=== PATIENT | female | born 1955 ===

== ENCOUNTER 2018-02-28 13:30 | Inpatient (IN) | payer OTHER ==
[2018-02-28 13:32] VITALS: BMI 17.4
[2018-02-28] MEDS ORDERED: Sodium Chloride 0.9% 1,000 ML IV STA ×2 (13:37→14:27)
[2018-02-28] MEDS ORDERED: Naloxone 0.4 mg/ml Inj (Adult) IVP STA (13:39)
--- NOTE | 2018-02-28 13:46 | ED PDOC ---
HPI: SOB/CHF/COPD Time Seen by Provider: 02/28/18 13:37 Chief Complaint (Nursing): Respiratory Distress Chief Complaint (Provider): Respiratory Distress History/Exam Limitations: physical impairment (unresponsive) Onset/Duration Of Symptoms: Hrs (prior to arrival) Additional Complaint(s): Yojana Peterson is a 62 y/o female with past medical history of cystic fibrosis who was brought to the ED by paramedics and was intubated in the field due to family finding her unresponsive. Patient was last seen normal last night. She has no history of trauma or ingestion; patient was in her normal state of health until last night. Past Medical History Reviewed: Historical Data, Nursing Documentation, Vital Signs Vital Signs: Last Vital Signs Temp Pulse 129 H 02/28/18 13:41 Resp 15 02/28/18 13:41 BP 124/87 02/28/18 13:41 Pulse Ox 100 02/28/18 14:31 - Medical History Other PMH: Cystic Fibrosis - Family History Family History: States: Unknown Family Hx - Allergies Allergies/Adverse Reactions: Allergies Allergy/AdvReac Type Severity Reaction Status Date / Time No Known Allergies Allergy Verified 02/28/18 13:36 Review of Systems Review Of Systems: ROS cannot be obtained secondary to pt's inabilty to answer questions. Physical Exam - Reviewed Nursing Documentation Reviewed: Yes Vital Signs Reviewed: Yes - Physical Exam Eye Exam: Positive for: PERRL (pupils 2mm equal bilaterally, slowly responsive) Cardiovascular/Chest: Positive for: Regular Rate, Rhythm. Negative for: Murmur Respiratory: Positive for: Rhonchi (bilaterally), Other (equal breath while intubated). Negative for: Wheezing Gastrointestinal/Abdominal: Positive for: Normal Exam, Soft. Negative for: Tenderness Back: Positive for: Normal Inspection. Negative for: L CVA Tenderness, R CVA Tenderness, Other (deformity) Extremity: Positive for: Other (no spontaneous movement of upper or lower extremities). Negative for: Tenderness, Pedal Edema, Deformity Neurologic/Psych: Negative for: Alert (unresponsive to painful or verbal stimuli ) - Laboratory Results Result Diagrams: 02/28/18 14:00 02/28/18 14:00 - ECG O2 Sat by Pulse Oximetry: 100 (RA) Pulse Ox Interpretation: Normal - Radiology X-Ray Interpretation: Infiltrates (Vanco Zosyn started) - Progress Re-evaluation Time: 14:28 Condition: Unchanged (Vent settings changed to reduce FiO2) - Critical Care Total Time (In Min): 30 Medical Decision Making Medical Decision Making: Time: 13:37 Initial Plan: --ABG --CT head without contrast --Alcohol serum --CMP --Drug screen --Troponin I --CBC with differential --Chest x-ray --Sodium Chloride 0.9% 1000 ml IV 1000 mls/hr --Narcan 0.4 mg IVP --Blood culture --Urine culture --Urinary catheter --Ventilator settings Scribe Attestation: Documented by Brett Black, acting as a scribe for Frederick Posey MD. Provider Scribe Attestation: All medical record entries made by the Scribe were at my direction and personally dictated by me. I have reviewed the chart and agree that the record accurately reflects my personal performance of the history, physical exam, medical decision making, and the department course for this patient. I have also personally directed, reviewed, and agree with the discharge instructions and disposition. Disposition - Clinical Impression Clinical Impression: Pneumonia, Hypoglycemia, Seizure disorder, Sepsis - Patient ED Disposition Is Patient to be Admitted: Yes Counseled Patient/Family Regarding: Studies Performed, Diagnosis - Disposition Disposition Time: 14:30 Condition: GUARDED Forms: GOOM ([place]) - Pt Status Changed To: Hospital Disposition Of: Inpatient - Admit Certification Admit to Inpatient:: After my assessment, the patient will require hospitalization for at least two midnights. This is because of the severity of symptoms shown, intensity of services needed, and/or the medical risk in this patient being treated as an outpatient. - POA Present On Arrival: None
[2018-02-28 14:02] LABS: ABG ALLEN TEST YES; ARTERIAL BLOOD GAS HCO3 35.1 mmol/L (21-28); ARTERIAL BLOOD GAS O2 SAT 100.4 % (95-98); ARTERIAL BLOOD GAS PCO2 58 mm/Hg (35-45); ARTERIAL BLOOD GAS PH 7.44 (7.35-7.45); ARTERIAL BLOOD GAS PO2 425 mm/Hg (80-100); ARTERIAL BLOOD GAS TCO2 41.2 mmol/L (22-28)
[2018-02-28 14:08] LABS: BASO % 0.1 % (0.0-2.0); EOS # 0.2 K/uL (0.0-0.7); EOS % 0.9 % (0.0-4.0); HEMOGLOBIN 11.9 g/dL (12.0-16.0); LYMPH # 2.4 K/uL (1.0-4.3); LYMPH % 10.1 % (20.0-40.0); MEAN CELL VOLUME 69.4 fl (81.0-99.0); MEAN CORPUSCULAR HEMOGLOBIN 21.4 pg (27.0-31.0); MEAN CORPUSCULAR HGB CONC 30.8 g/dL (33.0-37.0); MEAN PLATELET VOLUME 7.7 fl (7.2-11.7); MONO # 1.4 K/uL (0.0-0.8); MONO % 5.9 % (0.0-10.0); NEUT # 19.8 K/uL (1.8-7.0); RBC 5.55 Mil/uL (3.80-5.20); RED CELL DISTRIBUTION WIDTH 20.6 % (11.5-14.5); WHITE BLOOD COUNT 23.8 K/uL (4.8-10.8)
[2018-02-28 14:21] LABS: ALBUMIN 3.6 g/dL (3.5-5.0); ALT/SGPT 18 U/L (9-52); AST/SGOT 33 U/L (14-36); BLOOD UREA NITROGEN 17 mg/dl (7-17); CALCIUM 8.5 mg/dL (8.4-10.2); GFR AFRICAN-AMERICAN > 60; GFR NON-AFRICAN AMERICAN > 60
[2018-02-28] MEDS ORDERED: Piperacillin/Tazobact 3.375 GM in Sodium Chloride 0.9% 100 ML IVPB STA (14:24)
[2018-02-28] MEDS ORDERED: Naloxone 0.4 mg/ml Inj (Adult) ONE (14:26)
[2018-02-28] MEDS ORDERED: Piperacillin/Tazobact 3.375 gm Inj IVPB ONE (14:39)
--- NOTE | 2018-02-28 14:45 | RAD ---
Date of service: 02/28/2018 HISTORY: cough COMPARISON: 12/09/2011 FINDINGS: LUNGS: Diffuse bilateral alveolar opacity with liliya consolidation in the mid and lower right lung. Suspicious for bilateral pneumonia. PLEURA: There is slight blunting of both costophrenic angles which may reflect pleural effusion or chronic pleural thickening. CARDIOVASCULAR: Normal heart size. Endotracheal tube positioned with its tip approximately 4 cm above the tracheal mary. OSSEOUS STRUCTURES: No significant abnormalities. VISUALIZED UPPER ABDOMEN: Normal. OTHER FINDINGS: None. IMPRESSION: Bilateral infiltrates with liliya consolidation in the mid and lower right lung. Endotracheal tube appropriately positioned.
[2018-02-28] MEDS ORDERED: Albuterol-Ipratrop 3 mg / 0.5 (3 ml) UD ONE (14:48)
[2018-02-28] MEDS ORDERED: Propofol 10 mg/ml Inj (20 ML) IV ONE (14:55)
[2018-02-28] MEDS ORDERED: Propofol 10 mg/ml 1,000 MG/100 ML VIAL ONE (14:55)
[2018-02-28] MEDS ORDERED: Albuterol-Ipratrop 3 mg / 0.5 (3 ml) UD IH STA (14:56)
[2018-02-28 15:00] LABS: BARBITURATES, UR NEGATIVE (NEGATIVE); BENZODIAZEPINES, UR POSITIVE (NEGATIVE); OPIATES, UR NEGATIVE (NEGATIVE); PHENCYCLIDINE, UR NEGATIVE (NEGATIVE)
[2018-02-28] MEDS ORDERED: Propofol 10 mg/ml 1,000 MG/100 ML VIAL IV SCH (15:00)
--- NOTE | 2018-02-28 15:09 | CT ---
Date of service: 02/28/2018 PROCEDURE: CT HEAD WITHOUT CONTRAST. HISTORY: r/o bleed COMPARISON: None available. TECHNIQUE: Axial computed tomography images were obtained through the head/brain without intravenous contrast. Radiation dose: Total exam DLP = 1836.50 mGy-cm. This CT exam was performed using one or more of the following dose reduction techniques: Automated exposure control, adjustment of the mA and/or kV according to patient size, and/or use of iterative reconstruction technique. Please note that the examination is somewhat limited due to the use of helical technique, because of patient motion. FINDINGS: HEMORRHAGE: No intracranial hemorrhage. BRAIN: No mass effect or edema. No atrophy or chronic microvascular ischemic changes. VENTRICLES: Unremarkable. No hydrocephalus. CALVARIUM: Unremarkable. PARANASAL SINUSES: Minimal chronic left maxillary sinusitis. MASTOID AIR CELLS: Unremarkable as visualized. No inflammatory changes. OTHER FINDINGS: Gabriele tracheal tube noted IMPRESSION: No intracranial hemorrhage. Chronic left maxillary sinusitis. Gabriele tracheal tube noted. Limited examination as above.
--- NOTE | 2018-02-28 15:11 | CP.PCM.HP ---
History of Present Illness - History of Present Illness History of Present Illness: 62 year old female PMH cystic fibrosis?, idiopathic pulmonary fibrosis, HTN, IDDM, severe CHF/likely PAH?, chronic lower ext edema was found unresponsive at home by daughter who lives with her. Patient was last seen normal around 11 pm last night. Pt is currently intubated and sedated on propofol, history obtained by eldest and youngest daughters. Patient reportedly took her insulin and pills prior to bed, was found unresponsive, with secretions and foam around her mouth , and had urinated in the bed, EMS called. Patient BG 29, given 2 amps d50, now glucose 95. Normal renal function. Pt continued to be unresponsive, was intubated at the home and brought to ED. BP 124/87 HR 120-[address] head, no hemorrhage. WBC 23K, no bands reported yet, delayed normal renal fx CXR +consolidations/infiltrates RML/RLL, likely aspiration Pt to be admitted to ICU for Sepsis 2/2 likely aspiration pneumonia, hx cystic fibrosis. Vitals stable, judicious hydration. Will double cover for pseudomonas given sepsis and high risk of resistance given recurrent pulmonary infections for chronic IPF/CF. ROS: unable to be obtained at this time intubated sedated PMSH: cystic fibrosis?, idiopathic pulmonary fibrosis, HTN, IDDM, severe CHF/ likely PAH, lung bx FH: cancer SH: no ETOH, TOBACCO, IVDU NKDA Present on Admission - Present on Admission Any Indicators Present on Admission: No Past Patient History - Infectious Disease Hx of Infectious Diseases: None Meds Allergies/Adverse Reactions: Allergies Allergy/AdvReac Type Severity Reaction Status Date / Time No Known Allergies Allergy Verified 02/28/18 13:36 Physical Exam - Constitutional Additional comments: sedated. intubated. - Head Exam Head Exam: ATRAUMATIC, NORMOCEPHALIC - Eye Exam Eye Exam: EOMI, PERRL - ENT Exam ENT Exam: Mucous Membranes Moist Additional comments: intubated - Respiratory Exam Respiratory Exam: Decreased Breath Sounds, NORMAL BREATHING PATTERN. absent: Respiratory Distress - Cardiovascular Exam Cardiovascular Exam: RRR, +S1, +S2 - GI/Abdominal Exam GI & Abdominal Exam: Normal Bowel Sounds, Soft. absent: Organomegaly, Tenderness - Extremities Exam Extremities exam: Positive for: normal capillary refill, pedal pulses present - Back Exam Back exam: NORMAL INSPECTION. absent: rash noted - Neurological Exam Additional comments: sedated - Psychiatric Exam Additional comments: unable to assess at ths time - Skin Skin Exam: Dry, Warm Results - Vital Signs Recent Vital Signs: Last Vital Signs Temp Pulse 129 H 02/28/18 13:41 Resp 15 02/28/18 13:41 BP 124/87 02/28/18 13:41 Pulse Ox 100 02/28/18 14:42 - Labs Result Diagrams: 02/28/18 14:00 02/28/18 14:00 Labs: Laboratory Results - last 24 hr 02/28/18 02/28/18 02/28/18 13:38 14:00 14:00 WBC 23.8 H RBC 5.55 H Hgb 11.9 L Hct 38.5 MCV 69.4 L MCH 21.4 L MCHC 30.8 L RDW 20.6 H Plt Count 407 H MPV 7.7 Neut % (Auto) 83.0 H Lymph % (Auto) 10.1 L [place] % (Auto) 5.9 Eos % (Auto) 0.9 Baso % (Auto) 0.1 Neut # (Auto) 19.8 H Lymph # (Auto) 2.4 [place] # (Auto) 1.4 H Eos # (Auto) 0.2 Baso # (Auto) 0.0 pCO2 58 H pO2 425 H HCO3 35.1 H ABG pH 7.44 ABG Total CO2 41.2 H ABG O2 Saturation 100.4 H ABG Base Excess 13.0 H Jorge Test Yes ABG Potassium 4.1 A-a O2 Difference 216.0 Sodium 137.0 141 Chloride 103.0 97 L Glucose 103 Lactate 1.2 Vent Mode Prvc/ac Mechanical Rate 12 FiO2 100.0 Tidal Volume 400 Potassium 3.9 Carbon Dioxide 34 H Anion Gap 14 BUN 17 Creatinine 0.4 L Est GFR ( Amer) > 60 Est GFR (Non-Af Amer) > 60 Random Glucose 96 Calcium 8.5 Total Bilirubin 0.5 AST 33 ALT 18 Alkaline Phosphatase 77 Troponin I 0.0360 Total Protein 7.2 Albumin 3.6 Globulin 3.6 Albumin/Globulin Ratio 1.0 Arterial Blood Potassium 4.1 Urine Opiates Screen Urine Methadone Screen Ur Barbiturates Screen Ur Phencyclidine Scrn Ur Amphetamines Screen U Benzodiazepines Scrn U Oth Cocaine Metabols U Cannabinoids Screen Alcohol, Quantitative < 10 07/22/18 14:20 WBC RBC Hgb Hct MCV MCH MCHC RDW Plt Count MPV Neut % (Auto) Lymph % (Auto) [place] % (Auto) Eos % (Auto) Baso % (Auto) Neut # (Auto) Lymph # (Auto) [place] # (Auto) Eos # (Auto) Baso # (Auto) pCO2 pO2 HCO3 ABG pH ABG Total CO2 ABG O2 Saturation ABG Base Excess Jorge Test ABG Potassium A-a O2 Difference Sodium Chloride Glucose Lactate Vent Mode Mechanical Rate FiO2 Tidal Volume Potassium Carbon Dioxide Anion Gap BUN Creatinine Est GFR ( Amer) Est GFR (Non-Af Amer) Random Glucose Calcium Total Bilirubin AST ALT Alkaline Phosphatase Troponin I Total Protein Albumin Globulin Albumin/Globulin Ratio Arterial Blood Potassium Urine Opiates Screen Negative Urine Methadone Screen Negative Ur Barbiturates Screen Negative Ur Phencyclidine Scrn Negative Ur Amphetamines Screen Negative U Benzodiazepines Scrn Positive U Oth Cocaine Metabols Negative U Cannabinoids Screen Negative Alcohol, Quantitative Assessment & Plan - Assessment and Plan (Free Text) Plan: 62 year old female PMH cystic fibrosis?, idiopathic pulmonary fibrosis, HTN, IDDM, severe CHF/likely PAH?, chronic lower ext edema was found unresponsive at home by daughter who lives with her. Patient was last seen normal around 11 pm last night. Pt is currently intubated and sedated on propofol, history obtained by eldest and youngest daughters. Patient reportedly took her insulin and pills prior to bed, was found unresponsive, with secretions and foam around her mouth , and had urinated in the bed, EMS called. Patient BG 29, given 2 amps d50, now glucose 95. Normal renal function. Pt continued to be unresponsive, was intubated at the home and brought to ED. BP 124/87 HR 120-[address] head, no hemorrhage. WBC 23K, no bands reported yet, delayed normal renal fx CXR +consolidations/infiltrates RML/RLL, likely aspiration Pt to be admitted to ICU for Sepsis 2/2 likely aspiration pneumonia, hx cystic fibrosis. Vitals stable, judicious hydration. Will double cover for pseudomonas given sepsis and high risk of resistance given recurrent pulmonary infections for chronic IPF/CF. Acute Hypoxic Respiratory Failure with Hypoxic Metabolic Encephalopathy Suspected Aspiration Pneumonia Sepsis Seizure Hypoglycemia Hx CHF, likely PAH IDDM HTN Acute Hypoxic Respiratory Failure with Hypoxic Metabolic Encephalopathy Suspected Aspiration Pneumonia Idiopathic Pulmonary Fibrosis, Cystic Fibrosis? Sepsis Intubated 14/400/5/60% adjusted for repeat ABG in ED, ABG/CXR qAM Propofol for sedation Sedation holiday daily per ICU, protonix Given hx CF/IPF double cover pseudomonas for high risk resistance/recurrent pna Zosyn, Gent 5 mg/kg/day, Vancomycin 15 mg/kg EKG with QTc prolongation, avoid Fluoroquinolones Bronchodilators PRN Cont Nintendanib for IPF ECHO pending pt on chronic low dose steroids for IPF NPO, maintenance fluids D5 1/2NS + 20 KCl, gentle +angela, OGT Urine and Blood Cx pending Seizure Hypoglycemia Seizures likely secondary to hypoglycemia with possible hypoxic metabolic encephalopathy? consider status epilepticus, pt on Propofol (began to fight vent) as well as CVA. on Propofol discussed with Dr. Montgomery, wait to initiate antiepileptics, EEG and MRI brain ordered. Glucose controlled, pt on D5 1/2 NS + 20KCl for maintenance fluids, ACHS checks Hx CHF, likely PAH 2/2 IPF/CF? HTN, HLD Hx AFIB? Continue Sildenafil, Digoxin (low), Cardizem, on ASA 81 mg daily, Atorvastatin Careful hydration, note pt has chronic LE edema EKG: sinus tach rate 153, QTc 155 ECHO pending CTA neg for PE IDDM secondary to steroid use? Patient was found hypoglycemic. ACHS checks, will add sliding scale coverage only at this time hold long acting and oral agents at this time. normal renal function. DVT ppx Lovenox Home Meds Held: Nesina (DM), Pletal, Remeron, Lasix, Gabapentin, Metformin, Lantus
--- NOTE | 2018-02-28 15:19 | CP.PCM.CON ---
History of Present Illness - History of Present Illness History of Present Illness: 62 YOF found to be unresponsive by her daughter at home. Daughter was in the same house, pt also had urinary incontinence which she never had before. EMT were called and they intubated her and BS was in 20s, pt was given, D50, twice and in ER BS was in 90s. Pts ;and showed leukocytosis and CXR showed bilateral infiltrates . She has h/o pulm fibrosis and has been on steroids for 7 years and since then she has bee diabetic. No head trauma, CT head was also negative . Review of Systems - Review of Systems Systems not reviewed;Unavailable: Intubated - Constitutional Constitutional: Fatigue - EENT Eyes: Decreased Night Vision - Cardiovascular Cardiovascular: As Per HPI - Respiratory Respiratory: Dyspnea - Gastrointestinal Gastrointestinal: As Per HPI Past Patient History - Infectious Disease Hx of Infectious Diseases: None - Past Medical History & Family History Past Medical History?: Yes - Past Social History Smoking Status: Never Smoked Chewing Tobacco Use: No Alcohol: Social Home Situation {Lives}: With Family - CARDIAC Hx Cardiac Disorders: Yes Hx Hypertension: Yes Meds Allergies/Adverse Reactions: Allergies Allergy/AdvReac Type Severity Reaction Status Date / Time No Known Allergies Allergy Verified 02/28/18 13:36 - Medications Medications: Current Medications Sodium Chloride (Sodium Chloride 0.9%) 1,000 mls @ 100 mls/hr IV .Q10H STA Stop: 02/28/18 23:36 Vancomycin HCl 1 gm/ Sodium (Chloride) 250 mls @ 166.667 mls/hr IVPB STAT STA PRN Reason: Protocol Stop: 02/28/18 15:52 Piperacillin Sod/Tazobactam (Sod 3.375 gm/ Sodium Chloride) 100 mls @ 100 mls/ hr IVPB STAT STA PRN Reason: Protocol Stop: 02/28/18 15:23 Sodium Chloride (Sodium Chloride 0.9%) 1,000 mls @ 250 mls/hr IV .Q4H STA Stop: 02/28/18 18:26 Last Admin: 02/28/18 15:01 Dose: 250 mls/hr Propofol (Diprivan) 1,000 mg in 100 mls @ 1.17 mls/hr IV .Q24H JANIE; 5 MCG/KG/ MIN PRN Reason: Protocol Stop: 03/01/18 14:56 Physical Exam - Head Exam Head Exam: ATRAUMATIC - Eye Exam Eye Exam: Normal appearance - Neck Exam Neck exam: Positive for: Full Rom - Respiratory Exam Respiratory Exam: Wheezes - Cardiovascular Exam Cardiovascular Exam: Tachycardia - GI/Abdominal Exam GI & Abdominal Exam: Soft Results - Vital Signs Recent Vital Signs: Last Vital Signs Temp Pulse 129 H 02/28/18 13:41 Resp 15 02/28/18 13:41 BP 124/87 02/28/18 13:41 Pulse Ox 100 02/28/18 14:42 - Labs Result Diagrams: 02/28/18 14:00 02/28/18 14:00 Labs: Laboratory Results - last 24 hr 02/28/18 02/28/18 02/28/18 13:38 14:00 14:00 WBC 23.8 H RBC 5.55 H Hgb 11.9 L Hct 38.5 MCV 69.4 L MCH 21.4 L MCHC 30.8 L RDW 20.6 H Plt Count 407 H MPV 7.7 Neut % (Auto) 83.0 H Lymph % (Auto) 10.1 L [place] % (Auto) 5.9 Eos % (Auto) 0.9 Baso % (Auto) 0.1 Neut # (Auto) 19.8 H Lymph # (Auto) 2.4 [place] # (Auto) 1.4 H Eos # (Auto) 0.2 Baso # (Auto) 0.0 pCO2 58 H pO2 425 H HCO3 35.1 H ABG pH 7.44 ABG Total CO2 41.2 H ABG O2 Saturation 100.4 H ABG Base Excess 13.0 H Jorge Test Yes ABG Potassium 4.1 A-a O2 Difference 216.0 Sodium 137.0 141 Chloride 103.0 97 L Glucose 103 Lactate 1.2 Vent Mode Prvc/ac Mechanical Rate 12 FiO2 100.0 Tidal Volume 400 Potassium 3.9 Carbon Dioxide 34 H Anion Gap 14 BUN 17 Creatinine 0.4 L Est GFR ( Amer) > 60 Est GFR (Non-Af Amer) > 60 Random Glucose 96 Calcium 8.5 Total Bilirubin 0.5 AST 33 ALT 18 Alkaline Phosphatase 77 Troponin I 0.0360 Total Protein 7.2 Albumin 3.6 Globulin 3.6 Albumin/Globulin Ratio 1.0 Arterial Blood Potassium 4.1 Urine Opiates Screen Urine Methadone Screen Ur Barbiturates Screen Ur Phencyclidine Scrn Ur Amphetamines Screen U Benzodiazepines Scrn U Oth Cocaine Metabols U Cannabinoids Screen Alcohol, Quantitative < 10 02/28/18 14:20 WBC RBC Hgb Hct MCV MCH MCHC RDW Plt Count MPV Neut % (Auto) Lymph % (Auto) [place] % (Auto) Eos % (Auto) Baso % (Auto) Neut # (Auto) Lymph # (Auto) [place] # (Auto) Eos # (Auto) Baso # (Auto) pCO2 pO2 HCO3 ABG pH ABG Total CO2 ABG O2 Saturation ABG Base Excess Jorge Test ABG Potassium A-a O2 Difference Sodium Chloride Glucose Lactate Vent Mode Mechanical Rate FiO2 Tidal Volume Potassium Carbon Dioxide Anion Gap BUN Creatinine Est GFR ( Amer) Est GFR (Non-Af Amer) Random Glucose Calcium Total Bilirubin AST ALT Alkaline Phosphatase Troponin I Total Protein Albumin Globulin Albumin/Globulin Ratio Arterial Blood Potassium Urine Opiates Screen Negative Urine Methadone Screen Negative Ur Barbiturates Screen Negative Ur Phencyclidine Scrn Negative Ur Amphetamines Screen Negative U Benzodiazepines Scrn Positive U Oth Cocaine Metabols Negative U Cannabinoids Screen Negative Alcohol, Quantitative Assessment & Plan - Assessment and Plan (Free Text) Assessment: Respiratory failure: Aspiration PNA PNA On Vanco and zosyn Hyoglycemia h/o DM PNA Pulmonary fibrosis DM Plan: Intubated Will check ABG and will adjust the vent setting On Vancomycin and Zosyn IVf: RL at 75 cc/h DVT prophylaxis : lovenox Blood culture and urine culture Admit to ICU, pt was seen in ER.
[2018-02-28] MEDS ORDERED: Vancomycin 1 g Inj ONE (16:18)
[2018-02-28] MEDS ORDERED: Albuterol-Ipratrop 3 mg / 0.5 (3 ml) UD INH PRN (16:19)
[2018-02-28] MEDS ORDERED: Potassium Ch 20mEq in D5-1/2NS 1,000 ML IV SCH (16:30)
[2018-02-28] MEDS ORDERED: Iodixanol 320 MG/ML 100 ML BOTTLE IV ONE (16:33)
[2018-02-28] MEDS ORDERED: Sodium Chloride 0.9% 50 ML IV ONE (16:33)
[2018-02-28] MEDS ORDERED: Digoxin 250 mcg (0.25 mg) Tab PO SCH ×2 (16:45→21:10)
[2018-02-28] MEDS ORDERED: Dextrose 50% SYRINGE Inj (50 ml) ONE ×2 (17:10→21:45)
--- NOTE | 2018-02-28 17:33 | CT ---
Date of service: 02/28/2018 PROCEDURE: CT Chest with contrast (Pulmonary Angiogram) HISTORY: tachycardia hypoxia COMPARISON: 12/15/2011 TECHNIQUE: Axial computed tomography images were obtained of the chest in the pulmonary arterial phase of enhancement. Coronal and sagittal reformatted images were created and reviewed. Intravenous contrast dose: 90 mL Visipaque 320 Radiation dose: Total exam DLP = 242.75 mGy-cm. This CT exam was performed using one or more of the following dose reduction techniques: Automated exposure control, adjustment of the mA and/or kV according to patient size, and/or use of iterative reconstruction technique. FINDINGS: PULMONARY ARTERIES: Unremarkable. No pulmonary embolism. AORTA: No acute findings. No thoracic aortic aneurysm. LUNGS: Coarse chronic interstitial change with associated alveolar opacity is noted at both lung bases with associated varicoid bronchiectasis involving the lower lobes, lingula and right middle lobe. This has progressed substantially when compared to the prior examination. This is nonspecific. This may reflect chronic interstitial disease. Cannot rule out superimposed acute pneumonitis. There is interlobular septal thickening noted in both lung apices. There is a 1.5 cm partially solid ground-glass opacity in the right apex. There is 2nd 1.8 cm opacity with central cavitation also in the right apex. Follow-up is advised to exclude neoplasm. No other lung masses are identified. PLEURAL SPACES: Very small right pleural effusion. HEART: Normal heart size. Endotracheal tube terminates approximately 2.8 cm above the tracheal mary. There is no evidence of ascending thoracic aortic aneurysm. There is dilatation of the main pulmonary artery to a diameter of 3.4 cm. This may correlate with pulmonary arterial hypertension. LYMPH NODES: No lymphadenopathy. BONES, CHEST WALL: Mild anterior wedge compression deformity of the T11 vertebra of indeterminate chronicity, though this is new since prior examination of 29/07. No other fracture identified. OTHER FINDINGS: Unremarkable. IMPRESSION: No evidence of pulmonary embolism. Extensive coarse chronic interstitial infiltrate with associated varicoid bronchiectasis in both lower lobes. Possible superimposed alveolar process. Consider acute pneumonia. Partially solid ground-glass opacity in right lung apex and 2nd cavitating opacity in the right lung apex. Nonspecific. No other cavitating lesions are appreciated elsewhere. Endotracheal tube noted.
[2018-02-28] MEDS ORDERED: Propofol 10 mg/ml 0 MG/0 ML VIAL ONE (18:36)
[2018-02-28] MEDS ORDERED: Chlorhexidine Gluconate 1 APPL/PKT TP ONE (18:41)
[2018-02-28 20:00] LABS: VENOUS BLOOD GAS BASE EXCESS 11.2 mmol/L (0.0-2.0); VENOUS BLOOD GAS PCO2 49 mmHg (40-60); VENOUS BLOOD GAS PO2 103 mm/Hg (30-55); VENOUS BLOOD PH 7.48 (7.32-7.43)
[2018-02-28] MEDS ORDERED: Dextrose 50% SYRINGE Inj (50 ml) IVP ONE (21:50)
[2018-02-28] MEDS ORDERED: Magnesium Sulfate 1 GM in Dextrose 5% In Water 100 ML IVPB ONE (22:03)
[2018-02-28] MEDS ORDERED: Potassium Chloride 20 mEq 100 ML IVPB ONE (22:04)
[2018-02-28] MEDS ORDERED: Lactated Ringer's 500 ML IV SCH (22:15)
[2018-02-28] MEDS: Insulin Lispro (humaLOG) 100 Units/ml Inj SC SCH (22:41)
[2018-02-28] MEDS: Potassium Ch 20mEq in D5-1/2NS 1,000 ML IV SCH (22:58)
[2018-02-28] MEDS: Digoxin 250 mcg (0.25 mg) Tab PO SCH (23:11)
[2018-02-28] MEDS: Sildenafil 20 MG TAB PO SCH (23:25)
[2018-02-28] MEDS ORDERED: DOPamine 400mg/250ml D5W 400 MG/250 ML BAG IV ONE (23:50)
[2018-03-01] MEDS ORDERED: Dextrose 50% SYRINGE Inj (50 ml) IVP ONE ×5 (00:06→18:22)
[2018-03-01] MEDS: Potassium Ch 20mEq in D5-1/2NS 1,000 ML IV SCH ×3 (00:18→12:27)
[2018-03-01 05:01] LABS: ABG ALLEN TEST YES; ARTERIAL BLOOD GAS HCO3 33.3 mmol/L (21-28); ARTERIAL BLOOD GAS HEMOGLOBIN 10.4 g/dL (11.7-17.4); ARTERIAL BLOOD GAS O2 CAPACITY 14.2 mL/dL (16-24); ARTERIAL BLOOD GAS O2 CONTENT 14.2 ML/dL (15-23); ARTERIAL BLOOD GAS O2 SAT 99.7 % (95-98); ARTERIAL BLOOD GAS PCO2 57 mm/Hg (35-45); ARTERIAL BLOOD GAS PH 7.42 (7.35-7.45); ARTERIAL BLOOD GAS PO2 117 mm/Hg (80-100); ARTERIAL BLOOD GAS TCO2 38.7 mmol/L (22-28)
[2018-03-01 05:41] LABS: BASO # 0.1 K/uL (0.0-0.2); BASO % 0.3 % (0.0-2.0); EOS # 0.2 K/uL (0.0-0.7); EOS % 0.9 % (0.0-4.0); HEMOGLOBIN 10.5 g/dL (12.0-16.0); LYMPH % 18.7 % (20.0-40.0); MEAN CELL VOLUME 69.6 fl (81.0-99.0); MEAN CORPUSCULAR HEMOGLOBIN 21.6 pg (27.0-31.0); MEAN PLATELET VOLUME 7.9 fl (7.2-11.7); MONO # 1.4 K/uL (0.0-0.8); MONO % 6.6 % (0.0-10.0); NEUT # 15.6 K/uL (1.8-7.0); NEUT % 73.5 % (50.0-75.0); NRBC % 0.1 % (0.0-0.0); RBC 4.87 Mil/uL (3.80-5.20); RED CELL DISTRIBUTION WIDTH 20.5 % (11.5-14.5); WHITE BLOOD COUNT 21.2 K/uL (4.8-10.8)
[2018-03-01 06:09] LABS: ALBUMIN 3.1 g/dL (3.5-5.0); ALT/SGPT 18 U/L (9-52); AST/SGOT 40 U/L (14-36); BLOOD UREA NITROGEN 11 mg/dl (7-17); CALCIUM 7.9 mg/dL (8.4-10.2); GFR AFRICAN-AMERICAN > 60; GFR NON-AFRICAN AMERICAN > 60
[2018-03-01] MEDS ORDERED: Dextrose 50% SYRINGE Inj (50 ml) ONE ×2 (06:20→12:03)
[2018-03-01] MEDS: Insulin Lispro (humaLOG) 100 Units/ml Inj SC SCH ×3 (06:53→22:00)
--- NOTE | 2018-03-01 07:49 | RAD ---
Date of service: 03/01/2018 HISTORY: intubated COMPARISON: Portable chest 02/28/2018. FINDINGS: LUNGS: Endotracheal tube is unchanged in position, terminating approximately 4 cm above the mary. Heterogeneous infiltrates are unchanged bilaterally persisting at the mid to inferior right lung zones and predominately the left inferior lung zone. PLEURA: Liver right pleural effusions not excluded. None is clearly evident at the left. CARDIOVASCULAR: Stable cardiac silhouette. No definite pulmonary vascular congestion. OSSEOUS STRUCTURES: No significant abnormalities. VISUALIZED UPPER ABDOMEN: Nasogastric tube terminates in the left upper quadrant abdomen in the interval. OTHER FINDINGS: None. IMPRESSION: Stable heterogeneous infiltrates remain prominent at the right and [id number] the left. Trace right pleural effusion in question. Interval NG tube placement in advanced to left upper quadrant abdomen.
[2018-03-01] MEDS: Sildenafil 20 MG TAB PO SCH ×3 (08:40→23:50)
[2018-03-01] MEDS: Digoxin 250 mcg (0.25 mg) Tab PO SCH (08:40)
[2018-03-01] MEDS: Enoxaparin 40 mg Syringe SC SCH (08:43)
[2018-03-01] MEDS ORDERED: Pneumococcal 23-Valent Vaccine IM ONE (09:00)
[2018-03-01] MEDS ORDERED: methylPREDNISolone 60 MG in Sodium Chloride 0.9% 50 ML IVPB SCH (10:00)
--- NOTE | 2018-03-01 14:18 | CP.PCM.PN ---
Subjective - Date & Time of Evaluation Date of Evaluation: 03/01/18 Time of Evaluation: 12:00 - Subjective Subjective: Pt is intubated on Vent afebrile still with hypoglycemic episodes unresponsive even to pain accdg to daughter at bedside , -noticed occ extremitiy movement Pt is Full Code , surrogate decision maker - daughter Gaston Objective - Vital Signs/Intake and Output Vital Signs (last 24 hours): Temp Pulse Resp BP Pulse Ox 98.4 F 118 H 18 84/59 L 100 03/01/18 12:00 03/01/18 12:25 03/01/18 12:00 03/01/18 12:25 03/01/18 12:00 Intake and Output: 03/01/18 03/01/18 06:59 18:59 Intake Total 50 Balance 50 - Medications Medications: Current Medications Acetaminophen (Tylenol 325mg Tab) 650 mg PO Q6H PRN PRN Reason: Fever >100.4 F Albuterol/Ipratropium (Duoneb 3 Mg/0.5 Mg (3 Ml) Ud) 3 ml INH RQ4 PRN PRN Reason: Shortness of Breath Last Admin: 03/01/18 04:53 Dose: 3 ml Aspirin (Aspirin Chewable) 81 mg PO DAILY [facility] Last Admin: 03/01/18 08:41 Dose: 81 mg Atorvastatin Calcium (Lipitor) 10 mg PO DAILY [facility] Last Admin: 03/01/18 08:41 Dose: 10 mg Digoxin (Lanoxin) 0.25 mg PO DAILY [facility] Last Admin: 03/01/18 08:40 Dose: 0.25 mg Diltiazem HCl (Cardizem) 60 mg PO Q6 JANIE Last Admin: 03/01/18 12:25 Dose: Not Given Enoxaparin Sodium (Lovenox) 40 mg SC DAILY [facility] PRN Reason: Protocol Last Admin: 03/01/18 08:43 Dose: 40 mg Ferrous Sulfate (Feosol) 325 mg PO DAILY [facility] Last Admin: 03/01/18 08:40 Dose: 325 mg Home Med (Nintedanib Esylate [Ofev]) 150 mg PO DAILY [facility] Propofol (Diprivan) 1,000 mg in 100 mls @ 1.17 mls/hr IV .Q24H JANIE; 5 MCG/KG/ MIN PRN Reason: Protocol Stop: 03/01/18 14:56 Last Admin: 02/28/18 15:00 Dose: 1.17 mls/hr Gentamicin Sulfate 200 mg/ (Sodium Chloride) 105 mls @ 100.106 mls/hr IVPB DAILY JANIE PRN Reason: Protocol Last Admin: 02/28/18 22:58 Dose: 100.106 mls/hr Potassium Chloride/Dextrose/Sod Cl (Potassium Chl 20 Meq In D5-1/2ns) 1,000 mls @ 75 mls/hr IV .[id number] [facility] Stop: 03/01/18 16:20 Last Admin: 03/01/18 09:27 Dose: 75 mls/hr Lactated Ringer's (Lactated Ringer's 500ml) 500 mls @ 500 mls/hr IV .Q1H [facility] Last Admin: 03/01/18 06:30 Dose: 500 mls/hr Potassium Chloride/Dextrose/Sod Cl (Potassium Chl 20 Meq In D5-1/2ns) 1,000 mls @ 125 mls/hr IV .Q8H [facility] Stop: 03/02/18 00:07 Last Admin: 03/01/18 12:27 Dose: Not Given Vancomycin HCl 500 mg/ Sodium (Chloride) 100 mls @ 100 mls/hr IVPB Q12 JANIE PRN Reason: Protocol Last Admin: 03/01/18 13:07 Dose: 100 mls/hr Clindamycin Phosphate (Cleocin) 600 mg in 50 mls @ 50 mls/hr IVPB Q8 JANIE PRN Reason: Protocol Insulin Human Lispro (Humalog) 0 units SC ACHS JANIE PRN Reason: Protocol Last Admin: 03/01/18 12:26 Dose: Not Given Methylprednisolone (Solu-Medrol) 60 mg IV Q6 [facility] Last Admin: 03/01/18 09:28 Dose: 60 mg Pantoprazole Sodium (Protonix Inj) 40 mg IVP DAILY [facility] Last Admin: 03/01/18 08:38 Dose: 40 mg Sildenafil Citrate (Revatio) 20 mg PO TID [facility] Last Admin: 03/01/18 13:09 Dose: 20 mg - Labs Labs: 03/01/18 05:26 03/01/18 05:26 - Constitutional Appears: No Acute Distress, Chronically Ill, Other (Intubated on Vent, unresponsive) - Head Exam Head Exam: NORMAL INSPECTION, NORMOCEPHALIC - Eye Exam Eye Exam: Normal appearance, PERRL - ENT Exam ENT Exam: Mucous Membranes Dry, Normal External Ear Exam - Respiratory Exam Respiratory Exam: Rales, Rhonchi, NORMAL BREATHING PATTERN Additional comments: Intubated on Mech Vent - Cardiovascular Exam Cardiovascular Exam: REGULAR RHYTHM, +S1, +S2 - GI/Abdominal Exam GI & Abdominal Exam: Soft, Normal Bowel Sounds - Psychiatric Exam Additional comments: unresponsive to pain - Skin Skin Exam: Dry, Normal Color Assessment and Plan - Assessment and Plan (Free Text) Assessment: 62 year old female PMH cystic fibrosis?, idiopathic pulmonary fibrosis, HTN, IDDM, severe CHF/likely PAH?, chronic lower ext edema was found unresponsive at home by daughter who lives with her. Patient was last seen normal around 11 pm the night before admission. Pt is currently intubated - history obtained from eldest and youngest daughters. Patient reportedly took her insulin and pills prior to bed, was found unresponsive, with secretions and foam around her mouth, and had urinated in the bed, EMS called. Patient BG 29, given 2 amps d50. Normal renal function. Pt continued to be unresponsive, was intubated at the home and brought to ED. CT head: no hemorrhage. WBC 23K normal renal fx CXR +consolidations/infiltrates RML/RLL, likely aspiration 1. Acute Hypoxic Respiratory Failure , Intubated on Vent - Pt remains intubated , [facility] -does not respond to pain however pupils reactive to light - Pulmonary consult - Dr Ledesma 2. Metabolic Encephalopathy due to prolonged Hypoglycemia monitor glucose closely D50 prn IVF start Tube feeding 3. Sepsis ( POA) Suspected Aspiration Pneumonia - cont IV Zosyn, genta, Vanco -Pulm consult 4. Idiopathic Pulmonary Fibrosis, Cystic Fibrosis Cont Nintendanib for IPF ECHO pending pt on chronic low dose steroids for IPF Continue Sildenafil, Digoxin (low), Cardizem, on ASA 81 mg daily, Atorvastatin Careful hydration, note pt has chronic LE edema EKG: sinus tach rate 153, QTc 155 CTA neg for PE 5. Seizure likely sec to Hypoglycemia Neurology consult: Dr. Montgmoery, wait to initiate antiepileptics, EEG and MRI brain ordered. 6. DM type II - hold all DM meds DVT ppx Lovenox
[2018-03-01] MEDS: Clindamycin 600mg/50ml D5W 600 MG/50 ML VIAL IVPB SCH ×2 (14:57→18:26)
--- NOTE | 2018-03-01 15:52 | CP.PCM.CON ---
History of Present Illness - History of Present Illness History of Present Illness: Pulmonary consult in ICU unit for a 62 y/o F, Hx of Pulmonary Fibrosis on Steroids for 7 yrs, Cystic Fibrosis, CHF, DMII, Seizure, [facility] for evaluation of respiratory distress while at home hrs [employer], found by daughter, associated to unresponsivenesses, with urinary incontinence and no improvement. Worsening symptoms: Also found by Paramedics with BS in the 20's, Pt was given D50 2 amps, Ketamine 75 mg, EET was placed prior to arrival to hospital, as per EMS, Pt was unresponsive with agonal breathing. No aggravated factor. As per daughter; Last time in her normal base line was night [employer], Pt had No Fever, chills, n/v/d, abdominal pain, CP, but with new onset of urinary incontinence on DOA, no sick contact, no recent travel out of [facility]. CT Chest: Extensive chronic interstitial infiltrate with varicoid bronchiectasis b/l lower lobes, consider acute PNA. Partially solid ground glass opacity R lung apex and 2nd cavitating opacity R upper lung apex. Review of Systems - Review of Systems Systems not reviewed;Unavailable: Acuity of Condition, Intubated Past Patient History - Infectious Disease Hx of Infectious Diseases: None - Past Medical History & Family History Past Medical History?: Yes Pertinent Family History: Unknown - Past Social History Smoking Status: Never Smoked Alcohol: None Drugs: Denies Home Situation {Lives}: With Family - CARDIAC Hx Cardiac Disorders: Yes (CAD) Hx Hypercholesterolemia: Yes Hx Hypertension: Yes - PULMONARY Hx Respiratory Disorders: Yes Hx Pneumonia: Yes Other/Comment: Pulmonary fibrosis - NEUROLOGICAL Hx Neurological Disorder: Yes Hx Seizures: Yes (per patients daughter, pt says "she's been having seizures") - HEENT Hx HEENT Problems: No - RENAL Hx Chronic Kidney Disease: No - ENDOCRINE/METABOLIC Hx Endocrine Disorders: Yes Hx Diabetes Mellitus Type 2: Yes - HEMATOLOGICAL/ONCOLOGICAL Hx Blood Disorders: Yes Hx Anemia: Yes - INTEGUMENTARY Hx Dermatological Problems: No - MUSCULOSKELETAL/RHEUMATOLOGICAL Hx Musculoskeletal Disorders: Yes Hx Falls: Yes - GASTROINTESTINAL Hx Gastrointestinal Disorders: Yes Hx Gastroesophageal Reflux: Yes - GENITOURINARY/GYNECOLOGICAL Hx Genitourinary Disorders: No - PSYCHIATRIC Hx Psychophysiologic Disorder: Yes Hx Anxiety: Yes Hx Depression: Yes Hx Substance Use: No - SURGICAL HISTORY Hx Surgeries: Yes Hx Section: Yes (x3) Hx Tonsillectomy: Yes - ANESTHESIA Hx Anesthesia: Yes Hx Anesthesia Reactions: No Hx Malignant Hyperthermia: No Meds Allergies/Adverse Reactions: Allergies Allergy/AdvReac Type Severity Reaction Status Date / Time No Known Allergies Allergy Verified 02/28/18 13:36 - Medications Medications: Current Medications Acetaminophen (Tylenol 325mg Tab) 650 mg PO Q6H PRN PRN Reason: Fever >100.4 F Albuterol/Ipratropium (Duoneb 3 Mg/0.5 Mg (3 Ml) Ud) 3 ml INH RQ4 PRN PRN Reason: Shortness of Breath Last Admin: 03/01/18 04:53 Dose: 3 ml Aspirin (Aspirin Chewable) 81 mg PO DAILY [facility] Last Admin: 03/01/18 08:41 Dose: 81 mg Atorvastatin Calcium (Lipitor) 10 mg PO DAILY [facility] Last Admin: 03/01/18 08:41 Dose: 10 mg Digoxin (Lanoxin) 0.25 mg PO DAILY [facility] Last Admin: 03/01/18 08:40 Dose: 0.25 mg Diltiazem HCl (Cardizem) 60 mg PO Q6 [facility] Last Admin: 03/01/18 12:25 Dose: Not Given Enoxaparin Sodium (Lovenox) 40 mg SC DAILY [facility] PRN Reason: Protocol Last Admin: 03/01/18 08:43 Dose: 40 mg Ferrous Sulfate (Feosol) 325 mg PO DAILY [facility] Last Admin: 03/01/18 08:40 Dose: 325 mg Home Med (Nintedanib Esylate [Ofev]) 150 mg PO DAILY [facility] Gentamicin Sulfate 200 mg/ (Sodium Chloride) 105 mls @ 100.106 mls/hr IVPB DAILY [facility] PRN Reason: Protocol Last Admin: 03/01/18 14:54 Dose: 100.106 mls/hr Potassium Chloride/Dextrose/Sod Cl (Potassium Chl 20 Meq In D5-1/2ns) 1,000 mls @ 75 mls/hr IV .[id number] [facility] Stop: 03/01/18 16:20 Last Admin: 03/01/18 09:27 Dose: 75 mls/hr Lactated Ringer's (Lactated Ringer's 500ml) 500 mls @ 500 mls/hr IV .Q1H [facility] Last Admin: 03/01/18 06:30 Dose: 500 mls/hr Potassium Chloride/Dextrose/Sod Cl (Potassium Chl 20 Meq In D5-1/2ns) 1,000 mls @ 125 mls/hr IV .Q8H [facility] Stop: 03/02/18 00:07 Last Admin: 03/01/18 12:27 Dose: Not Given Vancomycin HCl 500 mg/ Sodium (Chloride) 100 mls @ 100 mls/hr IVPB Q12 [facility]ANIE PRN Reason: Protocol Last Admin: 03/01/18 13:07 Dose: 100 mls/hr Clindamycin Phosphate (Cleocin) 600 mg in 50 mls @ 50 mls/hr IVPB Q8 JANIE PRN Reason: Protocol Last Admin: 03/01/18 14:57 Dose: 50 mls/hr Insulin Human Lispro (Humalog) 0 units SC ACHS JANIE PRN Reason: Protocol Last Admin: 03/01/18 12:26 Dose: Not Given Methylprednisolone (Solu-Medrol) 60 mg IV Q6 [facility] Last Admin: 03/01/18 09:28 Dose: 60 mg Pantoprazole Sodium (Protonix Inj) 40 mg IVP DAILY [facility] Last Admin: 03/01/18 08:38 Dose: 40 mg Sildenafil Citrate (Revatio) 20 mg PO TID [facility] Last Admin: 03/01/18 13:09 Dose: 20 mg Physical Exam - Constitutional Appears: Chronically Ill - Head Exam Head Exam: NORMAL INSPECTION - Eye Exam Additional comments: Pupils sluggish to light, - ENT Exam Additional comments: Intubated - Neck Exam Neck exam: Positive for: Normal Inspection - Respiratory Exam Respiratory Exam: Decreased Breath Sounds (at bases b/l), Rales, Rhonchi - Cardiovascular Exam Cardiovascular Exam: REGULAR RHYTHM - GI/Abdominal Exam GI & Abdominal Exam: Normal Bowel Sounds, Soft - Extremities Exam Additional comments: Edema all extremities. - Neurological Exam Additional comments: Intubated, unresponsive, extremities with no movements, arousable to deep pain. - Skin Skin Exam: Warm Results - Vital Signs Recent Vital Signs: Last Vital Signs Temp 98.4 F 03/01/18 12:00 Pulse 114 H 03/01/18 14:00 Resp 19 03/01/18 14:00 BP 113/72 03/01/18 14:00 Pulse Ox 100 03/01/18 14:00 reviewed J.P. - Labs Result Diagrams: 03/03/18 04:29 03/03/18 04:29 Labs: Laboratory Results - last 24 hr 02/28/18 02/28/18 02/28/18 13:41 17:35 18:38 WBC RBC Hgb Hct MCV MCH MCHC RDW Plt Count MPV Neut % (Auto) Lymph % (Auto) Alcorn % (Auto) Eos % (Auto) Baso % (Auto) Neut # (Auto) Lymph # (Auto) Alcorn # (Auto) Eos # (Auto) Baso # (Auto) pCO2 pO2 HCO3 ABG pH ABG Total CO2 ABG O2 Saturation ABG O2 Content ABG Base Excess ABG Hemoglobin ABG Carboxyhemoglobin POC ABG HHb (Measured) ABG Methemoglobin ABG O2 Capacity Jorge Test VBG pH VBG pCO2 VBG HCO3 VBG Total CO2 VBG O2 Sat (Calc) VBG Base Excess VBG Potassium A-a O2 Difference Hgb O2 Saturation Sodium Chloride Glucose Lactate Vent Mode Mechanical Rate FiO2 Tidal Volume PEEP Potassium Carbon Dioxide Anion Gap BUN Creatinine Est GFR ( Amer) Est GFR (Non-Af Amer) POC Glucose (mg/dL) 77 145 H Random Glucose Calcium Phosphorus 3.7 Magnesium 2.0 Total Bilirubin AST ALT Alkaline Phosphatase Total Protein Albumin Globulin Albumin/Globulin Ratio Venous Blood Potassium 02/28/18 02/28/18 02/28/18 18:50 19:52 21:42 WBC RBC Hgb Hct MCV MCH MCHC RDW Plt Count MPV Neut % (Auto) Lymph % (Auto) Alcorn % (Auto) Eos % (Auto) Baso % (Auto) Neut # (Auto) Lymph # (Auto) Alcorn # (Auto) Eos # (Auto) Baso # (Auto) pCO2 pO2 103 H HCO3 ABG pH ABG Total CO2 ABG O2 Saturation ABG O2 Content ABG Base Excess ABG Hemoglobin ABG Carboxyhemoglobin POC ABG HHb (Measured) ABG Methemoglobin ABG O2 Capacity Jorge Test VBG pH 7.48 H VBG pCO2 49 VBG HCO3 33.7 VBG Total CO2 38.0 H VBG O2 Sat (Calc) 99.6 H VBG Base Excess 11.2 H VBG Potassium 3.4 L A-a O2 Difference Hgb O2 Saturation Sodium 137.0 Chloride 104.0 Glucose 65 Lactate 0.7 Vent Mode Mechanical Rate FiO2 60.0 Tidal Volume PEEP 5 Potassium Carbon Dioxide Anion Gap BUN Creatinine Est GFR ( Amer) Est GFR (Non-Af Amer) POC Glucose (mg/dL) 92 < 20 L* Random Glucose Calcium Phosphorus Magnesium Total Bilirubin AST ALT Alkaline Phosphatase Total Protein Albumin Globulin Albumin/Globulin Ratio Venous Blood Potassium 3.4 L 02/28/18 03/01/18 03/01/18 22:21 00:04 01:43 WBC RBC Hgb Hct MCV MCH MCHC RDW Plt Count MPV Neut % (Auto) Lymph % (Auto) Alcorn % (Auto) Eos % (Auto) Baso % (Auto) Neut # (Auto) Lymph # (Auto) Alcorn # (Auto) Eos # (Auto) Baso # (Auto) pCO2 pO2 HCO3 ABG pH ABG Total CO2 ABG O2 Saturation ABG O2 Content ABG Base Excess ABG Hemoglobin ABG Carboxyhemoglobin POC ABG HHb (Measured) ABG Methemoglobin ABG O2 Capacity Jorge Test VBG pH VBG pCO2 VBG HCO3 VBG Total CO2 VBG O2 Sat (Calc) VBG Base Excess VBG Potassium A-a O2 Difference Hgb O2 Saturation Sodium Chloride Glucose Lactate Vent Mode Mechanical Rate FiO2 Tidal Volume PEEP Potassium Carbon Dioxide Anion Gap BUN Creatinine Est GFR ( Amer) Est GFR (Non-Af Amer) POC Glucose (mg/dL) 129 H 35 L* 72 Random Glucose Calcium Phosphorus Magnesium Total Bilirubin AST ALT Alkaline Phosphatase Total Protein Albumin Globulin Albumin/Globulin Ratio Venous Blood Potassium 03/01/18 03/01/18 03/01/18 03:01 04:42 04:58 WBC RBC Hgb Hct MCV MCH MCHC RDW Plt Count MPV Neut % (Auto) Lymph % (Auto) Alcorn % (Auto) Eos % (Auto) Baso % (Auto) Neut # (Auto) Lymph # (Auto) Alcorn # (Auto) Eos # (Auto) Baso # (Auto) pCO2 57 H pO2 117 H HCO3 33.3 H ABG pH 7.42 ABG Total CO2 38.7 H ABG O2 Saturation 99.7 H ABG O2 Content 14.2 L ABG Base Excess 10.8 H ABG Hemoglobin 10.4 L ABG Carboxyhemoglobin 2.0 H POC ABG HHb (Measured) 0.3 ABG Methemoglobin 1.8 ABG O2 Capacity 14.2 L Jorge Test Yes VBG pH VBG pCO2 VBG HCO3 VBG Total CO2 VBG O2 Sat (Calc) VBG Base Excess VBG Potassium A-a O2 Difference 97.0 Hgb O2 Saturation 95.9 Sodium Chloride Glucose Lactate Vent Mode A/c Mechanical Rate 14 FiO2 40.0 Tidal Volume 400 PEEP 5 Potassium Carbon Dioxide Anion Gap BUN Creatinine Est GFR ( Amer) Est GFR (Non-Af Amer) POC Glucose (mg/dL) 46 L 79 Random Glucose Calcium Phosphorus Magnesium Total Bilirubin AST ALT Alkaline Phosphatase Total Protein Albumin Globulin Albumin/Globulin Ratio Venous Blood Potassium 03/01/18 03/01/18 03/01/18 05:26 05:26 06:12 WBC 21.2 H RBC 4.87 Hgb 10.5 L Hct 33.9 L MCV 69.6 L MCH 21.6 L MCHC 31.0 L RDW 20.5 H Plt Count 398 MPV 7.9 Neut % (Auto) 73.5 Lymph % (Auto) 18.7 L Alcorn % (Auto) 6.6 Eos % (Auto) 0.9 Baso % (Auto) 0.3 Neut # (Auto) 15.6 H Lymph # (Auto) 4.0 Alcorn # (Auto) 1.4 H Eos # (Auto) 0.2 Baso # (Auto) 0.1 pCO2 pO2 HCO3 ABG pH ABG Total CO2 ABG O2 Saturation ABG O2 Content ABG Base Excess ABG Hemoglobin ABG Carboxyhemoglobin POC ABG HHb (Measured) ABG Methemoglobin ABG O2 Capacity Jorge Test VBG pH VBG pCO2 VBG HCO3 VBG Total CO2 VBG O2 Sat (Calc) VBG Base Excess VBG Potassium A-a O2 Difference Hgb O2 Saturation Sodium 138 Chloride 99 Glucose Lactate Vent Mode Mechanical Rate FiO2 Tidal Volume PEEP Potassium 4.3 Carbon Dioxide 31 H Anion Gap 12 BUN 11 Creatinine 0.3 L Est GFR ( Amer) > 60 Est GFR (Non-Af Amer) > 60 POC Glucose (mg/dL) 25 L* Random Glucose 56 L Calcium 7.9 L Phosphorus 2.5 Magnesium 2.1 Total Bilirubin 0.6 AST 40 H D ALT 18 Alkaline Phosphatase 77 Total Protein 6.4 Albumin 3.1 L Globulin 3.2 Albumin/Globulin Ratio 1.0 Venous Blood Potassium 03/01/18 03/01/18 03/01/18 07:29 09:33 12:00 WBC RBC Hgb Hct MCV MCH MCHC RDW Plt Count MPV Neut % (Auto) Lymph % (Auto) Alcorn % (Auto) Eos % (Auto) Baso % (Auto) Neut # (Auto) Lymph # (Auto) Alcorn # (Auto) Eos # (Auto) Baso # (Auto) pCO2 pO2 HCO3 ABG pH ABG Total CO2 ABG O2 Saturation ABG O2 Content ABG Base Excess ABG Hemoglobin ABG Carboxyhemoglobin POC ABG HHb (Measured) ABG Methemoglobin ABG O2 Capacity Jorge Test VBG pH VBG pCO2 VBG HCO3 VBG Total CO2 VBG O2 Sat (Calc) VBG Base Excess VBG Potassium A-a O2 Difference Hgb O2 Saturation Sodium Chloride Glucose Lactate Vent Mode Mechanical Rate FiO2 Tidal Volume PEEP Potassium Carbon Dioxide Anion Gap BUN Creatinine Est GFR ( Amer) Est GFR (Non-Af Amer) POC Glucose (mg/dL) 49 L 88 34 L* Random Glucose Calcium Phosphorus Magnesium Total Bilirubin AST ALT Alkaline Phosphatase Total Protein Albumin Globulin Albumin/Globulin Ratio Venous Blood Potassium reviewed J.P. - EKG Data EKG comments: reviewed J.P. - Imaging and Cardiology CT scan - chest Status: Report reviewed by me (Joe) Chest x-ray Status: Report reviewed by me (Joe) CT scan - head Status: Report reviewed by me (Joe) Assessment & Plan (1) Acute respiratory failure Status: Acute Priority: High (2) Pneumonia Status: Acute Priority: Medium (3) Sepsis Status: Acute (4) Pulmonary fibrosis Status: Chronic Priority: High (5) Pulmonary hypertension Status: Chronic Priority: High - Assessment and Plan (Free Text) Plan: Agree with Your management, Ventilatory support, DuoNeb, SoluMedrol, Zosyn , Vanco , Clinda, Digoxin , Revatio and rest of Tx, attempt to review previous CT Chest and medical records - Date & Time Date: 03/01/18 Time: 09:10
[2018-03-01] MEDS ORDERED: Piperacillin/Tazobact 3.375 GM in Sodium Chloride 0.9% 100 ML IVPB SCH (16:00)
[2018-03-01 16:31] LABS: SQUAMOUS EPITHIAL < 1 /hpf (0-5); URINE BACTERIA RARE (<OCC); URINE BILIRUBIN NEGATIVE (NEGATIVE); URINE BLOOD SMALL (NEGATIVE); URINE CLARITY CLOUDY (Clear); URINE COLOR YELLOW (YELLOW); URINE GLUCOSE (UA) 150 mg/dL (Normal); URINE LEUKOCYTE ESTERASE NEG Leu/uL (Negative); URINE PROTEIN 30 mg/dL (NEGATIVE); URINE UROBILINOGEN 0.2-1.0 mg/dL (0.2-1.0)
--- NOTE | 2018-03-01 17:47 | MRI ---
Date of service: 03/01/2018 PROCEDURE: MRI BRAIN WITHOUT CONTRAST HISTORY: unresponsive COMPARISON: Noncontrast head CT 02/28/2018. TECHNIQUE: Multiplanar, multisequence MR images of the brain were obtained without intravenous contrast enhancement. FINDINGS: HEMORRHAGE: None DWI: No evidence of an acute or early subacute infarction. BRAIN PARENCHYMA: Good corticomedullary differentiation is seen. White matter signal changes are identified in the subcortical and periventricular white matter distribution compatible chronic microangiopathy. No suspicious extra-axial fluid collection is identified and the midline brain anatomy appears grossly nonfocal as imaged. There is no mass effect throughout. VENTRICLES: Unremarkable. No hydrocephalus. CRANIUM: Unremarkable. ORBITS: Grossly unremarkable. PARANASAL SINUSES/MASTOIDS: Fluid fills the nasopharynx with bilateral ethmoid and left maxillary sinus disease with both features likely a function of endotracheal intubation VASCULAR SYSTEM: . Skull base flow voids intact. OTHER FINDINGS: None. IMPRESSION: No definite acute intracranial findings. Age related neuro degenerative changes are rather mild in this patient, appropriate for the patient's age.
[2018-03-01] MEDS ORDERED: levETIRAcetam 1,000 MG in Sodium Chloride 0.9% 100 ML IVPB ONE (23:02)
[2018-03-01] MEDS: Piperacillin/Tazobact 3.375 GM in Sodium Chloride 0.9% 100 ML IVPB SCH (23:47)
[2018-03-02] MEDS: Potassium Ch 20mEq in D5-1/2NS 1,000 ML IV SCH (00:27)
[2018-03-02] MEDS: Clindamycin 600mg/50ml D5W 600 MG/50 ML VIAL IVPB SCH ×3 (01:30→16:47)
--- NOTE | 2018-03-02 04:15 | PN ---
DATE: 03/01/2018 CRITICAL CARE PROGRESS NOTE LOCATION: The patient is in ICU, bed 434. TIME SPENT: 45 minutes. The patient is seen and evaluated at the bedside. Case was discussed in multidisciplinary ICU rounds in the morning. Past medical, surgical, and social history reviewed as entered in history and physical. SUBJECTIVE: A 62-year-old female, nonsmoker with history significant for pulmonary fibrosis, question idiopathic with extensive honeycombing and bronchiectatic changes, involving lateral and basal for both lungs; hypertension; diabetes mellitus type 2; pulmonary hypertension with multiple admissions in [facility] for hypoxic respiratory failure, admitted through emergency room after she was found hypoglycemic with a change in the mental status, intubated in the field, and admitted to ICU. Initial CT showed no acute [employer] event. Lab data showed leukocytosis with no bacteremia. Chest x-ray and a CAT scan with extensive findings as noted. Overnight intubated, on mechanical ventilation, on AC/PRVC, rate of 40, tidal volume of 400, PEEP of 5, FiO2 40%, saturating 100%. Peak airway pressure 26, mean airway pressure 11, tidal CO2 16, rate 18, exhaled tidal volume 410, minute ventilation 7.1 liters. Sedated on Diprivan drip. PHYSICAL EXAMINATION: VITAL SIGNS: Temperature 98.4, heart rate 114 to 115, blood pressure 121/77, mean arterial pressure 91. Intake 1200 mL, output 1220. Weight 98 pounds. HEAD, EYES, EARS, NOSE, AND THROAT: Pupils 2-3 mm, reactive, midline. Corneal reflex present. Conjunctival reflex present. Endotracheal tube in place. No secretion noted. CHEST: Bilateral breath sounds present. Velcro crackles in both lungs. ABDOMEN: Bowel sounds present. Soft. Liver and spleen not palpable. Bladder not distended. EXTREMITIES: . CURRENT MEDICATIONS: Include Tylenol 650 every 6 hours p.r.n., albuterol/Atrovent inhalation every 4 hours, aspirin 81 mg daily, Lipitor 10 mg daily, clindamycin 600 mg IV every 8, digoxin 0.25 mg daily, Cardizem 60 mg every 6 hours, Lovenox 40 subcu daily, ferrous sulfate 325 mg p.o. daily, gentamicin 200 mg IV daily, Ofev 150 mg daily, D5 half normal with potassium at 125 mL per hour, Protonix 40 IV daily, Solu-Medrol 60 mg IV every 6, Revatio 20 mg p.o. three times daily, and vancomycin 500 mg every 12 hours. LABORATORY DATA: Urine drug screen negative. Digoxin 0.6. WBC 21.2, hemoglobin 10.5, hematocrit 33.9, platelet count of 398, neutrophils 73.5, lymphocytes 18.7. SMA-7; sodium 138, potassium 4.3, chloride 99, CO2 31. Blood urine nitrogen 11, creatinine 0.3, random glucose 56, calcium is 7.9, phosphorus 2.5, magnesium 2.1, total bilirubin 0.6. AST 14, ALT 18, alkaline phosphatase 77, total protein 6.4, albumin 3.1. WBC 21.2, hemoglobin 10.5, hematocrit 33.9, platelet count of 392. ABG; pH 7.42, pCO2 57, pO2 117, oxygen saturation 99.7 on AC 14, 400, 40%, PEEP of 5. Microbiology: Urine culture, no growth. Blood culture, no growth reported. IMPRESSION: 1. Neurologic: Hypoxic hypercapnic respiratory failure, sedated on Diprivan drip. 2. Pulmonary: Hypoxic respiratory failure. History of idiopathic pulmonary fibrosis. Continue bronchodilator, steroids, gastrointestinal prophylaxis. 3. Cardiac: History of pulmonary hypertension, possible right ventricular failure, pedal edema. Continue sildenafil and digoxin. 4. Gastrointestinal: No acute issues noted. On gastrointestinal prophylaxis. 5. Hematology: Leukocytosis secondary to steroid and superimposed pneumonia. Follow up procalcitonin level. Currently covered with vancomycin, gentamicin, and clindamycin. We will obtain infectious disease evaluation. 6. Endocrinology: History of diabetes mellitus type 2, on alogliptin, metformin, and insulin on hold secondary to hypoglycemia. History of hyperlipidemia, on atorvastatin. We will closely monitor for septic toxic encephalopathy. Need more input from Pulmonary for further management. We will discuss with . Tyson Perea MD
[2018-03-02] MEDS: Piperacillin/Tazobact 3.375 GM in Sodium Chloride 0.9% 100 ML IVPB SCH ×4 (05:00→21:32)
[2018-03-02 05:08] LABS: BASO % 0.1 % (0.0-2.0); HEMOGLOBIN 10.3 g/dL (12.0-16.0); LYMPH # 1.1 K/uL (1.0-4.3); LYMPH % 6.1 % (20.0-40.0); MEAN CELL VOLUME 68.5 fl (81.0-99.0); MEAN CORPUSCULAR HEMOGLOBIN 20.9 pg (27.0-31.0); MEAN CORPUSCULAR HGB CONC 30.5 g/dL (33.0-37.0); MEAN PLATELET VOLUME 8.5 fl (7.2-11.7); MONO # 0.2 K/uL (0.0-0.8); MONO % 1.1 % (0.0-10.0); NEUT # 16.4 K/uL (1.8-7.0); NEUT % 92.7 % (50.0-75.0); PLATELET COUNT 400 K/uL (130-400); RBC 4.93 Mil/uL (3.80-5.20); WHITE BLOOD COUNT 17.7 K/uL (4.8-10.8)
[2018-03-02 05:24] LABS: ALB/GLOB RATIO 0.9 (1.0-2.1); ALBUMIN 2.9 g/dL (3.5-5.0); ALT/SGPT 23 U/L (9-52); AST/SGOT 35 U/L (14-36); BLOOD UREA NITROGEN 12 mg/dl (7-17); CALCIUM 8.3 mg/dL (8.4-10.2); GFR AFRICAN-AMERICAN > 60; GFR NON-AFRICAN AMERICAN > 60; VANCOMYCIN TROUGH 8.1 ug/mL (5.0-10.0)
[2018-03-02 05:49] LABS: ABG ALLEN TEST YES; ARTERIAL BLOOD GAS HCO3 30.9 mmol/L (21-28); ARTERIAL BLOOD GAS HEMOGLOBIN 10.3 g/dL (11.7-17.4); ARTERIAL BLOOD GAS O2 CAPACITY 14.2 mL/dL (16-24); ARTERIAL BLOOD GAS O2 CONTENT 14.2 ML/dL (15-23); ARTERIAL BLOOD GAS O2 SAT 99.9 % (95-98); ARTERIAL BLOOD GAS PCO2 47 mm/Hg (35-45); ARTERIAL BLOOD GAS PH 7.45 (7.35-7.45); ARTERIAL BLOOD GAS PO2 144 mm/Hg (80-100); ARTERIAL BLOOD GAS TCO2 34.1 mmol/L (22-28)
--- NOTE | 2018-03-02 09:39 | CARD ---
APPROVED REPORT Date of service: 03/01/2018 EXAM: Two-dimensional and M-mode echocardiogram with Doppler and color Doppler. Other Information Quality : GoodRhythm : Tachycardia INDICATION LV Function:SystolicDiastolic HYPOXIA 2D DIMENSIONS IVSd1.23 (0.7-1.1cm)LVDd3.57 (3.9-5.9cm) LVOT Diameter2.02 (1.8-2.4cm)PWd1.37 (0.7-1.1cm) IVSs1.39 (0.8-1.2cm)LVDs2.25 (2.5-4.0cm) FS (%) 37.0 %PWs1.31 (0.8-1.2cm) M-Mode DIMENSIONS Left Atrium (MM)3.28 (2.5-4.0cm)IVSd1.13 (0.7-1.1cm) Aortic Root3.17 (2.2-3.7cm)LVDd4.77 (4.0-5.6cm) Aortic Cusp Exc.2.01 (1.5-2.0cm)PWd1.13 (0.7-1.1cm) IVSs1.60 cmFS (%) 38 % LVDs2.98 (2.0-3.8cm)PWs1.71 cm Aortic Valve AoV Peak Toeiwwrs545.0cm/sAoV VTI13.0cmAO Peak GR.4mmHg LVOT Peak Itejjpet75.1cm/sLVOT VTI9.37cmAO Mean GR.2mmHg SORIN (VMAX)1.72wf5EDI (VTI)1.79cm2 Mitral Valve MV E Siblmlbd58.6cm/sMV DECEL [id number] A Ivsgqykv96.7cm/s MV WKK07uvS/A ratio0.6MVA (PHT)4.36cm2 TDI Lateral E' Peak V6.36cm/sMedial E' Peak V3.59cm/sE/Lateral E'6.4 E/Medial E'11.3 Pulmonary Valve PV Peak Sutfhcbx26.7cm/s Tricuspid Valve TR Peak Rekwwrkb103zx/sRAP MMHLOJWN47puFuSX Peak Gr.34mmHg [id number] LEFT VENTRICLE The left ventricle is normal size. There is mild to moderate concentric left ventricular hypertrophy. Left ventricle systolic function is low normal. The Ejection Fraction is 50-55%. There is normal LV segmental wall motion. Transmitral Doppler flow pattern is Grade I-abnormal relaxation pattern. RIGHT VENTRICLE The right ventricle is moderately to severely dilated. The right ventricle is moderately hypertrophied. Systolic function is moderately to severely reduced. ATRIA The left atrium is mildly dilated. The right atrium is moderately dilated. AORTIC VALVE The aortic valve is mildly sclerotic. No aortic regurgitation is present. There is no aortic valvular stenosis. MITRAL VALVE The mitral valve is thickened but opens well. There is no mitral valve stenosis. Mitral regurgitation is mild. TRICUSPID VALVE The tricuspid valve leaflets are thickened , but open well. There is mild to moderate tricuspid regurgitation. Right ventricular systolic pressure is estimated at 40-50 mmHg. There is mild pulmonary hypertension. PULMONIC VALVE The pulmonary valve is normal in structure. There is mild pulmonic valvular regurgitation. GREAT VESSELS The aortic root is normal in size. Dilated IVC with poor inspiration collapse is consistent with elevated right atrial pressure. PERICARDIAL EFFUSION There is a small circumferential pericardial effusion. <Conclusion> Left ventricle systolic function is low normal. The Ejection Fraction is 50-55%. Transmitral Doppler flow pattern is Grade I-abnormal relaxation pattern. The right ventricle is moderately to severely dilated. Systolic function is moderately to severely reduced. The right ventricle is moderately hypertrophied. The right atrium is moderately dilated. Mitral regurgitation is mild. There is mild to moderate tricuspid regurgitation. Right ventricular systolic pressure is estimated at 40-50 mmHg. There is mild pulmonary hypertension. Dilated IVC with poor inspiration collapse is consistent with elevated right atrial pressure. There is a small circumferential pericardial effusion.
[2018-03-02] MEDS: Insulin Lispro (humaLOG) 100 Units/ml Inj SC SCH ×5 (09:41→21:19)
[2018-03-02] MEDS: Digoxin 250 mcg (0.25 mg) Tab PO SCH (09:42)
[2018-03-02] MEDS: Enoxaparin 40 mg Syringe SC SCH (09:43)
[2018-03-02] MEDS: Sildenafil 20 MG TAB PO SCH ×3 (09:44→16:48)
[2018-03-02 10:16] LABS: BANDS 1 % (0-2); LYMPHOCYTE 5 % (20-50); MONOCYTE 1 % (0-10); NEUTROPHIL 93 % (42-75); TOTAL CELLS COUNTED 100
[2018-03-02 10:17] LABS: ANISOCYTOSIS MODERATE; MICROCYTOSIS MODERATE; PLATELET ESTIMATE NORMAL (NORMAL)
--- NOTE | 2018-03-02 10:18 | RAD ---
Date of service: 03/02/2018 HISTORY: intubated COMPARISON: Portable chest 03/01/2018 4:24 a.m.. FINDINGS: LUNGS: Endotracheal tube is unchanged in position. Heterogeneous infiltrates likely mixed alveolar and interstitial remaining greater the right than left chest with diminishing alveolitis at the mid and inferior right lung zones. PLEURA: Mild right pleural effusion in question once again. Borderline left pleural effusion. No pneumothorax bilaterally. CARDIOVASCULAR: Stable cardiomediastinal silhouette. No definitive pulmonary vascular congestion though vascular markings are obscured by infiltrates somewhat once again. OSSEOUS STRUCTURES: No significant abnormalities. VISUALIZED UPPER ABDOMEN: Nasogastric tube is again seen, with termination not captured epigastric abdomen region. OTHER FINDINGS: None. IMPRESSION: Improving infiltrate at the mid to inferior right lung zone without significant interval change in the left sign however. Mild right pleural effusion persists.
[2018-03-02 10:20] LABS: HYPOCHROMIC SLIGHT; LARGE PLATELETS PRESENT
--- NOTE | 2018-03-02 12:21 | CP.PCM.PN ---
Subjective - Date & Time of Evaluation Date of Evaluation: 03/02/18 Time of Evaluation: 09:30 - Subjective Subjective: Pt is afebrile remains intubated on Vent On Airborne isolation to r/o PTB due to cavitary lung lesion no longer hypoglycemic Tube feeding started yesterday slight grimace to painful stimuli Objective - Vital Signs/Intake and Output Vital Signs (last 24 hours): Temp Pulse Resp BP Pulse Ox 98.8 F 109 H 20 121/79 100 03/02/18 08:00 03/02/18 09:37 03/02/18 08:00 03/02/18 09:37 03/02/18 08:00 Intake and Output: 03/02/18 03/02/18 06:59 18:59 Intake Total 1760 Output Total 500 Balance 1260 - Medications Medications: Current Medications Acetaminophen (Tylenol 325mg Tab) 650 mg PO Q6H PRN PRN Reason: Fever >100.4 F Albuterol/Ipratropium (Duoneb 3 Mg/0.5 Mg (3 Ml) Ud) 3 ml INH RQ4 PRN PRN Reason: Shortness of Breath Last Admin: 03/01/18 04:53 Dose: 3 ml Aspirin (Aspirin Chewable) 81 mg PO DAILY [facility] Last Admin: 03/02/18 09:37 Dose: 81 mg Atorvastatin Calcium (Lipitor) 10 mg PO DAILY [facility] Last Admin: 03/02/18 09:43 Dose: 10 mg Digoxin (Lanoxin) 0.25 mg PO DAILY [facility] Last Admin: 03/02/18 09:42 Dose: 0.25 mg Diltiazem HCl (Cardizem) 60 mg PO Q6 [facility] Last Admin: 03/02/18 09:37 Dose: 60 mg Enoxaparin Sodium (Lovenox) 40 mg SC DAILY [facility] PRN Reason: Protocol Last Admin: 03/02/18 09:43 Dose: 40 mg Ferrous Sulfate (Feosol) 325 mg PO DAILY [facility] Last Admin: 03/02/18 09:39 Dose: 325 mg Home Med (Nintedanib Esylate [Ofev]) 150 mg PO DAILY [facility] Lactated Ringer's (Lactated Ringer's 500ml) 500 mls @ 500 mls/hr IV .Q1H [facility] Last Admin: 03/01/18 06:30 Dose: 500 mls/hr Vancomycin HCl 500 mg/ Sodium (Chloride) 100 mls @ 100 mls/hr IVPB Q12 JANIE PRN Reason: Protocol Last Admin: 03/02/18 09:45 Dose: 100 mls/hr Clindamycin Phosphate (Cleocin) 600 mg in 50 mls @ 50 mls/hr IVPB Q8 JANIE PRN Reason: Protocol Last Admin: 03/02/18 09:38 Dose: 50 mls/hr Piperacillin Sod/Tazobactam (Sod 3.375 gm/ Sodium Chloride) 100 mls @ 100 mls/ hr IVPB Q6 JANIE PRN Reason: Protocol Last Admin: 03/02/18 09:46 Dose: 100 mls/hr Levetiracetam 750 mg/ Sodium (Chloride) 107.5 mls @ 215 mls/hr IVPB Q12 [facility] Last Admin: 03/02/18 09:42 Dose: 215 mls/hr Insulin Human Lispro (Humalog) 0 units SC ACHS JANIE PRN Reason: Protocol Last Admin: 03/02/18 11:52 Dose: 4 units Methylprednisolone (Solu-Medrol) 60 mg IV Q6 [facility] Last Admin: 03/02/18 09:44 Dose: 60 mg Pantoprazole Sodium (Protonix Inj) 40 mg IVP DAILY [facility] Last Admin: 03/02/18 09:43 Dose: 40 mg Sildenafil Citrate (Revatio) 20 mg PO TID [facility] Last Admin: 03/02/18 09:44 Dose: 20 mg - Labs Labs: 03/02/18 04:30 03/02/18 04:30 - Constitutional Appears: No Acute Distress, Chronically Ill, Other (Intubated on Vent, unresponsive) - Head Exam Head Exam: NORMAL INSPECTION, NORMOCEPHALIC - Eye Exam Eye Exam: Normal appearance, PERRL , sluggish - ENT Exam ENT Exam: Mucous Membranes Dry, Normal External Ear Exam - Respiratory Exam Respiratory Exam: Rales, Rhonchi, NORMAL BREATHING PATTERN Additional comments: Intubated on Mech Vent - Cardiovascular Exam Cardiovascular Exam: REGULAR RHYTHM, +S1, +S2 - GI/Abdominal Exam GI & Abdominal Exam: Soft, Normal Bowel Sounds - Psychiatric Exam Additional comments: grimaces with painful stimuli - Skin Skin Exam: Dry, Normal Color Assessment and Plan - Assessment and Plan (Free Text) Assessment: 62 year old female PMH cystic fibrosis?, idiopathic pulmonary fibrosis, HTN, IDDM, severe CHF/likely PAH?, chronic lower ext edema was found unresponsive at home by daughter who lives with her. Patient was last seen normal around 11 pm the night before admission. Pt is currently intubated - history obtained from eldest and youngest daughters. Patient reportedly took her insulin and pills prior to bed, was found unresponsive, with secretions and foam around her mouth, and had urinated in the bed, EMS called. Patient BG 29, given 2 amps d50. Normal renal function. Pt continued to be unresponsive, was intubated at the home and brought to ED. CT head: no hemorrhage. WBC 23K normal renal fx CXR +consolidations/infiltrates RML/RLL CT of the Chest : No evidence of pulmonary embolism. Extensive coarse chronic interstitial infiltrate with associated varicoid bronchiectasis in both lower lobes. Possible superimposed alveolar process. Consider acute pneumonia. Partially solid ground-glass opacity in right lung apex and 2nd cavitating opacity in the right lung apex. Nonspecific. No other cavitating lesions are appreciated elsewhere. Endotracheal tube noted. 1. Acute Hypoxic Respiratory Failure , Intubated on Vent - Pt remains intubated , on [facility] Vent - sl grimace today with pain, pupils reactive to light - Pulmonary consult - Dr Ledesma 2. Metabolic Encephalopathy due to prolonged Hypoglycemia monitor glucose closely D50 prn IVF cont Tube feeding 3. Sepsis ( POA) Suspected Aspiration Pneumonia - cont IV Zosyn, Clinda, Vanco -Pulm consult - ID consulted 4. Idiopathic Pulmonary Fibrosis, Cystic Fibrosis Pt on Nintendanib for IPF at home ECHO : systolic dysfunction, mild Pulm HTN, EF 50% pt on chronic low dose steroids for IPF Continue Sildenafil, Digoxin (low), Cardizem, on ASA 81 mg daily, Atorvastatin Careful hydration, note pt has chronic LE edema EKG: sinus tach rate 153, QTc 155 CTA neg for PE 5. Cavitating Lesion right Lung ? sec to Cystic Fibrosis /Bronchiectasis however need to r/o PTB AFB x 3 sputum - PULM consulted -Airborne isolation 6. . Seizure likely sec to Hypoglycemia Neurology consult: Dr. Valentina Herr EEG , MRI brain : neg 7. DM type II - hold all DM meds due to hypoglycemia - accucheck with low coverage DVT ppx Lovenox
--- NOTE | 2018-03-02 12:43 | CARD ---
APPROVED REPORT Date of service: 02/28/2018 EKG Measurement Heart [id number] TN [id number] <Conclusion> Sinus tachycardia Nonspecific ST abnormality Baseline artefact Abnormal ECG
[2018-03-02] MEDS ORDERED: Sodium Chloride 3% for Inhalation 4 ML VIAL.NEB IH PRN (12:57)
--- NOTE | 2018-03-02 13:39 | CP.PCM.CON ---
History of Present Illness - History of Present Illness History of Present Illness: Miss Peterson is a 62 yr old woman with pmh of HTN, IDDM, CHF, with idipathic pulmonary fibrosis who was found at home unresponsive for unknown period of time , by her daugher, last seen well at about 11 pm the night before. Her BS was foudn to be very low, at about 29, and she had foam in her mouth. There is no history of epilepsy,nor of stroke. EMS called. Patient BG 29, given 2 amps d50 , now glucose 95. Normal renal function. Pt continued to be unresponsive, was intubated at the home and brought to ED. CT head, no hemorrhage. WBC 23K, no bands reported yet, delayed normal renal fx CXR +consolidations/infiltrates RML/RLL, likely aspiration PMSH: cystic fibrosis?, idiopathic pulmonary fibrosis, HTN, IDDM, severe CHF/ likely PAH, lung bx FH: cancer SH: no ETOH, TOBACCO, IVDU NKDA On exam: intubated and not sedated. Patient does not respond to verbal stimuli, but she minimally opens eyes to painful stimuli. Pupils 3mm-2mm with light. no gag, no corneals. Roving eye movements. no verbal output noted, or spontaneous motor movement. +2 dtr ull and ll bl. Toes downfoing. No clonus. Past Patient History - Infectious Disease Hx of Infectious Diseases: None - Past Medical History & Family History Past Medical History?: Yes - Past Social History Smoking Status: Never Smoked Alcohol: None Drugs: Denies Home Situation {Lives}: With Family - CARDIAC Hx Cardiac Disorders: Yes (CAD) Hx Hypercholesterolemia: Yes Hx Hypertension: Yes - PULMONARY Hx Respiratory Disorders: Yes Hx Pneumonia: Yes Other/Comment: Pulmonary fibrosis - NEUROLOGICAL Hx Neurological Disorder: Yes Hx Seizures: Yes (per patients daughter, pt says "she's been having seizures") - HEENT Hx HEENT Problems: No - RENAL Hx Chronic Kidney Disease: No - ENDOCRINE/METABOLIC Hx Endocrine Disorders: Yes Hx Diabetes Mellitus Type 2: Yes - HEMATOLOGICAL/ONCOLOGICAL Hx Blood Disorders: Yes Hx Anemia: Yes - INTEGUMENTARY Hx Dermatological Problems: No - MUSCULOSKELETAL/RHEUMATOLOGICAL Hx Musculoskeletal Disorders: Yes Hx Falls: Yes - GASTROINTESTINAL Hx Gastrointestinal Disorders: Yes Hx Gastroesophageal Reflux: Yes - GENITOURINARY/GYNECOLOGICAL Hx Genitourinary Disorders: No - PSYCHIATRIC Hx Psychophysiologic Disorder: Yes Hx Anxiety: Yes Hx Depression: Yes Hx Substance Use: No - SURGICAL HISTORY Hx Surgeries: Yes Hx Section: Yes (x3) Hx Tonsillectomy: Yes - ANESTHESIA Hx Anesthesia: Yes Hx Anesthesia Reactions: No Hx Malignant Hyperthermia: No Meds Allergies/Adverse Reactions: Allergies Allergy/AdvReac Type Severity Reaction Status Date / Time No Known Allergies Allergy Verified 02/28/18 13:36 - Medications Medications: Current Medications Acetaminophen (Tylenol 325mg Tab) 650 mg PO Q6H PRN PRN Reason: Fever >100.4 F Albuterol/Ipratropium (Duoneb 3 Mg/0.5 Mg (3 Ml) Ud) 3 ml INH RQ4 PRN PRN Reason: Shortness of Breath Last Admin: 03/01/18 04:53 Dose: 3 ml Aspirin (Aspirin Chewable) 81 mg PO DAILY [facility] Last Admin: 03/02/18 09:37 Dose: 81 mg Atorvastatin Calcium (Lipitor) 10 mg PO DAILY [facility] Last Admin: 03/02/18 09:43 Dose: 10 mg Digoxin (Lanoxin) 0.25 mg PO DAILY [facility] Last Admin: 03/02/18 09:42 Dose: 0.25 mg Diltiazem HCl (Cardizem) 60 mg PO Q6 [facility] Last Admin: 03/02/18 09:37 Dose: 60 mg Enoxaparin Sodium (Lovenox) 40 mg SC DAILY [facility] PRN Reason: Protocol Last Admin: 03/02/18 09:43 Dose: 40 mg Ferrous Sulfate (Feosol) 325 mg PO DAILY [facility] Last Admin: 03/02/18 09:39 Dose: 325 mg Home Med (Nintedanib Esylate [Ofev]) 150 mg PO DAILY [facility] Lactated Ringer's (Lactated Ringer's 500ml) 500 mls @ 500 mls/hr IV .Q1H [facility] Last Admin: 03/01/18 06:30 Dose: 500 mls/hr Vancomycin HCl 500 mg/ Sodium (Chloride) 100 mls @ 100 mls/hr IVPB Q12 [facility] PRN Reason: Protocol Last Admin: 03/02/18 09:45 Dose: 100 mls/hr Clindamycin Phosphate (Cleocin) 600 mg in 50 mls @ 50 mls/hr IVPB Q8 [facility] PRN Reason: Protocol Last Admin: 03/02/18 09:38 Dose: 50 mls/hr Piperacillin Sod/Tazobactam (Sod 3.375 gm/ Sodium Chloride) 100 mls @ 100 mls/ hr IVPB Q6 [facility] PRN Reason: Protocol Last Admin: 03/02/18 09:46 Dose: 100 mls/hr Levetiracetam 750 mg/ Sodium (Chloride) 107.5 mls @ 215 mls/hr IVPB Q12 [facility] Last Admin: 03/02/18 09:42 Dose: 215 mls/hr Insulin Detemir (Levemir) 20 units SC Q12H [facility] Insulin Human Lispro (Humalog) 0 units SC Q4H [facility] PRN Reason: Protocol Methylprednisolone (Solu-Medrol) 60 mg IV Q6 [facility] Last Admin: 03/02/18 09:44 Dose: 60 mg Pantoprazole Sodium (Protonix Inj) 40 mg IVP DAILY [facility] Last Admin: 03/02/18 09:43 Dose: 40 mg Sildenafil Citrate (Revatio) 20 mg PO TID [facility] Last Admin: 03/02/18 09:44 Dose: 20 mg Results - Vital Signs Recent Vital Signs: Last Vital Signs Temp 98.8 F 03/02/18 08:00 Pulse 109 H 03/02/18 09:37 Resp 20 03/02/18 08:00 BP 121/79 03/02/18 09:37 Pulse Ox 100 03/02/18 08:00 - Labs Result Diagrams: 03/02/18 04:30 03/02/18 04:30 Labs: Laboratory Results - last 24 hr 03/01/18 03/01/18 03/01/18 08:03 08:03 15:02 WBC RBC Hgb Hct MCV MCH MCHC RDW Plt Count MPV Neut % (Auto) Lymph % (Auto) [place] % (Auto) Eos % (Auto) Baso % (Auto) Neut # (Auto) Lymph # (Auto) [place] # (Auto) Eos # (Auto) Baso # (Auto) Neutrophils % (Manual) Band Neutrophils % Lymphocytes % (Manual) Monocytes % (Manual) Platelet Estimate Large Platelets Hypochromasia (manual) Anisocytosis (manual) Microcytosis (manual) pCO2 pO2 HCO3 ABG pH ABG Total CO2 ABG O2 Saturation ABG O2 Content ABG Base Excess ABG Hemoglobin ABG Carboxyhemoglobin POC ABG HHb (Measured) ABG Methemoglobin ABG O2 Capacity Jorge Test A-a O2 Difference Hgb O2 Saturation Vent Mode Mechanical Rate FiO2 Tidal Volume PEEP Sodium Potassium Chloride Carbon Dioxide Anion Gap BUN Creatinine Est GFR ( Amer) Est GFR (Non-Af Amer) POC Glucose (mg/dL) 71 Random Glucose Calcium Total Bilirubin AST ALT Alkaline Phosphatase Total Protein Albumin Globulin Albumin/Globulin Ratio Procalcitonin 0.27 Cortisol AM Sample 16.9 Urine Color Urine Clarity Urine pH Ur Specific [place] Urine Protein Urine Glucose (UA) Urine Ketones Urine Blood Urine Nitrate Urine Bilirubin Urine Urobilinogen Ur Leukocyte Esterase Urine RBC (Auto) Urine Microscopic WBC Ur Squamous Epith Cells Urine Bacteria Vancomycin Trough 03/01/18 03/01/18 03/01/18 16:21 17:37 18:59 WBC RBC Hgb Hct MCV MCH MCHC RDW Plt Count MPV Neut % (Auto) Lymph % (Auto) [place] % (Auto) Eos % (Auto) Baso % (Auto) Neut # (Auto) Lymph # (Auto) [place] # (Auto) Eos # (Auto) Baso # (Auto) Neutrophils % (Manual) Band Neutrophils % Lymphocytes % (Manual) Monocytes % (Manual) Platelet Estimate Large Platelets Hypochromasia (manual) Anisocytosis (manual) Microcytosis (manual) pCO2 pO2 HCO3 ABG pH ABG Total CO2 ABG O2 Saturation ABG O2 Content ABG Base Excess ABG Hemoglobin ABG Carboxyhemoglobin POC ABG HHb (Measured) ABG Methemoglobin ABG O2 Capacity Jorge Test A-a O2 Difference Hgb O2 Saturation Vent Mode Mechanical Rate FiO2 Tidal Volume PEEP Sodium Potassium Chloride Carbon Dioxide Anion Gap BUN Creatinine Est GFR ( Amer) Est GFR (Non-Af Amer) POC Glucose (mg/dL) 42 L 108 Random Glucose Calcium Total Bilirubin AST ALT Alkaline Phosphatase Total Protein Albumin Globulin Albumin/Globulin Ratio Procalcitonin Cortisol AM Sample Urine Color Yellow Urine Clarity Cloudy Urine pH 6.0 Ur Specific [place] 1.015 Urine Protein 30 Urine Glucose (UA) 150 Urine Ketones Negative Urine Blood Small Urine Nitrate Negative Urine Bilirubin Negative Urine Urobilinogen 0.2-1.0 Ur Leukocyte Esterase Neg Urine RBC (Auto) 21 H Urine Microscopic WBC 5 Ur Squamous Epith Cells < 1 Urine Bacteria Rare Vancomycin Trough 03/01/18 03/01/18 03/02/18 21:15 23:08 01:47 WBC RBC Hgb Hct MCV MCH MCHC RDW Plt Count MPV Neut % (Auto) Lymph % (Auto) [place] % (Auto) Eos % (Auto) Baso % (Auto) Neut # (Auto) Lymph # (Auto) [place] # (Auto) Eos # (Auto) Baso # (Auto) Neutrophils % (Manual) Band Neutrophils % Lymphocytes % (Manual) Monocytes % (Manual) Platelet Estimate Large Platelets Hypochromasia (manual) Anisocytosis (manual) Microcytosis (manual) pCO2 pO2 HCO3 ABG pH ABG Total CO2 ABG O2 Saturation ABG O2 Content ABG Base Excess ABG Hemoglobin ABG Carboxyhemoglobin POC ABG HHb (Measured) ABG Methemoglobin ABG O2 Capacity Jorge Test A-a O2 Difference Hgb O2 Saturation Vent Mode Mechanical Rate FiO2 Tidal Volume PEEP Sodium Potassium Chloride Carbon Dioxide Anion Gap BUN Creatinine Est GFR ( Amer) Est GFR (Non-Af Amer) POC Glucose (mg/dL) 156 H 133 H 118 H Random Glucose Calcium Total Bilirubin AST ALT Alkaline Phosphatase Total Protein Albumin Globulin Albumin/Globulin Ratio Procalcitonin Cortisol AM Sample Urine Color Urine Clarity Urine pH Ur Specific [place] Urine Protein Urine Glucose (UA) Urine Ketones Urine Blood Urine Nitrate Urine Bilirubin Urine Urobilinogen Ur Leukocyte Esterase Urine RBC (Auto) Urine Microscopic WBC Ur Squamous Epith Cells Urine Bacteria Vancomycin Trough 03/02/18 03/02/18 03/02/18 03:05 04:30 04:30 WBC 17.7 H RBC 4.93 Hgb 10.3 L Hct 33.8 L MCV 68.5 L MCH 20.9 L MCHC 30.5 L RDW 20.0 H Plt Count 400 MPV 8.5 Neut % (Auto) 92.7 H Lymph % (Auto) 6.1 L [place] % (Auto) 1.1 Eos % (Auto) 0.0 Baso % (Auto) 0.1 Neut # (Auto) 16.4 H Lymph # (Auto) 1.1 [place] # (Auto) 0.2 Eos # (Auto) 0.0 Baso # (Auto) 0.0 Neutrophils % (Manual) 93 H Band Neutrophils % 1 Lymphocytes % (Manual) 5 L Monocytes % (Manual) 1 Platelet Estimate Normal Large Platelets Present Hypochromasia (manual) Slight Anisocytosis (manual) Moderate Microcytosis (manual) Moderate pCO2 pO2 HCO3 ABG pH ABG Total CO2 ABG O2 Saturation ABG O2 Content ABG Base Excess ABG Hemoglobin ABG Carboxyhemoglobin POC ABG HHb (Measured) ABG Methemoglobin ABG O2 Capacity Jorge Test A-a O2 Difference Hgb O2 Saturation Vent Mode Mechanical Rate FiO2 Tidal Volume PEEP Sodium 137 Potassium 4.8 Chloride 100 Carbon Dioxide 31 H Anion Gap 11 BUN 12 Creatinine 0.4 L Est GFR ( Amer) > 60 Est GFR (Non-Af Amer) > 60 POC Glucose (mg/dL) 133 H Random Glucose 203 H Calcium 8.3 L Total Bilirubin 0.3 AST 35 ALT 23 Alkaline Phosphatase 90 Total Protein 6.2 L Albumin 2.9 L Globulin 3.3 Albumin/Globulin Ratio 0.9 L Procalcitonin Cortisol AM Sample Urine Color Urine Clarity Urine pH Ur Specific [place] Urine Protein Urine Glucose (UA) Urine Ketones Urine Blood Urine Nitrate Urine Bilirubin Urine Urobilinogen Ur Leukocyte Esterase Urine RBC (Auto) Urine Microscopic WBC Ur Squamous Epith Cells Urine Bacteria Vancomycin Trough 03/02/18 03/02/18 03/02/18 04:30 05:11 05:30 WBC RBC Hgb Hct MCV MCH MCHC RDW Plt Count MPV Neut % (Auto) Lymph % (Auto) [place] % (Auto) Eos % (Auto) Baso % (Auto) Neut # (Auto) Lymph # (Auto) [place] # (Auto) Eos # (Auto) Baso # (Auto) Neutrophils % (Manual) Band Neutrophils % Lymphocytes % (Manual) Monocytes % (Manual) Platelet Estimate Large Platelets Hypochromasia (manual) Anisocytosis (manual) Microcytosis (manual) pCO2 47 H pO2 144 H HCO3 30.9 H ABG pH 7.45 ABG Total CO2 34.1 H ABG O2 Saturation 99.9 H ABG O2 Content 14.2 L ABG Base Excess 7.7 H ABG Hemoglobin 10.3 L ABG Carboxyhemoglobin 1.7 H POC ABG HHb (Measured) 0.1 ABG Methemoglobin 2.1 ABG O2 Capacity 14.2 L Jorge Test Yes A-a O2 Difference 82.0 Hgb O2 Saturation 96.2 Vent Mode A/c Mechanical Rate 14 FiO2 40.0 Tidal Volume 400 PEEP 5 Sodium Potassium Chloride Carbon Dioxide Anion Gap BUN Creatinine Est GFR ( Amer) Est GFR (Non-Af Amer) POC Glucose (mg/dL) 160 H Random Glucose Calcium Total Bilirubin AST ALT Alkaline Phosphatase Total Protein Albumin Globulin Albumin/Globulin Ratio Procalcitonin Cortisol AM Sample Urine Color Urine Clarity Urine pH Ur Specific [place] Urine Protein Urine Glucose (UA) Urine Ketones Urine Blood Urine Nitrate Urine Bilirubin Urine Urobilinogen Ur Leukocyte Esterase Urine RBC (Auto) Urine Microscopic WBC Ur Squamous Epith Cells Urine Bacteria Vancomycin Trough 8.1 03/02/18 03/02/18 03/02/18 06:52 09:02 11:21 WBC RBC Hgb Hct MCV MCH MCHC RDW Plt Count MPV Neut % (Auto) Lymph % (Auto) [place] % (Auto) Eos % (Auto) Baso % (Auto) Neut # (Auto) Lymph # (Auto) [place] # (Auto) Eos # (Auto) Baso # (Auto) Neutrophils % (Manual) Band Neutrophils % Lymphocytes % (Manual) Monocytes % (Manual) Platelet Estimate Large Platelets Hypochromasia (manual) Anisocytosis (manual) Microcytosis (manual) pCO2 pO2 HCO3 ABG pH ABG Total CO2 ABG O2 Saturation ABG O2 Content ABG Base Excess ABG Hemoglobin ABG Carboxyhemoglobin POC ABG HHb (Measured) ABG Methemoglobin ABG O2 Capacity Jorge Test A-a O2 Difference Hgb O2 Saturation Vent Mode Mechanical Rate FiO2 Tidal Volume PEEP Sodium Potassium Chloride Carbon Dioxide Anion Gap BUN Creatinine Est GFR ( Amer) Est GFR (Non-Af Amer) POC Glucose (mg/dL) 203 H 285 H 328 H Random Glucose Calcium Total Bilirubin AST ALT Alkaline Phosphatase Total Protein Albumin Globulin Albumin/Globulin Ratio Procalcitonin Cortisol AM Sample Urine Color Urine Clarity Urine pH Ur Specific [place] Urine Protein Urine Glucose (UA) Urine Ketones Urine Blood Urine Nitrate Urine Bilirubin Urine Urobilinogen Ur Leukocyte Esterase Urine RBC (Auto) Urine Microscopic WBC Ur Squamous Epith Cells Urine Bacteria Vancomycin Trough - Imaging and Cardiology CT scan - head Status: Image reviewed by me, Report reviewed by me (Ct head: normal. no hemorrhage, no old strokes. ) Additional comment: MRI Brain : normal, no stroke, no intracranial lesion identified. Assessment & Plan - Assessment and Plan (Free Text) Assessment: 62 yr old woman who most likely has profound cerebral anoxic encephalopathy from prolonged hypoglycemia, and most likely seizures resulting from hypoglycemia. Plan: 1. Add depakote 1000 mg IV now and 500 mg IV bid 2. COntinue keppra at 750 mg IV bid 3. EEG now Thank you Dr. mayo
--- NOTE | 2018-03-02 14:34 | CP.PCM.PN ---
Subjective - Date & Time of Evaluation Date of Evaluation: 03/02/18 Time of Evaluation: 10:10 - Subjective Subjective: F/U Acute respiratory failure intubated ,minimal response to noxious stimuli Objective - Vital Signs/Intake and Output Vital Signs (last 24 hours): Temp Pulse Resp BP Pulse Ox 98.8 F 109 H 20 121/79 100 03/02/18 08:00 03/02/18 09:37 03/02/18 08:00 03/02/18 09:37 03/02/18 08:00 Intake and Output: 03/02/18 03/02/18 06:59 18:59 Intake Total 1760 Output Total 500 Balance 1260 - Medications Medications: Current Medications Acetaminophen (Tylenol 325mg Tab) 650 mg PO Q6H PRN PRN Reason: Fever >100.4 F Albuterol/Ipratropium (Duoneb 3 Mg/0.5 Mg (3 Ml) Ud) 3 ml INH RQ4 PRN PRN Reason: Shortness of Breath Last Admin: 03/01/18 04:53 Dose: 3 ml Aspirin (Aspirin Chewable) 81 mg PO DAILY [facility] Last Admin: 03/02/18 09:37 Dose: 81 mg Atorvastatin Calcium (Lipitor) 10 mg PO DAILY [facility] Last Admin: 03/02/18 09:43 Dose: 10 mg Digoxin (Lanoxin) 0.25 mg PO DAILY [facility] Last Admin: 03/02/18 09:42 Dose: 0.25 mg Diltiazem HCl (Cardizem) 60 mg PO Q6 [facility] Last Admin: 03/02/18 09:37 Dose: 60 mg Enoxaparin Sodium (Lovenox) 40 mg SC DAILY [facility] PRN Reason: Protocol Last Admin: 03/02/18 09:43 Dose: 40 mg Ferrous Sulfate (Feosol) 325 mg PO DAILY [facility] Last Admin: 03/02/18 09:39 Dose: 325 mg Home Med (Nintedanib Esylate [Ofev]) 150 mg PO DAILY [facility] Lactated Ringer's (Lactated Ringer's 500ml) 500 mls @ 500 mls/hr IV .Q1H [facility] Last Admin: 03/01/18 06:30 Dose: 500 mls/hr Vancomycin HCl 500 mg/ Sodium (Chloride) 100 mls @ 100 mls/hr IVPB Q12 [facility] PRN Reason: Protocol Last Admin: 03/02/18 09:45 Dose: 100 mls/hr Clindamycin Phosphate (Cleocin) 600 mg in 50 mls @ 50 mls/hr IVPB Q8 [facility] PRN Reason: Protocol Last Admin: 03/02/18 09:38 Dose: 50 mls/hr Piperacillin Sod/Tazobactam (Sod 3.375 gm/ Sodium Chloride) 100 mls @ 100 mls/ hr IVPB Q6 [facility] PRN Reason: Protocol Last Admin: 03/02/18 09:46 Dose: 100 mls/hr Levetiracetam 750 mg/ Sodium (Chloride) 107.5 mls @ 215 mls/hr IVPB Q12 [facility] Last Admin: 03/02/18 09:42 Dose: 215 mls/hr Insulin Detemir (Levemir) 20 units SC Q12H [facility] Insulin Human Lispro (Humalog) 0 units SC Q4H [facility] PRN Reason: Protocol Last Admin: 03/02/18 13:59 Dose: 3 units Methylprednisolone (Solu-Medrol) 60 mg IV Q6 [facility] Last Admin: 03/02/18 09:44 Dose: 60 mg Pantoprazole Sodium (Protonix Inj) 40 mg IVP DAILY [facility] Last Admin: 03/02/18 09:43 Dose: 40 mg Sildenafil Citrate (Revatio) 20 mg PO TID [facility] Last Admin: 03/02/18 14:03 Dose: 20 mg - Labs Labs: 03/02/18 04:30 03/02/18 04:30 - Constitutional Appears: Chronically Ill - Head Exam Head Exam: NORMAL INSPECTION - Eye Exam Additional comments: Pupils sluggish response to light - ENT Exam Additional comments: Intubated - Neck Exam Neck Exam: Normal Inspection - Respiratory Exam Respiratory Exam: Decreased Breath Sounds (at bases b/l), Rales, Rhonchi - Cardiovascular Exam Cardiovascular Exam: REGULAR RHYTHM - GI/Abdominal Exam GI & Abdominal Exam: Soft, Normal Bowel Sounds - Extremities Exam Additional comments: Edema all extremities - Neurological Exam Additional comments: Intubated, unresponsive, no movements, arousable with minimal response to deep pain. - Skin Skin Exam: Warm Assessment and Plan (1) Acute respiratory failure Status: Acute (2) Pneumonia Status: Acute (3) Sepsis Status: Acute (4) Pulmonary fibrosis Status: Chronic (5) Pulmonary hypertension Status: Chronic - Assessment and Plan (Free Text) Plan: Patient's at bedside, He states Patient had CT Chest aprox. Aug and December this year 2017, She was recently was discharged from [facility] aprox. 3 weeks ago. Patient's had a CD of records of [facility] and referal by [employer] Teacher to a [facility] for further management of Pulmonary Fibrosis, Lung Transplant ??. Continue Ventilatory support, Zosyn, Clinda, Solu Medrol, Revatio and rest of treatment
[2018-03-02] MEDS ORDERED: Tuberculin 5 Units/0.1 ml Inj ID ONE (14:50)
--- NOTE | 2018-03-02 16:28 | CP.PCM.PN ---
Subjective - Date & Time of Evaluation Date of Evaluation: 03/02/18 Time of Evaluation: 16:15 - Subjective Subjective: I D NOTE PATIENT EXAMINED ,CHART REVIEWED REVIEWED PREVIOUS RECORDS INCLUDING CXR AND IS ALSO EVALUATING FOR TB.HAVE DISCONTINUED VANCOMYCIN AND STARTED [employer] FOR INCREASED COVERAGE INCLUDING GRAM NEGATIVE AWAIT ACID FAST EVALUATION NO HELPFUL RECENT CULTURES Objective - Vital Signs/Intake and Output Vital Signs (last 24 hours): Temp Pulse Resp BP Pulse Ox 98.8 F 106 H 21 115/71 100 03/02/18 08:00 03/02/18 14:00 03/02/18 14:00 03/02/18 14:00 03/02/18 14:00 Intake and Output: 03/02/18 03/02/18 06:59 18:59 Intake Total 1760 1174 Output Total 500 Balance 1260 1174 - Medications Medications: Current Medications Acetaminophen (Tylenol 325mg Tab) 650 mg PO Q6H PRN PRN Reason: Fever >100.4 F Albuterol/Ipratropium (Duoneb 3 Mg/0.5 Mg (3 Ml) Ud) 3 ml INH RQ4 PRN PRN Reason: Shortness of Breath Last Admin: 03/01/18 04:53 Dose: 3 ml Aspirin (Aspirin Chewable) 81 mg PO DAILY [facility] Last Admin: 03/02/18 09:37 Dose: 81 mg Atorvastatin Calcium (Lipitor) 10 mg PO DAILY [facility] Last Admin: 03/02/18 09:43 Dose: 10 mg Digoxin (Lanoxin) 0.25 mg PO DAILY [facility] Last Admin: 03/02/18 09:42 Dose: 0.25 mg Diltiazem HCl (Cardizem) 60 mg PO Q6 [facility] Last Admin: 03/02/18 09:37 Dose: 60 mg Enoxaparin Sodium (Lovenox) 40 mg SC DAILY [facility] PRN Reason: Protocol Last Admin: 03/02/18 09:43 Dose: 40 mg Ferrous Sulfate (Feosol) 325 mg PO DAILY [facility] Last Admin: 03/02/18 09:39 Dose: 325 mg Home Med (Nintedanib Esylate [Ofev]) 150 mg PO DAILY [facility] Lactated Ringer's (Lactated Ringer's 500ml) 500 mls @ 500 mls/hr IV .Q1H [facility] Last Admin: 03/01/18 06:30 Dose: 500 mls/hr Clindamycin Phosphate (Cleocin) 600 mg in 50 mls @ 50 mls/hr IVPB Q8 [facility] PRN Reason: Protocol Last Admin: 03/02/18 09:38 Dose: 50 mls/hr Piperacillin Sod/Tazobactam (Sod 3.375 gm/ Sodium Chloride) 100 mls @ 100 mls/ hr IVPB Q6 [facility] PRN Reason: Protocol Last Admin: 03/02/18 09:46 Dose: 100 mls/hr Levetiracetam 750 mg/ Sodium (Chloride) 107.5 mls @ 215 mls/hr IVPB Q12 [facility] Last Admin: 03/02/18 09:42 Dose: 215 mls/hr Ceftaroline Fosamil 600 mg/ (Sodium Chloride) 250 mls @ 125 mls/hr IVPB Q12 [facility] PRN Reason: Protocol Insulin Detemir (Levemir) 20 units SC Q12H [facility] Insulin Human Lispro (Humalog) 0 units SC Q4H [facility] PRN Reason: Protocol Last Admin: 03/02/18 13:59 Dose: 3 units Methylprednisolone (Solu-Medrol) 60 mg IV Q6 [facility] Last Admin: 03/02/18 09:44 Dose: 60 mg Pantoprazole Sodium (Protonix Inj) 40 mg IVP DAILY [facility] Last Admin: 03/02/18 09:43 Dose: 40 mg Sildenafil Citrate (Revatio) 20 mg PO TID [facility] Last Admin: 03/02/18 14:03 Dose: 20 mg - Labs Labs: 03/02/18 04:30 03/02/18 04:30
[2018-03-02] MEDS: Insulin Detemir 100 Units/ml Inj SC SCH (21:11)
--- NOTE | 2018-03-02 22:51 | PN ---
DATE: 03/02/2018 CRITICAL CARE PROGRESS NOTE. LOCATION: The patient in ICU, bed 434. TIME SPENT: 45 minutes. SUBJECTIVE: The patient is seen and evaluated at the bedside. Case was discussed in Multidisciplinary ICU rounds in the morning. Past medical, surgical, and social history reviewed as noted in history and physical. SUBJECTIVE: A 62-year-old female, nonsmoker with a history significant for pulmonary fibrosis, question idiopathic with extensive honeycombing and bronchiectatic changes involving lateral and basilar areas of both lungs, hypertension, diabetes mellitus type 2, pulmonary hypertension with multiple admissions in [facility] for hypoxic respiratory failure, admitted with change in the mental status, possible prolonged hypoglycemia, seizure, and postictal state versus anoxic cerebral encephalopathy, remains intubated on mechanical ventilation on AC/PRBC, rate 14, tidal volume 400, FiO2 of 40%, observed rate 23, observed tidal volume 410, peak airway pressure 24, end-tidal CO2 of 12. No sedation. PHYSICAL EXAMINATION: VITAL SIGNS: Temperature 98, heart rate 106 to 113, blood pressure 106/64 to 108/64, mean arterial pressure 78, saturations 100%. Intake 3370, output 1400, positive balance 1970 mL. Weight 98 pounds. HEAD, EYES, EARS, NOSE, AND THROAT: Pupils 2 to 3 mm, mildly reactive, midline. Corneal reflex present. Conjunctival reflex present. Minimal response to suctioning endotracheal tube. CHEST: Bilateral breath sounds, Velcro crackles, both lungs. ABDOMEN: Bowel sounds are present, soft. Liver and spleen not palpable. Bladder not distended. EXTREMITIES: With trace edema. CURRENT MEDICATIONS: Tylenol 650 every 6 hours p.r.n., DuoNeb 3 mL every 4 hours p.r.n., aspirin 81 mg daily, Lipitor 10 mg daily, ceftaroline 600 mg every 12 hours, clindamycin 600 mg every 8 hours, Lanoxin 0.25 mg p.o. daily, Cardizem 60 mg p.o. every 6 hours, Lovenox 40 subcutaneous daily, ferrous sulfate 325 mg p.o. daily, Ofev 150 mg p.o. daily, Levemir 20 units subcutaneous every 12 hours, Ringer's lactate, Keppra 750 mg every 12 hours, Solu-Medrol 60 IV every 6 hours, Protonix 40 IV daily, Zosyn 3.375 gm every 6 hours, Revatio 20 mg p.o. 3 times daily. IMPRESSION AND PLAN: 1. Neurology: Altered mental status, remains with no significant improvement. Suspect postictal state versus cerebral hypoxic injury from prolonged hypoglycemia. Continue to monitor. No sedation. 2. Pulmonary: Hypoxic respiratory failure, history of idiopathic pulmonary fibrosis with significant bronchiectasis and honeycombing. Continue bronchodilator, steroids. GI prophylaxis. Appreciate pulmonary input and workup to rule out tuberculosis. We will send ETA lavage for gram stain culture, fungus, AFB cytology. 3. Infectious Disease: Superimposed pneumonia. Appreciate ID input and antibiotic including ceftaroline, Zosyn, vancomycin. 4. Cardiac: History of pulmonary hypertension, right ventricular failure, pedal edema, on sildenafil and digoxin. 5. Gastroenterology: No acute issues, on GI prophylaxis. 6. Hematology: Leukocytosis secondary to steroid and/or superimposed pneumonia. Procalcitonin 0.27. 7. Endocrine: History of diabetes. Maintain blood sugar below 180. 8. Renal: BUN and creatinine normal. No electrolyte imbalance. Mild hypoalbuminemia. Keep head of bed 30 degree up. Martinez catheter for adequate intake and output. Tyson Perea MD
--- NOTE | 2018-03-02 23:25 | CON ---
DATE: 03/02/2018 ENDOCRINOLOGY CONSULTATION LOCATION: ICU room 434. HISTORY OF PRESENT ILLNESS: This is a 62-year-old female with known history of type 2 insulin-requiring diabetes with underlying cystic fibrosis and is currently steroid dependent and is now being referred for diabetic evaluation because of recent symptomatic hypoglycemia occurring at home. The patient is currently intubated and sedated at this time. PAST MEDICAL HISTORY: As mentioned above. History of secondary diabetes, currently insulin requiring for the last six years or so following the initiation of oral steroids for management of her underlying cystic fibrosis as noted thereof. History of hypertension, dyslipidemia, history of idiopathic pulmonary fibrosis with underlying cystic fibrosis and has been steroid dependent for the last seven years or so as noted. History of congestive heart failure and previous admissions for the same. There is also possibility of marked pulmonary hypertension as noted accordingly. Recent history of generalized seizure most likely metabolic from the underlying bout of symptomatic hypoglycemia. FAMILY HISTORY: Positive for diabetes and hypertension. SOCIAL HISTORY: The patient has a very supportive family. No known substance use. REVIEW OF SYSTEMS: Not possible at this time as the patient is intubated and sedated, but the chart note management and lab tests had been reviewed in detail at this time. She is apparently doing well with continued intake and usage of insulin regimen and oral hypoglycemic therapy when she was found unresponsive by her daughter at home and was called . The paramedics found the glucose of 29 mg/dL. No recent chest pains, palpitations, or PNDs. No any alterations of urinary patterns. Oral intake, however, has been variable and suboptimal, as per family members discontinued usage of her insulin therapy, and no recent home glucose monitoring level is available at this time. PHYSICAL EXAMINATION: GENERAL: This is an average-built female, in no apparent distress and currently sedated and intubated. VITAL SIGNS: With a blood pressure of 140/80, pulse is 70 beats per minute and regular, temperature 98, respirations 20. Height is 4 feet 11 inches. Weight is 98 pounds. HEENT: Head is normocephalic. Eyes are anicteric with pink conjunctivae. Funduscopy is not possible at this time. Ears, nose, and throat otherwise normal. NECK: Supple. Thyroid gland is normal in size. No carotid bruits or cervical adenopathy. CARDIOPULMONARY: Some adynamic precordium. S1, S2 are rapid and regular. LUNGS: Show scattered rhonchi. ABDOMEN: Flat, soft with positive bowel sounds. EXTREMITIES: No peripheral edema. Pulses are +2 bilaterally. LABORATORY DATA: Her initial glucose at home was 29, and the subsequent level was 19 mg/dL. Her chemistries today showed a BUN of 12, sodium 137, potassium 4.8, chloride 100, CO2 of 31, glucose 203, and creatinine 0.4. Her glucose levels are elevated now ranging from 203 to 285 and 328 mg/dL. 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 She also has significant idiopathic pulmonary fibrosis with underlying cystic fibrosis and multiple admissions for management of the same and the very high possibility of underlying pulmonary hypertension. She has previous admissions also for congestive heart failure with underlying coronary artery disease. PLAN OF MANAGEMENT: As discussed with the staff as the patient is currently intubated and sedated, we will start her on low-dose basal insulin with hyperglycemic acceleration as noted thereof from the IV steroids as given at this time. We will obtain serial chemistries and supplements accordingly as needed. We will also obtain serial thyroid studies and titrate her dose regimen accordingly. Baseline levels also obtained at this time. Obtain serial chemistries and supplement accordingly as ordered. Hemoglobin A1c will be done to confirm her prior glycemic control, and baseline thyroid function studies will be ordered. We will follow. Radha Joe MD
[2018-03-03] MEDS: Clindamycin 600mg/50ml D5W 600 MG/50 ML VIAL IVPB SCH ×3 (00:25→17:10)
[2018-03-03] MEDS: Insulin Lispro (humaLOG) 100 Units/ml Inj SC SCH ×6 (00:26→20:02)
[2018-03-03] MEDS: NINTEDANIB ESYLATE 150 MG PO SCH ×3 (02:15→23:38)
[2018-03-03] MEDS: Piperacillin/Tazobact 3.375 GM in Sodium Chloride 0.9% 100 ML IVPB SCH ×4 (03:16→21:26)
--- NOTE | 2018-03-03 04:25 | CON ---
DATE: 03/02/2018 INFECTIOUS DISEASE CONSULT HISTORY OF PRESENT ILLNESS: The patient is a 62-year-old female with extensive past medical history including possibly cystic fibrosis, idiopathic pulmonary fibrosis, hypertension, diabetes, CHF, and who had chronic lower extremity edema, who was found unresponsive at home by daughter who lives with her. Apparently, she was seen on the night before admission in her normal state. The patient is presently intubated and sedated. History taken from family and essentially from the chart. At present time, CT of head showed no hemorrhage. Today, which is 03/02/2018, labs show a BUN of 12, creatinine 0.4, GFR greater than 60. All blood sugars were elevated, some as high as 328. Calcium 8.3. Liver function tests within normal limits. Total protein 6.2. WBC, the last 3 days show WBC of 23.8, 21.2, and today is being 17.7; hemoglobin 11.9, 10.5, and 10.3; platelet count 407, 398, and 400; polys have gone up to 92 from 83, eosinophils are within normal limits; lymphs are low today especially with being 6.1, there is 1 band neutrophil. Urine shows rbc's of 23, bacteria is rare; toxicology is within normal limits. Chest x-ray: Improving infiltrate at the mid to inferior right lung zone without significant interval change in the left side; however, the right pleural effusion persists. Brain MRI; no definite acute intracranial findings, age-related neuro degenerative changes are rather mild, appropriate for the patient's age. As noted on my progress note, Dr. Ledesma has reviewed previous chest x-ray and CT scans and evaluating her for TB and has set up respiratory isolation. PHYSICAL EXAMINATION: GENERAL: The patient is intubated and not responding to verbal stimuli, does open her eyes minimally to painful stimuli. HEENT: The patient is intubated. NECK: Supple. LUNGS: Decreased breath sounds on the respirator. There are rales in both lungs. ABDOMEN: Bowel sounds present. Soft. Positive bowel sounds. No organomegaly. EXTREMITIES: Peripheral edema. IMPRESSION: Pneumonia in a patient essentially with respiratory failure, and the patient with pulmonary fibrosis. The patient essentially is immunologically impaired. As we await for the pulmonary acid fast smears, at present we will be treating her with continued Zosyn and clindamycin and I have discontinued vancomycin and added Teflaro 600 mg intravenous piggyback every 12 hours. Jose Russ MD DIANNE
[2018-03-03 05:28] LABS: BASO % 0.2 % (0.0-2.0); LYMPH % 8.6 % (20.0-40.0); MEAN CELL VOLUME 69.8 fl (81.0-99.0); MEAN CORPUSCULAR HEMOGLOBIN 21.6 pg (27.0-31.0); MEAN CORPUSCULAR HGB CONC 30.9 g/dL (33.0-37.0); MEAN PLATELET VOLUME 7.9 fl (7.2-11.7); MONO # 0.3 K/uL (0.0-0.8); MONO % 2.3 % (0.0-10.0); NEUT % 88.9 % (50.0-75.0); RBC 4.63 Mil/uL (3.80-5.20); WHITE BLOOD COUNT 11.3 K/uL (4.8-10.8)
[2018-03-03 05:48] LABS: LDL CHOLESTEROL 94 mg/dL (0-129)
[2018-03-03 05:55] LABS: ABG ALLEN TEST YES; ARTERIAL BLOOD GAS HEMOGLOBIN 10.5 g/dL (11.7-17.4); ARTERIAL BLOOD GAS O2 CAPACITY 14.7 mL/dL (16-24); ARTERIAL BLOOD GAS O2 CONTENT 14.7 ML/dL (15-23); ARTERIAL BLOOD GAS O2 SAT 99.9 % (95-98); ARTERIAL BLOOD GAS PCO2 47 mm/Hg (35-45); ARTERIAL BLOOD GAS PH 7.48 (7.35-7.45); ARTERIAL BLOOD GAS PO2 172 mm/Hg (80-100); ARTERIAL BLOOD GAS TCO2 36.4 mmol/L (22-28)
[2018-03-03 06:48] LABS: ALB/GLOB RATIO 0.9 (1.0-2.1); ALBUMIN 2.8 g/dL (3.5-5.0); ALT/SGPT 31 U/L (9-52); AST/SGOT 37 U/L (14-36); BLOOD UREA NITROGEN 22 mg/dl (7-17); CALCIUM 8.5 mg/dL (8.4-10.2); GFR AFRICAN-AMERICAN > 60; GFR NON-AFRICAN AMERICAN > 60; HDL CHOLESTEROL 43 MG/DL (30-70)
[2018-03-03] MEDS: Sildenafil 20 MG TAB PO SCH ×3 (08:16→17:12)
[2018-03-03] MEDS: Digoxin 250 mcg (0.25 mg) Tab PO SCH (08:17)
[2018-03-03] MEDS: Insulin Detemir 100 Units/ml Inj SC SCH ×2 (08:20→20:02)
[2018-03-03] MEDS: Enoxaparin 40 mg Syringe SC SCH (08:21)
[2018-03-03 08:31] LABS: T4 4.61 ug/dl (5.5-11.0)
[2018-03-03 08:44] LABS: T3 0.445 nmol/L (1.49-2.60)
--- NOTE | 2018-03-03 11:30 | RAD ---
Date of service: 03/03/2018 HISTORY: intubated COMPARISON: 03/02/2018. FINDINGS: The endotracheal tube terminates 5.0 cm proximal to the mary. The nasogastric tube terminates in the stomach. LUNGS: Again seen is diffuse interstitial thickening. There is focal haziness in the right mid lung. PLEURA: Small pleural effusions, no pneumothorax apparent. CARDIOVASCULAR: Normal. OSSEOUS STRUCTURES: No significant abnormalities. VISUALIZED UPPER ABDOMEN: Normal. OTHER FINDINGS: None. IMPRESSION: Haziness in the right mid lung mid may represent developing pneumonia other background of chronic interstitial fibrosis. Small pleural effusions. Stable position of endotracheal tube.
--- NOTE | 2018-03-03 12:39 | CP.CCUPN ---
<Toño Rodriguez - Last Filed: 03/03/18 18:45> CCU Subjective - Physician Review Subjective (Free Text): 03/03/18 10:03 ICU Progress Note: 62 y/o F evaluated and examined by bedside. Pt is unresponsive, on mechanical ventilator. Pt afebrile with NO acute events overnight. CCU Objective - Vital Signs / Intake & Output Vital Signs (Last 4 hours): Vital Signs Temp Pulse Resp BP Pulse Ox 03/03/18 12:00 98.8 F 85 19 104/58 L 98 03/03/18 10:38 104 H 110/60 03/03/18 10:00 103 H 20 114/64 99 Intake and Output (Last 8hrs): Intake & Output 03/02/18 03/03/18 03/03/18 22:59 06:59 14:59 Intake Total 1073 805 794 Output Total 700 500 220 Balance 373 305 574 Intake: IV 8 504 Intake, Piggyback 650 300 20 Oral 180 Tube Feeding 315 405 90 Free Water Flush 100 100 Output: Urine 700 500 220 Urethral (Martinez) 700 500 220 Other: # Bowel Movements 0 - Physical Exam Physical Exam Limitations: Positive for: Altered Mental Status Head: Positive for: Atraumatic, Normocephalic Pupils: Positive for: PERRL Conjunctiva: Positive for: Normal Ears: Positive for: Normal Mouth: Positive for: Moist Mucous Membranes Respiratory/Chest: Negative for: Wheezes, Rales Cardiovascular: Positive for: Regular Rate and Rhythm, Normal S1, S2 Abdomen: Positive for: Normal Bowel Sounds. Negative for: Distention Upper Extremity: Positive for: Normal Inspection Lower Extremity: Positive for: Normal Inspection Psychiatric: Negative for: Alert - Medications Active Medications: Active Medications Generic Name Dose Route Start Last Admin Trade Name Freq PRN Reason Stop Dose Admin Acetaminophen 650 mg 02/28/18 16:05 Tylenol 325mg Tab PO Q6H PRN Fever >100.4 F Albuterol/Ipratropium 3 ml 02/28/18 16:19 03/01/18 04:53 Duoneb 3 Mg/0.5 Mg (3 Ml) Ud INH 3 ml RQ4 PRN Administration Shortness of Breath Aspirin 81 mg 03/01/18 09:00 03/03/18 08:14 Aspirin Chewable PO 81 mg DAILY JANIE Administration Atorvastatin Calcium 10 mg 03/01/18 09:00 03/03/18 08:21 Lipitor PO 10 mg DAILY JANIE Administration Digoxin 0.25 mg 02/28/18 21:35 03/03/18 08:17 Lanoxin PO 0.25 mg DAILY JANIE Administration Diltiazem HCl 60 mg 02/28/18 22:00 03/03/18 10:38 Cardizem PO 60 mg Q6 JANIE Administration Enoxaparin Sodium 40 mg 03/01/18 09:00 03/03/18 08:21 Lovenox SC 40 mg DAILY JANIE Administration Protocol Ferrous Sulfate 325 mg 03/01/18 09:00 03/03/18 08:16 Feosol PO 325 mg DAILY JANIE Administration Home Med 150 mg 03/02/18 22:00 03/03/18 08:17 Nintedanib Esylate [Ofev] PO 150 mg Q12 JANIE Administration Lactated Ringer's 500 mls @ 500 mls/hr 02/28/18 22:15 03/01/18 06:30 Lactated Ringer's 500ml IV 500 mls/hr .Q1H JANIE Administration Clindamycin Phosphate 600 mg in 50 mls @ 50 mls/hr 03/01/18 12:45 03/03/18 08 :15 Cleocin IVPB 50 mls/hr Q8 JANIE Administration Protocol Piperacillin Sod/Tazobactam 100 mls @ 100 mls/hr 03/01/18 22:00 03/03/18 10: 40 Sod 3.375 gm/ Sodium Chloride IVPB 100 mls/hr Q6 JANIE Administration Protocol Levetiracetam 750 mg/ Sodium 107.5 mls @ 215 mls/hr 03/02/18 09:00 03/03/18 10:38 Chloride IVPB 215 mls/hr Q12 JANIE Administration Ceftaroline Fosamil 600 mg/ 250 mls @ 125 mls/hr 03/02/18 21:00 03/03/18 08: 22 Sodium Chloride IVPB 125 mls/hr Q12 JANIE Administration Protocol Insulin Detemir 20 units 03/02/18 20:00 03/03/18 08:20 Levemir SC 20 units Q12H JANIE Administration Insulin Human Lispro 0 units 03/02/18 16:00 03/03/18 08:14 Humalog SC 2 units Q4H JANIE Administration Protocol Methylprednisolone 60 mg 03/01/18 10:00 03/03/18 10:40 Solu-Medrol IV 60 mg Q6 JANIE Administration Mupirocin 1 applic 03/03/18 09:00 03/03/18 08:15 Bactroban Ointment TOP 1 appl TID JANIE Administration Pantoprazole Sodium 40 mg 02/28/18 17:00 03/03/18 08:17 Protonix Inj IVP 40 mg DAILY JANIE Administration Sildenafil Citrate 20 mg 02/28/18 17:00 03/03/18 08:16 Revatio PO 20 mg TID JANIE Administration - Patient Studies Lab Studies: Microbiology Studies 02/28/18 17:16 MRSA Culture (Admit) - Final Nose MRSA DETECTED 02/28/18 14:00 Blood Culture - Preliminary Blood-Venous NO GROWTH AFTER 48 HOURS 03/01/18 16:21 Urine Culture - Final Urine,Catheterized No Growth (<1,000 CFU/ML) Lab Studies 03/03/18 03/03/18 03/03/18 Range/Units 11:59 08:00 07:40 WBC (4.8-10.8) K/uL RBC (3.80-5.20) Mil/uL Hgb (12.0-16.0) g/dL Hct (34.0-47.0) % MCV (81.0-99.0) fl MCH (27.0-31.0) pg MCHC (33.0-37.0) g/dL RDW (11.5-14.5) % Plt Count (130-400) K/uL MPV (7.2-11.7) fl Neut % (Auto) (50.0-75.0) % Lymph % (Auto) (20.0-40.0) % [place] % (Auto) (0.0-10.0) % Eos % (Auto) (0.0-4.0) % Baso % (Auto) (0.0-2.0) % Neut # (Auto) (1.8-7.0) K/uL Lymph # (Auto) (1.0-4.3) K/uL [place] # (Auto) (0.0-0.8) K/uL Eos # (Auto) (0.0-0.7) K/uL Baso # (Auto) (0.0-0.2) K/uL pCO2 (35-45) mm/Hg pO2 (80-100) mm/Hg HCO3 (21-28) mmol/L ABG pH (7.35-7.45) ABG Total CO2 (22-28) mmol/L ABG O2 Saturation (95-98) % ABG O2 Content (15-23) ML/dL ABG Base Excess (-2.0-3.0) mmol/L ABG Hemoglobin (11.7-17.4) g/dL ABG Carboxyhemoglobin (0.5-1.5) % POC ABG HHb (Measured) (0.0-5.0) % ABG Methemoglobin (0.0-3.0) % ABG O2 Capacity (16-24) mL/dL Jorge Test A-a O2 Difference mm/Hg Hgb O2 Saturation (95.0-98.0) % Mechanical Rate FiO2 % Tidal Volume PEEP Sodium (132-148) mmol/l Potassium (3.6-5.0) MMOL/L Chloride (98-107) mmol/L Carbon Dioxide (22-30) mmol/L Anion Gap (10-20) BUN (7-17) mg/dl Creatinine (0.7-1.2) mg/dl Est GFR ( Amer) Est GFR (Non-Af Amer) POC Glucose (mg/dL) 188 H 200 H (65-110) mg/dL Random Glucose (65-105) mg/dL Hemoglobin A1c (4.2-6.5) % Calcium (8.4-10.2) mg/dL Total Bilirubin (0.2-1.3) mg/dl AST (14-36) U/L ALT (9-52) U/L Alkaline Phosphatase (38-126) U/L Total Protein (6.3-8.2) G/DL Albumin (3.5-5.0) g/dL Globulin (2.2-3.9) gm/dL Albumin/Globulin Ratio (1.0-2.1) Triglycerides (0-149) mg/DL Cholesterol (0-199) mg/dL LDL Cholesterol Direct (0-129) mg/dL HDL Cholesterol (30-70) MG/DL Thyroxine (T4) 4.61 L (5.5-11.0) ug/dl Total T3 0.445 L (1.49-2.60) nmol/L TSH 3rd Generation (0.46-4.68) mIU/ML Gentamicin Trough (0.0-0.9) ug/mL 03/03/18 03/03/18 03/03/18 Range/Units 05:25 04:29 04:29 WBC 11.3 H (4.8-10.8) K/uL RBC 4.63 (3.80-5.20) Mil/uL Hgb 10.0 L (12.0-16.0) g/dL Hct 32.3 L (34.0-47.0) % MCV 69.8 L (81.0-99.0) fl MCH 21.6 L (27.0-31.0) pg MCHC 30.9 L (33.0-37.0) g/dL RDW 20.0 H (11.5-14.5) % Plt Count 424 H (130-400) K/uL MPV 7.9 (7.2-11.7) fl Neut % (Auto) 88.9 H (50.0-75.0) % Lymph % (Auto) 8.6 L (20.0-40.0) % [place] % (Auto) 2.3 (0.0-10.0) % Eos % (Auto) 0.0 (0.0-4.0) % Baso % (Auto) 0.2 (0.0-2.0) % Neut # (Auto) 10.0 H (1.8-7.0) K/uL Lymph # (Auto) 1.0 (1.0-4.3) K/uL [place] # (Auto) 0.3 (0.0-0.8) K/uL Eos # (Auto) 0.0 (0.0-0.7) K/uL Baso # (Auto) 0.0 (0.0-0.2) K/uL pCO2 47 H (35-45) mm/Hg pO2 172 H (80-100) mm/Hg HCO3 33.0 H (21-28) mmol/L ABG pH 7.48 H (7.35-7.45) ABG Total CO2 36.4 H (22-28) mmol/L ABG O2 Saturation 99.9 H (95-98) % ABG O2 Content 14.7 L (15-23) ML/dL ABG Base Excess 10.3 H (-2.0-3.0) mmol/L ABG Hemoglobin 10.5 L (11.7-17.4) g/dL ABG Carboxyhemoglobin 1.3 (0.5-1.5) % POC ABG HHb (Measured) 0.1 (0.0-5.0) % ABG Methemoglobin 1.4 (0.0-3.0) % ABG O2 Capacity 14.7 L (16-24) mL/dL Jorge Test Yes A-a O2 Difference 54.0 mm/Hg Hgb O2 Saturation 97.1 (95.0-98.0) % Mechanical Rate 14 FiO2 40.0 % Tidal Volume 400 PEEP 5 Sodium (132-148) mmol/l Potassium (3.6-5.0) MMOL/L Chloride (98-107) mmol/L Carbon Dioxide (22-30) mmol/L Anion Gap (10-20) BUN (7-17) mg/dl Creatinine (0.7-1.2) mg/dl Est GFR ( Amer) Est GFR (Non-Af Amer) POC Glucose (mg/dL) (65-110) mg/dL Random Glucose (65-105) mg/dL Hemoglobin A1c 7.4 H (4.2-6.5) % Calcium (8.4-10.2) mg/dL Total Bilirubin (0.2-1.3) mg/dl AST (14-36) U/L ALT (9-52) U/L Alkaline Phosphatase (38-126) U/L Total Protein (6.3-8.2) G/DL Albumin (3.5-5.0) g/dL Globulin (2.2-3.9) gm/dL Albumin/Globulin Ratio (1.0-2.1) Triglycerides (0-149) mg/DL Cholesterol (0-199) mg/dL LDL Cholesterol Direct (0-129) mg/dL HDL Cholesterol (30-70) MG/DL Thyroxine (T4) (5.5-11.0) ug/dl Total T3 (1.49-2.60) nmol/L TSH 3rd Generation (0.46-4.68) mIU/ML Gentamicin Trough (0.0-0.9) ug/mL 03/03/18 03/03/18 03/02/18 Range/Units 04:29 03:49 23:56 WBC (4.8-10.8) K/uL RBC (3.80-5.20) Mil/uL Hgb (12.0-16.0) g/dL Hct (34.0-47.0) % MCV (81.0-99.0) fl MCH (27.0-31.0) pg MCHC (33.0-37.0) g/dL RDW (11.5-14.5) % Plt Count (130-400) K/uL MPV (7.2-11.7) fl Neut % (Auto) (50.0-75.0) % Lymph % (Auto) (20.0-40.0) % [place] % (Auto) (0.0-10.0) % Eos % (Auto) (0.0-4.0) % Baso % (Auto) (0.0-2.0) % Neut # (Auto) (1.8-7.0) K/uL Lymph # (Auto) (1.0-4.3) K/uL [place] # (Auto) (0.0-0.8) K/uL Eos # (Auto) (0.0-0.7) K/uL Baso # (Auto) (0.0-0.2) K/uL pCO2 (35-45) mm/Hg pO2 (80-100) mm/Hg HCO3 (21-28) mmol/L ABG pH (7.35-7.45) ABG Total CO2 (22-28) mmol/L ABG O2 Saturation (95-98) % ABG O2 Content (15-23) ML/dL ABG Base Excess (-2.0-3.0) mmol/L ABG Hemoglobin (11.7-17.4) g/dL ABG Carboxyhemoglobin (0.5-1.5) % POC ABG HHb (Measured) (0.0-5.0) % ABG Methemoglobin (0.0-3.0) % ABG O2 Capacity (16-24) mL/dL Jorge Test A-a O2 Difference mm/Hg Hgb O2 Saturation (95.0-98.0) % Mechanical Rate FiO2 % Tidal Volume PEEP Sodium 142 (132-148) mmol/l Potassium 4.5 (3.6-5.0) MMOL/L Chloride 102 (98-107) mmol/L Carbon Dioxide 32 H (22-30) mmol/L Anion Gap 13 (10-20) BUN 22 H (7-17) mg/dl Creatinine 0.5 L (0.7-1.2) mg/dl Est GFR ( Amer) > 60 Est GFR (Non-Af Amer) > 60 POC Glucose (mg/dL) 230 H 215 H (65-110) mg/dL Random Glucose 241 H (65-105) mg/dL Hemoglobin A1c (4.2-6.5) % Calcium 8.5 (8.4-10.2) mg/dL Total Bilirubin 0.3 (0.2-1.3) mg/dl AST 37 H (14-36) U/L ALT 31 (9-52) U/L Alkaline Phosphatase 88 (38-126) U/L Total Protein 6.1 L (6.3-8.2) G/DL Albumin 2.8 L (3.5-5.0) g/dL Globulin 3.3 (2.2-3.9) gm/dL Albumin/Globulin Ratio 0.9 L (1.0-2.1) Triglycerides 120 (0-149) mg/DL Cholesterol 167 (0-199) mg/dL LDL Cholesterol Direct 94 (0-129) mg/dL HDL Cholesterol 43 (30-70) MG/DL Thyroxine (T4) (5.5-11.0) ug/dl Total T3 (1.49-2.60) nmol/L TSH 3rd Generation 0.30 L (0.46-4.68) mIU/ML Gentamicin Trough (0.0-0.9) ug/mL 03/02/18 03/02/18 03/02/18 Range/Units 20:09 16:55 13:14 WBC (4.8-10.8) K/uL RBC (3.80-5.20) Mil/uL Hgb (12.0-16.0) g/dL Hct (34.0-47.0) % MCV (81.0-99.0) fl MCH (27.0-31.0) pg MCHC (33.0-37.0) g/dL RDW (11.5-14.5) % Plt Count (130-400) K/uL MPV (7.2-11.7) fl Neut % (Auto) (50.0-75.0) % Lymph % (Auto) (20.0-40.0) % [place] % (Auto) (0.0-10.0) % Eos % (Auto) (0.0-4.0) % Baso % (Auto) (0.0-2.0) % Neut # (Auto) (1.8-7.0) K/uL Lymph # (Auto) (1.0-4.3) K/uL [place] # (Auto) (0.0-0.8) K/uL Eos # (Auto) (0.0-0.7) K/uL Baso # (Auto) (0.0-0.2) K/uL pCO2 (35-45) mm/Hg pO2 (80-100) mm/Hg HCO3 (21-28) mmol/L ABG pH (7.35-7.45) ABG Total CO2 (22-28) mmol/L ABG O2 Saturation (95-98) % ABG O2 Content (15-23) ML/dL ABG Base Excess (-2.0-3.0) mmol/L ABG Hemoglobin (11.7-17.4) g/dL ABG Carboxyhemoglobin (0.5-1.5) % POC ABG HHb (Measured) (0.0-5.0) % ABG Methemoglobin (0.0-3.0) % ABG O2 Capacity (16-24) mL/dL Jorge Test A-a O2 Difference mm/Hg Hgb O2 Saturation (95.0-98.0) % Mechanical Rate FiO2 % Tidal Volume PEEP Sodium (132-148) mmol/l Potassium (3.6-5.0) MMOL/L Chloride (98-107) mmol/L Carbon Dioxide (22-30) mmol/L Anion Gap (10-20) BUN (7-17) mg/dl Creatinine (0.7-1.2) mg/dl Est GFR ( Amer) Est GFR (Non-Af Amer) POC Glucose (mg/dL) 264 H 238 H 291 H (65-110) mg/dL Random Glucose (65-105) mg/dL Hemoglobin A1c (4.2-6.5) % Calcium (8.4-10.2) mg/dL Total Bilirubin (0.2-1.3) mg/dl AST (14-36) U/L ALT (9-52) U/L Alkaline Phosphatase (38-126) U/L Total Protein (6.3-8.2) G/DL Albumin (3.5-5.0) g/dL Globulin (2.2-3.9) gm/dL Albumin/Globulin Ratio (1.0-2.1) Triglycerides (0-149) mg/DL Cholesterol (0-199) mg/dL LDL Cholesterol Direct (0-129) mg/dL HDL Cholesterol (30-70) MG/DL Thyroxine (T4) (5.5-11.0) ug/dl Total T3 (1.49-2.60) nmol/L TSH 3rd Generation (0.46-4.68) mIU/ML Gentamicin Trough (0.0-0.9) ug/mL 03/02/18 Range/Units 04:30 WBC (4.8-10.8) K/uL RBC (3.80-5.20) Mil/uL Hgb (12.0-16.0) g/dL Hct (34.0-47.0) % MCV (81.0-99.0) fl MCH (27.0-31.0) pg MCHC (33.0-37.0) g/dL RDW (11.5-14.5) % Plt Count (130-400) K/uL MPV (7.2-11.7) fl Neut % (Auto) (50.0-75.0) % Lymph % (Auto) (20.0-40.0) % [place] % (Auto) (0.0-10.0) % Eos % (Auto) (0.0-4.0) % Baso % (Auto) (0.0-2.0) % Neut # (Auto) (1.8-7.0) K/uL Lymph # (Auto) (1.0-4.3) K/uL [place] # (Auto) (0.0-0.8) K/uL Eos # (Auto) (0.0-0.7) K/uL Baso # (Auto) (0.0-0.2) K/uL pCO2 (35-45) mm/Hg pO2 (80-100) mm/Hg HCO3 (21-28) mmol/L ABG pH (7.35-7.45) ABG Total CO2 (22-28) mmol/L ABG O2 Saturation (95-98) % ABG O2 Content (15-23) ML/dL ABG Base Excess (-2.0-3.0) mmol/L ABG Hemoglobin (11.7-17.4) g/dL ABG Carboxyhemoglobin (0.5-1.5) % POC ABG HHb (Measured) (0.0-5.0) % ABG Methemoglobin (0.0-3.0) % ABG O2 Capacity (16-24) mL/dL Jorge Test A-a O2 Difference mm/Hg Hgb O2 Saturation (95.0-98.0) % Mechanical Rate FiO2 % Tidal Volume PEEP Sodium (132-148) mmol/l Potassium (3.6-5.0) MMOL/L Chloride (98-107) mmol/L Carbon Dioxide (22-30) mmol/L Anion Gap (10-20) BUN (7-17) mg/dl Creatinine (0.7-1.2) mg/dl Est GFR ( Amer) Est GFR (Non-Af Amer) POC Glucose (mg/dL) (65-110) mg/dL Random Glucose (65-105) mg/dL Hemoglobin A1c (4.2-6.5) % Calcium (8.4-10.2) mg/dL Total Bilirubin (0.2-1.3) mg/dl AST (14-36) U/L ALT (9-52) U/L Alkaline Phosphatase (38-126) U/L Total Protein (6.3-8.2) G/DL Albumin (3.5-5.0) g/dL Globulin (2.2-3.9) gm/dL Albumin/Globulin Ratio (1.0-2.1) Triglycerides (0-149) mg/DL Cholesterol (0-199) mg/dL LDL Cholesterol Direct (0-129) mg/dL HDL Cholesterol (30-70) MG/DL Thyroxine (T4) (5.5-11.0) ug/dl Total T3 (1.49-2.60) nmol/L TSH 3rd Generation (0.46-4.68) mIU/ML Gentamicin Trough 0.9 (0.0-0.9) ug/mL Laboratory Results - last 24 hr 03/02/18 03/02/18 03/02/18 04:30 13:14 16:55 WBC RBC Hgb Hct MCV MCH MCHC RDW Plt Count MPV Neut % (Auto) Lymph % (Auto) [place] % (Auto) Eos % (Auto) Baso % (Auto) Neut # (Auto) Lymph # (Auto) [place] # (Auto) Eos # (Auto) Baso # (Auto) pCO2 pO2 HCO3 ABG pH ABG Total CO2 ABG O2 Saturation ABG O2 Content ABG Base Excess ABG Hemoglobin ABG Carboxyhemoglobin POC ABG HHb (Measured) ABG Methemoglobin ABG O2 Capacity Jorge Test A-a O2 Difference Hgb O2 Saturation Mechanical Rate FiO2 Tidal Volume PEEP Sodium Potassium Chloride Carbon Dioxide Anion Gap BUN Creatinine Est GFR ( Amer) Est GFR (Non-Af Amer) POC Glucose (mg/dL) 291 H 238 H Random Glucose Hemoglobin A1c Calcium Total Bilirubin AST ALT Alkaline Phosphatase Total Protein Albumin Globulin Albumin/Globulin Ratio Triglycerides Cholesterol LDL Cholesterol Direct HDL Cholesterol Thyroxine (T4) Total T3 TSH 3rd Generation Gentamicin Trough 0.9 03/02/18 03/02/18 03/03/18 20:09 23:56 03:49 WBC RBC Hgb Hct MCV MCH MCHC RDW Plt Count MPV Neut % (Auto) Lymph % (Auto) [place] % (Auto) Eos % (Auto) Baso % (Auto) Neut # (Auto) Lymph # (Auto) [place] # (Auto) Eos # (Auto) Baso # (Auto) pCO2 pO2 HCO3 ABG pH ABG Total CO2 ABG O2 Saturation ABG O2 Content ABG Base Excess ABG Hemoglobin ABG Carboxyhemoglobin POC ABG HHb (Measured) ABG Methemoglobin ABG O2 Capacity Jorge Test A-a O2 Difference Hgb O2 Saturation Mechanical Rate FiO2 Tidal Volume PEEP Sodium Potassium Chloride Carbon Dioxide Anion Gap BUN Creatinine Est GFR ( Amer) Est GFR (Non-Af Amer) POC Glucose (mg/dL) 264 H 215 H 230 H Random Glucose Hemoglobin A1c Calcium Total Bilirubin AST ALT Alkaline Phosphatase Total Protein Albumin Globulin Albumin/Globulin Ratio Triglycerides Cholesterol LDL Cholesterol Direct HDL Cholesterol Thyroxine (T4) Total T3 TSH 3rd Generation Gentamicin Trough 03/03/18 03/03/18 03/03/18 04:29 04:29 04:29 WBC 11.3 H RBC 4.63 Hgb 10.0 L Hct 32.3 L MCV 69.8 L MCH 21.6 L MCHC 30.9 L RDW 20.0 H Plt Count 424 H MPV 7.9 Neut % (Auto) 88.9 H Lymph % (Auto) 8.6 L [place] % (Auto) 2.3 Eos % (Auto) 0.0 Baso % (Auto) 0.2 Neut # (Auto) 10.0 H Lymph # (Auto) 1.0 [place] # (Auto) 0.3 Eos # (Auto) 0.0 Baso # (Auto) 0.0 pCO2 pO2 HCO3 ABG pH ABG Total CO2 ABG O2 Saturation ABG O2 Content ABG Base Excess ABG Hemoglobin ABG Carboxyhemoglobin POC ABG HHb (Measured) ABG Methemoglobin ABG O2 Capacity Jorge Test A-a O2 Difference Hgb O2 Saturation Mechanical Rate FiO2 Tidal Volume PEEP Sodium 142 Potassium 4.5 Chloride 102 Carbon Dioxide 32 H Anion Gap 13 BUN 22 H Creatinine 0.5 L Est GFR ( Amer) > 60 Est GFR (Non-Af Amer) > 60 POC Glucose (mg/dL) Random Glucose 241 H Hemoglobin A1c 7.4 H Calcium 8.5 Total Bilirubin 0.3 AST 37 H ALT 31 Alkaline Phosphatase 88 Total Protein 6.1 L Albumin 2.8 L Globulin 3.3 Albumin/Globulin Ratio 0.9 L Triglycerides 120 Cholesterol 167 LDL Cholesterol Direct 94 HDL Cholesterol 43 Thyroxine (T4) Total T3 TSH 3rd Generation 0.30 L Gentamicin Trough 03/03/18 03/03/18 03/03/18 05:25 07:40 08:00 WBC RBC Hgb Hct MCV MCH MCHC RDW Plt Count MPV Neut % (Auto) Lymph % (Auto) [place] % (Auto) Eos % (Auto) Baso % (Auto) Neut # (Auto) Lymph # (Auto) [place] # (Auto) Eos # (Auto) Baso # (Auto) pCO2 47 H pO2 172 H HCO3 33.0 H ABG pH 7.48 H ABG Total CO2 36.4 H ABG O2 Saturation 99.9 H ABG O2 Content 14.7 L ABG Base Excess 10.3 H ABG Hemoglobin 10.5 L ABG Carboxyhemoglobin 1.3 POC ABG HHb (Measured) 0.1 ABG Methemoglobin 1.4 ABG O2 Capacity 14.7 L Jorge Test Yes A-a O2 Difference 54.0 Hgb O2 Saturation 97.1 Mechanical Rate 14 FiO2 40.0 Tidal Volume 400 PEEP 5 Sodium Potassium Chloride Carbon Dioxide Anion Gap BUN Creatinine Est GFR ( Amer) Est GFR (Non-Af Amer) POC Glucose (mg/dL) 200 H Random Glucose Hemoglobin A1c Calcium Total Bilirubin AST ALT Alkaline Phosphatase Total Protein Albumin Globulin Albumin/Globulin Ratio Triglycerides Cholesterol LDL Cholesterol Direct HDL Cholesterol Thyroxine (T4) 4.61 L Total T3 0.445 L TSH 3rd Generation Gentamicin Trough 03/03/18 11:59 WBC RBC Hgb Hct MCV MCH MCHC RDW Plt Count MPV Neut % (Auto) Lymph % (Auto) [place] % (Auto) Eos % (Auto) Baso % (Auto) Neut # (Auto) Lymph # (Auto) [place] # (Auto) Eos # (Auto) Baso # (Auto) pCO2 pO2 HCO3 ABG pH ABG Total CO2 ABG O2 Saturation ABG O2 Content ABG Base Excess ABG Hemoglobin ABG Carboxyhemoglobin POC ABG HHb (Measured) ABG Methemoglobin ABG O2 Capacity Jorge Test A-a O2 Difference Hgb O2 Saturation Mechanical Rate FiO2 Tidal Volume PEEP Sodium Potassium Chloride Carbon Dioxide Anion Gap BUN Creatinine Est GFR ( Amer) Est GFR (Non-Af Amer) POC Glucose (mg/dL) 188 H Random Glucose Hemoglobin A1c Calcium Total Bilirubin AST ALT Alkaline Phosphatase Total Protein Albumin Globulin Albumin/Globulin Ratio Triglycerides Cholesterol LDL Cholesterol Direct HDL Cholesterol Thyroxine (T4) Total T3 TSH 3rd Generation Gentamicin Trough Fingerstick Blood Sugar Results: 200 Review of Systems - Review of Systems Systems not reviewed;Unavailable: Altered Mental Status Critical Care Progress Note - Nutrition Nutrition: Nutrition Category Date Time Status NPO Diet [DIET] Diets 02/28/18 Dinner Active Assessment/Plan - Assessment and Plan (Free Text) Assessment: 62 y/o F with a PMHx of idiopathic pulmonary fibrosis, ?Cystic Fibrosis, HTN, IDDM, severe CHF, PAH?, chronic LE edema was admitted due altered mental status after being found unconscious, urinated on herself, by daughter at home. Pt currently intubated, being evaluated for acute respiratory failure and aspiration pneumonia. --Head CT unremarkable, Brain MRI unremarkable --CTA Chest negative for PE, extensive coarse chronic interstitial infiltrate with associated varicoid bronchiectasis in both lower lobes. Consider acute pneumonia. Partially solid ground-glass opacity in right lung apex and 2nd cavitating opacity in the right lung apex. >Acute Hypoxic Respiratory Failure -On mechanical ventilator -Will modify ventilator setting in preparation for possible extubation if pt becomes responsive. -Pantoprazole 40 mg as stress gastric ulcer prophylaxis >Altered mental status -Due to metabolic encephalopathy as per prolonged hypoglycemia -On mechanical ventilator >Sepsis due to Aspiration Pneumonia -On IV Zosyn, Clindamycin and Ceftaroline -WBC trending down. >Idiopathic Pulmonary Fibrosis -Nintendanib, on chronic steroid use -C/w Sildenafil, Digoxin, Cardizem, ASA -Pulmonology, Dr Ledesma on consult. -Duoneb RQ4 PRN -On methyprednisolone >Seizure -most likely secondary to hypoglycemia -C/w Keppra 750 -Neurology, Dr Reddy on consult. >Cavitary Lesion on Chest CT -Pending Quantiferon TB, Sputum Culture, sputum cytology and AFB sputum. >DM 2 -Endocrinology, Dr Joe consulted. -Detemir 24 units Q12H -Insulin sliding scale >CHF, HTN, HLD -C/w management as primary team. >DVT Prophylaxis -Lovenox SC - Date & Time Date: 03/03/18 Time: 11:00 <Chau Stark - Last Filed: 03/03/18 23:47> CCU Subjective - Physician Review Subjective (Free Text): Attestation: Patient seen and examined at the bedside with Resident Dr. Bayron Rodriguez; and I agree with his outline of plans and management documented below as discussed on AM rounds reflecting my review of all applicable clinical data, and participation in the care of the patient throughout the day in ICU; today, March 03, 2018. Patient tolerated over an hour on SBT with low level CPAP PS; but not extubated due to persistent lethargy and no sustained wakeful state.
--- NOTE | 2018-03-03 16:00 | CP.PCM.PN ---
Subjective - Date & Time of Evaluation Date of Evaluation: 03/03/18 Time of Evaluation: 14:00 - Subjective Subjective: Pt is afebrile remains intubated on Vent Pupils sluggishly reactive to light Slight Grimace on painful stimuli noted edematous extremities tolerating Tube feeding no further hypoglycemic episode the past 24 hrs Objective - Vital Signs/Intake and Output Vital Signs (last 24 hours): Temp Pulse Resp BP Pulse Ox 98.8 F 85 19 104/58 L 98 03/03/18 12:00 03/03/18 12:00 03/03/18 12:00 03/03/18 12:00 03/03/18 12:00 Intake and Output: 03/03/18 03/03/18 06:59 18:59 Intake Total 1490 794 Output Total 500 220 Balance 990 574 - Medications Medications: Current Medications Acetaminophen (Tylenol 325mg Tab) 650 mg PO Q6H PRN PRN Reason: Fever >100.4 F Albuterol/Ipratropium (Duoneb 3 Mg/0.5 Mg (3 Ml) Ud) 3 ml INH RQ4 PRN PRN Reason: Shortness of Breath Last Admin: 03/01/18 04:53 Dose: 3 ml Aspirin (Aspirin Chewable) 81 mg PO DAILY [facility] Last Admin: 03/03/18 08:14 Dose: 81 mg Atorvastatin Calcium (Lipitor) 10 mg PO DAILY [facility] Last Admin: 03/03/18 08:21 Dose: 10 mg Digoxin (Lanoxin) 0.25 mg PO DAILY [facility] Last Admin: 03/03/18 08:17 Dose: 0.25 mg Diltiazem HCl (Cardizem) 60 mg PO Q6 [facility] Last Admin: 03/03/18 10:38 Dose: 60 mg Enoxaparin Sodium (Lovenox) 40 mg SC DAILY [facility] PRN Reason: Protocol Last Admin: 03/03/18 08:21 Dose: 40 mg Ferrous Sulfate (Feosol) 325 mg PO DAILY [facility] Last Admin: 03/03/18 08:16 Dose: 325 mg Home Med (Nintedanib Esylate [Ofev]) 150 mg PO Q12 [facility] Last Admin: 03/03/18 08:17 Dose: 150 mg Lactated Ringer's (Lactated Ringer's 500ml) 500 mls @ 500 mls/hr IV .Q1H [facility] Last Admin: 03/01/18 06:30 Dose: 500 mls/hr Clindamycin Phosphate (Cleocin) 600 mg in 50 mls @ 50 mls/hr IVPB Q8 [facility] PRN Reason: Protocol Last Admin: 03/03/18 08:15 Dose: 50 mls/hr Piperacillin Sod/Tazobactam (Sod 3.375 gm/ Sodium Chloride) 100 mls @ 100 mls/ hr IVPB Q6 [facility] PRN Reason: Protocol Last Admin: 03/03/18 10:40 Dose: 100 mls/hr Levetiracetam 750 mg/ Sodium (Chloride) 107.5 mls @ 215 mls/hr IVPB Q12 [facility] Last Admin: 03/03/18 10:38 Dose: 215 mls/hr Ceftaroline Fosamil 600 mg/ (Sodium Chloride) 250 mls @ 125 mls/hr IVPB Q12 [facility] PRN Reason: Protocol Last Admin: 03/03/18 08:22 Dose: 125 mls/hr Insulin Detemir (Levemir) 24 units SC Q12H [facility] Insulin Human Lispro (Humalog) 0 units SC Q4H [facility] PRN Reason: Protocol Last Admin: 03/03/18 12:43 Dose: Not Given Methylprednisolone (Solu-Medrol) 60 mg IV Q6 [facility] Last Admin: 03/03/18 10:40 Dose: 60 mg Mupirocin (Bactroban Ointment) 1 applic TOP TID [facility] Last Admin: 03/03/18 12:43 Dose: 1 appl Pantoprazole Sodium (Protonix Inj) 40 mg IVP DAILY [facility] Last Admin: 03/03/18 08:17 Dose: 40 mg Sildenafil Citrate (Revatio) 20 mg PO TID [facility] Last Admin: 03/03/18 12:44 Dose: 20 mg - Labs Labs: 03/03/18 04:29 03/03/18 04:29 - Constitutional Appears: No Acute Distress, Chronically Ill, Other (Intubated on Vent, unresponsive) - Head Exam Head Exam: NORMAL INSPECTION, NORMOCEPHALIC - Eye Exam Eye Exam: Normal appearance, PERRL , sluggish - ENT Exam ENT Exam: Mucous Membranes Dry, Normal External Ear Exam - Respiratory Exam Respiratory Exam: Rales, Rhonchi, NORMAL BREATHING PATTERN Additional comments: Intubated on Mech Vent - Cardiovascular Exam Cardiovascular Exam: REGULAR RHYTHM, +S1, +S2 - GI/Abdominal Exam GI & Abdominal Exam: Soft, Normal Bowel Sounds - Psychiatric Exam Additional comments: slight grimace with painful stimuli - Skin Skin Exam: Dry, Normal Color Assessment and Plan - Assessment and Plan (Free Text) Assessment: 62 year old female PMH cystic fibrosis?, idiopathic pulmonary fibrosis, HTN, IDDM, severe CHF/likely PAH?, chronic lower ext edema was found unresponsive at home by daughter who lives with her. Patient was last seen normal around 11 pm the night before admission. Pt is currently intubated - history obtained from eldest and youngest daughters. Patient reportedly took her insulin and pills prior to bed, was found unresponsive, with secretions and foam around her mouth, and had urinated in the bed, EMS called. Patient BG 29, given 2 amps d50. Normal renal function. Pt continued to be unresponsive, was intubated at the home and brought to ED. CT head: no hemorrhage. WBC 23K normal renal fx CXR +consolidations/infiltrates RML/RLL CT of the Chest : No evidence of pulmonary embolism. Extensive coarse chronic interstitial infiltrate with associated varicoid bronchiectasis in both lower lobes. Possible superimposed alveolar process. Consider acute pneumonia. Partially solid ground-glass opacity in right lung apex and 2nd cavitating opacity in the right lung apex. Nonspecific. No other cavitating lesions are appreciated elsewhere. Endotracheal tube noted. 1. Acute Hypoxic Respiratory Failure , Intubated on Vent - Pt remains intubated , on [facility] Vent - sl grimace today with pain, pupils reactive to light - Pulmonary consult - Dr Ledesma 2. Metabolic Encephalopathy due to prolonged Hypoglycemia monitor glucose closely D50 prn IVF cont Tube feeding 3. Sepsis ( POA) Suspected Aspiration Pneumonia - cont IV Zosyn, Clinda, Vanco -Pulm consult - ID consulted 4. Idiopathic Pulmonary Fibrosis, Cystic Fibrosis Pt on Nintendanib for IPF at home ECHO : systolic dysfunction, mild Pulm HTN, EF 50% pt on chronic low dose steroids for IPF Continue Steroid Careful hydration, note pt has chronic LE edema EKG: sinus tach rate 153, QTc 155 CTA neg for PE Stress dose Steroids - pt on chronic prednisone for IPF 5. Cavitating Lesion right Lung ? sec to Cystic Fibrosis /Bronchiectasis however need to r/o PTB AFB x 3 sputum - PULM consulted -Airborne isolation 6. . Seizure likely sec to Hypoglycemia Neurology consult: Dr. Valentina Herr EEG , MRI brain : neg 7. DM type II - hold all DM meds due to hypoglycemia - accucheck with coverage 8. Chronic CHF systolic and Diastolic dysfunction, Pulm HTN - cont Digoxin - cont Sildenafil, cardizem - diuretics prn DVT ppx Lovenox
--- NOTE | 2018-03-03 17:05 | CP.PCM.PN ---
Subjective - Date & Time of Evaluation Date of Evaluation: 03/03/18 Time of Evaluation: 11:20 - Subjective Subjective: F/U Acute respiratory failure. intubated, minimal response to noxious stimuli, non sedated, on CPAP-PS Objective - Vital Signs/Intake and Output Vital Signs (last 24 hours): Temp Pulse Resp BP Pulse Ox 98.8 F 85 19 104/58 L 98 03/03/18 12:00 03/03/18 12:00 03/03/18 12:00 03/03/18 12:00 03/03/18 12:00 Intake and Output: 03/03/18 03/03/18 06:59 18:59 Intake Total 1490 794 Output Total 500 220 Balance 990 574 - Medications Medications: Current Medications Acetaminophen (Tylenol 325mg Tab) 650 mg PO Q6H PRN PRN Reason: Fever >100.4 F Albuterol/Ipratropium (Duoneb 3 Mg/0.5 Mg (3 Ml) Ud) 3 ml INH RQ4 PRN PRN Reason: Shortness of Breath Last Admin: 03/01/18 04:53 Dose: 3 ml Aspirin (Aspirin Chewable) 81 mg PO DAILY [facility] Last Admin: 03/03/18 08:14 Dose: 81 mg Atorvastatin Calcium (Lipitor) 10 mg PO DAILY [facility] Last Admin: 03/03/18 08:21 Dose: 10 mg Digoxin (Lanoxin) 0.25 mg PO DAILY [facility] Last Admin: 03/03/18 08:17 Dose: 0.25 mg Diltiazem HCl (Cardizem) 60 mg PO Q6 [facility] Last Admin: 03/03/18 10:38 Dose: 60 mg Enoxaparin Sodium (Lovenox) 40 mg SC DAILY [facility] PRN Reason: Protocol Last Admin: 03/03/18 08:21 Dose: 40 mg Ferrous Sulfate (Feosol) 325 mg PO DAILY [facility] Last Admin: 03/03/18 08:16 Dose: 325 mg Home Med (Nintedanib Esylate [Ofev]) 150 mg PO Q12 [facility] Last Admin: 03/03/18 08:17 Dose: 150 mg Lactated Ringer's (Lactated Ringer's 500ml) 500 mls @ 500 mls/hr IV .Q1H [facility] Last Admin: 03/01/18 06:30 Dose: 500 mls/hr Clindamycin Phosphate (Cleocin) 600 mg in 50 mls @ 50 mls/hr IVPB Q8 [facility] PRN Reason: Protocol Last Admin: 03/03/18 08:15 Dose: 50 mls/hr Piperacillin Sod/Tazobactam (Sod 3.375 gm/ Sodium Chloride) 100 mls @ 100 mls/ hr IVPB Q6 [facility] PRN Reason: Protocol Last Admin: 03/03/18 10:40 Dose: 100 mls/hr Levetiracetam 750 mg/ Sodium (Chloride) 107.5 mls @ 215 mls/hr IVPB Q12 [facility] Last Admin: 03/03/18 10:38 Dose: 215 mls/hr Ceftaroline Fosamil 600 mg/ (Sodium Chloride) 250 mls @ 125 mls/hr IVPB Q12 [facility] PRN Reason: Protocol Last Admin: 03/03/18 08:22 Dose: 125 mls/hr Insulin Detemir (Levemir) 24 units SC Q12H [facility] Insulin Human Lispro (Humalog) 0 units SC Q4H [facility] PRN Reason: Protocol Last Admin: 03/03/18 12:43 Dose: Not Given Methylprednisolone (Solu-Medrol) 60 mg IV Q6 [facility] Last Admin: 03/03/18 10:40 Dose: 60 mg Mupirocin (Bactroban Ointment) 1 applic TOP TID [facility] Last Admin: 03/03/18 12:43 Dose: 1 appl Pantoprazole Sodium (Protonix Inj) 40 mg IVP DAILY [facility] Last Admin: 03/03/18 08:17 Dose: 40 mg Sildenafil Citrate (Revatio) 20 mg PO TID [facility] Last Admin: 03/03/18 12:44 Dose: 20 mg - Labs Labs: 03/03/18 04:29 03/03/18 04:29 - Constitutional Appears: Chronically Ill - Head Exam Head Exam: NORMAL INSPECTION - Eye Exam Additional comments: Pupils sluggish reaction to light - ENT Exam Additional comments: Intubated - Neck Exam Neck Exam: Normal Inspection - Respiratory Exam Respiratory Exam: Decreased Breath Sounds (at bases), Rales, Rhonchi - Cardiovascular Exam Cardiovascular Exam: REGULAR RHYTHM - GI/Abdominal Exam GI & Abdominal Exam: Soft, Normal Bowel Sounds - Exam Additional comments: Martinez Cath - Extremities Exam Additional comments: Edema all extremities - Neurological Exam Additional comments: Intubated, minimal response to noxious stimuli, non sedated. - Skin Skin Exam: Warm Assessment and Plan (1) Anoxic brain damage Status: Acute (2) Acute respiratory failure Status: Acute (3) Pneumonia Assessment & Plan: Cavity RUL Status: Acute (4) Sepsis Status: Acute (5) Pulmonary fibrosis Status: Chronic (6) Pulmonary hypertension Status: Chronic (7) Pneumonia with cavity of lung Status: Acute (8) Seizure Status: Acute - Assessment and Plan (Free Text) Plan: Cavity RUL not present in Previous CT Chest done in [facility] aprox Aug and December of this year , Patient on Respiratory isolation, f/u Sput[employer], currently on Clinda , Teflaro , continue Duo Neb, Solu Medrol, Sidenafil. Patient on CPAP-PS unable to extubate, Patient is unresponsive
--- NOTE | 2018-03-03 19:50 | PN ---
DATE: 03/03/2018 ENDO FOLLOWUP NOTE LOCATION: In ICU, room 433. SUBJECTIVE: This is a 62-year-old female with recent uncontrolled type 2 insulin-requiring diabetes, presenting here with acute respiratory failure and preceded by a symptomatic bout of significant hypoglycemia with associated metabolic related seizures and has since then remained endotracheally intubated at this time with possible anoxic encephalopathy. Her glycemic levels are fluctuating, but much improved at this time and the glucose levels overnight have ranged from 188 to 200 and 230 mg/dL. LABORATORY DATA: Her latest chemistries showed a BUN of 22, sodium 142, potassium 4.5, chloride 102, CO2 of 32, glucose 241, and creatinine 0.5. Her hemoglobin A1c is 7.4%. Her thyroid levels showed a T4 of 4.61 with a TSH of 0.30 and a total T3 of 0.445. ASSESSMENT: This is a 62-year-old female with uncontrolled type 2 insulin-requiring diabetes, presenting initially with symptomatic hypoglycemia and associated neuroglycopenic and hyperadrenergic manifestations with associated loss of consciousness and possible seizure event, who is currently endotracheally intubated, also with underlying exacerbation of chronic obstructive pulmonary disease and known history of idiopathic pulmonary fibrosis with moderate pulmonary hypertension. She is currently on intravenous steroid therapy given as Solu-Medrol at 60 mg intravenously every 6 hours as ordered with expected increased insulin resistance and further impaired glucose tolerance. PLAN OF MANAGEMENT: We will continue the low-dose correction scale using Humalog insulin given every 4 hours as ordered. We will modify the basal insulin and increase the Levemir to 24 units subcu every 12 hours to be given at 08:00 a.m. and 08:00 p.m. daily as ordered and to start today. We will obtain serial chemistries and supplement accordingly as needed. We will also recommend enteral tube feedings to optimize her caloric and protein requirements, being that she is also hypercatabolic at this time. We will obtain serial chemistries and supplement accordingly as needed. We will follow. Radha Joe MD
[2018-03-03] MEDS: MethylPREDNISolone 40 mg Vial IV SCH (21:27)
--- NOTE | 2018-03-03 22:54 | CP.PCM.PN ---
Subjective - Date & Time of Evaluation Date of Evaluation: 03/03/18 Time of Evaluation: 11:30 - Subjective Subjective: Patient is intubated and sedated, with gag, roving eye movements, and no purposeful motor movement noted. There are no clinical seizures, no other spasms. on exam: Pupils 4-3 mm with light. no corneals, +gag, winces to sternal rub +2 dtr ul and ll bl. No jerks noted. Objective - Vital Signs/Intake and Output Vital Signs (last 24 hours): Temp Pulse Resp BP Pulse Ox 98.6 F 95 H 17 113/63 97 03/03/18 20:00 03/03/18 21:24 03/03/18 21:00 03/03/18 21:24 03/03/18 21:00 Intake and Output: 03/03/18 03/04/18 18:59 06:59 Intake Total 1338 545 Output Total 550 Balance 788 545 - Medications Medications: Current Medications Acetaminophen (Tylenol 325mg Tab) 650 mg PO Q6H PRN PRN Reason: Fever >100.4 F Albuterol/Ipratropium (Duoneb 3 Mg/0.5 Mg (3 Ml) Ud) 3 ml INH RQ4 PRN PRN Reason: Shortness of Breath Last Admin: 03/01/18 04:53 Dose: 3 ml Aspirin (Aspirin Chewable) 81 mg PO DAILY [facility] Last Admin: 03/03/18 08:14 Dose: 81 mg Atorvastatin Calcium (Lipitor) 10 mg PO DAILY [facility] Last Admin: 03/03/18 08:21 Dose: 10 mg Digoxin (Lanoxin) 0.25 mg PO DAILY [facility] Last Admin: 03/03/18 08:17 Dose: 0.25 mg Diltiazem HCl (Cardizem) 60 mg PO Q6 [facility] Last Admin: 03/03/18 21:24 Dose: 60 mg Enoxaparin Sodium (Lovenox) 40 mg SC DAILY [facility] PRN Reason: Protocol Last Admin: 03/03/18 08:21 Dose: 40 mg Ferrous Sulfate (Feosol) 325 mg PO DAILY [facility] Last Admin: 03/03/18 08:16 Dose: 325 mg Home Med (Nintedanib Esylate [Ofev]) 150 mg PO Q12 [facility] Last Admin: 03/03/18 08:17 Dose: 150 mg Lactated Ringer's (Lactated Ringer's 500ml) 500 mls @ 500 mls/hr IV .Q1H [facility] Last Admin: 03/01/18 06:30 Dose: 500 mls/hr Clindamycin Phosphate (Cleocin) 600 mg in 50 mls @ 50 mls/hr IVPB Q8 [facility] PRN Reason: Protocol Last Admin: 03/03/18 17:10 Dose: 50 mls/hr Piperacillin Sod/Tazobactam (Sod 3.375 gm/ Sodium Chloride) 100 mls @ 100 mls/ hr IVPB Q6 [facility] PRN Reason: Protocol Last Admin: 03/03/18 21:26 Dose: 100 mls/hr Levetiracetam 750 mg/ Sodium (Chloride) 107.5 mls @ 215 mls/hr IVPB Q12 [facility] Last Admin: 03/03/18 20:00 Dose: 215 mls/hr Ceftaroline Fosamil 600 mg/ (Sodium Chloride) 250 mls @ 125 mls/hr IVPB Q12 [facility] PRN Reason: Protocol Last Admin: 03/03/18 20:04 Dose: 125 mls/hr Insulin Detemir (Levemir) 24 units SC Q12H [facility] Last Admin: 03/03/18 20:02 Dose: 24 units Insulin Human Lispro (Humalog) 0 units SC Q4H [facility] PRN Reason: Protocol Last Admin: 03/03/18 20:02 Dose: Not Given Methylprednisolone (Solu-Medrol) 40 mg IV Q6 [facility] Last Admin: 03/03/18 21:27 Dose: 40 mg Mupirocin (Bactroban Ointment) 1 applic TOP TID [facility] Last Admin: 03/03/18 17:09 Dose: 1 appl Pantoprazole Sodium (Protonix Inj) 40 mg IVP DAILY [facility] Last Admin: 03/03/18 08:17 Dose: 40 mg Sildenafil Citrate (Revatio) 20 mg PO TID [facility] Last Admin: 03/03/18 17:12 Dose: 20 mg - Labs Labs: 03/03/18 04:29 03/03/18 04:29 Assessment and Plan - Assessment and Plan (Free Text) Assessment: 62 yr old woman with anoxic brain injury and initially seizures. She is now on keppra and repeat EEG does not show any seizures. Plan: 1. Repeat CT head 2. MEdical management as per ICU team. Thank you Dr. mayo
[2018-03-04] MEDS: Insulin Lispro (humaLOG) 100 Units/ml Inj SC SCH ×6 (00:05→20:48)
[2018-03-04] MEDS: Clindamycin 600mg/50ml D5W 600 MG/50 ML VIAL IVPB SCH ×3 (00:31→17:13)
[2018-03-04] MEDS: MethylPREDNISolone 40 mg Vial IV SCH ×2 (03:57→10:11)
[2018-03-04] MEDS: Piperacillin/Tazobact 3.375 GM in Sodium Chloride 0.9% 100 ML IVPB SCH ×4 (03:58→22:55)
[2018-03-04 05:33] LABS: ABG ALLEN TEST YES; ARTERIAL BLOOD GAS HCO3 40.2 mmol/L (21-28); ARTERIAL BLOOD GAS HEMOGLOBIN 10.1 g/dL (11.7-17.4); ARTERIAL BLOOD GAS O2 CAPACITY 14.1 mL/dL (16-24); ARTERIAL BLOOD GAS O2 CONTENT 14.1 ML/dL (15-23); ARTERIAL BLOOD GAS O2 SAT 99.9 % (95-98); ARTERIAL BLOOD GAS PCO2 52 mm/Hg (35-45); ARTERIAL BLOOD GAS PH 7.54 (7.35-7.45); ARTERIAL BLOOD GAS PO2 144 mm/Hg (80-100); ARTERIAL BLOOD GAS TCO2 46.1 mmol/L (22-28)
[2018-03-04 05:33] LABS: HEMOGLOBIN 10.3 g/dL (12.0-16.0); MEAN CELL VOLUME 69.6 fl (81.0-99.0); MEAN CORPUSCULAR HGB CONC 31.6 g/dL (33.0-37.0); RBC 4.71 Mil/uL (3.80-5.20); RED CELL DISTRIBUTION WIDTH 19.8 % (11.5-14.5); WHITE BLOOD COUNT 7.5 K/uL (4.8-10.8)
[2018-03-04 05:57] LABS: BLOOD UREA NITROGEN 28 mg/dl (7-17); GFR AFRICAN-AMERICAN > 60; GFR NON-AFRICAN AMERICAN > 60
--- NOTE | 2018-03-04 08:05 | RAD ---
Date of service: 03/04/2018 HISTORY: intubated COMPARISON: Portable chest 03/03/2018. FINDINGS: Endotracheal and nasogastric tubes are not significantly changed in position. LUNGS: Diminishing bilateral alveolar infiltrates are appreciated with underlying interstitial changes not significantly changed. PLEURA: No significant pleural effusion identified, no pneumothorax apparent. CARDIOVASCULAR: Normal. OSSEOUS STRUCTURES: No significant abnormalities. VISUALIZED UPPER ABDOMEN: Normal. OTHER FINDINGS: None. IMPRESSION: Diminished bilateral alveolitis with underlying chronic interstitial pulmonary changes reiterated.
[2018-03-04] MEDS: Enoxaparin 40 mg Syringe SC SCH (08:34)
[2018-03-04] MEDS: Insulin Detemir 100 Units/ml Inj SC SCH ×2 (08:35→20:51)
[2018-03-04] MEDS: NINTEDANIB ESYLATE 150 MG PO SCH ×2 (08:36→22:54)
[2018-03-04] MEDS: Digoxin 250 mcg (0.25 mg) Tab PO SCH (08:38)
[2018-03-04] MEDS: Sildenafil 20 MG TAB PO SCH ×3 (08:38→17:10)
[2018-03-04] MEDS ORDERED: Potassium Chloride 20 mEq 100 ML IVPB ONE (11:42)
--- NOTE | 2018-03-04 11:50 | CP.CCUPN ---
<Toño Rodriguez - Last Filed: 03/04/18 17:42> CCU Subjective - Physician Review Subjective (Free Text): 03/04/18 10:37 ICU Progress Note: 62 y/o F evaluated and examined by bedside. Pt does NOT respond to verbal or tactile stimulation, still on mechanical ventilator. Pt is tachycardia and hypotensive. Pt afebrile, no acute events reported overnight. Pt passed spontaneous breathing trial yesterday; however, pt was not extubated due to lethargy. CCU Objective - Vital Signs / Intake & Output Vital Signs (Last 4 hours): Vital Signs Temp Pulse Resp BP Pulse Ox 03/04/18 10:11 97 H 117/60 03/04/18 08:00 99.1 F 100 H 18 140/81 97 Intake and Output (Last 8hrs): Intake & Output 03/03/18 03/04/18 03/04/18 22:59 06:59 14:59 Intake Total 1085 710 814 Output Total 230 2700 160 Balance 855 -1989 654 Intake: IV 160 504 Intake, Piggyback 450 200 40 Oral 225 180 180 Tube Feeding 140 180 90 Free Water Flush 150 Other 110 Output: Urine 230 2700 160 Urethral (Martinez) 230 2700 160 Other: # Bowel Movements 1 - Physical Exam Physical Exam Limitations: Positive for: Altered Mental Status Head: Positive for: Atraumatic, Normocephalic Pupils: Positive for: PERRL Conjunctiva: Positive for: Normal Ears: Positive for: Normal Mouth: Positive for: Dry Respiratory/Chest: Negative for: Wheezes, Rales Cardiovascular: Positive for: Regular Rate and Rhythm, Normal S1, S2 Abdomen: Positive for: Normal Bowel Sounds. Negative for: Distention Upper Extremity: Positive for: Normal Inspection Lower Extremity: Positive for: Normal Inspection Psychiatric: Negative for: Alert - Medications Active Medications: Active Medications Generic Name Dose Route Start Last Admin Trade Name Freq PRN Reason Stop Dose Admin Acetaminophen 650 mg 02/28/18 16:05 Tylenol 325mg Tab PO Q6H PRN Fever >100.4 F Albuterol/Ipratropium 3 ml 02/28/18 16:19 03/01/18 04:53 Duoneb 3 Mg/0.5 Mg (3 Ml) Ud INH 3 ml RQ4 PRN Administration Shortness of Breath Aspirin 81 mg 03/01/18 09:00 03/04/18 08:34 Aspirin Chewable PO 81 mg DAILY JANIE Administration Atorvastatin Calcium 10 mg 03/01/18 09:00 03/04/18 08:34 Lipitor PO 10 mg DAILY JANIE Administration Digoxin 0.25 mg 02/28/18 21:35 03/04/18 08:38 Lanoxin PO 0.25 mg DAILY JANIE Administration Diltiazem HCl 60 mg 02/28/18 22:00 03/04/18 10:11 Cardizem PO 60 mg Q6 JANIE Administration Ferrous Sulfate 325 mg 03/01/18 09:00 03/04/18 08:38 Feosol PO 325 mg DAILY JANIE Administration Furosemide 40 mg 03/04/18 11:42 Lasix IVP 03/04/18 11:43 ONCE ONE Home Med 150 mg 03/02/18 22:00 03/04/18 08:36 Nintedanib Esylate [Ofev] PO 150 mg Q12 JANIE Administration Lactated Ringer's 500 mls @ 500 mls/hr 02/28/18 22:15 03/01/18 06:30 Lactated Ringer's 500ml IV 500 mls/hr .Q1H JANIE Administration Clindamycin Phosphate 600 mg in 50 mls @ 50 mls/hr 03/01/18 12:45 03/04/18 08 :37 Cleocin IVPB 50 mls/hr Q8 JANIE Administration Protocol Piperacillin Sod/Tazobactam 100 mls @ 100 mls/hr 03/01/18 22:00 03/04/18 10: 12 Sod 3.375 gm/ Sodium Chloride IVPB 100 mls/hr Q6 JANIE Administration Protocol Levetiracetam 750 mg/ Sodium 107.5 mls @ 215 mls/hr 03/02/18 09:00 03/04/18 08:36 Chloride IVPB 215 mls/hr Q12 JANIE Administration Ceftaroline Fosamil 600 mg/ 250 mls @ 125 mls/hr 03/02/18 21:00 03/04/18 08: 40 Sodium Chloride IVPB 125 mls/hr Q12 JANIE Administration Protocol Potassium Chloride 100 mls @ 50 mls/hr 03/04/18 11:42 Potassium Chloride 20 Meq/100 Ml IVPB 03/04/18 13:41 ONCE ONE Insulin Detemir 24 units 03/03/18 20:00 03/04/18 08:35 Levemir SC 24 units Q12H JANIE Administration Insulin Human Lispro 0 units 03/02/18 16:00 03/04/18 08:38 Humalog SC Not Given Q4H [facility] Protocol Methylprednisolone 40 mg 03/03/18 18:15 03/04/18 10:11 Solu-Medrol IV 40 mg Q6 JANIE Administration Mupirocin 1 applic 03/03/18 09:00 03/04/18 08:35 Bactroban Ointment TOP 1 appl TID JANIE Administration Pantoprazole Sodium 40 mg 02/28/18 17:00 03/04/18 08:36 Protonix Inj IVP 40 mg DAILY JANIE Administration Sildenafil Citrate 20 mg 02/28/18 17:00 03/04/18 08:38 Revatio PO 20 mg TID JANIE Administration - Patient Studies Lab Studies: Microbiology Studies 03/03/18 04:21 Gram Stain - Final Trachasp 02/28/18 14:00 Blood Culture - Preliminary Blood-Venous NO GROWTH AFTER 3 DAYS Lab Studies 03/04/18 03/04/18 03/04/18 Range/Units 07:50 05:13 04:55 WBC (4.8-10.8) K/uL RBC (3.80-5.20) Mil/uL Hgb (12.0-16.0) g/dL Hct (34.0-47.0) % MCV (81.0-99.0) fl MCH (27.0-31.0) pg MCHC (33.0-37.0) g/dL RDW (11.5-14.5) % Plt Count (130-400) K/uL pCO2 52 H (35-45) mm/Hg pO2 144 H (80-100) mm/Hg HCO3 40.2 H* (21-28) mmol/L ABG pH 7.54 H (7.35-7.45) ABG Total CO2 46.1 H (22-28) mmol/L ABG O2 Saturation 99.9 H (95-98) % ABG O2 Content 14.1 L (15-23) ML/dL ABG Base Excess 19.6 H (-2.0-3.0) mmol/L ABG Hemoglobin 10.1 L (11.7-17.4) g/dL ABG Carboxyhemoglobin 1.3 (0.5-1.5) % POC ABG HHb (Measured) 0.1 (0.0-5.0) % ABG Methemoglobin 1.6 (0.0-3.0) % ABG O2 Capacity 14.1 L (16-24) mL/dL Jorge Test Yes A-a O2 Difference 5.0 mm/Hg Hgb O2 Saturation 97.0 (95.0-98.0) % Mechanical Rate 14 FiO2 30.0 % Tidal Volume 400 PEEP 5 Crit Value Called To Raimundo irvin rn Crit Value Called By 333 Crit Value Read Back Y Blood Gas Notified Time 532 Sodium 147 (132-148) mmol/l Potassium 3.1 L (3.6-5.0) MMOL/L Chloride 99 (98-107) mmol/L Carbon Dioxide 40 H* D (22-30) mmol/L Anion Gap 11 (10-20) BUN 28 H (7-17) mg/dl Creatinine 0.5 L (0.7-1.2) mg/dl Est GFR ( Amer) > 60 Est GFR (Non-Af Amer) > 60 POC Glucose (mg/dL) 148 H (65-110) mg/dL Random Glucose 161 H (65-105) mg/dL Calcium 8.0 L (8.4-10.2) mg/dL 03/04/18 03/04/18 03/03/18 Range/Units 04:55 04:32 23:47 WBC 7.5 (4.8-10.8) K/uL RBC 4.71 (3.80-5.20) Mil/uL Hgb 10.3 L (12.0-16.0) g/dL Hct 32.8 L (34.0-47.0) % MCV 69.6 L (81.0-99.0) fl MCH 22.0 L (27.0-31.0) pg MCHC 31.6 L (33.0-37.0) g/dL RDW 19.8 H (11.5-14.5) % Plt Count 413 H (130-400) K/uL pCO2 (35-45) mm/Hg pO2 (80-100) mm/Hg HCO3 (21-28) mmol/L ABG pH (7.35-7.45) ABG Total CO2 (22-28) mmol/L ABG O2 Saturation (95-98) % ABG O2 Content (15-23) ML/dL ABG Base Excess (-2.0-3.0) mmol/L ABG Hemoglobin (11.7-17.4) g/dL ABG Carboxyhemoglobin (0.5-1.5) % POC ABG HHb (Measured) (0.0-5.0) % ABG Methemoglobin (0.0-3.0) % ABG O2 Capacity (16-24) mL/dL Jorge Test A-a O2 Difference mm/Hg Hgb O2 Saturation (95.0-98.0) % Mechanical Rate FiO2 % Tidal Volume PEEP Crit Value Called To Crit Value Called By Crit Value Read Back Blood Gas Notified Time Sodium (132-148) mmol/l Potassium (3.6-5.0) MMOL/L Chloride (98-107) mmol/L Carbon Dioxide (22-30) mmol/L Anion Gap (10-20) BUN (7-17) mg/dl Creatinine (0.7-1.2) mg/dl Est GFR ( Amer) Est GFR (Non-Af Amer) POC Glucose (mg/dL) 161 H 183 H (65-110) mg/dL Random Glucose (65-105) mg/dL Calcium (8.4-10.2) mg/dL 03/03/18 03/03/18 03/03/18 Range/Units 19:47 16:21 11:59 WBC (4.8-10.8) K/uL RBC (3.80-5.20) Mil/uL Hgb (12.0-16.0) g/dL Hct (34.0-47.0) % MCV (81.0-99.0) fl MCH (27.0-31.0) pg MCHC (33.0-37.0) g/dL RDW (11.5-14.5) % Plt Count (130-400) K/uL pCO2 (35-45) mm/Hg pO2 (80-100) mm/Hg HCO3 (21-28) mmol/L ABG pH (7.35-7.45) ABG Total CO2 (22-28) mmol/L ABG O2 Saturation (95-98) % ABG O2 Content (15-23) ML/dL ABG Base Excess (-2.0-3.0) mmol/L ABG Hemoglobin (11.7-17.4) g/dL ABG Carboxyhemoglobin (0.5-1.5) % POC ABG HHb (Measured) (0.0-5.0) % ABG Methemoglobin (0.0-3.0) % ABG O2 Capacity (16-24) mL/dL Jorge Test A-a O2 Difference mm/Hg Hgb O2 Saturation (95.0-98.0) % Mechanical Rate FiO2 % Tidal Volume PEEP Crit Value Called To Crit Value Called By Crit Value Read Back Blood Gas Notified Time Sodium (132-148) mmol/l Potassium (3.6-5.0) MMOL/L Chloride (98-107) mmol/L Carbon Dioxide (22-30) mmol/L Anion Gap (10-20) BUN (7-17) mg/dl Creatinine (0.7-1.2) mg/dl Est GFR ( Amer) Est GFR (Non-Af Amer) POC Glucose (mg/dL) 183 H 163 H 188 H (65-110) mg/dL Random Glucose (65-105) mg/dL Calcium (8.4-10.2) mg/dL Laboratory Results - last 24 hr 03/03/18 03/03/18 03/03/18 11:59 16:21 19:47 WBC RBC Hgb Hct MCV MCH MCHC RDW Plt Count pCO2 pO2 HCO3 ABG pH ABG Total CO2 ABG O2 Saturation ABG O2 Content ABG Base Excess ABG Hemoglobin ABG Carboxyhemoglobin POC ABG HHb (Measured) ABG Methemoglobin ABG O2 Capacity Jorge Test A-a O2 Difference Hgb O2 Saturation Mechanical Rate FiO2 Tidal Volume PEEP Crit Value Called To Crit Value Called By Crit Value Read Back Blood Gas Notified Time Sodium Potassium Chloride Carbon Dioxide Anion Gap BUN Creatinine Est GFR ( Amer) Est GFR (Non-Af Amer) POC Glucose (mg/dL) 188 H 163 H 183 H Random Glucose Calcium 03/03/18 03/04/18 03/04/18 23:47 04:32 04:55 WBC 7.5 RBC 4.71 Hgb 10.3 L Hct 32.8 L MCV 69.6 L MCH 22.0 L MCHC 31.6 L RDW 19.8 H Plt Count 413 H pCO2 pO2 HCO3 ABG pH ABG Total CO2 ABG O2 Saturation ABG O2 Content ABG Base Excess ABG Hemoglobin ABG Carboxyhemoglobin POC ABG HHb (Measured) ABG Methemoglobin ABG O2 Capacity Jorge Test A-a O2 Difference Hgb O2 Saturation Mechanical Rate FiO2 Tidal Volume PEEP Crit Value Called To Crit Value Called By Crit Value Read Back Blood Gas Notified Time Sodium Potassium Chloride Carbon Dioxide Anion Gap BUN Creatinine Est GFR ( Amer) Est GFR (Non-Af Amer) POC Glucose (mg/dL) 183 H 161 H Random Glucose Calcium 03/04/18 03/04/18 03/04/18 04:55 05:13 07:50 WBC RBC Hgb Hct MCV MCH MCHC RDW Plt Count pCO2 52 H pO2 144 H HCO3 40.2 H* ABG pH 7.54 H ABG Total CO2 46.1 H ABG O2 Saturation 99.9 H ABG O2 Content 14.1 L ABG Base Excess 19.6 H ABG Hemoglobin 10.1 L ABG Carboxyhemoglobin 1.3 POC ABG HHb (Measured) 0.1 ABG Methemoglobin 1.6 ABG O2 Capacity 14.1 L Jorge Test Yes A-a O2 Difference 5.0 Hgb O2 Saturation 97.0 Mechanical Rate 14 FiO2 30.0 Tidal Volume 400 PEEP 5 Crit Value Called To Raimundo irvin rn Crit Value Called By 333 Crit Value Read Back Y Blood Gas Notified Time 532 Sodium 147 Potassium 3.1 L Chloride 99 Carbon Dioxide 40 H* D Anion Gap 11 BUN 28 H Creatinine 0.5 L Est GFR ( Amer) > 60 Est GFR (Non-Af Amer) > 60 POC Glucose (mg/dL) 148 H Random Glucose 161 H Calcium 8.0 L Fingerstick Blood Sugar Results: 148 Review of Systems - Review of Systems Systems not reviewed;Unavailable: Altered Mental Status Critical Care Progress Note - Nutrition Nutrition: Nutrition Category Date Time Status NPO Diet [DIET] Diets 02/28/18 Dinner Active Assessment/Plan - Assessment and Plan (Free Text) Assessment: 62 y/o F with a PMHx of idiopathic pulmonary fibrosis, ?Cystic Fibrosis, HTN, IDDM, severe CHF, PAH?, chronic LE edema was admitted due altered mental status after being found unconscious, urinated on herself, by daughter at home. --Head CT unremarkable, Brain MRI unremarkable --CTA Chest negative for PE, extensive coarse chronic interstitial infiltrate with associated varicoid bronchiectasis in both lower lobes. Consider acute pneumonia. Partially solid ground-glass opacity in right lung apex and secondary cavitating opacity in the right lung apex. >Acute Hypoxic Respiratory Failure -On mechanical ventilator. Failed SBT yesterday. -Blood gas showed increased Bicarbonate and CO2 levels. -Solu-Medrol dosage increased to 60mg Q6H -Duoneb Q4H, scheduled. -Acetazolamide 500 q12h. >Altered mental status -Due to metabolic encephalopathy, prolonged hypoglycemia and/or metabolic hypercarbia -On mechanical ventilator >Sepsis due to Aspiration Pneumonia -On IV Zosyn, Clindamycin and Ceftaroline -WBC trending down, WNL today. >Hypokalemia -KCl ordered. -F/U BMP. >Idiopathic Pulmonary Fibrosis -Nintendanib, on chronic steroid use -C/w Sildenafil, Digoxin, Cardizem, ASA -Pulmonology, Dr Ledesma on consult. >Seizure -most likely secondary to hypoglycemia -C/w Keppra 750 -Neurology, Dr Reddy on consult. >Cavitary Lesion on Chest CT -Pending Quantiferon TB, Sputum Culture, sputum cytology and AFB sputum. >DM 2 -Endocrinology, Dr Joe consulted. -Detemir 24 units Q12H -Insulin sliding scale >CHF, HTN, HLD -C/w management as primary team. >DVT Prophylaxis -Lovenox SC - Date & Time Date: 03/04/18 Time: 11:00 <Chau Stark - Last Filed: 03/05/18 06:25> CCU Subjective - Physician Review Subjective (Free Text): Attestation: Patient seen and examined at the bedside with Resident Dr. Bayron Rodriguez; and I agree with his outline of plans and management documented below as discussed on AM rounds reflecting my review of all applicable clinical data, and participation in the care of the patient throughout the day in ICU; today, March 04, 2018.
[2018-03-04] MEDS: Albuterol-Ipratrop 3 mg / 0.5 (3 ml) UD INH SCH ×2 (14:29→19:38)
--- NOTE | 2018-03-04 15:36 | CP.PCM.PN ---
Subjective - Date & Time of Evaluation Date of Evaluation: 03/04/18 Time of Evaluation: 11:00 - Subjective Subjective: Patient was seen and examined at bedside. The patient continues to not respond to verbal or tactile stimulation. Afebrile, no acute events reported overnight. Failed spontaneous breathing trial, now back on PRVC/AC. Tolerating tube feeding. Objective - Vital Signs/Intake and Output Vital Signs (last 24 hours): Temp Pulse Resp BP Pulse Ox 98.7 F 106 H 16 114/71 98 03/04/18 12:00 03/04/18 14:00 03/04/18 14:00 03/04/18 14:00 03/04/18 14:00 Intake and Output: 03/04/18 03/04/18 06:59 18:59 Intake Total 1345 1124 Output Total 2700 560 Balance -1355 564 - Medications Medications: Current Medications Acetaminophen (Tylenol 325mg Tab) 650 mg PO Q6H PRN PRN Reason: Fever >100.4 F Acetazolamide (Diamox 500 Mg Inj) 500 mg IV Q12 [facility] Stop: 03/07/18 21:01 Albuterol/Ipratropium (Duoneb 3 Mg/0.5 Mg (3 Ml) Ud) 3 ml INH RQ4 JANIE Aspirin (Aspirin Chewable) 81 mg PO DAILY [facility] Last Admin: 03/04/18 08:34 Dose: 81 mg Atorvastatin Calcium (Lipitor) 10 mg PO DAILY [facility] Last Admin: 03/04/18 08:34 Dose: 10 mg Digoxin (Lanoxin) 0.25 mg PO DAILY [facility] Last Admin: 03/04/18 08:38 Dose: 0.25 mg Diltiazem HCl (Cardizem) 60 mg PO Q6 JANIE Last Admin: 03/04/18 10:11 Dose: 60 mg Ferrous Sulfate (Feosol) 325 mg PO DAILY [facility] Last Admin: 03/04/18 08:38 Dose: 325 mg Home Med (Nintedanib Esylate [Ofev]) 150 mg PO Q12 [facility] Last Admin: 03/04/18 08:36 Dose: 150 mg Clindamycin Phosphate (Cleocin) 600 mg in 50 mls @ 50 mls/hr IVPB Q8 JANIE PRN Reason: Protocol Last Admin: 03/04/18 08:37 Dose: 50 mls/hr Piperacillin Sod/Tazobactam (Sod 3.375 gm/ Sodium Chloride) 100 mls @ 100 mls/ hr IVPB Q6 JANIE PRN Reason: Protocol Last Admin: 03/04/18 10:12 Dose: 100 mls/hr Levetiracetam 750 mg/ Sodium (Chloride) 107.5 mls @ 215 mls/hr IVPB Q12 [facility] Last Admin: 03/04/18 08:36 Dose: 215 mls/hr Ceftaroline Fosamil 600 mg/ (Sodium Chloride) 250 mls @ 125 mls/hr IVPB Q12 JANIE PRN Reason: Protocol Last Admin: 03/04/18 08:40 Dose: 125 mls/hr Potassium Chloride (Potassium Cl 10meq/50ml Sterile Water) 50 mls @ 50 mls/hr IVPB Q1 [facility] Stop: 03/04/18 18:59 Insulin Detemir (Levemir) 24 units SC Q12H [facility] Last Admin: 03/04/18 08:35 Dose: 24 units Insulin Human Lispro (Humalog) 0 units SC Q4H JANIE PRN Reason: Protocol Last Admin: 03/04/18 12:17 Dose: Not Given Methylprednisolone (Solu-Medrol) 60 mg IV Q6 [facility] Mupirocin (Bactroban Ointment) 1 applic TOP TID [facility] Last Admin: 03/04/18 12:48 Dose: 1 appl Pantoprazole Sodium (Protonix Inj) 40 mg IVP DAILY [facility] Last Admin: 03/04/18 08:36 Dose: 40 mg Sildenafil Citrate (Revatio) 20 mg PO TID [facility] Last Admin: 03/04/18 12:49 Dose: 20 mg - Labs Labs: 03/04/18 04:55 03/04/18 04:55 - Additional Findings Additional findings: Physical exam: Constitutional- chronically ill patient on ventilator, unresponsive to verbal stimuli. Head- NCAT, PERRL Eye- pupils are sluggish but equal, reactive to light. ENT- normal exam, MMM. Neck- normal inspection, supple, no JVD Respiratory- CTAB, no wheezes rales rhonchi, on mechanical ventilator Cardiovascular- RRR, +S1, +S2 no MRG GI/Abdominal- normal bowel sounds, soft, no mass, no hsm Skin- warm, dry Extremities Exam- normal capillary refill, normal inspection Neurological Exam- slight grimace with painful stimuli, otherwise unresponsive. Psych- normal mood, normal affect Assessment and Plan - Assessment and Plan (Free Text) Plan: 62 year old female PMH cystic fibrosis?, idiopathic pulmonary fibrosis, HTN, IDDM, severe CHF/likely PAH?, chronic lower ext edema was found unresponsive at home by daughter who lives with her. Patient was last seen normal around 11 pm the night before admission. Pt is currently intubated - history obtained from eldest and youngest daughters. Patient reportedly took her insulin and pills prior to bed, was found unresponsive, with secretions and foam around her mouth, and had urinated in the bed, EMS called. Patient BG 29, given 2 amps d50. Normal renal function. Pt continued to be unresponsive, was intubated at the home and brought to ED. CT head: no hemorrhage. WBC 23K normal renal fx CXR +consolidations/infiltrates RML/RLL CT of the Chest : No evidence of pulmonary embolism. Extensive coarse chronic interstitial infiltrate with associated varicoid bronchiectasis in both lower lobes. Possible superimposed alveolar process. Consider acute pneumonia. Partially solid ground-glass opacity in right lung apex and 2nd cavitating opacity in the right lung apex. Nonspecific. No other cavitating lesions are appreciated elsewhere. Endotracheal tube noted. 1. Acute Hypoxic Respiratory Failure , Intubated on Vent - Pt remains intubated , on Mech Vent - sl grimace today with pain, pupils reactive to light - Pulmonary consult - Dr Ledesma 2. Metabolic Encephalopathy due to prolonged Hypoglycemia monitor glucose closely D50 prn IVF cont Tube feeding 3. Sepsis ( POA) Suspected Aspiration Pneumonia - cont IV Zosyn, Clinda, Vanco -Pulm consult - ID consulted 4. Idiopathic Pulmonary Fibrosis, Cystic Fibrosis Pt on Nintendanib for IPF at home ECHO : systolic dysfunction, mild Pulm HTN, EF 50% pt on chronic low dose steroids for IPF Continue Steroid Careful hydration, note pt has chronic LE edema EKG: sinus tach rate 153, QTc 155 CTA neg for PE Stress dose Steroids - pt on chronic prednisone for IPF 5. Cavitating Lesion right Lung ? sec to Cystic Fibrosis /Bronchiectasis however need to r/o PTB AFB x 3 sputum - PULM consulted -Airborne isolation 6. . Seizure likely sec to Hypoglycemia Neurology consult: Dr. Valentina Herr EEG , MRI brain : neg 7. DM type II - hold all DM meds due to hypoglycemia - accucheck with coverage 8. Chronic CHF systolic and Diastolic dysfunction, Pulm HTN - cont Digoxin - cont Sildenafil, cardizem - diuretics prn DVT ppx Lovenox
--- NOTE | 2018-03-04 16:01 | CP.PCM.PN ---
Subjective - Date & Time of Evaluation Date of Evaluation: 03/04/18 Time of Evaluation: 11:30 - Subjective Subjective: F/U Acute Respiratory Failure. intubated, no response to verbal stimuli , minimal response to tactil stimuli Objective - Vital Signs/Intake and Output Vital Signs (last 24 hours): Temp Pulse Resp BP Pulse Ox 100.0 F H 107 H 22 131/78 97 03/04/18 15:36 03/04/18 15:36 03/04/18 15:36 03/04/18 15:36 03/04/18 15:36 Intake and Output: 03/04/18 03/04/18 06:59 18:59 Intake Total 1345 1124 Output Total 2700 560 Balance -1355 564 - Medications Medications: Current Medications Acetaminophen (Tylenol 325mg Tab) 650 mg PO Q6H PRN PRN Reason: Fever >100.4 F Acetazolamide (Diamox 500 Mg Inj) 500 mg IV Q12 [facility] Stop: 03/07/18 21:01 Albuterol/Ipratropium (Duoneb 3 Mg/0.5 Mg (3 Ml) Ud) 3 ml INH RQ4 JANIE Aspirin (Aspirin Chewable) 81 mg PO DAILY [facility] Last Admin: 03/04/18 08:34 Dose: 81 mg Atorvastatin Calcium (Lipitor) 10 mg PO DAILY [facility] Last Admin: 03/04/18 08:34 Dose: 10 mg Digoxin (Lanoxin) 0.25 mg PO DAILY [facility] Last Admin: 03/04/18 08:38 Dose: 0.25 mg Diltiazem HCl (Cardizem) 60 mg PO Q6 [facility] Last Admin: 03/04/18 10:11 Dose: 60 mg Ferrous Sulfate (Feosol) 325 mg PO DAILY [facility] Last Admin: 03/04/18 08:38 Dose: 325 mg Home Med (Nintedanib Esylate [Ofev]) 150 mg PO Q12 [facility] Last Admin: 03/04/18 08:36 Dose: 150 mg Clindamycin Phosphate (Cleocin) 600 mg in 50 mls @ 50 mls/hr IVPB Q8 JANIE PRN Reason: Protocol Last Admin: 03/04/18 08:37 Dose: 50 mls/hr Piperacillin Sod/Tazobactam (Sod 3.375 gm/ Sodium Chloride) 100 mls @ 100 mls/ hr IVPB Q6 JANIE PRN Reason: Protocol Last Admin: 03/04/18 10:12 Dose: 100 mls/hr Levetiracetam 750 mg/ Sodium (Chloride) 107.5 mls @ 215 mls/hr IVPB Q12 [facility] Last Admin: 03/04/18 08:36 Dose: 215 mls/hr Ceftaroline Fosamil 600 mg/ (Sodium Chloride) 250 mls @ 125 mls/hr IVPB Q12 JANIE PRN Reason: Protocol Last Admin: 03/04/18 08:40 Dose: 125 mls/hr Potassium Chloride (Potassium Cl 10meq/50ml Sterile Water) 50 mls @ 50 mls/hr IVPB Q1 [facility] Stop: 03/04/18 18:59 Insulin Detemir (Levemir) 24 units SC Q12H [facility] Last Admin: 03/04/18 08:35 Dose: 24 units Insulin Human Lispro (Humalog) 0 units SC Q4H JANIE PRN Reason: Protocol Last Admin: 03/04/18 12:17 Dose: Not Given Methylprednisolone (Solu-Medrol) 60 mg IV Q6 [facility] Mupirocin (Bactroban Ointment) 1 applic TOP TID [facility] Last Admin: 03/04/18 12:48 Dose: 1 appl Pantoprazole Sodium (Protonix Inj) 40 mg IVP DAILY [facility] Last Admin: 03/04/18 08:36 Dose: 40 mg Sildenafil Citrate (Revatio) 20 mg PO TID [facility] Last Admin: 03/04/18 12:49 Dose: 20 mg - Labs Labs: 03/04/18 04:55 03/04/18 04:55 - Constitutional Appears: Chronically Ill - Head Exam Head Exam: ATRAUMATIC, NORMOCEPHALIC - Eye Exam Additional comments: Pupils sluggish - ENT Exam Additional comments: Intubated - Neck Exam Neck Exam: Normal Inspection - Respiratory Exam Respiratory Exam: Decreased Breath Sounds, Rales, Rhonchi - Cardiovascular Exam Cardiovascular Exam: REGULAR RHYTHM - GI/Abdominal Exam GI & Abdominal Exam: Soft, Normal Bowel Sounds - Exam Additional comments: Martinez Cath - Extremities Exam Additional comments: Edema all extremities - Neurological Exam Additional comments: Intubated, non sedated, minimal response to noxious stimuli. - Skin Skin Exam: Warm Assessment and Plan (1) Anoxic brain damage Status: Acute (2) Acute respiratory failure Status: Acute (3) Pneumonia Status: Acute (4) Sepsis Status: Acute (5) Pulmonary fibrosis Status: Chronic (6) Pulmonary hypertension Status: Chronic (7) Pneumonia with cavity of lung Status: Acute (8) Seizure Status: Acute - Assessment and Plan (Free Text) Plan: Patient is not awakening, ventilatory support, Clinda , Teflaro, DuoNeb, Trachasp Staph MRSA, one sputum AFB (neg)
--- NOTE | 2018-03-04 16:08 | PN ---
DATE: 03/04/2018 ENDO FOLLOWUP NOTE LOCATION: In ICU room 433. SUBJECTIVE: This is a 62-year-old female with recent uncontrolled type 2 insulin-requiring diabetes, currently being managed for acute aspiration pneumonitis with underlying idiopathic pulmonary fibrosis and is now also being followed closely for metabolic management. She remains endotracheally intubated at this time and as noted her glucose values have ranged overnight from 161 to 183 mg/dL. LABORATORY DATA: Her latest chemistry showed a BUN of 28, sodium 147, potassium 3.1, chloride 99, CO2 of 40, glucose 161, and creatinine 0.5. ASSESSMENT AND PLAN: So at this time, we will modify her basal insulin and increase the Levemir to 24 units subcutaneously every 12 hours to be given at 8 a.m. and 8 p.m. daily as ordered. We will also continue the intensive glucose monitoring and low dose correction scale using Humalog insulin as given. It is done every 4 hours as ordered. We will obtain serial chemistries and supplement accordingly as needed. We will follow with you. Radha Joe MD
[2018-03-04] MEDS: Potassium CL 10 MEQ/50 ML 50 ML IVPB SCH ×4 (17:16→23:57)
[2018-03-05] MEDS: Albuterol-Ipratrop 3 mg / 0.5 (3 ml) UD INH SCH ×7 (00:01→23:34)
[2018-03-05] MEDS: Clindamycin 600mg/50ml D5W 600 MG/50 ML VIAL IVPB SCH ×3 (01:23→16:00)
[2018-03-05] MEDS: Insulin Lispro (humaLOG) 100 Units/ml Inj SC SCH ×6 (01:29→19:41)
[2018-03-05 05:10] LABS: ABG ALLEN TEST YES; ARTERIAL BLOOD GAS HCO3 36.4 mmol/L (21-28); ARTERIAL BLOOD GAS HEMOGLOBIN 10.9 g/dL (11.7-17.4); ARTERIAL BLOOD GAS O2 CONTENT 14.8 ML/dL (15-23); ARTERIAL BLOOD GAS O2 SAT 98.7 % (95-98); ARTERIAL BLOOD GAS PCO2 51 mm/Hg (35-45); ARTERIAL BLOOD GAS PO2 94 mm/Hg (80-100); ARTERIAL BLOOD GAS TCO2 41.4 mmol/L (22-28)
[2018-03-05 05:38] LABS: HEMOGLOBIN 10.8 g/dL (12.0-16.0); LYMPH # 0.6 K/uL (1.0-4.3); LYMPH % 6.2 % (20.0-40.0); MEAN CELL VOLUME 70.3 fl (81.0-99.0); MEAN CORPUSCULAR HEMOGLOBIN 21.6 pg (27.0-31.0); MEAN CORPUSCULAR HGB CONC 30.7 g/dL (33.0-37.0); MEAN PLATELET VOLUME 8.2 fl (7.2-11.7); MONO # 0.3 K/uL (0.0-0.8); MONO % 3.7 % (0.0-10.0); NEUT # 8.4 K/uL (1.8-7.0); NEUT % 90.1 % (50.0-75.0); NRBC % 0.1 % (0.0-0.0); PLATELET COUNT 388 K/uL (130-400); RBC 4.99 Mil/uL (3.80-5.20); RED CELL DISTRIBUTION WIDTH 20.1 % (11.5-14.5); WHITE BLOOD COUNT 9.4 K/uL (4.8-10.8)
[2018-03-05 05:57] LABS: ALBUMIN 2.9 g/dL (3.5-5.0); ALT/SGPT 55 U/L (9-52); AST/SGOT 76 U/L (14-36); BLOOD UREA NITROGEN 27 mg/dl (7-17); CALCIUM 8.1 mg/dL (8.4-10.2); GFR AFRICAN-AMERICAN > 60; GFR NON-AFRICAN AMERICAN > 60
--- NOTE | 2018-03-05 08:12 | RAD ---
Date of service: 03/05/2018 HISTORY: intubation COMPARISON: Portable chest 03/04/2018. FINDINGS: Endotracheal and nasogastric tubes stable in position. LUNGS: Limited residual patchy infiltrate remains in the right base and potentially minimally at the left base as well. The appearance is not significantly changed in the interval. Patient is approaching baseline appearance of underlying pulmonary fibrotic pattern at the mid inferior lung zones as compared to distant prior chest radiograph 12/09/2011. PLEURA: No significant pleural effusion identified, no pneumothorax apparent. CARDIOVASCULAR: Normal. OSSEOUS STRUCTURES: No significant abnormalities. VISUALIZED UPPER ABDOMEN: Normal. OTHER FINDINGS: None. IMPRESSION: Stable chest radiograph with limited residual patchy density at the right base and potentially at the left base as well with underlying chronic interstitial pulmonary changes reiterated bilaterally.
[2018-03-05 08:27] LABS: BANDS 3 % (0-2); LYMPHOCYTE 6 % (20-50); MONOCYTE 2 % (0-10); NEUTROPHIL 89 % (42-75); PLATELET ESTIMATE NORMAL (NORMAL); TOTAL CELLS COUNTED 100
[2018-03-05 08:28] LABS: ANISOCYTOSIS MODERATE; MICROCYTOSIS SLIGHT; OVALOCYTES SLIGHT; POIKILOCYTOSIS SLIGHT
[2018-03-05 08:29] LABS: HYPOCHROMIC SLIGHT; LARGE PLATELETS PRESENT
[2018-03-05] MEDS: Digoxin 250 mcg (0.25 mg) Tab PO SCH (08:39)
[2018-03-05] MEDS: Insulin Detemir 100 Units/ml Inj SC SCH ×2 (08:40→19:43)
[2018-03-05] MEDS: NINTEDANIB ESYLATE 150 MG PO SCH ×2 (08:40→20:28)
[2018-03-05] MEDS: Sildenafil 20 MG TAB PO SCH ×3 (08:40→16:00)
[2018-03-05] MEDS: Potassium CL 10 MEQ/50 ML 50 ML IVPB SCH ×4 (10:16→14:04)
--- NOTE | 2018-03-05 10:59 | CP.CCUPN ---
<Toño Rodriguez - Last Filed: 03/05/18 14:47> CCU Subjective - Physician Review Subjective (Free Text): 03/05/18 10:49 ICU Progress Note: 62 y/o F evaluated and examined by bedside. Pt on mechanical ventilator, not responsive to verbal or tactile stimulation. Pt seems more hyperactive for several seconds, movement of lower extremities and neck were appreciated. Pt afebrile with No acute events overnight. CCU Objective - Vital Signs / Intake & Output Vital Signs (Last 4 hours): Vital Signs Temp Pulse Resp BP Pulse Ox 03/05/18 10:00 103 H 19 135/76 98 03/05/18 09:07 121 H 03/05/18 08:00 98 F 121 H 23 133/82 98 Intake and Output (Last 8hrs): Intake & Output 03/04/18 03/05/18 03/05/18 22:59 06:59 14:59 Intake Total 930 204 904 Output Total 1500 1300 Balance -570 -1096 904 Weight 42.638 kg Intake: IV 200 4 4 Intake, Piggyback 460 200 800 Oral 180 0 Free Water Flush 90 100 Output: Urine 1500 1300 Urethral (Martinez) 1500 1300 - Physical Exam Physical Exam Limitations: Positive for: Altered Mental Status Head: Positive for: Atraumatic, Normocephalic Pupils: Positive for: PERRL Conjunctiva: Positive for: Normal Ears: Positive for: Normal Mouth: Positive for: Dry Respiratory/Chest: Negative for: Wheezes, Rales Cardiovascular: Positive for: Regular Rate and Rhythm, Normal S1, S2 Abdomen: Positive for: Normal Bowel Sounds. Negative for: Distention Upper Extremity: Positive for: Normal Inspection Lower Extremity: Positive for: Normal Inspection Psychiatric: Negative for: Alert - Medications Active Medications: Active Medications Generic Name Dose Route Start Last Admin Trade Name Freq PRN Reason Stop Dose Admin Acetaminophen 650 mg 02/28/18 16:05 Tylenol 325mg Tab PO Q6H PRN Fever >100.4 F Acetazolamide 500 mg 03/04/18 21:00 03/05/18 08:38 Diamox 500 Mg Inj IV 03/07/18 21:01 500 mg Q12 JANIE Administration Albuterol/Ipratropium 3 ml 03/04/18 14:00 03/05/18 07:34 Duoneb 3 Mg/0.5 Mg (3 Ml) Ud INH 3 ml RQ4 JANIE Administration Aspirin 81 mg 03/01/18 09:00 03/05/18 08:37 Aspirin Chewable PO 81 mg DAILY JANIE Administration Atorvastatin Calcium 10 mg 03/01/18 09:00 03/05/18 08:40 Lipitor PO 10 mg DAILY JANIE Administration Digoxin 0.25 mg 02/28/18 21:35 03/05/18 08:39 Lanoxin PO 0.25 mg DAILY JANIE Administration Diltiazem HCl 60 mg 02/28/18 22:00 03/05/18 09:07 Cardizem PO 60 mg Q6 JANIE Administration Ferrous Sulfate 325 mg 03/01/18 09:00 03/05/18 08:39 Feosol PO 325 mg DAILY JANIE Administration Home Med 150 mg 03/02/18 22:00 03/05/18 08:40 Nintedanib Esylate [Ofev] PO 150 mg Q12 JANIE Administration Clindamycin Phosphate 600 mg in 50 mls @ 50 mls/hr 03/01/18 12:45 03/05/18 08 :38 Cleocin IVPB 50 mls/hr Q8 JANIE Administration Protocol Levetiracetam 750 mg/ Sodium 107.5 mls @ 215 mls/hr 03/02/18 09:00 03/05/18 08:39 Chloride IVPB 215 mls/hr Q12 JANIE Administration Ceftaroline Fosamil 600 mg/ 250 mls @ 125 mls/hr 03/02/18 21:00 03/05/18 08: 41 Sodium Chloride IVPB 125 mls/hr Q12 JANIE Administration Protocol Potassium Chloride 50 mls @ 50 mls/hr 03/05/18 08:00 03/05/18 10:16 Potassium Cl 10meq/50ml Sterile Water IVPB 03/05/18 11:59 50 mls/hr Q1 JANIE Administration Insulin Detemir 24 units 03/03/18 20:00 03/05/18 08:40 Levemir SC 24 units Q12H JANIE Administration Insulin Human Lispro 0 units 03/02/18 16:00 03/05/18 08:37 Humalog SC Not Given Q4H JANIE Protocol Methylprednisolone 60 mg 03/04/18 14:03 03/05/18 09:07 Solu-Medrol IV 60 mg Q6 JANIE Administration Mupirocin 1 applic 03/03/18 09:00 03/05/18 08:38 Bactroban Ointment TOP 1 appl TID JANIE Administration Pantoprazole Sodium 40 mg 02/28/18 17:00 03/05/18 08:40 Protonix Inj IVP 40 mg DAILY JANIE Administration Sildenafil Citrate 20 mg 02/28/18 17:00 03/05/18 08:40 Revatio PO 20 mg TID JANIE Administration - Patient Studies Lab Studies: Microbiology Studies 03/03/18 04:21 Gram Stain - Final Trachasp Sputum Culture - Preliminary Gram Positive Cocci 03/03/18 09:00 Mycobacterial Culture - Preliminary Other: Please Indicate 02/28/18 14:00 Blood Culture - Preliminary Blood-Venous NO GROWTH AFTER 4 DAYS Lab Studies 03/05/18 03/05/18 03/05/18 Range/Units 05:14 05:09 05:09 WBC 9.4 (4.8-10.8) K/uL RBC 4.99 (3.80-5.20) Mil/uL Hgb 10.8 L (12.0-16.0) g/dL Hct 35.1 (34.0-47.0) % MCV 70.3 L (81.0-99.0) fl MCH 21.6 L (27.0-31.0) pg MCHC 30.7 L (33.0-37.0) g/dL RDW 20.1 H (11.5-14.5) % Plt Count 388 (130-400) K/uL MPV 8.2 (7.2-11.7) fl Neut % (Auto) 90.1 H (50.0-75.0) % Lymph % (Auto) 6.2 L (20.0-40.0) % [place] % (Auto) 3.7 (0.0-10.0) % Eos % (Auto) 0.0 (0.0-4.0) % Baso % (Auto) 0.0 (0.0-2.0) % Neut # (Auto) 8.4 H (1.8-7.0) K/uL Lymph # (Auto) 0.6 L (1.0-4.3) K/uL [place] # (Auto) 0.3 (0.0-0.8) K/uL Eos # (Auto) 0.0 (0.0-0.7) K/uL Baso # (Auto) 0.0 (0.0-0.2) K/uL Neutrophils % (Manual) 89 H (42-75) % Band Neutrophils % 3 H (0-2) % Lymphocytes % (Manual) 6 L (20-50) % Monocytes % (Manual) 2 (0-10) % Platelet Estimate Normal (NORMAL) Large Platelets Present Hypochromasia (manual) Slight Poikilocytosis (manual Slight Anisocytosis (manual) Moderate Microcytosis (manual) Slight Ovalocytes Slight pCO2 (35-45) mm/Hg pO2 (80-100) mm/Hg HCO3 (21-28) mmol/L ABG pH (7.35-7.45) ABG Total CO2 (22-28) mmol/L ABG O2 Saturation (95-98) % ABG O2 Content (15-23) ML/dL ABG Base Excess (-2.0-3.0) mmol/L ABG Hemoglobin (11.7-17.4) g/dL ABG Carboxyhemoglobin (0.5-1.5) % POC ABG HHb (Measured) (0.0-5.0) % ABG Methemoglobin (0.0-3.0) % ABG O2 Capacity (16-24) mL/dL Jorge Test A-a O2 Difference mm/Hg Hgb O2 Saturation (95.0-98.0) % Vent Mode Mechanical Rate FiO2 % Tidal Volume PEEP Sodium 147 (132-148) mmol/l Potassium 3.2 L (3.6-5.0) MMOL/L Chloride 103 (98-107) mmol/L Carbon Dioxide 33 H (22-30) mmol/L Anion Gap 14 (10-20) BUN 27 H (7-17) mg/dl Creatinine 0.6 L (0.7-1.2) mg/dl Est GFR ( Amer) > 60 Est GFR (Non-Af Amer) > 60 POC Glucose (mg/dL) 179 H (65-110) mg/dL Random Glucose 216 H (65-105) mg/dL Calcium 8.1 L (8.4-10.2) mg/dL Phosphorus 3.2 (2.5-4.5) mg/dl Magnesium 2.1 (1.6-2.3) MG/DL Total Bilirubin 0.3 (0.2-1.3) mg/dl AST 76 H D (14-36) U/L ALT 55 H D (9-52) U/L Alkaline Phosphatase 100 (38-126) U/L Total Protein 5.9 L (6.3-8.2) G/DL Albumin 2.9 L (3.5-5.0) g/dL Globulin 3.0 (2.2-3.9) gm/dL Albumin/Globulin Ratio 1.0 (1.0-2.1) TB Test (QFT) Nil IU/mL TB Test Mitogen - Nil IU/mL TB Test TB - Nil IU/mL TB Test (QFT) (Negative) 03/05/18 03/05/18 03/05/18 Range/Units 04:33 03:53 01:26 WBC (4.8-10.8) K/uL RBC (3.80-5.20) Mil/uL Hgb (12.0-16.0) g/dL Hct (34.0-47.0) % MCV (81.0-99.0) fl MCH (27.0-31.0) pg MCHC (33.0-37.0) g/dL RDW (11.5-14.5) % Plt Count (130-400) K/uL MPV (7.2-11.7) fl Neut % (Auto) (50.0-75.0) % Lymph % (Auto) (20.0-40.0) % [place] % (Auto) (0.0-10.0) % Eos % (Auto) (0.0-4.0) % Baso % (Auto) (0.0-2.0) % Neut # (Auto) (1.8-7.0) K/uL Lymph # (Auto) (1.0-4.3) K/uL [place] # (Auto) (0.0-0.8) K/uL Eos # (Auto) (0.0-0.7) K/uL Baso # (Auto) (0.0-0.2) K/uL Neutrophils % (Manual) (42-75) % Band Neutrophils % (0-2) % Lymphocytes % (Manual) (20-50) % Monocytes % (Manual) (0-10) % Platelet Estimate (NORMAL) Large Platelets Hypochromasia (manual) Poikilocytosis (manual Anisocytosis (manual) Microcytosis (manual) Ovalocytes pCO2 51 H (35-45) mm/Hg pO2 94 (80-100) mm/Hg HCO3 36.4 H (21-28) mmol/L ABG pH 7.50 H (7.35-7.45) ABG Total CO2 41.4 H (22-28) mmol/L ABG O2 Saturation 98.7 H (95-98) % ABG O2 Content 14.8 L (15-23) ML/dL ABG Base Excess 14.7 H (-2.0-3.0) mmol/L ABG Hemoglobin 10.9 L (11.7-17.4) g/dL ABG Carboxyhemoglobin 1.6 H (0.5-1.5) % POC ABG HHb (Measured) 1.3 (0.0-5.0) % ABG Methemoglobin 1.4 (0.0-3.0) % ABG O2 Capacity 15.0 L (16-24) mL/dL Jorge Test Yes A-a O2 Difference 56.0 mm/Hg Hgb O2 Saturation 95.8 (95.0-98.0) % Vent Mode A/c Mechanical Rate 14 FiO2 30.0 % Tidal Volume 400 PEEP 5 Sodium (132-148) mmol/l Potassium (3.6-5.0) MMOL/L Chloride (98-107) mmol/L Carbon Dioxide (22-30) mmol/L Anion Gap (10-20) BUN (7-17) mg/dl Creatinine (0.7-1.2) mg/dl Est GFR ( Amer) Est GFR (Non-Af Amer) POC Glucose (mg/dL) 198 H 210 H (65-110) mg/dL Random Glucose (65-105) mg/dL Calcium (8.4-10.2) mg/dL Phosphorus (2.5-4.5) mg/dl Magnesium (1.6-2.3) MG/DL Total Bilirubin (0.2-1.3) mg/dl AST (14-36) U/L ALT (9-52) U/L Alkaline Phosphatase (38-126) U/L Total Protein (6.3-8.2) G/DL Albumin (3.5-5.0) g/dL Globulin (2.2-3.9) gm/dL Albumin/Globulin Ratio (1.0-2.1) TB Test (QFT) Nil IU/mL TB Test Mitogen - Nil IU/mL TB Test TB - Nil IU/mL TB Test (QFT) (Negative) 03/04/18 03/04/18 03/04/18 Range/Units 20:27 16:20 12:07 WBC (4.8-10.8) K/uL RBC (3.80-5.20) Mil/uL Hgb (12.0-16.0) g/dL Hct (34.0-47.0) % MCV (81.0-99.0) fl MCH (27.0-31.0) pg MCHC (33.0-37.0) g/dL RDW (11.5-14.5) % Plt Count (130-400) K/uL MPV (7.2-11.7) fl Neut % (Auto) (50.0-75.0) % Lymph % (Auto) (20.0-40.0) % [place] % (Auto) (0.0-10.0) % Eos % (Auto) (0.0-4.0) % Baso % (Auto) (0.0-2.0) % Neut # (Auto) (1.8-7.0) K/uL Lymph # (Auto) (1.0-4.3) K/uL [place] # (Auto) (0.0-0.8) K/uL Eos # (Auto) (0.0-0.7) K/uL Baso # (Auto) (0.0-0.2) K/uL Neutrophils % (Manual) (42-75) % Band Neutrophils % (0-2) % Lymphocytes % (Manual) (20-50) % Monocytes % (Manual) (0-10) % Platelet Estimate (NORMAL) Large Platelets Hypochromasia (manual) Poikilocytosis (manual Anisocytosis (manual) Microcytosis (manual) Ovalocytes pCO2 (35-45) mm/Hg pO2 (80-100) mm/Hg HCO3 (21-28) mmol/L ABG pH (7.35-7.45) ABG Total CO2 (22-28) mmol/L ABG O2 Saturation (95-98) % ABG O2 Content (15-23) ML/dL ABG Base Excess (-2.0-3.0) mmol/L ABG Hemoglobin (11.7-17.4) g/dL ABG Carboxyhemoglobin (0.5-1.5) % POC ABG HHb (Measured) (0.0-5.0) % ABG Methemoglobin (0.0-3.0) % ABG O2 Capacity (16-24) mL/dL Jorge Test A-a O2 Difference mm/Hg Hgb O2 Saturation (95.0-98.0) % Vent Mode Mechanical Rate FiO2 % Tidal Volume PEEP Sodium (132-148) mmol/l Potassium (3.6-5.0) MMOL/L Chloride (98-107) mmol/L Carbon Dioxide (22-30) mmol/L Anion Gap (10-20) BUN (7-17) mg/dl Creatinine (0.7-1.2) mg/dl Est GFR ( Amer) Est GFR (Non-Af Amer) POC Glucose (mg/dL) 176 H 171 H 158 H (65-110) mg/dL Random Glucose (65-105) mg/dL Calcium (8.4-10.2) mg/dL Phosphorus (2.5-4.5) mg/dl Magnesium (1.6-2.3) MG/DL Total Bilirubin (0.2-1.3) mg/dl AST (14-36) U/L ALT (9-52) U/L Alkaline Phosphatase (38-126) U/L Total Protein (6.3-8.2) G/DL Albumin (3.5-5.0) g/dL Globulin (2.2-3.9) gm/dL Albumin/Globulin Ratio (1.0-2.1) TB Test (QFT) Nil IU/mL TB Test Mitogen - Nil IU/mL TB Test TB - Nil IU/mL TB Test (QFT) (Negative) 03/03/18 Range/Units 12:00 WBC (4.8-10.8) K/uL RBC (3.80-5.20) Mil/uL Hgb (12.0-16.0) g/dL Hct (34.0-47.0) % MCV (81.0-99.0) fl MCH (27.0-31.0) pg MCHC (33.0-37.0) g/dL RDW (11.5-14.5) % Plt Count (130-400) K/uL MPV (7.2-11.7) fl Neut % (Auto) (50.0-75.0) % Lymph % (Auto) (20.0-40.0) % [place] % (Auto) (0.0-10.0) % Eos % (Auto) (0.0-4.0) % Baso % (Auto) (0.0-2.0) % Neut # (Auto) (1.8-7.0) K/uL Lymph # (Auto) (1.0-4.3) K/uL [place] # (Auto) (0.0-0.8) K/uL Eos # (Auto) (0.0-0.7) K/uL Baso # (Auto) (0.0-0.2) K/uL Neutrophils % (Manual) (42-75) % Band Neutrophils % (0-2) % Lymphocytes % (Manual) (20-50) % Monocytes % (Manual) (0-10) % Platelet Estimate (NORMAL) Large Platelets Hypochromasia (manual) Poikilocytosis (manual Anisocytosis (manual) Microcytosis (manual) Ovalocytes pCO2 (35-45) mm/Hg pO2 (80-100) mm/Hg HCO3 (21-28) mmol/L ABG pH (7.35-7.45) ABG Total CO2 (22-28) mmol/L ABG O2 Saturation (95-98) % ABG O2 Content (15-23) ML/dL ABG Base Excess (-2.0-3.0) mmol/L ABG Hemoglobin (11.7-17.4) g/dL ABG Carboxyhemoglobin (0.5-1.5) % POC ABG HHb (Measured) (0.0-5.0) % ABG Methemoglobin (0.0-3.0) % ABG O2 Capacity (16-24) mL/dL Jorge Test A-a O2 Difference mm/Hg Hgb O2 Saturation (95.0-98.0) % Vent Mode Mechanical Rate FiO2 % Tidal Volume PEEP Sodium (132-148) mmol/l Potassium (3.6-5.0) MMOL/L Chloride (98-107) mmol/L Carbon Dioxide (22-30) mmol/L Anion Gap (10-20) BUN (7-17) mg/dl Creatinine (0.7-1.2) mg/dl Est GFR ( Amer) Est GFR (Non-Af Amer) POC Glucose (mg/dL) (65-110) mg/dL Random Glucose (65-105) mg/dL Calcium (8.4-10.2) mg/dL Phosphorus (2.5-4.5) mg/dl Magnesium (1.6-2.3) MG/DL Total Bilirubin (0.2-1.3) mg/dl AST (14-36) U/L ALT (9-52) U/L Alkaline Phosphatase (38-126) U/L Total Protein (6.3-8.2) G/DL Albumin (3.5-5.0) g/dL Globulin (2.2-3.9) gm/dL Albumin/Globulin Ratio (1.0-2.1) TB Test (QFT) Nil 0.05 IU/mL TB Test Mitogen - Nil 1.32 IU/mL TB Test TB - Nil 0.02 IU/mL TB Test (QFT) Negative (Negative) Laboratory Results - last 24 hr 03/03/18 03/04/18 03/04/18 12:00 12:07 16:20 WBC RBC Hgb Hct MCV MCH MCHC RDW Plt Count MPV Neut % (Auto) Lymph % (Auto) [place] % (Auto) Eos % (Auto) Baso % (Auto) Neut # (Auto) Lymph # (Auto) [place] # (Auto) Eos # (Auto) Baso # (Auto) Neutrophils % (Manual) Band Neutrophils % Lymphocytes % (Manual) Monocytes % (Manual) Platelet Estimate Large Platelets Hypochromasia (manual) Poikilocytosis (manual Anisocytosis (manual) Microcytosis (manual) Ovalocytes pCO2 pO2 HCO3 ABG pH ABG Total CO2 ABG O2 Saturation ABG O2 Content ABG Base Excess ABG Hemoglobin ABG Carboxyhemoglobin POC ABG HHb (Measured) ABG Methemoglobin ABG O2 Capacity Jorge Test A-a O2 Difference Hgb O2 Saturation Vent Mode Mechanical Rate FiO2 Tidal Volume PEEP Sodium Potassium Chloride Carbon Dioxide Anion Gap BUN Creatinine Est GFR ( Amer) Est GFR (Non-Af Amer) POC Glucose (mg/dL) 158 H 171 H Random Glucose Calcium Phosphorus Magnesium Total Bilirubin AST ALT Alkaline Phosphatase Total Protein Albumin Globulin Albumin/Globulin Ratio TB Test (QFT) Nil 0.05 TB Test Mitogen - Nil 1.32 TB Test TB - Nil 0.02 TB Test (QFT) Negative 03/04/18 03/05/18 03/05/18 20:27 01:26 03:53 WBC RBC Hgb Hct MCV MCH MCHC RDW Plt Count MPV Neut % (Auto) Lymph % (Auto) [place] % (Auto) Eos % (Auto) Baso % (Auto) Neut # (Auto) Lymph # (Auto) [place] # (Auto) Eos # (Auto) Baso # (Auto) Neutrophils % (Manual) Band Neutrophils % Lymphocytes % (Manual) Monocytes % (Manual) Platelet Estimate Large Platelets Hypochromasia (manual) Poikilocytosis (manual Anisocytosis (manual) Microcytosis (manual) Ovalocytes pCO2 51 H pO2 94 HCO3 36.4 H ABG pH 7.50 H ABG Total CO2 41.4 H ABG O2 Saturation 98.7 H ABG O2 Content 14.8 L ABG Base Excess 14.7 H ABG Hemoglobin 10.9 L ABG Carboxyhemoglobin 1.6 H POC ABG HHb (Measured) 1.3 ABG Methemoglobin 1.4 ABG O2 Capacity 15.0 L Jorge Test Yes A-a O2 Difference 56.0 Hgb O2 Saturation 95.8 Vent Mode A/c Mechanical Rate 14 FiO2 30.0 Tidal Volume 400 PEEP 5 Sodium Potassium Chloride Carbon Dioxide Anion Gap BUN Creatinine Est GFR ( Amer) Est GFR (Non-Af Amer) POC Glucose (mg/dL) 176 H 210 H Random Glucose Calcium Phosphorus Magnesium Total Bilirubin AST ALT Alkaline Phosphatase Total Protein Albumin Globulin Albumin/Globulin Ratio TB Test (QFT) Nil TB Test Mitogen - Nil TB Test TB - Nil TB Test (QFT) 03/05/18 03/05/18 03/05/18 04:33 05:09 05:09 WBC 9.4 RBC 4.99 Hgb 10.8 L Hct 35.1 MCV 70.3 L MCH 21.6 L MCHC 30.7 L RDW 20.1 H Plt Count 388 MPV 8.2 Neut % (Auto) 90.1 H Lymph % (Auto) 6.2 L [place] % (Auto) 3.7 Eos % (Auto) 0.0 Baso % (Auto) 0.0 Neut # (Auto) 8.4 H Lymph # (Auto) 0.6 L [place] # (Auto) 0.3 Eos # (Auto) 0.0 Baso # (Auto) 0.0 Neutrophils % (Manual) 89 H Band Neutrophils % 3 H Lymphocytes % (Manual) 6 L Monocytes % (Manual) 2 Platelet Estimate Normal Large Platelets Present Hypochromasia (manual) Slight Poikilocytosis (manual Slight Anisocytosis (manual) Moderate Microcytosis (manual) Slight Ovalocytes Slight pCO2 pO2 HCO3 ABG pH ABG Total CO2 ABG O2 Saturation ABG O2 Content ABG Base Excess ABG Hemoglobin ABG Carboxyhemoglobin POC ABG HHb (Measured) ABG Methemoglobin ABG O2 Capacity Jorge Test A-a O2 Difference Hgb O2 Saturation Vent Mode Mechanical Rate FiO2 Tidal Volume PEEP Sodium 147 Potassium 3.2 L Chloride 103 Carbon Dioxide 33 H Anion Gap 14 BUN 27 H Creatinine 0.6 L Est GFR ( Amer) > 60 Est GFR (Non-Af Amer) > 60 POC Glucose (mg/dL) 198 H Random Glucose 216 H Calcium 8.1 L Phosphorus 3.2 Magnesium 2.1 Total Bilirubin 0.3 AST 76 H D ALT 55 H D Alkaline Phosphatase 100 Total Protein 5.9 L Albumin 2.9 L Globulin 3.0 Albumin/Globulin Ratio 1.0 TB Test (QFT) Nil TB Test Mitogen - Nil TB Test TB - Nil TB Test (QFT) 03/05/18 05:14 WBC RBC Hgb Hct MCV MCH MCHC RDW Plt Count MPV Neut % (Auto) Lymph % (Auto) [place] % (Auto) Eos % (Auto) Baso % (Auto) Neut # (Auto) Lymph # (Auto) [place] # (Auto) Eos # (Auto) Baso # (Auto) Neutrophils % (Manual) Band Neutrophils % Lymphocytes % (Manual) Monocytes % (Manual) Platelet Estimate Large Platelets Hypochromasia (manual) Poikilocytosis (manual Anisocytosis (manual) Microcytosis (manual) Ovalocytes pCO2 pO2 HCO3 ABG pH ABG Total CO2 ABG O2 Saturation ABG O2 Content ABG Base Excess ABG Hemoglobin ABG Carboxyhemoglobin POC ABG HHb (Measured) ABG Methemoglobin ABG O2 Capacity Jorge Test A-a O2 Difference Hgb O2 Saturation Vent Mode Mechanical Rate FiO2 Tidal Volume PEEP Sodium Potassium Chloride Carbon Dioxide Anion Gap BUN Creatinine Est GFR ( Amer) Est GFR (Non-Af Amer) POC Glucose (mg/dL) 179 H Random Glucose Calcium Phosphorus Magnesium Total Bilirubin AST ALT Alkaline Phosphatase Total Protein Albumin Globulin Albumin/Globulin Ratio TB Test (QFT) Nil TB Test Mitogen - Nil TB Test TB - Nil TB Test (QFT) Fingerstick Blood Sugar Results: 197 Review of Systems - Review of Systems Systems not reviewed;Unavailable: Altered Mental Status Critical Care Progress Note - Nutrition Nutrition: Nutrition Category Date Time Status NPO Diet [DIET] Diets 02/28/18 Dinner Active Assessment/Plan - Assessment and Plan (Free Text) Assessment: 62 y/o F with a PMHx of idiopathic pulmonary fibrosis, ?Cystic Fibrosis, HTN, IDDM, severe CHF, PAH?, chronic LE edema was admitted due altered mental status after being found unconscious, urinated on herself, by daughter at home. --Head CT unremarkable, Brain MRI unremarkable --CTA Chest negative for PE, extensive coarse chronic interstitial infiltrate with associated varicoid bronchiectasis in both lower lobes. Consider acute pneumonia. Partially solid ground-glass opacity in right lung apex and secondary cavitating opacity in the right lung apex. >Acute Hypoxic Respiratory Failure -On mechanical ventilator. Failed SBT yesterday. -Blood gas still showing Bicarbonate and CO2 levels. -Solu-Medrol, Duoneb Q4H, scheduled, Acetazolamide 500 q12h. -If pt beomes responsive and awake, will proceed to extubation. >Altered mental status -Due to metabolic encephalopathy, prolonged hypoglycemia and/or metabolic hypercarbia -On mechanical ventilator >Sepsis due to Aspiration Pneumonia -On IV Clindamycin and Ceftaroline -WBC trending down, WNL since yesterday. >Hypokalemia -KCl ordered. -F/U BMP. >Idiopathic Pulmonary Fibrosis -Nintendanib, on chronic steroid use -C/w Sildenafil, Digoxin, Cardizem, ASA -Pulmonology, Dr Ledesma on consult. >Seizure -most likely secondary to hypoglycemia -C/w Keppra 750 -Neurology, Dr Reddy on consult. >Cavitary Lesion on Chest CT -Pending Quantiferon TB, Sputum Culture, sputum cytology and AFB sputum. -Contact precautions. >DM 2 -Endocrinology, Dr Joe consulted. -Detemir 24 units Q12H -Insulin sliding scale >CHF, HTN, HLD -C/w management as primary team. >DVT Prophylaxis -Lovenox SC <Chau Stark - Last Filed: 03/05/18 16:03> CCU Subjective - Physician Review Subjective (Free Text): Attestation: Patient seen and examined at the bedside with Resident Dr. Bayron Rodriguez; and I agree with his outline of plans and management documented below as discussed on AM rounds reflecting my review of all applicable clinical data, and participation in the care of the patient throughout the day in ICU; today, March 05, 2018. Critical Care Progress Note - Nutrition Nutrition: Nutrition Category Date Time Status NPO Diet [DIET] Diets 02/28/18 Dinner Active
--- NOTE | 2018-03-05 13:34 | CP.PCM.PN ---
Subjective - Date & Time of Evaluation Date of Evaluation: 03/05/18 Time of Evaluation: 08:00 - Subjective Subjective: Patient was seen and examined at bedside. Responds to painful stimuli with grimace. No new changes otherwise. On ventilator as there is concern that she can not protect her airway if she is extubated. Objective - Vital Signs/Intake and Output Vital Signs (last 24 hours): Temp Pulse Resp BP Pulse Ox 98 F 97 H 14 116/69 100 03/05/18 12:00 03/05/18 12:00 03/05/18 12:00 03/05/18 12:00 03/05/18 12:00 Intake and Output: 03/05/18 03/05/18 06:59 18:59 Intake Total 654 908 Output Total 1300 Balance -646 908 - Medications Medications: Current Medications Acetaminophen (Tylenol 325mg Tab) 650 mg PO Q6H PRN PRN Reason: Fever >100.4 F Acetazolamide (Diamox 500 Mg Inj) [address] [facility] Stop: 03/07/18 21:01 Last Admin: 03/05/18 08:38 Dose: 500 mg Albuterol/Ipratropium (Duoneb 3 Mg/0.5 Mg (3 Ml) Ud) [address] [facility] Last Admin: 03/05/18 11:10 Dose: 3 ml Aspirin (Aspirin Chewable) [address] [facility] Last Admin: 03/05/18 08:37 Dose: 81 mg Atorvastatin Calcium (Lipitor) [address] [facility] Last Admin: 03/05/18 08:40 Dose: 10 mg Digoxin (Lanoxin) 0.[address] [facility] Last Admin: 03/05/18 08:39 Dose: 0.25 mg Diltiazem HCl (Cardizem) [address] [facility] Last Admin: 03/05/18 09:07 Dose: 60 mg Ferrous Sulfate (Feosol) [address] [facility] Last Admin: 03/05/18 08:39 Dose: 325 mg Home Med (Nintedanib Esylate [Ofev]) [address] [facility] Last Admin: 03/05/18 08:40 Dose: 150 mg Clindamycin Phosphate (Cleocin) 600 mg in 50 mls @ 50 mls/hr IVPB Q8 [facility] PRN Reason: Protocol Last Admin: 03/05/18 08:38 Dose: 50 mls/hr Levetiracetam 750 mg/ Sodium (Chloride) 107.5 mls @ 215 mls/hr IVPB Q12 [facility] Last Admin: 03/05/18 08:39 Dose: 215 mls/hr Ceftaroline Fosamil 600 mg/ (Sodium Chloride) 250 mls @ 125 mls/hr IVPB Q12 [facility] PRN Reason: Protocol Last Admin: 03/05/18 08:41 Dose: 125 mls/hr Insulin Detemir (Levemir) [address] [facility] Last Admin: 03/05/18 08:40 Dose: 24 units Insulin Human Lispro (Humalog) 0 units SC Q4H [facility] PRN Reason: Protocol Last Admin: 03/05/18 11:38 Dose: Not Given Methylprednisolone (Solu-Medrol) [address] [facility] Last Admin: 03/05/18 09:07 Dose: 60 mg Mupirocin (Bactroban Ointment) [address] [facility] Last Admin: 03/05/18 12:58 Dose: 1 appl Pantoprazole Sodium (Protonix Inj) [address] [facility] Last Admin: 03/05/18 08:40 Dose: 40 mg Sildenafil Citrate (Revatio) [address] [facility] Last Admin: 03/05/18 12:59 Dose: 20 mg - Labs Labs: 03/05/18 05:09 03/05/18 05:09 - Additional Findings Additional findings: Physical exam: Constitutional- chronically ill patient on ventilator, unresponsive to verbal stimuli. Head- NCAT, PERRL Eye- pupils are sluggish but equal, reactive to light. ENT- normal exam, MMM. Neck- normal inspection, supple, no JVD Respiratory- CTAB, no wheezes rales rhonchi, on mechanical ventilator Cardiovascular- RRR, +S1, +S2 no MRG GI/Abdominal- normal bowel sounds, soft, no mass, no hsm Skin- warm, dry Extremities Exam- normal capillary refill, normal inspection Neurological Exam- slight grimace with painful stimuli, otherwise unresponsive. Psych- normal mood, normal affect Assessment and Plan - Assessment and Plan (Free Text) Plan: 62 year old female PMH cystic fibrosis?, idiopathic pulmonary fibrosis, HTN, IDDM, severe CHF/likely PAH?, chronic lower ext edema was found unresponsive at home by daughter who lives with her. Patient was last seen normal around 11 pm the night before admission. Pt is currently intubated - history obtained from eldest and youngest daughters. Patient reportedly took her insulin and pills prior to bed, was found unresponsive, with secretions and foam around her mouth, and had urinated in the bed, EMS called. Patient BG 29, given 2 amps d50. Normal renal function. Pt continued to be unresponsive, was intubated at the home and brought to ED. CT head: no hemorrhage. WBC 23K normal renal fx CXR +consolidations/infiltrates RML/RLL CT of the Chest : No evidence of pulmonary embolism. Extensive coarse chronic interstitial infiltrate with associated varicoid bronchiectasis in both lower lobes. Possible superimposed alveolar process. Consider acute pneumonia. Partially solid ground-glass opacity in right lung apex and 2nd cavitating opacity in the right lung apex. Nonspecific. No other cavitating lesions are appreciated elsewhere. Endotracheal tube noted. 1. Acute Hypoxic Respiratory Failure , Intubated on Vent , improved - [facility] remains intubated [facility] sl grimace today with pain, pupils reactive to light - Pulmonary consult - Dr Ledesma - Patient now oxygenating well at 30% FiO2 on ventilator; however remaining intubated for now due to concern that patient has inability to protect airway - Anoxic encephalopathy is a concern at this point as patient is still showing no improvement neurologically. 2. Metabolic Encephalopathy due to prolonged Hypoglycemia monitor glucose closely D50 prn IVF cont Tube feeding 3. Sepsis ( POA) Suspected Aspiration Pneumonia - cont IV Zosyn, Clinda, Vanco -Pulm consult - ID consulted 4. Idiopathic Pulmonary Fibrosis, Cystic Fibrosis Pt on Nintendanib for IPF at home ECHO : systolic dysfunction, mild Pulm HTN, EF 50% pt on chronic low dose steroids for IPF Continue Steroid Careful hydration, note pt has chronic LE edema EKG: sinus tach rate 153, QTc 155 CTA neg for PE Stress dose Steroids - pt on chronic prednisone for IPF 5. Cavitating Lesion right Lung ? sec to Cystic Fibrosis/Bronchiectasis however need to r/o PTB AFB x 3 sputum - PULM consulted -Airborne isolation 6. . Seizure likely sec to Hypoglycemia Neurology consult: Dr. Valentina Herr EEG , MRI brain : neg 7. DM type II - hold all DM meds due to hypoglycemia - accucheck with coverage 8. Chronic CHF systolic and Diastolic dysfunction, Pulm HTN - cont Digoxin - cont Sildenafil, cardizem - diuretics prn DVT ppx Lovenox
[2018-03-05] MEDS ORDERED: Potassium Chloride 20 mEq 100 ML IVPB ONE (13:35)
--- NOTE | 2018-03-05 18:04 | CP.PCM.PN ---
Subjective - Subjective Subjective: more spontaneous movements, eyes closed , not moving head with verbal stimuli , not following commands Objective - Vital Signs/Intake and Output Vital Signs (last 24 hours): Temp Pulse Resp BP Pulse Ox 98 F 88 17 119/67 98 03/05/18 16:00 03/05/18 18:00 03/05/18 18:00 03/05/18 18:00 03/05/18 18:00 Intake and Output: 03/05/18 03/05/18 06:59 18:59 Intake Total 654 1162 Output Total 1300 1400 Balance -646 -238 - Medications Medications: Current Medications Acetaminophen (Tylenol 325mg Tab) 650 mg PO Q6H PRN PRN Reason: Fever >100.4 F Acetazolamide (Diamox 500 Mg Inj) 500 mg IV Q12 [facility] Stop: 03/07/18 21:01 Last Admin: 03/05/18 08:38 Dose: 500 mg Albuterol/Ipratropium (Duoneb 3 Mg/0.5 Mg (3 Ml) Ud) 3 ml INH RQ4 [facility] Last Admin: 03/05/18 15:50 Dose: 3 ml Aspirin (Aspirin Chewable) 81 mg PO DAILY [facility] Last Admin: 03/05/18 08:37 Dose: 81 mg Atorvastatin Calcium (Lipitor) 10 mg PO DAILY [facility] Last Admin: 03/05/18 08:40 Dose: 10 mg Digoxin (Lanoxin) 0.25 mg PO DAILY [facility] Last Admin: 03/05/18 08:39 Dose: 0.25 mg Diltiazem HCl (Cardizem) 60 mg PO Q6 [facility] Last Admin: 03/05/18 15:31 Dose: 60 mg Ferrous Sulfate (Feosol) 325 mg PO DAILY [facility] Last Admin: 03/05/18 08:39 Dose: 325 mg Home Med (Nintedanib Esylate [Ofev]) 150 mg PO Q12 [facility] Last Admin: 03/05/18 08:40 Dose: 150 mg Clindamycin Phosphate (Cleocin) 600 mg in 50 mls @ 50 mls/hr IVPB Q8 [facility] PRN Reason: Protocol Last Admin: 03/05/18 16:00 Dose: 50 mls/hr Levetiracetam 750 mg/ Sodium (Chloride) 107.5 mls @ 215 mls/hr IVPB Q12 [facility] Last Admin: 03/05/18 08:39 Dose: 215 mls/hr Ceftaroline Fosamil 600 mg/ (Sodium Chloride) 250 mls @ 125 mls/hr IVPB Q12 [facility] PRN Reason: Protocol Last Admin: 03/05/18 08:41 Dose: 125 mls/hr Insulin Detemir (Levemir) 24 units SC Q12H [facility] Last Admin: 03/05/18 08:40 Dose: 24 units Insulin Human Lispro (Humalog) 0 units SC Q4H [facility] PRN Reason: Protocol Last Admin: 03/05/18 15:35 Dose: Not Given Methylprednisolone (Solu-Medrol) 60 mg IV Q6 [facility] Last Admin: 03/05/18 15:32 Dose: 60 mg Mupirocin (Bactroban Ointment) 1 applic TOP TID [facility] Last Admin: 03/05/18 16:00 Dose: 1 appl Pantoprazole Sodium (Protonix Inj) 40 mg IVP DAILY [facility] Last Admin: 03/05/18 08:40 Dose: 40 mg Sildenafil Citrate (Revatio) 20 mg PO TID [facility] Last Admin: 03/05/18 16:00 Dose: 20 mg - Labs Labs: 03/05/18 05:09 03/05/18 05:09 - Constitutional Appears: Chronically Ill - Head Exam Head Exam: NORMAL INSPECTION - Eye Exam Eye Exam: PERRL Additional comments: sluggish response to light, corneal reflex positive - ENT Exam Additional comments: intubated - Neck Exam Neck Exam: Normal Inspection - Respiratory Exam Respiratory Exam: Decreased Breath Sounds (at bases), Rhonchi (scattered) - Cardiovascular Exam Cardiovascular Exam: REGULAR RHYTHM - GI/Abdominal Exam GI & Abdominal Exam: Soft, Normal Bowel Sounds - Exam Additional comments: Martinez Cath - Extremities Exam Additional comments: edema - Back Exam Back Exam: NORMAL INSPECTION - Neurological Exam Additional comments: eyes closed , no response to verbal stimuli, response to tactil stimuli with movement U/E L/E - Skin Skin Exam: Warm Assessment and Plan (1) Anoxic brain damage Status: Acute (2) Acute respiratory failure Status: Acute (3) Pneumonia Status: Acute (4) Sepsis Status: Acute (5) Pulmonary fibrosis Status: Chronic (6) Pulmonary hypertension Status: Chronic (7) Pneumonia with cavity of lung Status: Acute (8) Seizure Status: Acute - Assessment and Plan (Free Text) Plan: unable to extubate, Patient is not fully awake, continue Ventilatory support, Vavco , Teflaro, Clinda, DuoNeb and rest of treatment
[2018-03-05] MEDS ORDERED: Dextrose 50% SYRINGE Inj (50 ml) IVP ONE (23:51)
[2018-03-06] MEDS: Clindamycin 600mg/50ml D5W 600 MG/50 ML VIAL IVPB SCH ×3 (00:26→16:31)
[2018-03-06] MEDS: Insulin Lispro (humaLOG) 100 Units/ml Inj SC SCH ×6 (00:27→22:21)
[2018-03-06] MEDS: Albuterol-Ipratrop 3 mg / 0.5 (3 ml) UD INH SCH ×6 (03:32→23:59)
--- NOTE | 2018-03-06 03:35 | PN ---
DATE: 03/05/2018 ENDOCRINOLOGY FOLLOWUP NOTE LOCATION: Room 433, ICU. SUBJECTIVE: This is a 62-year-old female with recent acute respiratory failure, currently intubated and unresponsive and is now being followed closely for metabolic management. LABORATORY DATA: Her glycemic levels are fluctuating but improved, and the glucose values have ranged from 114 to 172 mg/dL. It was 197 at 8 o'clock this morning as noted. The latest chemistry showed a BUN of 27, sodium 147, potassium 3.2, chloride 104, CO2 of 33, glucose 216, and creatinine 0.6. ASSESSMENT AND PLAN: At this time, we will continue the same basal insulin given as Levemir 24 units subcu every 12 hours at 8 a.m. and 8 p.m. daily as given. We will titrate incrementally as indicated to optimize metabolic control. We will also continue her intensive glucose monitoring with Humalog coverage scale as given at the very low-dose algorithm to obviate hypoglycemia, and detailed orders have been given. We will follow and advise accordingly. Radha Joe MD
[2018-03-06 05:37] LABS: ABG ALLEN TEST YES; ARTERIAL BLOOD GAS HCO3 28.7 mmol/L (21-28); ARTERIAL BLOOD GAS HEMOGLOBIN 10.5 g/dL (11.7-17.4); ARTERIAL BLOOD GAS O2 CAPACITY 14.3 mL/dL (16-24); ARTERIAL BLOOD GAS O2 CONTENT 14.2 ML/dL (15-23); ARTERIAL BLOOD GAS O2 SAT 99.4 % (95-98); ARTERIAL BLOOD GAS PCO2 45 mm/Hg (35-45); ARTERIAL BLOOD GAS PH 7.43 (7.35-7.45); ARTERIAL BLOOD GAS PO2 90 mm/Hg (80-100); ARTERIAL BLOOD GAS TCO2 31.3 mmol/L (22-28)
[2018-03-06 06:24] LABS: HEMOGLOBIN 10.8 g/dL (12.0-16.0); MEAN CELL VOLUME 69.2 fl (81.0-99.0); MEAN CORPUSCULAR HEMOGLOBIN 20.8 pg (27.0-31.0); MEAN CORPUSCULAR HGB CONC 30.1 g/dL (33.0-37.0); RBC 5.17 Mil/uL (3.80-5.20); RED CELL DISTRIBUTION WIDTH 19.6 % (11.5-14.5); WHITE BLOOD COUNT 13.8 K/uL (4.8-10.8)
[2018-03-06 06:42] LABS: ALB/GLOB RATIO 1.1 (1.0-2.1); ALBUMIN 3.2 g/dL (3.5-5.0); ALT/SGPT 52 U/L (9-52); AST/SGOT 67 U/L (14-36); BLOOD UREA NITROGEN 20 mg/dl (7-17); CALCIUM 8.8 mg/dL (8.4-10.2); GFR AFRICAN-AMERICAN > 60; GFR NON-AFRICAN AMERICAN > 60
[2018-03-06] MEDS: Insulin Detemir 100 Units/ml Inj SC SCH ×2 (08:26→20:12)
[2018-03-06] MEDS: Digoxin 250 mcg (0.25 mg) Tab PO SCH (08:30)
[2018-03-06] MEDS: Sildenafil 20 MG TAB PO SCH ×3 (08:34→16:33)
[2018-03-06] MEDS: NINTEDANIB ESYLATE 150 MG PO SCH ×2 (08:34→20:13)
--- NOTE | 2018-03-06 09:24 | CP.PCM.PN ---
Subjective - Date & Time of Evaluation Date of Evaluation: 03/06/18 Time of Evaluation: 08:30 - Subjective Subjective: Pt remains intubated on Vent noted pt's extremities to be moving however no real interaction, response to verbal stimuli - noted to occ stare pt not on any sedation No fever AFB x 2 negative + MRSA in Sputum tolerating tube feeding Objective - Vital Signs/Intake and Output Vital Signs (last 24 hours): Temp Pulse Resp BP Pulse Ox 98.2 F 113 H 18 145/77 98 03/06/18 04:00 03/06/18 09:19 03/06/18 06:40 03/06/18 09:19 03/06/18 06:40 Intake and Output: 03/06/18 03/06/18 06:59 18:59 Intake Total 905 Output Total 1600 Balance -695 - Medications Medications: Current Medications Acetaminophen (Tylenol 325mg Tab) 650 mg PO Q6H PRN PRN Reason: Fever >100.4 F Acetazolamide (Diamox 500 Mg Inj) 500 mg IV Q12 [facility] Stop: 03/07/18 21:01 Last Admin: 03/06/18 08:33 Dose: 500 mg Albuterol/Ipratropium (Duoneb 3 Mg/0.5 Mg (3 Ml) Ud) 3 ml INH RQ4 [facility] Last Admin: 03/06/18 07:57 Dose: 3 ml Aspirin (Aspirin Chewable) 81 mg PO DAILY [facility] Last Admin: 03/06/18 08:32 Dose: 81 mg Atorvastatin Calcium (Lipitor) 10 mg PO DAILY [facility] Last Admin: 03/06/18 08:37 Dose: 10 mg Digoxin (Lanoxin) 0.25 mg PO DAILY [facility] Last Admin: 03/06/18 08:30 Dose: 0.25 mg Diltiazem HCl (Cardizem) 60 mg PO Q6 [facility] Last Admin: 03/06/18 09:19 Dose: 60 mg Ferrous Sulfate (Feosol) 325 mg PO DAILY [facility] Last Admin: 03/06/18 08:33 Dose: 325 mg Home Med (Nintedanib Esylate [Ofev]) 150 mg PO Q12 [facility] Last Admin: 03/06/18 08:34 Dose: 150 mg Clindamycin Phosphate (Cleocin) 600 mg in 50 mls @ 50 mls/hr IVPB Q8 [facility] PRN Reason: Protocol Last Admin: 03/06/18 08:31 Dose: 50 mls/hr Levetiracetam 750 mg/ Sodium (Chloride) 107.5 mls @ 215 mls/hr IVPB Q12 [facility] Last Admin: 03/06/18 08:32 Dose: 215 mls/hr Ceftaroline Fosamil 600 mg/ (Sodium Chloride) 250 mls @ 125 mls/hr IVPB Q12 [facility] PRN Reason: Protocol Last Admin: 03/06/18 08:35 Dose: 125 mls/hr Vancomycin HCl 1 gm/ Sodium (Chloride) 250 mls @ 166.667 mls/hr IVPB Q12 [facility] PRN Reason: Protocol Insulin Detemir (Levemir) 15 units SC Q12H [facility] Last Admin: 03/06/18 08:26 Dose: 15 units Insulin Human Lispro (Humalog) 0 units SC Q4H [facility] PRN Reason: Protocol Last Admin: 03/06/18 08:26 Dose: 2 units Methylprednisolone (Solu-Medrol) 60 mg IV Q6 [facility] Last Admin: 03/06/18 09:20 Dose: 60 mg Mupirocin (Bactroban Ointment) 1 applic TOP TID [facility] Last Admin: 03/06/18 08:30 Dose: 1 appl Pantoprazole Sodium (Protonix Inj) 40 mg IVP DAILY [facility] Last Admin: 03/06/18 08:38 Dose: 40 mg Sildenafil Citrate (Revatio) 20 mg PO TID [facility] Last Admin: 03/06/18 08:34 Dose: 20 mg - Labs Labs: 03/06/18 05:30 03/06/18 05:30 - Constitutional Appears: No Acute Distress, Chronically Ill, Other (Intubated on Vent, unresponsive) - Head Exam Head Exam: NORMAL INSPECTION, NORMOCEPHALIC - Eye Exam Eye Exam: Normal appearance, PERRL , sluggish - ENT Exam ENT Exam: Mucous Membranes Dry, Normal External Ear Exam - Respiratory Exam Respiratory Exam: Rales, Rhonchi, NORMAL BREATHING PATTERN Additional comments: Intubated on Mech Vent - Cardiovascular Exam Cardiovascular Exam: REGULAR RHYTHM, +S1, +S2 - GI/Abdominal Exam GI & Abdominal Exam: Soft, Normal Bowel Sounds - Psychiatric Exam Additional comments: slightly opens eyes with painful stimuli noted to move lower extremities - Skin Skin Exam: Dry, Normal Color Assessment and Plan - Assessment and Plan (Free Text) Assessment: 62 year old female PMH cystic fibrosis?, idiopathic pulmonary fibrosis, HTN, IDDM, severe CHF/likely PAH?, chronic lower ext edema was found unresponsive at home by daughter who lives with her. Patient was last seen normal around 11 pm the night before admission. Pt is currently intubated - history obtained from eldest and youngest daughters. Patient reportedly took her insulin and pills prior to bed, was found unresponsive, with secretions and foam around her mouth, and had urinated in the bed, EMS called. Patient BG 29, given 2 amps d50. Normal renal function. Pt continued to be unresponsive, was intubated at the home and brought to ED. CT head: no hemorrhage. WBC 23K normal renal fx CXR +consolidations/infiltrates RML/RLL CT of the Chest : No evidence of pulmonary embolism. Extensive coarse chronic interstitial infiltrate with associated varicoid bronchiectasis in both lower lobes. Possible superimposed alveolar process. Consider acute pneumonia. Partially solid ground-glass opacity in right lung apex and 2nd cavitating opacity in the right lung apex. Nonspecific. No other cavitating lesions are appreciated elsewhere. Endotracheal tube noted. 1. Acute Hypoxic Respiratory Failure , Intubated on Vent - Pt remains intubated , on Mech Vent - sl opens eyes to painful stimuli , pupils reactive to light - Pulmonary consulted - Dr Ledesma 2. Metabolic Encephalopathy due to prolonged Hypoglycemia monitor glucose closely D50 prn cont Tube feeding 3. Sepsis ( POA) Suspected Aspiration Pneumonia -Pulm consult - MRSA in sputum - ID consulted- Dr Jeb Velasquez, Clinda and Zyvox 4. Idiopathic Pulmonary Fibrosis, Cystic Fibrosis Pt on Nintendanib for IPF at home ECHO : systolic dysfunction, mild Pulm HTN, EF 50% pt on chronic low dose steroids for IPF- dose changed to Stress dose Continue Steroid Careful hydration, note pt has chronic LE edema EKG: sinus tach rate 153, QTc 155 CTA neg for PE 5. Cavitating Lesion right Lung ? sec to Cystic Fibrosis /Bronchiectasis however need to r/o PTB AFB x 2 negative - PULM consulted -Airborne isolation 6. . Seizure likely sec to Hypoglycemia Neurology consult: Dr. Valentina Herr EEG , MRI brain : neg 7. DM type II -started on Levemir by Dr Joe - will decrease dose due to low glucose - accucheck with coverage 8. Chronic CHF systolic and Diastolic dysfunction, Pulm HTN - cont Digoxin - cont Sildenafil, cardizem - diuretics prn DVT ppx Lovenox
[2018-03-06] MEDS: Enoxaparin 40 mg Syringe SC SCH (10:42)
--- NOTE | 2018-03-06 10:47 | RAD ---
Date of service: 03/06/2018 HISTORY: intubated COMPARISON: Chest radiograph dated 03/05/2018 FINDINGS: LUNGS: Stable chronic prominence of the bilateral interstitial markings. PLEURA: No significant pleural effusion identified, no pneumothorax apparent. CARDIOVASCULAR: Atherosclerotic aortic calcifications. Cardiomediastinal silhouette stably prominent. OSSEOUS STRUCTURES: Unchanged. VISUALIZED UPPER ABDOMEN: Unremarkable. OTHER FINDINGS: Endotracheal and enteric tubes, unchanged. IMPRESSION: No significant interval change.
--- NOTE | 2018-03-06 16:01 | PN ---
DATE: 03/06/2018 ENDO FOLLOWUP NOTE LOCATION: In room 433 ICU. SUBJECTIVE: This is a 62-year-old female with recent acute respiratory failure, currently remaining endotracheally intubated and unresponsive and is now also being followed closely for metabolic management. She also is undergoing IV antibiotic management for aspiration pneumonitis as noted. Her glycemic levels are fluctuating as noted and the glucose values overnight have ranged from 189 to 246 mg/dL. The glucose dropped to 48 at bedtime last night as noted. LABORATORY DATA: Her chemistries today showed a BUN of 20, sodium 139, potassium 4.3, chloride 103, CO2 of 28, glucose 290, and creatinine 0.5. ASSESSMENT AND PLAN: She has ongoing tube feedings as noted, moreover she also is on Solu-Medrol at 60 mg every six hours as noted. We will continue the basal insulin modified down to Levemir at 15 units subcutaneously every 12 hours as given. We will continue the low-dose correction scale with Humalog given every 4 hours as ordered. We will obtain serial chemistries and supplement accordingly as needed. We will follow. Radha Joe MD
--- NOTE | 2018-03-06 16:13 | CP.PCM.PN ---
Subjective - Date & Time of Evaluation Date of Evaluation: 03/06/18 Time of Evaluation: 16:05 - Subjective Subjective: I D NOTE PATIENT ,SO FAR NO IMPROVEMENT TRACHAEL ASPIRATE SHOWS MRSA WHICH SHOULD BE COVERED BY TEFLARO,VANCOMYCIN HAVE DISCONTINUED VANCOMYCIN AND STARTED ZYVOX NEED CLINDAMYCIN FOR ANAEROBES Objective - Vital Signs/Intake and Output Vital Signs (last 24 hours): Temp Pulse Resp BP Pulse Ox 98.9 F 105 H 23 119/66 98 03/06/18 12:00 03/06/18 12:00 03/06/18 12:00 03/06/18 12:00 03/06/18 12:00 Intake and Output: 03/06/18 03/06/18 06:59 18:59 Intake Total 905 1130 Output Total 1600 500 Balance -695 630 - Medications Medications: Current Medications Acetaminophen (Tylenol 325mg Tab) 650 mg PO Q6H PRN PRN Reason: Fever >100.4 F Acetazolamide (Diamox 500 Mg Inj) 500 mg IV Q12 [facility] Stop: 03/07/18 21:01 Last Admin: 03/06/18 08:33 Dose: 500 mg Albuterol/Ipratropium (Duoneb 3 Mg/0.5 Mg (3 Ml) Ud) 3 ml INH RQ4 [facility] Last Admin: 03/06/18 15:14 Dose: 3 ml Aspirin (Aspirin Chewable) 81 mg PO DAILY [facility] Last Admin: 03/06/18 08:32 Dose: 81 mg Atorvastatin Calcium (Lipitor) 10 mg PO DAILY [facility] Last Admin: 03/06/18 08:37 Dose: 10 mg Digoxin (Lanoxin) 0.25 mg PO DAILY [facility] Last Admin: 03/06/18 08:30 Dose: 0.25 mg Diltiazem HCl (Cardizem) 60 mg PO Q6 [facility] Last Admin: 03/06/18 09:19 Dose: 60 mg Enoxaparin Sodium (Lovenox) 40 mg SC DAILY [facility] PRN Reason: Protocol Last Admin: 03/06/18 10:42 Dose: 40 mg Ferrous Sulfate (Feosol) 325 mg PO DAILY [facility] Last Admin: 03/06/18 08:33 Dose: 325 mg Home Med (Nintedanib Esylate [Ofev]) 150 mg PO Q12 [facility] Last Admin: 03/06/18 08:34 Dose: 150 mg Clindamycin Phosphate (Cleocin) 600 mg in 50 mls @ 50 mls/hr IVPB Q8 [facility] PRN Reason: Protocol Last Admin: 03/06/18 08:31 Dose: 50 mls/hr Levetiracetam 750 mg/ Sodium (Chloride) 107.5 mls @ 215 mls/hr IVPB Q12 [facility] Last Admin: 03/06/18 08:32 Dose: 215 mls/hr Ceftaroline Fosamil 600 mg/ (Sodium Chloride) 250 mls @ 125 mls/hr IVPB Q12 [facility] PRN Reason: Protocol Last Admin: 03/06/18 08:35 Dose: 125 mls/hr Linezolid (Zyvox 600mg/300ml D5w) 600 mg in 300 mls @ 300 mls/hr IVPB Q12 [facility] PRN Reason: Protocol Insulin Detemir (Levemir) 15 units SC Q12H [facility] Last Admin: 03/06/18 08:26 Dose: 15 units Insulin Human Lispro (Humalog) 0 units SC Q4H [facility] PRN Reason: Protocol Last Admin: 03/06/18 12:28 Dose: 3 units Methylprednisolone (Solu-Medrol) 60 mg IV Q6 [facility] Last Admin: 03/06/18 09:20 Dose: 60 mg Mupirocin (Bactroban Ointment) 1 applic TOP TID [facility] Last Admin: 03/06/18 12:27 Dose: 1 appl Pantoprazole Sodium (Protonix Inj) 40 mg IVP DAILY [facility] Last Admin: 03/06/18 08:38 Dose: 40 mg Sildenafil Citrate (Revatio) 20 mg PO TID [facility] Last Admin: 03/06/18 12:29 Dose: 20 mg - Labs Labs: 03/06/18 05:30 03/06/18 05:30
--- NOTE | 2018-03-06 17:47 | CP.PCM.PN ---
Subjective - Date & Time of Evaluation Date of Evaluation: 03/06/18 Time of Evaluation: 14:40 - Subjective Subjective: F/U Respiratory failure. intubated, eyes open, not following commands Objective - Vital Signs/Intake and Output Vital Signs (last 24 hours): Temp Pulse Resp BP Pulse Ox 99.9 F H 107 H 16 127/70 100 03/06/18 16:00 03/06/18 16:30 03/06/18 16:00 03/06/18 16:30 03/06/18 16:00 Intake and Output: 03/06/18 03/06/18 06:59 18:59 Intake Total 905 1394 Output Total 1600 1000 Balance -695 394 - Medications Medications: Current Medications Acetaminophen (Tylenol 325mg Tab) 650 mg PO Q6H PRN PRN Reason: Fever >100.4 F Acetazolamide (Diamox 500 Mg Inj) 500 mg IV Q12 [facility] Stop: 03/07/18 21:01 Last Admin: 03/06/18 08:33 Dose: 500 mg Albuterol/Ipratropium (Duoneb 3 Mg/0.5 Mg (3 Ml) Ud) 3 ml INH RQ4 [facility] Last Admin: 03/06/18 15:14 Dose: 3 ml Aspirin (Aspirin Chewable) 81 mg PO DAILY [facility] Last Admin: 03/06/18 08:32 Dose: 81 mg Atorvastatin Calcium (Lipitor) 10 mg PO DAILY [facility] Last Admin: 03/06/18 08:37 Dose: 10 mg Digoxin (Lanoxin) 0.25 mg PO DAILY [facility] Last Admin: 03/06/18 08:30 Dose: 0.25 mg Diltiazem HCl (Cardizem) 60 mg PO Q6 [facility] Last Admin: 03/06/18 16:30 Dose: 60 mg Enoxaparin Sodium (Lovenox) 40 mg SC DAILY [facility] PRN Reason: Protocol Last Admin: 03/06/18 10:42 Dose: 40 mg Ferrous Sulfate (Feosol) 325 mg PO DAILY [facility] Last Admin: 03/06/18 08:33 Dose: 325 mg Home Med (Nintedanib Esylate [Ofev]) 150 mg PO Q12 [facility] Last Admin: 03/06/18 08:34 Dose: 150 mg Clindamycin Phosphate (Cleocin) 600 mg in 50 mls @ 50 mls/hr IVPB Q8 [facility] PRN Reason: Protocol Last Admin: 03/06/18 16:31 Dose: 50 mls/hr Levetiracetam 750 mg/ Sodium (Chloride) 107.5 mls @ 215 mls/hr IVPB Q12 [facility] Last Admin: 03/06/18 08:32 Dose: 215 mls/hr Ceftaroline Fosamil 600 mg/ (Sodium Chloride) 250 mls @ 125 mls/hr IVPB Q12 [facility] PRN Reason: Protocol Last Admin: 03/06/18 08:35 Dose: 125 mls/hr Linezolid (Zyvox 600mg/300ml D5w) 600 mg in 300 mls @ 300 mls/hr IVPB Q12 [facility] PRN Reason: Protocol Insulin Detemir (Levemir) 15 units SC Q12H [facility] Last Admin: 03/06/18 08:26 Dose: 15 units Insulin Human Lispro (Humalog) 0 units SC Q4H [facility] PRN Reason: Protocol Last Admin: 03/06/18 16:32 Dose: 2 units Methylprednisolone (Solu-Medrol) 40 mg IVP Q6 [facility] Mupirocin (Bactroban Ointment) 1 applic TOP TID [facility] Last Admin: 03/06/18 16:34 Dose: 1 appl Pantoprazole Sodium (Protonix Inj) 40 mg IVP DAILY [facility] Last Admin: 03/06/18 08:38 Dose: 40 mg Sildenafil Citrate (Revatio) 20 mg PO TID [facility] Last Admin: 03/06/18 16:33 Dose: 20 mg - Labs Labs: 03/06/18 05:30 03/06/18 05:30 - Constitutional Appears: Younger Than Stated Age - Head Exam Head Exam: NORMAL INSPECTION - Eye Exam Additional comments: Sluggish response to light, corneal reflex positive. - ENT Exam Additional comments: Intubated - Neck Exam Neck Exam: Normal Inspection - Respiratory Exam Respiratory Exam: Decreased Breath Sounds (at bases), Rhonchi (scattered) - Cardiovascular Exam Cardiovascular Exam: REGULAR RHYTHM - GI/Abdominal Exam GI & Abdominal Exam: Soft, Normal Bowel Sounds - Exam Additional comments: Martinez Cath - Extremities Exam Additional comments: Edema - Neurological Exam Additional comments: Eyes open, no response to verbal stimuli, response to tactile stimuli with movements upper and lower extremities. - Skin Skin Exam: Warm Assessment and Plan (1) Anoxic brain damage Status: Acute (2) Acute respiratory failure Status: Acute (3) Pneumonia Status: Acute (4) Sepsis Status: Acute (5) Pulmonary fibrosis Status: Chronic (6) Pulmonary hypertension Status: Chronic (7) Pneumonia with cavity of lung Status: Acute (8) Seizure Status: Acute - Assessment and Plan (Free Text) Plan: 3 trachasp AFB smear negative, trachasp Staph MRSA positive, Patient on Teflaro , Vanco , Zosyn, continue ventilatoey support, She is tolerating well trial of CPAP-PS, Patient is not fully awake , discussed with Quality Improvement Manager, Neurologist to f/u repeat CT Head and EEG, there after decision for extubation
--- NOTE | 2018-03-06 19:15 | CP.PCM.PN ---
Subjective - Date & Time of Evaluation Date of Evaluation: 03/05/18 Time of Evaluation: 13:00 - Subjective Subjective: patient has corneals, gag, does not move her extremities spontaneously. EEG: last eeg shows diffuse slowing with theta waves but no seizures. on exam: perrl. +gag, +dolls, +corneals. grimaces to sternal rub. +2 dtr ul and ll bl. Objective - Vital Signs/Intake and Output Vital Signs (last 24 hours): Temp Pulse Resp BP Pulse Ox 99.9 F H 80 22 134/63 96 03/06/18 16:00 03/06/18 18:00 03/06/18 18:00 03/06/18 18:00 03/06/18 18:00 Intake and Output: 03/06/18 03/07/18 18:59 06:59 Intake Total 1544 Output Total 1700 Balance -156 - Medications Medications: Current Medications Acetaminophen (Tylenol 325mg Tab) 650 mg PO Q6H PRN PRN Reason: Fever >100.4 F Acetazolamide (Diamox 500 Mg Inj) 500 mg IV Q12 [facility] Stop: 03/07/18 21:01 Last Admin: 03/06/18 08:33 Dose: 500 mg Albuterol/Ipratropium (Duoneb 3 Mg/0.5 Mg (3 Ml) Ud) 3 ml INH RQ4 [facility] Last Admin: 03/06/18 15:14 Dose: 3 ml Aspirin (Aspirin Chewable) 81 mg PO DAILY [facility] Last Admin: 03/06/18 08:32 Dose: 81 mg Atorvastatin Calcium (Lipitor) 10 mg PO DAILY [facility] Last Admin: 03/06/18 08:37 Dose: 10 mg Digoxin (Lanoxin) 0.25 mg PO DAILY [facility] Last Admin: 03/06/18 08:30 Dose: 0.25 mg Diltiazem HCl (Cardizem) 60 mg PO Q6 [facility] Last Admin: 03/06/18 16:30 Dose: 60 mg Enoxaparin Sodium (Lovenox) 40 mg SC DAILY [facility] PRN Reason: Protocol Last Admin: 03/06/18 10:42 Dose: 40 mg Ferrous Sulfate (Feosol) 325 mg PO DAILY [facility] Last Admin: 03/06/18 08:33 Dose: 325 mg Home Med (Nintedanib Esylate [Ofev]) 150 mg PO Q12 [facility] Last Admin: 03/06/18 08:34 Dose: 150 mg Clindamycin Phosphate (Cleocin) 600 mg in 50 mls @ 50 mls/hr IVPB Q8 [facility] PRN Reason: Protocol Last Admin: 03/06/18 16:31 Dose: 50 mls/hr Levetiracetam 750 mg/ Sodium (Chloride) 107.5 mls @ 215 mls/hr IVPB Q12 [facility] Last Admin: 03/06/18 08:32 Dose: 215 mls/hr Ceftaroline Fosamil 600 mg/ (Sodium Chloride) 250 mls @ 125 mls/hr IVPB Q12 [facility] PRN Reason: Protocol Last Admin: 03/06/18 08:35 Dose: 125 mls/hr Linezolid (Zyvox 600mg/300ml D5w) 600 mg in 300 mls @ 300 mls/hr IVPB Q12 [facility] PRN Reason: Protocol Insulin Detemir (Levemir) 15 units SC Q12H [facility] Last Admin: 03/06/18 08:26 Dose: 15 units Insulin Human Lispro (Humalog) 0 units SC Q4H [facility] PRN Reason: Protocol Last Admin: 03/06/18 16:32 Dose: 2 units Methylprednisolone (Solu-Medrol) 40 mg IVP Q6 [facility] Mupirocin (Bactroban Ointment) 1 applic TOP TID [facility] Last Admin: 03/06/18 16:34 Dose: 1 appl Pantoprazole Sodium (Protonix Inj) 40 mg IVP DAILY [facility] Last Admin: 03/06/18 08:38 Dose: 40 mg Sildenafil Citrate (Revatio) 20 mg PO TID [facility] Last Admin: 03/06/18 16:33 Dose: 20 mg - Labs Labs: 03/06/18 05:30 03/06/18 05:30 Assessment and Plan - Assessment and Plan (Free Text) Assessment: 62 yr old woman with multiple seizrues on eeg, now stable, but severely encephalopathic, intubated. Plan: 1. Continue keppra, add depakote at 1000 mg ivnow and [address] mayo
--- NOTE | 2018-03-06 19:21 | CP.PCM.PN ---
Subjective - Date & Time of Evaluation Date of Evaluation: 03/06/18 Time of Evaluation: 19:00 - Subjective Subjective: Today, MIss arthur has been moving her limbs spontaneously, and grimaces to sternal rub, and moves her head. She has corneals, dolls, gag reflex quite brisk, and is still nonverbal. on exam: as above, with PERRL. +2 dtr ul and ll bl. Objective - Vital Signs/Intake and Output Vital Signs (last 24 hours): Temp Pulse Resp BP Pulse Ox 99.9 F H 80 22 134/63 96 03/06/18 16:00 03/06/18 18:00 03/06/18 18:00 03/06/18 18:00 03/06/18 18:00 Intake and Output: 03/06/18 03/07/18 18:59 06:59 Intake Total 1544 Output Total 1700 Balance -156 - Medications Medications: Current Medications Acetaminophen (Tylenol 325mg Tab) 650 mg PO Q6H PRN PRN Reason: Fever >100.4 F Acetazolamide (Diamox 500 Mg Inj) 500 mg IV Q12 [facility] Stop: 03/07/18 21:01 Last Admin: 03/06/18 08:33 Dose: 500 mg Albuterol/Ipratropium (Duoneb 3 Mg/0.5 Mg (3 Ml) Ud) 3 ml INH RQ4 [facility] Last Admin: 03/06/18 15:14 Dose: 3 ml Aspirin (Aspirin Chewable) 81 mg PO DAILY [facility] Last Admin: 03/06/18 08:32 Dose: 81 mg Atorvastatin Calcium (Lipitor) 10 mg PO DAILY [facility] Last Admin: 03/06/18 08:37 Dose: 10 mg Digoxin (Lanoxin) 0.25 mg PO DAILY [facility] Last Admin: 03/06/18 08:30 Dose: 0.25 mg Diltiazem HCl (Cardizem) 60 mg PO Q6 [facility] Last Admin: 03/06/18 16:30 Dose: 60 mg Enoxaparin Sodium (Lovenox) 40 mg SC DAILY [facility] PRN Reason: Protocol Last Admin: 03/06/18 10:42 Dose: 40 mg Ferrous Sulfate (Feosol) 325 mg PO DAILY [facility] Last Admin: 03/06/18 08:33 Dose: 325 mg Home Med (Nintedanib Esylate [Ofev]) 150 mg PO Q12 [facility] Last Admin: 03/06/18 08:34 Dose: 150 mg Clindamycin Phosphate (Cleocin) 600 mg in 50 mls @ 50 mls/hr IVPB Q8 [facility] PRN Reason: Protocol Last Admin: 03/06/18 16:31 Dose: 50 mls/hr Levetiracetam 750 mg/ Sodium (Chloride) 107.5 mls @ 215 mls/hr IVPB Q12 [facility] Last Admin: 03/06/18 08:32 Dose: 215 mls/hr Ceftaroline Fosamil 600 mg/ (Sodium Chloride) 250 mls @ 125 mls/hr IVPB Q12 [facility] PRN Reason: Protocol Last Admin: 03/06/18 08:35 Dose: 125 mls/hr Linezolid (Zyvox 600mg/300ml D5w) 600 mg in 300 mls @ 300 mls/hr IVPB Q12 [facility] PRN Reason: Protocol Insulin Detemir (Levemir) 15 units SC Q12H [facility] Last Admin: 03/06/18 08:26 Dose: 15 units Insulin Human Lispro (Humalog) 0 units SC Q4H [facility] PRN Reason: Protocol Last Admin: 03/06/18 16:32 Dose: 2 units Methylprednisolone (Solu-Medrol) 40 mg IVP Q6 [facility] Mupirocin (Bactroban Ointment) 1 applic TOP TID [facility] Last Admin: 03/06/18 16:34 Dose: 1 appl Pantoprazole Sodium (Protonix Inj) 40 mg IVP DAILY [facility] Last Admin: 03/06/18 08:38 Dose: 40 mg Sildenafil Citrate (Revatio) 20 mg PO TID [facility] Last Admin: 03/06/18 16:33 Dose: 20 mg - Labs Labs: 03/06/18 05:30 03/06/18 05:30 Assessment and Plan - Assessment and Plan (Free Text) Assessment: 62 yr old woman s/p severe and prolonged hypoglycemic episode who is improving in her level of consciousness. I am concerned about other metabolic reasons for her encephalopathy in addition to seizures. Plan: 1. thyroid panel 2. ammonia 3. MRI brain 4. Repeat eeg on thursday DR. mayo
[2018-03-06] MEDS ORDERED: Valproate 1,000 MG in Sodium Chloride 0.9% 100 ML IVPB ONE (19:22)
[2018-03-06] MEDS: Linezolid 600 mg in D5W 300 ml 600 MG/300 ML BAG IVPB SCH ×2 (20:02→20:04)
[2018-03-06] MEDS: MethylPREDNISolone 40 mg Vial IVP SCH (21:11)
[2018-03-06] MEDS ORDERED: methylPREDNISolone 40 MG in Sodium Chloride 0.9% 50 ML IVPB SCH (22:00)
[2018-03-07] MEDS: Insulin Lispro (humaLOG) 100 Units/ml Inj SC SCH ×7 (00:05→23:54)
[2018-03-07] MEDS: Clindamycin 600mg/50ml D5W 600 MG/50 ML VIAL IVPB SCH ×3 (00:13→17:52)
--- NOTE | 2018-03-07 00:21 | PN ---
DATE: 03/06/2018 CRITICAL CARE PROGRESS NOTE LOCATION: The patient in ICU, bed 433. TIME SPENT: 40 minutes. The patient is seen and evaluated at the bedside. Past medical, surgical, social, and family history reviewed as noted in H and P. SUBJECTIVE: A 62-year-old female, a non-smoker, with history significant for pulmonary fibrosis, idiopathic with extensive honeycombing and bronchiectatic changes involving lateral and basilar areas of both lungs, being on Ofev, being considered for lung transplant; hypertension; diabetes mellitus type 2; pulmonary hypertension; multiple admissions in [facility] for hypoxic respiratory failure. Admitted with change in mental status, possible prolonged hypoglycemia-related seizure, and cerebral injury from the prolonged hypoglycemia. Overnight remains intubated, on mechanical ventilation, AC/PRVC rate 40, tidal volume of 400, FiO2 30%, observed rate 60, observed tidal volume 420, minute ventilation 7.9 liters, peak airway pressure in the low 30s and tidal CO2 of 19, no sedation. Appears comfortable on the ventilator. Moves both lower extremities and upper extremities to tactile stimuli. Eyes remain closed. Does not follow verbal commands. PHYSICAL EXAMINATION: VITAL SIGNS: Temperature 98.9; heart rate 105; respiratory rate 20 to 23, thoracoabdominal; blood pressure 119/66; mean arterial pressure 83; saturation 98%; FiO2 of 30%. HEAD, EYES, EARS, NOSE AND THROAT: Pupils are 2-3 mm midpoint, sluggishly reactive. Corneal reflex present. Conjunctival reflex present. Endotracheal tube suctioning with a positive reflex. LUNGS: Bilateral breath sounds. Velcro crackles on both lungs, more at the bases. HEART: Rhythm regular. S1, S2 normal intensity. No S3, S4 gallop. No audible murmur. ABDOMEN: Bowel sounds present. Soft. Liver and spleen not palpable. Bladder not distended. Martinez in place, draining clear urine. EXTREMITIES: Without clubbing, or cyanosis. DP palpable. Capillary refill less than two seconds. NEURO EXAMINATION: As noted, no response to verbal stimuli. Moves all four extremities especially to plantar stimulation. CURRENT MEDICATIONS: Tylenol 650 mg every 6 hours p.r.n., Diamox 500 mg IV every 12 hours, albuterol/Atrovent inhalation 3 mL every 4 hours, aspirin 81 mg daily, Lipitor 10 mg daily, ceftaroline 600 mg IV every 12 hours, clindamycin 600 mg IV every 12 hours, Lanoxin 0.25 mg daily, Cardizem 60 mg every 6 hours, Lovenox 40 mg subcu daily, ferrous sulfate 325 mg p.o. daily, Ofev 150 mg every 12 hours, Levemir 15 units subcu every 12 hours, insulin lispro (Humalog) 0 units on every 4 hours sliding scale, Keppra 750 IV every 12 hours, Solu-Medrol 60 mg IV every 6 hours, bacitracin ointment application topically three times daily, Protonix 40 mg IV daily, Revatio 20 mg p.o. three times daily, vancomycin 1 gm IV every 12 hours. LABORATORY DATA: WBC 13.8, hemoglobin 10.8, hematocrit 35.7, platelet count 380. ABG: pH 7.43, pCO2 45, pO2 90, oxygen saturation 99.4, on AC 14, 400, 30% with PEEP of 5. SMA-7: Sodium 139, potassium 4.3, chloride 103, CO2 of 28, blood urea nitrogen 20, creatinine 0.5, random glucose 219, calcium 8.8. Total bilirubin 0.5, AST 67, ALT 52, alkaline phosphatase 96, total protein 6.3. Urinalysis negative. Toxicology screen negative. Gold QuantiFERON-TB test negative. Microbiology: Sputum, AFB culture negative. Methicillin-resistant Staphylococcus aureus positive. Urine culture, no growth. Blood culture, no growth. IMPRESSION: 1. Neurologic: Suspect anoxic hypoglycemic injury to brain from prolonged hypoglycemia, hypoglycemia related seizure disorder. Hypoxemia secondary to idiopathic pulmonary fibrosis. As the patient is more responsive, we will try to wean off the ventilator. 2. Cardiac: History of pulmonary hypertension, on digoxin and Revatio. 3. Pulmonary: Idiopathic pulmonary fibrosis. Previous workup unclear. On Ofev. Being considered for lung transplant. Weaning trial as tolerated. 4. Hematology: Anemia of chronic disease. White blood cell trending down. Normal platelet count. SMA-7, sodium and potassium within normal limits. No electrolyte abnormalities noted. 5. Endocrine: History of diabetes mellitus type 2, on Levemir and Accu-Chek with regular insulin coverage. Appreciate input by endocrinology consult. 6. Infectious Disease: Suspected pneumonia. Sputum with methicillin-resistant Staphylococcus aureus. Currently on vancomycin, Bactroban, ceftaroline. Continue bronchodilator, Diamox, aspirin, Lipitor, and deep venous thrombosis prophylaxis. Discussed with neurology. recommended repeat MRI of brain and EEG to assess ongoing seizure ansd to assess mental status, hold extubation . Given mental status maintain airway protection is a concern for extubation. Tyson Perea MD MTDLeonid
[2018-03-07] MEDS: MethylPREDNISolone 40 mg Vial IVP SCH ×4 (03:04→21:17)
[2018-03-07] MEDS: Albuterol-Ipratrop 3 mg / 0.5 (3 ml) UD INH SCH ×6 (04:15→23:56)
[2018-03-07 04:50] LABS: ABG ALLEN TEST YES; ARTERIAL BLOOD GAS HCO3 27.5 mmol/L (21-28); ARTERIAL BLOOD GAS HEMOGLOBIN 10.3 g/dL (11.7-17.4); ARTERIAL BLOOD GAS O2 CAPACITY 14.2 mL/dL (16-24); ARTERIAL BLOOD GAS O2 CONTENT 14.1 ML/dL (15-23); ARTERIAL BLOOD GAS O2 SAT 99.5 % (95-98); ARTERIAL BLOOD GAS PCO2 41 mm/Hg (35-45); ARTERIAL BLOOD GAS PH 7.44 (7.35-7.45); ARTERIAL BLOOD GAS PO2 98 mm/Hg (80-100); ARTERIAL BLOOD GAS TCO2 29.1 mmol/L (22-28)
[2018-03-07 07:16] LABS: HEMOGLOBIN 10.2 g/dL (12.0-16.0); LYMPH # 0.7 K/uL (1.0-4.3); LYMPH % 3.2 % (20.0-40.0); MEAN CELL VOLUME 69.8 fl (81.0-99.0); MEAN CORPUSCULAR HEMOGLOBIN 21.6 pg (27.0-31.0); MEAN CORPUSCULAR HGB CONC 30.9 g/dL (33.0-37.0); MEAN PLATELET VOLUME 8.5 fl (7.2-11.7); MONO # 0.3 K/uL (0.0-0.8); MONO % 1.6 % (0.0-10.0); NEUT # 19.5 K/uL (1.8-7.0); NEUT % 95.2 % (50.0-75.0); NRBC % 0.1 % (0.0-0.0); PLATELET COUNT 403 K/uL (130-400); RBC 4.74 Mil/uL (3.80-5.20); RED CELL DISTRIBUTION WIDTH 19.5 % (11.5-14.5); WHITE BLOOD COUNT 20.4 K/uL (4.8-10.8)
[2018-03-07 07:21] LABS: BLOOD UREA NITROGEN 19 mg/dl (7-17); CALCIUM 8.7 mg/dL (8.4-10.2); GFR AFRICAN-AMERICAN > 60; GFR NON-AFRICAN AMERICAN > 60
[2018-03-07] MEDS: Digoxin 250 mcg (0.25 mg) Tab PO SCH (08:14)
[2018-03-07] MEDS: Insulin Detemir 100 Units/ml Inj SC SCH ×2 (08:15→20:12)
[2018-03-07] MEDS: Sildenafil 20 MG TAB PO SCH ×3 (08:23→17:57)
[2018-03-07] MEDS: Linezolid 600 mg in D5W 300 ml 600 MG/300 ML BAG IVPB SCH ×2 (08:39→20:10)
[2018-03-07] MEDS: Enoxaparin 40 mg Syringe SC SCH (09:46)
--- NOTE | 2018-03-07 09:58 | RAD ---
Date of service: 03/07/2018 HISTORY: intubated COMPARISON: Chest radiograph dated 03/06/2018. FINDINGS: LUNGS: Stable chronic prominence of the bilateral interstitial markings. PLEURA: No significant pleural effusion identified, no pneumothorax apparent. CARDIOVASCULAR: Atherosclerotic aortic calcifications. Cardiomediastinal silhouette stably pro. OSSEOUS STRUCTURES: Unchanged. VISUALIZED UPPER ABDOMEN: Normal. OTHER FINDINGS: Endotracheal and enteric tubes, unchanged. IMPRESSION: Stable tubes and lines. No significant interval change.
[2018-03-07 10:58] LABS: BASOPHIL 1 % (0-2); LYMPHOCYTE 3 % (20-50); MONOCYTE 2 % (0-10); NEUTROPHIL 94 % (42-75); TOTAL CELLS COUNTED 100
[2018-03-07 10:59] LABS: PLATELET ESTIMATE NORMAL (NORMAL)
[2018-03-07 11:01] LABS: ANISOCYTOSIS SLIGHT; OVALOCYTES SLIGHT; POIKILOCYTOSIS SLIGHT
[2018-03-07] MEDS: NINTEDANIB ESYLATE 150 MG PO SCH ×2 (12:43→22:36)
--- NOTE | 2018-03-07 13:10 | CP.PCM.PN ---
Subjective - Date & Time of Evaluation Date of Evaluation: 03/07/18 Time of Evaluation: 09:35 - Subjective Subjective: F/U Respiratory Failure. Objective - Vital Signs/Intake and Output Vital Signs (last 24 hours): Temp Pulse Resp BP Pulse Ox 98.2 F 109 H 19 141/88 99 03/07/18 04:00 03/07/18 09:44 03/07/18 06:27 03/07/18 09:44 03/07/18 06:27 Intake and Output: 03/07/18 03/07/18 06:59 18:59 Intake Total 1590 Output Total 1500 Balance 90 - Medications Medications: Current Medications Acetaminophen (Tylenol 325mg Tab) 650 mg PO Q6H PRN PRN Reason: Fever >100.4 F Acetazolamide (Diamox 500 Mg Inj) 500 mg IV Q12 [facility] Stop: 03/07/18 21:01 Last Admin: 03/07/18 08:25 Dose: 500 mg Albuterol/Ipratropium (Duoneb 3 Mg/0.5 Mg (3 Ml) Ud) 3 ml INH RQ4 [facility] Last Admin: 03/07/18 11:30 Dose: 3 ml Aspirin (Aspirin Chewable) 81 mg PO DAILY [facility] Last Admin: 03/07/18 08:40 Dose: 81 mg Atorvastatin Calcium (Lipitor) 10 mg PO DAILY [facility] Last Admin: 03/07/18 08:16 Dose: 10 mg Digoxin (Lanoxin) 0.25 mg PO DAILY [facility] Last Admin: 03/07/18 08:14 Dose: 0.25 mg Diltiazem HCl (Cardizem) 60 mg PO Q6 [facility] Last Admin: 03/07/18 09:44 Dose: 60 mg Enoxaparin Sodium (Lovenox) 40 mg SC DAILY [facility] PRN Reason: Protocol Last Admin: 03/07/18 09:46 Dose: Not Given Ferrous Sulfate (Feosol) 325 mg PO DAILY [facility] Last Admin: 03/07/18 08:16 Dose: 325 mg Home Med (Nintedanib Esylate [Ofev]) 150 mg PO Q12 [facility] Last Admin: 03/07/18 12:43 Dose: Not Given Clindamycin Phosphate (Cleocin) 600 mg in 50 mls @ 50 mls/hr IVPB Q8 [facility] PRN Reason: Protocol Last Admin: 03/07/18 08:26 Dose: 50 mls/hr Levetiracetam 750 mg/ Sodium (Chloride) 107.5 mls @ 215 mls/hr IVPB Q12 [facility] Last Admin: 03/07/18 09:45 Dose: 215 mls/hr Ceftaroline Fosamil 600 mg/ (Sodium Chloride) 250 mls @ 125 mls/hr IVPB Q12 [facility] PRN Reason: Protocol Last Admin: 03/07/18 08:31 Dose: 125 mls/hr Linezolid (Zyvox 600mg/300ml D5w) 600 mg in 300 mls @ 300 mls/hr IVPB Q12 [facility] PRN Reason: Protocol Last Admin: 03/07/18 08:39 Dose: 300 mls/hr Insulin Detemir (Levemir) 18 units SC Q12H [facility] Insulin Human Lispro (Humalog) 0 units SC Q4H [facility] PRN Reason: Protocol Last Admin: 03/07/18 12:41 Dose: 2 units Methylprednisolone (Solu-Medrol) 40 mg IVP Q6 [facility] Last Admin: 03/07/18 09:44 Dose: 40 mg Mupirocin (Bactroban Ointment) 1 applic TOP TID [facility] Last Admin: 03/07/18 12:40 Dose: 1 appl Pantoprazole Sodium (Protonix Inj) 40 mg IVP DAILY [facility] Last Admin: 03/07/18 08:22 Dose: 40 mg Sildenafil Citrate (Revatio) 20 mg PO TID [facility] Last Admin: 03/07/18 12:43 Dose: 20 mg - Labs Labs: 03/07/18 05:30 03/07/18 05:30 - Constitutional Appears: Chronically Ill - Head Exam Head Exam: NORMAL INSPECTION - Eye Exam Eye Exam: PERRL Additional comments: Sluggish response to light. - ENT Exam Additional comments: Intubated - Neck Exam Neck Exam: Normal Inspection - Respiratory Exam Respiratory Exam: Decreased Breath Sounds (at bases), Rhonchi (scattered) - Cardiovascular Exam Cardiovascular Exam: REGULAR RHYTHM - GI/Abdominal Exam GI & Abdominal Exam: Soft, Normal Bowel Sounds - Exam Additional comments: Martinez Cath - Extremities Exam Additional comments: Edema - Neurological Exam Additional comments: Eyes closed, no response to verbal stimuli, response to tactile stimuli with movements U/E & L/E - Skin Skin Exam: Warm Assessment and Plan (1) Anoxic brain damage Status: Acute (2) Acute respiratory failure Status: Acute (3) Pneumonia Status: Acute (4) Sepsis Status: Acute (5) Pulmonary fibrosis Status: Chronic (6) Pulmonary hypertension Status: Chronic (7) Pneumonia with cavity of lung Status: Acute (8) Seizure Status: Acute
--- NOTE | 2018-03-07 16:05 | PN ---
DATE: 03/07/2018 ENDO FOLLOWUP NOTE LOCATION: Room 433, ICU. SUBJECTIVE: This is a 62-year-old female with recent acute respiratory failure and remains endotracheally intubated and unresponsive and is also being followed closely now for metabolic management. Her glycemic levels are fluctuating but improved, and the glucose values have ranged from 178 to 220 mg/dL. LABORATORY DATA: Her chemistry showed a BUN of 19, sodium 141, potassium 3.7, chloride 105, CO2 of 26, glucose 173, and creatinine 0.5. At this time, we will continue the four-hourly glucose testing with Humalog coverage as given. We will modify her basal insulin and increase the Levemir to 18 units subcu every 12 hours at 8 a.m. and 8 p.m. daily as given. We will titrate incrementally as indicated to optimize metabolic control. We will obtain serial chemistries and supplement accordingly as needed. We will also continue the tube feedings to optimize her caloric and protein requirements as given. We will follow. Radha Joe MD
--- NOTE | 2018-03-07 22:26 | PN ---
DATE: 03/07/2018 LOCATION: The patient in ICU, bed 433. TIME SPENT: 40 minutes. SUBJECTIVE: The patient is seen and evaluated at the bedside. Past medical, surgical, social and family history reviewed. A 62-year-old female, a known smoker, with a history significant for pulmonary fibrosis, idiopathic with extensive honeycombing and bronchiectatic changes involving lateral and basilar areas of for both lungs, being on Ofev at home, being considered for lung transplant; also with hypertension, diabetes mellitus type 2, pulmonary hypertension, admitted with altered mental status, significant hypoglycemia, hypoglycemia related seizure disorder, and subsequent cerebral injury. Overnight, the patient was placed on spontaneous breathing mode, tolerated well. However, remains lethargic and not be able to follow commands. On AC/PRVC, rate 14, tidal volume of 400, FiO2 of 30%, observed rate 22, exhale tidal volume 440, minute ventilation 11.2, peak airway pressure 18, saturation 100%. End-tidal CO2 of 17. No sedation. The patient moves all four extremities, thrashing on the bed, resist to opening her eyes, responsive to painful stimuli. Does not follow verbal commands. PHYSICAL EXAMINATION: VITAL SIGNS: Temperature 98.2, heart rate of 104, respiratory rate 19 to 21, saturation 99%, FiO2 of 30%. Intake 3134, output 3200, negative balance 66. Weight 94 pounds. EXAMINATION OF HEAD, EYES, EARS, NOSE, AND THROAT: Pupils 2 to 3 mm midpoint, reactive. Corneal reflex present. Conjunctival reflex present. Endotracheal tube present with positive gag reflex. LUNGS: Bilateral breath sounds. Velcro crackles present. HEART: Rhythm regular. S1, S2 normal intensity. No S3, S4 gallop. No audible murmur. ABDOMEN: Bowel sounds present, soft. Liver and spleen, not palpable. Bladder not distended. NG feeding in place. Martinez in place, draining maroon-colored urine, flushed with clearing of the maroon color. EXTREMITIES: Without clubbing, cyanosis. Dorsalis pedis palpable. Capillary reflux less than 2 seconds. NEUROLOGIC EXAMINATION: As noted, no response to verbal stimuli. Moves all four extremities. Thrashing on the bed. CURRENT MEDICATIONS: Tylenol 650 every 6 hours p.r.n., Diamox 500 mg IV every 12 hours, albuterol/Atrovent inhalation every 4 hours, aspirin 81 mg daily, Lipitor 10 mg daily, ceftaroline 600 mg IV every 12 hours, clindamycin 600 mg every 12 hours, Zyvox 600 mg every 12 hours, Lanoxin 0.25 mg daily, Cardizem 60 every 6 hours, Lovenox on hold, ferrous sulfate 325 mg, Ofev 150 mg every 12 hours, Levemir 15 units subcu every 12 hours, insulin lispro/ Humalog units every 4 hours based on sliding scale, Keppra 750 IV every 12 hours, Solu-Medrol 40 mg IV every 6 hours, bacitracin ointment application topically three times daily, Protonix 40 IV daily, Revatio 20 mg p.o. three times daily. LABORATORY DATA WBC 20.4, hemoglobin 10.2, hematocrit 33.1, MCV 69.8, platelet count 403. ABG, pH of 7.44, pCO2 of 41, pO2 of 98, oxygen saturation 99.5. . SMA-7, sodium 141, potassium 3.7, chloride 105, CO2 of 26. Blood urea nitrogen 19, creatinine 0.5 with a normal anion gap, glucose 178, calcium 8.7. TSH 0.3. Urinalysis, leukocyte esterase negative, wbc 5. Toxicology screen, digoxin level 0.6, vancomycin trough level 8.1. Microbiology, microbacterial culture negative. Sputum culture positive for methicillin-resistant staph aureus. Urine culture negative. Chest x-ray: Endotracheal tube in place. Extensive patchy infiltrate involving both lungs. Ammonia level is 22. TSH normal. Repeat MRI and EEG pending. IMPRESSION: 1. Neurologic: Status post seizure secondary to prolonged hypoglycemia, subsequent cerebral anoxic hypoglycemic injury. Ammonia level is normal. Thyroid function is also normal. Discussed with Neurology awaiting for repeat EEG and MRI scheduled for Thursday. 2. Pulmonary: Hypoxic respiratory failure with superimposed MRSA positive pneumonia, currently on ceftaroline, Zyvox, and clindamycin to cover for aspiration pneumonia/anaerobes. The patient's blood gas appears adequate on the current setting, tolerating CPAP, however, concerned about the airway protection. Given the patient's mental status, we will attempt to place on T-piece and monitor respiratory status. 3. Cardiac: Sinus tachycardia, normotensive. 4. Hematology: Leukocytosis trending up. The patient on steroids but being reduced. Closely monitor for superimposed infection. The urine appears maroon-colored. However, there is no evidence of urinary tract infection, and the patient remains afebrile. 5. Hematology: Anemia of chronic disease plus microcytic anemia associated with possible occult blood loss, platelet count is normal. 6. Endocrine. History of diabetes. Blood sugar is ranging from 178 to 220, maintain below 180. 7. Gastrointestinal: Tolerating NG feeding. No diarrhea. 8. Infectious Disease. Suspected MRSA pneumonia plus possible aspiration secondary to prolonged altered mental status from hypoglycemia and seizure. Toxicology screen negative. Continue deep venous thrombosis prophylaxis with mechanical device. Hold anticoagulation secondary to hematuria. Keep the head of bed at 30 degrees up. NG feeding. Martinez in place. No sacral breakdown noted. Tyson Perea MD MTDLeonid
[2018-03-08] MEDS: Clindamycin 600mg/50ml D5W 600 MG/50 ML VIAL IVPB SCH ×3 (00:10→16:57)
[2018-03-08] MEDS: Insulin Lispro (humaLOG) 100 Units/ml Inj SC SCH ×5 (03:28→19:40)
[2018-03-08] MEDS: MethylPREDNISolone 40 mg Vial IVP SCH ×4 (03:31→21:07)
[2018-03-08] MEDS: Albuterol-Ipratrop 3 mg / 0.5 (3 ml) UD INH SCH ×5 (03:39→19:17)
[2018-03-08 05:35] LABS: ABG ALLEN TEST YES; ARTERIAL BLOOD GAS HCO3 26.7 mmol/L (21-28); ARTERIAL BLOOD GAS HEMOGLOBIN 10.8 g/dL (11.7-17.4); ARTERIAL BLOOD GAS O2 CAPACITY 14.9 mL/dL (16-24); ARTERIAL BLOOD GAS O2 CONTENT 14.5 ML/dL (15-23); ARTERIAL BLOOD GAS O2 SAT 97.1 % (95-98); ARTERIAL BLOOD GAS PCO2 43 mm/Hg (35-45); ARTERIAL BLOOD GAS PH 7.41 (7.35-7.45); ARTERIAL BLOOD GAS PO2 80 mm/Hg (80-100); ARTERIAL BLOOD GAS TCO2 28.6 mmol/L (22-28)
[2018-03-08 06:09] LABS: HEMOGLOBIN 10.7 g/dL (12.0-16.0); MEAN CELL VOLUME 74.6 fl (81.0-99.0); MEAN CORPUSCULAR HEMOGLOBIN 23.6 pg (27.0-31.0); MEAN CORPUSCULAR HGB CONC 31.6 g/dL (33.0-37.0); RBC 4.54 Mil/uL (3.80-5.20); RED CELL DISTRIBUTION WIDTH 19.7 % (11.5-14.5); WHITE BLOOD COUNT 17.6 K/uL (4.8-10.8)
[2018-03-08 06:43] LABS: ALBUMIN 3.1 g/dL (3.5-5.0); ALT/SGPT 39 U/L (9-52); AST/SGOT 45 U/L (14-36); BLOOD UREA NITROGEN 20 mg/dl (7-17); GFR AFRICAN-AMERICAN > 60; GFR NON-AFRICAN AMERICAN > 60
--- NOTE | 2018-03-08 07:46 | RAD ---
Date of service: 03/08/2018 HISTORY: intubated COMPARISON: Portable chest 03/07/2018. FINDINGS: Endotracheal and nasogastric tubes do not appear significantly changed in position. LUNGS: Chronic interstitial pattern persists bilaterally with limited atelectasis infiltrate developing in the right base. None is clearly seen at the left. PLEURA: No significant pleural effusion identified, no pneumothorax apparent. CARDIOVASCULAR: No interval change in cardiomediastinal silhouette. No pulmonary vascular congestion. OSSEOUS STRUCTURES: No significant abnormalities. VISUALIZED UPPER ABDOMEN: Normal. OTHER FINDINGS: None. IMPRESSION: Limited right basilar airspace disease or atelectasis developing in the interval. Exam otherwise stable including bilateral chronic interstitial pulmonary markings in cardiac silhouette.
[2018-03-08] MEDS: Insulin Detemir 100 Units/ml Inj SC SCH ×2 (08:35→20:10)
[2018-03-08] MEDS: Digoxin 250 mcg (0.25 mg) Tab PO SCH (08:35)
[2018-03-08] MEDS: Sildenafil 20 MG TAB PO SCH ×3 (08:37→16:57)
[2018-03-08] MEDS: NINTEDANIB ESYLATE 150 MG PO SCH ×2 (08:37→20:12)
[2018-03-08] MEDS ORDERED: Midazolam 2 MG/2 ML VIAL IV SCH (10:15)
[2018-03-08] MEDS: Linezolid 600 mg in D5W 300 ml 600 MG/300 ML BAG IVPB SCH ×2 (11:13→20:06)
--- NOTE | 2018-03-08 13:55 | PN ---
DATE: 03/08/2018 SUBJECTIVE: The patient seen and examined. Interim events noted. Consults noted and appreciated. Infectious Disease, Pulmonary, and [employer] interventions noted and appreciated. The patient remains in intensive care unit on ventilator, not able to provide any intermittent history or review of systems. PHYSICAL EXAMINATION: GENERAL: The patient is moving her head, but noncommunicating. Remains orally intubated on mechanical ventilation via endotracheal tube with the current setting without any acute respiratory distress. VITAL SIGNS: Stable. HEART: S1 and S2. Normal and regular. LUNGS: Good bilateral air exchange. The patient has chronic crepitations and transmitted sounds. ABDOMEN: Soft and nontender. No organomegaly. No fluids. Bowel sounds are plus and normal. EXTREMITIES: No calf swelling. No tenderness. No acute ischemia. The patient has multifactorial edema of the lower extremity. LABEL DRIER: Exam is not possible to be examined due to patient's general medical condition. DIAGNOSTIC DATA: Available diagnostic data reviewed. Telemetry monitoring does not reveal significant arrhythmias. ASSESSMENT AND PLAN: Overall, the patient's general medical condition is critical. assisted prognosis remains poor. The patient has longstanding history of pulmonary fibrosis. Plan as ordered. Jaylen Johnson MD
[2018-03-08] MEDS ORDERED: Lidocaine Hydrochloride 5 ML INJ ONE (14:39)
--- NOTE | 2018-03-08 15:06 | PCM.SURG1 ---
Surgeon's Initial Post Op Note - Surgeon's Notes Surgeon: Michael Head MD [employer] Associate: NONE Type of Anesthesia: Local Pre-Operative Diagnosis: Poor venous access Operative Findings: US showed patent basilic vein. Post-Operative Diagnosis: Poor venous access Operation Performed: Dual lumen picc right arm. Tip is in the SVC. Specimen/Specimens Removed: NONE Estimated Blood Loss: EBL {In ML}: 2 Blood Products Given: N/A Drains Used: No Drains Post-Op Condition: Poor Date of Surgery/Procedure: 03/08/18 Time of Surgery/Procedure: 15:05
--- NOTE | 2018-03-08 16:50 | CP.CCUPN ---
CCU Subjective - Physician Review Events Since Last Encounter (Free Text): 03/08/18 16:47 altered mental status, vegetative state with spontaneous movements only. CCU Objective - Vital Signs / Intake & Output Vital Signs (Last 4 hours): Vital Signs Temp Pulse Resp BP Pulse Ox 03/08/18 16:00 97.8 F 109 H 13 100 03/08/18 14:00 119 H 29 H 146/82 97 Intake and Output (Last 8hrs): Intake & Output 03/08/18 03/08/18 03/08/18 06:59 14:59 22:59 Intake Total 455 1265 Output Total 1500 300 Balance -1045 965 Weight 96 lb Intake: Intake, Piggyback 50 700 Tube Feeding 405 315 Free Water Flush 250 Output: Urine 1500 300 Urethral (Angela) 1500 300 Other: # Bowel Movements 1 - Physical Exam Head: Positive for: Atraumatic, Normocephalic Pupils: Positive for: PERRL Conjunctiva: Positive for: Normal Ears: Positive for: Normal Mouth: Positive for: Dry Respiratory/Chest: Negative for: Wheezes, Rales Cardiovascular: Positive for: Regular Rate and Rhythm, Normal S1, S2 Abdomen: Positive for: Normal Bowel Sounds. Negative for: Distention Upper Extremity: Positive for: Normal Inspection Lower Extremity: Positive for: Normal Inspection Neurological: Positive for: Other (spontaneous movements, not purposeful.) Psychiatric: Negative for: Alert, Oriented x 3 - Medications Active Medications: Active Medications Generic Name Dose Route Start Last Admin Trade Name Freq PRN Reason Stop Dose Admin Acetaminophen 650 mg 02/28/18 16:05 Tylenol 325mg Tab PO Q6H PRN Fever >100.4 F Albuterol/Ipratropium 3 ml 03/04/18 14:00 03/08/18 15:41 Duoneb 3 Mg/0.5 Mg (3 Ml) Ud INH 3 ml RQ4 JANIE Administration Aspirin 81 mg 03/01/18 09:00 03/08/18 08:41 Aspirin Chewable PO 81 mg DAILY JANIE Administration Atorvastatin Calcium 10 mg 03/01/18 09:00 03/08/18 08:36 Lipitor PO 10 mg DAILY JANIE Administration Digoxin 0.25 mg 02/28/18 21:35 03/08/18 08:35 Lanoxin PO 0.25 mg DAILY JANIE Administration Diltiazem HCl 60 mg 02/28/18 22:00 03/08/18 09:04 Cardizem PO 60 mg Q6 JANIE Administration Enoxaparin Sodium 40 mg 03/06/18 09:30 03/07/18 09:46 Lovenox SC Not Given DAILY [facility] Protocol Ferrous Sulfate 325 mg 03/01/18 09:00 03/08/18 08:34 Feosol PO 325 mg DAILY JANIE Administration Home Med 150 mg 03/02/18 22:00 03/08/18 08:37 Nintedanib Esylate [Ofev] PO Not Given Q12 JANIE Clindamycin Phosphate 600 mg in 50 mls @ 50 mls/hr 03/01/18 12:45 03/08/18 08 :34 Cleocin IVPB 50 mls/hr Q8 [facility] Administration Protocol Levetiracetam 750 mg/ Sodium 107.5 mls @ 215 mls/hr 03/02/18 09:00 03/08/18 11:12 Chloride IVPB 215 mls/hr Q12 JANIE Administration Ceftaroline Fosamil 600 mg/ 250 mls @ 125 mls/hr 03/02/18 21:00 03/08/18 08: 37 Sodium Chloride IVPB 125 mls/hr Q12 JANIE Administration Protocol Linezolid 600 mg in 300 mls @ 300 mls/hr 03/06/18 21:00 03/08/18 11:13 Zyvox 600mg/300ml D5w IVPB 300 mls/hr Q12 JANIE Administration Protocol Insulin Detemir 18 units 03/07/18 20:00 03/08/18 08:35 Levemir SC 18 units Q12H JANIE Administration Insulin Human Lispro 0 units 03/02/18 16:00 03/08/18 12:14 Humalog SC Not Given Q4H [facility] Protocol Methylprednisolone 40 mg 03/06/18 22:00 03/08/18 09:05 Solu-Medrol IVP 40 mg Q6 JANIE Administration Midazolam HCl 2 mg 03/08/18 10:15 03/08/18 14:33 Versed Inj IV 2 mg Q4H JANIE Administration Mupirocin 1 applic 03/03/18 09:00 03/08/18 12:13 Bactroban Ointment TOP 1 appl TID JANIE Administration Sildenafil Citrate 20 mg 02/28/18 17:00 03/08/18 12:15 Revatio PO 20 mg TID JANIE Administration - Patient Studies Lab Studies: Lab Studies 03/08/18 03/08/18 03/08/18 Range/Units 08:21 06:01 05:31 WBC (4.8-10.8) K/uL RBC (3.80-5.20) Mil/uL Hgb (12.0-16.0) g/dL Hct (34.0-47.0) % MCV (81.0-99.0) fl MCH (27.0-31.0) pg MCHC (33.0-37.0) g/dL RDW (11.5-14.5) % Plt Count (130-400) K/uL pCO2 43 (35-45) mm/Hg pO2 80 (80-100) mm/Hg HCO3 26.7 (21-28) mmol/L ABG pH 7.41 (7.35-7.45) ABG Total CO2 28.6 H (22-28) mmol/L ABG O2 Saturation 97.1 (95-98) % ABG O2 Content 14.5 L (15-23) ML/dL ABG Base Excess 2.3 (-2.0-3.0) mmol/L ABG Hemoglobin 10.8 L (11.7-17.4) g/dL ABG Carboxyhemoglobin 1.6 H (0.5-1.5) % POC ABG HHb (Measured) 2.8 (0.0-5.0) % ABG Methemoglobin 0.9 (0.0-3.0) % ABG O2 Capacity 14.9 L (16-24) mL/dL Jorge Test Yes A-a O2 Difference 80.0 mm/Hg Hgb O2 Saturation 94.7 L (95.0-98.0) % Vent Mode A/c Mechanical Rate 14 FiO2 30.0 % Tidal Volume 400 PEEP 5 Sodium (132-148) mmol/l Potassium (3.6-5.0) MMOL/L Chloride (98-107) mmol/L Carbon Dioxide (22-30) mmol/L Anion Gap (10-20) BUN (7-17) mg/dl Creatinine (0.7-1.2) mg/dl Est GFR ( Amer) Est GFR (Non-Af Amer) POC Glucose (mg/dL) 104 85 (65-110) mg/dL Random Glucose (65-105) mg/dL Calcium (8.4-10.2) mg/dL Total Bilirubin (0.2-1.3) mg/dl AST (14-36) U/L ALT (9-52) U/L Alkaline Phosphatase (38-126) U/L Total Protein (6.3-8.2) G/DL Albumin (3.5-5.0) g/dL Globulin (2.2-3.9) gm/dL Albumin/Globulin Ratio (1.0-2.1) 03/08/18 03/08/18 03/08/18 Range/Units 05:26 05:26 03:23 WBC 17.6 H (4.8-10.8) K/uL RBC 4.54 (3.80-5.20) Mil/uL Hgb 10.7 L (12.0-16.0) g/dL Hct 33.9 L (34.0-47.0) % MCV 74.6 L D (81.0-99.0) fl MCH 23.6 L (27.0-31.0) pg MCHC 31.6 L (33.0-37.0) g/dL RDW 19.7 H (11.5-14.5) % Plt Count 381 (130-400) K/uL pCO2 (35-45) mm/Hg pO2 (80-100) mm/Hg HCO3 (21-28) mmol/L ABG pH (7.35-7.45) ABG Total CO2 (22-28) mmol/L ABG O2 Saturation (95-98) % ABG O2 Content (15-23) ML/dL ABG Base Excess (-2.0-3.0) mmol/L ABG Hemoglobin (11.7-17.4) g/dL ABG Carboxyhemoglobin (0.5-1.5) % POC ABG HHb (Measured) (0.0-5.0) % ABG Methemoglobin (0.0-3.0) % ABG O2 Capacity (16-24) mL/dL Jorge Test A-a O2 Difference mm/Hg Hgb O2 Saturation (95.0-98.0) % Vent Mode Mechanical Rate FiO2 % Tidal Volume PEEP Sodium 143 (132-148) mmol/l Potassium 3.6 (3.6-5.0) MMOL/L Chloride 108 H (98-107) mmol/L Carbon Dioxide 24 (22-30) mmol/L Anion Gap 15 (10-20) BUN 20 H (7-17) mg/dl Creatinine 0.4 L (0.7-1.2) mg/dl Est GFR ( Amer) > 60 Est GFR (Non-Af Amer) > 60 POC Glucose (mg/dL) 87 (65-110) mg/dL Random Glucose 92 (65-105) mg/dL Calcium 9.0 (8.4-10.2) mg/dL Total Bilirubin 0.4 (0.2-1.3) mg/dl AST 45 H D (14-36) U/L ALT 39 (9-52) U/L Alkaline Phosphatase 110 (38-126) U/L Total Protein 6.2 L (6.3-8.2) G/DL Albumin 3.1 L (3.5-5.0) g/dL Globulin 3.0 (2.2-3.9) gm/dL Albumin/Globulin Ratio 1.0 (1.0-2.1) 03/07/18 03/07/18 Range/Units 23:52 19:38 WBC (4.8-10.8) K/uL RBC (3.80-5.20) Mil/uL Hgb (12.0-16.0) g/dL Hct (34.0-47.0) % MCV (81.0-99.0) fl MCH (27.0-31.0) pg MCHC (33.0-37.0) g/dL RDW (11.5-14.5) % Plt Count (130-400) K/uL pCO2 (35-45) mm/Hg pO2 (80-100) mm/Hg HCO3 (21-28) mmol/L ABG pH (7.35-7.45) ABG Total CO2 (22-28) mmol/L ABG O2 Saturation (95-98) % ABG O2 Content (15-23) ML/dL ABG Base Excess (-2.0-3.0) mmol/L ABG Hemoglobin (11.7-17.4) g/dL ABG Carboxyhemoglobin (0.5-1.5) % POC ABG HHb (Measured) (0.0-5.0) % ABG Methemoglobin (0.0-3.0) % ABG O2 Capacity (16-24) mL/dL Jorge Test A-a O2 Difference mm/Hg Hgb O2 Saturation (95.0-98.0) % Vent Mode Mechanical Rate FiO2 % Tidal Volume PEEP Sodium (132-148) mmol/l Potassium (3.6-5.0) MMOL/L Chloride (98-107) mmol/L Carbon Dioxide (22-30) mmol/L Anion Gap (10-20) BUN (7-17) mg/dl Creatinine (0.7-1.2) mg/dl Est GFR ( Amer) Est GFR (Non-Af Amer) POC Glucose (mg/dL) 149 H 125 H (65-110) mg/dL Random Glucose (65-105) mg/dL Calcium (8.4-10.2) mg/dL Total Bilirubin (0.2-1.3) mg/dl AST (14-36) U/L ALT (9-52) U/L Alkaline Phosphatase (38-126) U/L Total Protein (6.3-8.2) G/DL Albumin (3.5-5.0) g/dL Globulin (2.2-3.9) gm/dL Albumin/Globulin Ratio (1.0-2.1) Laboratory Results - last 24 hr 03/07/18 03/07/18 03/08/18 19:38 23:52 03:23 WBC RBC Hgb Hct MCV MCH MCHC RDW Plt Count pCO2 pO2 HCO3 ABG pH ABG Total CO2 ABG O2 Saturation ABG O2 Content ABG Base Excess ABG Hemoglobin ABG Carboxyhemoglobin POC ABG HHb (Measured) ABG Methemoglobin ABG O2 Capacity Jorge Test A-a O2 Difference Hgb O2 Saturation Vent Mode Mechanical Rate FiO2 Tidal Volume PEEP Sodium Potassium Chloride Carbon Dioxide Anion Gap BUN Creatinine Est GFR ( Amer) Est GFR (Non-Af Amer) POC Glucose (mg/dL) 125 H 149 H 87 Random Glucose Calcium Total Bilirubin AST ALT Alkaline Phosphatase Total Protein Albumin Globulin Albumin/Globulin Ratio 03/08/18 03/08/18 03/08/18 05:26 05:26 05:31 WBC 17.6 H RBC 4.54 Hgb 10.7 L Hct 33.9 L MCV 74.6 L D MCH 23.6 L MCHC 31.6 L RDW 19.7 H Plt Count 381 pCO2 43 pO2 80 HCO3 26.7 ABG pH 7.41 ABG Total CO2 28.6 H ABG O2 Saturation 97.1 ABG O2 Content 14.5 L ABG Base Excess 2.3 ABG Hemoglobin 10.8 L ABG Carboxyhemoglobin 1.6 H POC ABG HHb (Measured) 2.8 ABG Methemoglobin 0.9 ABG O2 Capacity 14.9 L Jorge Test Yes A-a O2 Difference 80.0 Hgb O2 Saturation 94.7 L Vent Mode A/c Mechanical Rate 14 FiO2 30.0 Tidal Volume 400 PEEP 5 Sodium 143 Potassium 3.6 Chloride 108 H Carbon Dioxide 24 Anion Gap 15 BUN 20 H Creatinine 0.4 L Est GFR ( Amer) > 60 Est GFR (Non-Af Amer) > 60 POC Glucose (mg/dL) Random Glucose 92 Calcium 9.0 Total Bilirubin 0.4 AST 45 H D ALT 39 Alkaline Phosphatase 110 Total Protein 6.2 L Albumin 3.1 L Globulin 3.0 Albumin/Globulin Ratio 1.0 03/08/18 03/08/18 06:01 08:21 WBC RBC Hgb Hct MCV MCH MCHC RDW Plt Count pCO2 pO2 HCO3 ABG pH ABG Total CO2 ABG O2 Saturation ABG O2 Content ABG Base Excess ABG Hemoglobin ABG Carboxyhemoglobin POC ABG HHb (Measured) ABG Methemoglobin ABG O2 Capacity Jorge Test A-a O2 Difference Hgb O2 Saturation Vent Mode Mechanical Rate FiO2 Tidal Volume PEEP Sodium Potassium Chloride Carbon Dioxide Anion Gap BUN Creatinine Est GFR ( Amer) Est GFR (Non-Af Amer) POC Glucose (mg/dL) 85 104 Random Glucose Calcium Total Bilirubin AST ALT Alkaline Phosphatase Total Protein Albumin Globulin Albumin/Globulin Ratio Fingerstick Blood Sugar Results: 81 Review of Systems - Review of Systems Systems not reviewed;Unavailable: Altered Mental Status Critical Care Progress Note - Ventilator Checklist Head of Bed 30 Degrees: Yes Daily Sedation Vacation: Yes Daily Assessment of Readiness to Wean: Yes Daily Spontaneous Breathing Trial: Yes PUD Prophalyxis: Yes DVT Prophylaxis: Yes - Nutrition Nutrition: Nutrition Category Date Time Status NPO Diet [DIET] Diets 02/28/18 Dinner Active Assessment/Plan (1) Anoxic brain damage Assessment and plan: 62yo F. PMHx idiopathic pulmonary fibrosis, HTN, IDDM, severe CHF. Neuro: anoxic brain injury, decreased activity on EEG, repeat EEG today. versed prn for agitation. Keppra q12h for seizure prophylaxis. Pulm: acute respiratory failure, on vent. acute RLL pneumonia on chronic IPF. Solumedrol 40mg IV q6h, sildanefil, nintedanib for IPF. Duonebs q4h prn. CV: hemodynamically stable. afib, cardizem and digoxin for rate control. Hem: no acute issues. ASA for CAD. Renal: urine outpu wnl, will monitor Endo: IDDM continue levemir 18units q12h, SISS q4h. GI: NPO, [email or web address] ID: severe sepsis from pneumonia, continue Teflaro and Zyvox. DVT proph - lovenox GI proph - protonix angela for strict I/O's during acute illness Code status - full code Spoke with daughter, to decide on terminal extubation vs trach/peg. explained that if she wants to continue [facility] therapy, then for the patient's comfort a trach/peg should be placed. Her prognosis is poor, and improvement in her mental status is unpredictable but of low probability. Awaiting family's decision. Critical Care Time spent 35 minutes Multi-disciplinary rounds were performed with house staff, nursing, speech therapy, respiratory therapy, pharmacy and nutrition with integrated input from the primary team/attending and other consulting services. The documented time is cumulative and includes review of patient data/exams/labs/chart review and examination of the patient on rounds and throughout the day; time is exclusive of any procedures or teaching time. Current Visit: Yes Status: Acute
[2018-03-08] MEDS ORDERED: Midazolam 2 MG/2 ML VIAL IV PRN (16:55)
--- NOTE | 2018-03-08 18:41 | CP.PCM.PN ---
Subjective - Date & Time of Evaluation Date of Evaluation: 03/08/18 Time of Evaluation: 11:20 - Subjective Subjective: F/U Respiratory failure intubated, eyes open, involuntary movements, Pt does not follows commands Objective - Vital Signs/Intake and Output Vital Signs (last 24 hours): Temp Pulse Resp BP Pulse Ox 97.8 F 103 H 23 105/67 100 03/08/18 16:00 03/08/18 18:00 03/08/18 18:00 03/08/18 18:00 03/08/18 18:00 Intake and Output: 03/08/18 03/08/18 06:59 18:59 Intake Total 1340 1645 Output Total 1500 400 Balance -160 1245 - Medications Medications: Current Medications Acetaminophen (Tylenol 325mg Tab) 650 mg PO Q6H PRN PRN Reason: Fever >100.4 F Albuterol/Ipratropium (Duoneb 3 Mg/0.5 Mg (3 Ml) Ud) 3 ml INH RQ4 [facility] Last Admin: 03/08/18 15:41 Dose: 3 ml Aspirin (Aspirin Chewable) 81 mg PO DAILY [facility] Last Admin: 03/08/18 08:41 Dose: 81 mg Atorvastatin Calcium (Lipitor) 10 mg PO DAILY [facility] Last Admin: 03/08/18 08:36 Dose: 10 mg Digoxin (Lanoxin) 0.25 mg PO DAILY [facility] Last Admin: 03/08/18 08:35 Dose: 0.25 mg Diltiazem HCl (Cardizem) 60 mg PO Q6 [facility] Last Admin: 03/08/18 16:56 Dose: 60 mg Enoxaparin Sodium (Lovenox) 40 mg SC DAILY [facility] PRN Reason: Protocol Last Admin: 03/07/18 09:46 Dose: Not Given Ferrous Sulfate (Feosol) 325 mg PO DAILY [facility] Last Admin: 03/08/18 08:34 Dose: 325 mg Home Med (Nintedanib Esylate [Ofev]) 150 mg PO Q12 [facility] Last Admin: 03/08/18 08:37 Dose: Not Given Clindamycin Phosphate (Cleocin) 600 mg in 50 mls @ 50 mls/hr IVPB Q8 [facility] PRN Reason: Protocol Last Admin: 03/08/18 16:57 Dose: 50 mls/hr Levetiracetam 750 mg/ Sodium (Chloride) 107.5 mls @ 215 mls/hr IVPB Q12 [facility] Last Admin: 03/08/18 11:12 Dose: 215 mls/hr Ceftaroline Fosamil 600 mg/ (Sodium Chloride) 250 mls @ 125 mls/hr IVPB Q12 [facility] PRN Reason: Protocol Last Admin: 03/08/18 08:37 Dose: 125 mls/hr Linezolid (Zyvox 600mg/300ml D5w) 600 mg in 300 mls @ 300 mls/hr IVPB Q12 [facility] PRN Reason: Protocol Last Admin: 03/08/18 11:13 Dose: 300 mls/hr Insulin Detemir (Levemir) 18 units SC Q12H [facility] Last Admin: 03/08/18 08:35 Dose: 18 units Insulin Human Lispro (Humalog) 0 units SC Q4H [facility] PRN Reason: Protocol Last Admin: 03/08/18 16:52 Dose: Not Given Methylprednisolone (Solu-Medrol) 40 mg IVP Q6 [facility] Last Admin: 03/08/18 16:57 Dose: 40 mg Midazolam HCl (Versed Inj) 2 mg IV Q4H PRN PRN Reason: Agitation Mupirocin (Bactroban Ointment) 1 applic TOP TID [facility] Last Admin: 03/08/18 16:56 Dose: 1 appl Sildenafil Citrate (Revatio) 20 mg PO TID [facility] Last Admin: 03/08/18 16:57 Dose: 20 mg - Labs Labs: 03/08/18 05:26 03/08/18 05:26 - Constitutional Appears: Chronically Ill - Head Exam Head Exam: NORMAL INSPECTION - Eye Exam Additional comments: Sluggish response to light - ENT Exam Additional comments: Intubated - Neck Exam Neck Exam: Normal Inspection - Respiratory Exam Respiratory Exam: Decreased Breath Sounds (at bases), Rhonchi (scattered) - Cardiovascular Exam Cardiovascular Exam: REGULAR RHYTHM - GI/Abdominal Exam GI & Abdominal Exam: Soft, Normal Bowel Sounds - Exam Additional comments: Martinez cath - Extremities Exam Additional comments: Edema upper extremities - Neurological Exam Additional comments: Eyes open, no response to verbal stimuli, spontaneous movements U/E L/E, response with tactile stimuli with movements U/E, L/E - Skin Skin Exam: Warm Assessment and Plan (1) Anoxic brain damage Status: Acute (2) Acute respiratory failure Status: Acute (3) Sepsis Status: Acute (4) Pneumonia Status: Acute (5) Pulmonary fibrosis Status: Chronic (6) Pulmonary hypertension Status: Chronic (7) Pneumonia with cavity of lung Status: Acute (8) Seizure Status: Acute - Assessment and Plan (Free Text) Plan: continue ventilatory support, Pt has tolerated CPAP-PS periods, alternating with AC, FIO@ 30%, continue Teflaro, Clinda, Zyvox, Trachasp Staph MRSA , to have PICC line insertion, continue Solu Medrol, DuoNeb, Revatio,Keppra, Insulin , Lovenox
--- NOTE | 2018-03-08 22:21 | PN ---
DATE: 03/08/2018 LOCATION: CCU 1, room 433. SUBJECTIVE: This is a 62-year-old female with recent uncontrolled type 2 insulin-requiring diabetes and supervening acute respiratory failure, currently endotracheally intubated and is now being followed closely for metabolic management. Her glycemic levels are much improved as noted overnight and the glucose levels have ranged from 87-104 and 149 mg/dL. Her latest chemistry showed a BUN of 20, sodium 143, potassium 3.6, chloride 108, CO2 of 24, glucose 92, and creatinine 0.4. PLAN OF MANAGEMENT: At this time, we will continue the same basal insulin given as Levemir at 18 units subcu every 12 hours at 08:00 a.m. and 08:00 p.m. daily as given. We will obtain serial chemistries and supplement accordingly as needed. We will follow. Radha Joe MD
[2018-03-09] MEDS: Clindamycin 600mg/50ml D5W 600 MG/50 ML VIAL IVPB SCH ×3 (00:24→17:22)
[2018-03-09] MEDS: Insulin Lispro (humaLOG) 100 Units/ml Inj SC SCH ×6 (00:25→20:40)
[2018-03-09] MEDS: Albuterol-Ipratrop 3 mg / 0.5 (3 ml) UD INH SCH ×7 (00:27→23:31)
[2018-03-09] MEDS: MethylPREDNISolone 40 mg Vial IVP SCH ×4 (03:05→21:01)
[2018-03-09 05:13] LABS: ABG ALLEN TEST YES; ARTERIAL BLOOD GAS HCO3 32.5 mmol/L (21-28); ARTERIAL BLOOD GAS O2 CAPACITY 13.7 mL/dL (16-24); ARTERIAL BLOOD GAS O2 CONTENT 13.4 ML/dL (15-23); ARTERIAL BLOOD GAS O2 SAT 98.1 % (95-98); ARTERIAL BLOOD GAS PCO2 46 mm/Hg (35-45); ARTERIAL BLOOD GAS PH 7.48 (7.35-7.45); ARTERIAL BLOOD GAS PO2 82 mm/Hg (80-100); ARTERIAL BLOOD GAS TCO2 35.7 mmol/L (22-28)
[2018-03-09 05:59] LABS: HEMOGLOBIN 9.3 g/dL (12.0-16.0); MEAN CELL VOLUME 69.4 fl (81.0-99.0); MEAN CORPUSCULAR HEMOGLOBIN 21.8 pg (27.0-31.0); MEAN CORPUSCULAR HGB CONC 31.3 g/dL (33.0-37.0); RBC 4.29 Mil/uL (3.80-5.20); RED CELL DISTRIBUTION WIDTH 19.6 % (11.5-14.5); WHITE BLOOD COUNT 18.7 K/uL (4.8-10.8)
[2018-03-09 06:08] LABS: ALBUMIN 2.8 g/dL (3.5-5.0); ALT/SGPT 31 U/L (9-52); AST/SGOT 35 U/L (14-36); BLOOD UREA NITROGEN 18 mg/dl (7-17); CALCIUM 8.6 mg/dL (8.4-10.2); GFR AFRICAN-AMERICAN > 60; GFR NON-AFRICAN AMERICAN > 60
--- NOTE | 2018-03-09 08:37 | RAD ---
Date of service: 03/09/2018 HISTORY: intubated COMPARISON: 03/08/2018. FINDINGS: Endotracheal tube is low in position and terminates at the mary. The right PICC line terminates in the SVC. The nasogastric tube terminates in the stomach. LUNGS: There is redemonstration of interstitial thickening in both lungs. There is redemonstration of right basilar airspace disease. PLEURA: No significant pleural effusion identified, no pneumothorax apparent. CARDIOVASCULAR: Normal. OSSEOUS STRUCTURES: No significant abnormalities. VISUALIZED UPPER ABDOMEN: Normal. OTHER FINDINGS: There is interval development of extensive soft tissue emphysema along the right lateral chest wall and in the soft tissues of the right neck and mild soft tissue emphysema along the left upper chest wall. IMPRESSION: Endotracheal tube is low in position and terminates at the mary. Interval development of extensive soft tissue emphysema along the right lateral chest wall and in the right neck. Persistent chronic interstitial thickening likely related to interstitial fibrosis. No change in right basilar atelectasis, developing pneumonia cannot be excluded.
[2018-03-09] MEDS: Insulin Detemir 100 Units/ml Inj SC SCH ×2 (09:01→20:45)
[2018-03-09] MEDS: Digoxin 250 mcg (0.25 mg) Tab PO SCH (09:07)
[2018-03-09] MEDS: Sildenafil 20 MG TAB PO SCH ×3 (09:08→17:16)
[2018-03-09] MEDS: Linezolid 600 mg in D5W 300 ml 600 MG/300 ML BAG IVPB SCH ×2 (09:10→21:04)
--- NOTE | 2018-03-09 09:44 | CP.PCM.PN ---
Subjective - Date & Time of Evaluation Date of Evaluation: 03/09/18 Time of Evaluation: 08:50 - Subjective Subjective: No acute overnight events. This morning pt was found to be agitated and biting ET tube. Now calm, on vent, sleeping. Objective - Vital Signs/Intake and Output Vital Signs (last 24 hours): Temp Pulse Resp BP Pulse Ox 98.3 F 126 H 28 H 127/75 92 L 03/09/18 08:00 03/09/18 08:00 03/09/18 08:00 03/09/18 08:00 03/09/18 08:00 Intake and Output: 03/09/18 03/09/18 06:59 18:59 Intake Total 1780 94 Output Total 700 Balance 1080 94 - Medications Medications: Current Medications Acetaminophen (Tylenol 325mg Tab) 650 mg PO Q6H PRN PRN Reason: Fever >100.4 F Last Admin: 03/08/18 21:18 Dose: 650 mg Acetaminophen (Tylenol 325mg Tab) 650 mg PO Q6 PRN PRN Reason: Pain, Mild (1-3) Albuterol/Ipratropium (Duoneb 3 Mg/0.5 Mg (3 Ml) Ud) 3 ml INH RQ4 [facility] Last Admin: 03/09/18 08:16 Dose: 3 ml Aspirin (Aspirin Chewable) 81 mg PO DAILY [facility] Last Admin: 03/09/18 09:00 Dose: 81 mg Atorvastatin Calcium (Lipitor) 10 mg PO DAILY [facility] Last Admin: 03/09/18 09:00 Dose: 10 mg Digoxin (Lanoxin) 0.25 mg PO DAILY [facility] Last Admin: 03/09/18 09:07 Dose: 0.25 mg Diltiazem HCl (Cardizem) 60 mg PO Q6 [facility] Last Admin: 03/09/18 03:14 Dose: Not Given Enoxaparin Sodium (Lovenox) 40 mg SC DAILY [facility] PRN Reason: Protocol Last Admin: 03/07/18 09:46 Dose: Not Given Ferrous Sulfate (Feosol) 325 mg PO DAILY [facility] Last Admin: 03/09/18 09:00 Dose: 325 mg Home Med (Nintedanib Esylate [Ofev]) 150 mg PO Q12 [facility] Last Admin: 03/08/18 20:12 Dose: Not Given Clindamycin Phosphate (Cleocin) 600 mg in 50 mls @ 50 mls/hr IVPB Q8 [facility] PRN Reason: Protocol Last Admin: 03/09/18 09:05 Dose: 50 mls/hr Levetiracetam 750 mg/ Sodium (Chloride) 107.5 mls @ 215 mls/hr IVPB Q12 [facility] Last Admin: 03/08/18 20:19 Dose: 215 mls/hr Ceftaroline Fosamil 600 mg/ (Sodium Chloride) 250 mls @ 125 mls/hr IVPB Q12 [facility] PRN Reason: Protocol Last Admin: 03/09/18 09:11 Dose: 125 mls/hr Linezolid (Zyvox 600mg/300ml D5w) 600 mg in 300 mls @ 300 mls/hr IVPB Q12 [facility] PRN Reason: Protocol Last Admin: 03/09/18 09:10 Dose: 300 mls/hr Potassium Chloride (Potassium Chloride 20 Meq/100 Ml) 100 mls @ 50 mls/hr IVPB Q2 [facility] Stop: 03/09/18 11:59 Insulin Detemir (Levemir) 18 units SC Q12H [facility] Last Admin: 03/09/18 09:01 Dose: 18 units Insulin Human Lispro (Humalog) 0 units SC Q4H [facility] PRN Reason: Protocol Last Admin: 03/09/18 09:06 Dose: Not Given Methylprednisolone (Solu-Medrol) 40 mg IVP Q6 [facility] Last Admin: 03/09/18 09:09 Dose: 40 mg Midazolam HCl (Versed Inj) 2 mg IV Q4H PRN PRN Reason: Agitation Last Admin: 03/09/18 02:30 Dose: 2 mg Mupirocin (Bactroban Ointment) 1 applic TOP TID [facility] Last Admin: 03/09/18 09:04 Dose: 1 appl Sildenafil Citrate (Revatio) 20 mg PO TID [facility] Last Admin: 03/09/18 09:08 Dose: 20 mg - Labs Labs: 03/09/18 04:55 03/09/18 04:55 - Constitutional Appears: No Acute Distress, Other (ET and OG tube noted) - ENT Exam ENT Exam: Mucous Membranes Moist - Respiratory Exam Respiratory Exam: NORMAL BREATHING PATTERN Additional comments: course breath sounds b/l - Cardiovascular Exam Cardiovascular Exam: REGULAR RHYTHM, +S1, +S2 - GI/Abdominal Exam GI & Abdominal Exam: Soft, Normal Bowel Sounds. absent: Tenderness - Exam Additional comments: angela on, draining brown-chiki urine - Extremities Exam Additional comments: Edema noted in the upper ext b/l No edema on lower ext b/l Assessment and Plan - Assessment and Plan (Free Text) Assessment: Assessment/Plan: 62 YO female with PMHx of cystic fibrosis, idiopathic pulmonary fibrosis, HTN, IDDM, severe CHF is admitted for hypoglycemia, acute respiratory failure, pneumonia after being found unresponsive at home. -VS remain stable -pt not on sedation -intubated -blood work reviewed; leukpcytosis, hypokalemia, metabolic alkalosis -plan as ordered -pulmonary, neuro, endo, and ID on board Pt discussed with dr. Johnson
--- NOTE | 2018-03-09 10:21 | RAD ---
Date of service: 03/09/2018 PROCEDURE: CHEST RADIOGRAPH, 1 VIEW HISTORY: hypoxia, ett placement COMPARISON: Portable chest 03/09/2018 4:19 a.m.. FINDINGS: Endotracheal tube is identified placed terminating approximately 5 cm above the mary. Nasogastric tube is not significantly changed in position with right PICC insertion unchanged as well. LUNGS: Bilateral interstitial infiltrates persist with the apices the least affected once again. No significant interval changes appreciated in their appearance overall. PLEURA: No definitive pneumothorax appreciated bilaterally or pleural effusion. CARDIOVASCULAR: Normal. OSSEOUS STRUCTURES: No significant abnormalities. VISUALIZED UPPER ABDOMEN: Normal. OTHER FINDINGS: Emphysematous changes at the right chest wall persists but appears somewhat reduced at the right supraclavicular/ neck soft tissues which limited emphysema unchanged at the upper left chest wall soft tissues once again. IMPRESSION: Endotracheal tube terminates in the mid to lower trachea well above the mary as discussed above. Persistent bilateral interstitial infiltrates appearing unchanged. Persistent soft tissue emphysema right chest wall though diminished in the right neck and supraclavicular soft tissues. Limited upper left chest emphysematous changes again apparent.
[2018-03-09] MEDS: Potassium Chloride 20 mEq 100 ML IVPB SCH ×2 (10:47→13:19)
--- NOTE | 2018-03-09 11:30 | VASCULAR ---
PROCEDURE: Date of procedure: 03/08/2018 Procedure: 1. Placement of a right arm PICC with ultrasound and fluoroscopic guidance, CPT 72153 2. PICC tip confirmation with spot radiograph and is in the superior vena cava Medications: 1 percent lidocaine Total Fluoro time: 2.8 seconds Radiation: 0.39 MGy EBL: 2 cc HISTORY: Infection requiring long-term IV antibiotics TECHNIQUE: Following informed consent and procedure time-out, the patient was placed supine on the interventional table and the right arm prepped and draped in the usual sterile fashion. Ultrasound showed a patent and compressible right basilic vein. After the skin was anesthetized with lidocaine, the basilic vein was accessed with micro micropuncture technique using ultrasound guidance. A guidewire was then advanced under fluoroscopic guidance into the superior vena cava. An image documenting ultrasound guidance for vascular access was permanently saved. The length of the dual-lumen 5 Martiniquais PICC was trimmed to 28 centimeters and advanced through a peel-away sheath. The PICC was position with tip of PICC confirm a spot radiograph the superior vena cava. The PICC was secured to the patient's skin. The PICC was flushed. A biopatch and sterile dressing was applied. IMPRESSION: Placement of a dual-lumen 5 Martiniquais PICC trimmed to 28 centimeters via right basilic vein. The tip of the PICC is confirmed with spot radiograph and is in the superior vena cava.
--- NOTE | 2018-03-09 13:00 | CP.PCM.PN ---
Subjective - Subjective Subjective: intubated Objective - Vital Signs/Intake and Output Vital Signs (last 24 hours): Temp Pulse Resp BP Pulse Ox 98.9 F 115 H 21 137/79 94 L 03/09/18 12:00 03/09/18 12:29 03/09/18 12:00 03/09/18 12:29 03/09/18 12:00 Intake and Output: 03/09/18 03/09/18 06:59 18:59 Intake Total 1780 924 Output Total 700 Balance 1080 924 - Medications Medications: Current Medications Acetaminophen (Tylenol 325mg Tab) 650 mg PO Q6H PRN PRN Reason: Fever >100.4 F Last Admin: 03/08/18 21:18 Dose: 650 mg Acetaminophen (Tylenol 325mg Tab) 650 mg PO Q6 PRN PRN Reason: Pain, Mild (1-3) Albuterol/Ipratropium (Duoneb 3 Mg/0.5 Mg (3 Ml) Ud) 3 ml INH RQ4 [facility] Last Admin: 03/09/18 11:41 Dose: 3 ml Aspirin (Aspirin Chewable) 81 mg PO DAILY [facility] Last Admin: 03/09/18 09:00 Dose: 81 mg Atorvastatin Calcium (Lipitor) 10 mg PO DAILY [facility] Last Admin: 03/09/18 09:00 Dose: 10 mg Digoxin (Lanoxin) 0.25 mg PO DAILY [facility] Last Admin: 03/09/18 09:07 Dose: 0.25 mg Diltiazem HCl (Cardizem) 60 mg PO Q6 [facility] Last Admin: 03/09/18 12:29 Dose: 60 mg Enoxaparin Sodium (Lovenox) 40 mg SC DAILY [facility] PRN Reason: Protocol Last Admin: 03/07/18 09:46 Dose: Not Given Ferrous Sulfate (Feosol) 325 mg PO DAILY [facility] Last Admin: 03/09/18 09:00 Dose: 325 mg Home Med (Nintedanib Esylate [Ofev]) 150 mg PO Q12 [facility] Last Admin: 03/08/18 20:12 Dose: Not Given Clindamycin Phosphate (Cleocin) 600 mg in 50 mls @ 50 mls/hr IVPB Q8 [facility] PRN Reason: Protocol Last Admin: 03/09/18 09:05 Dose: 50 mls/hr Levetiracetam 750 mg/ Sodium (Chloride) 107.5 mls @ 215 mls/hr IVPB Q12 [facility] Last Admin: 03/09/18 10:57 Dose: 215 mls/hr Ceftaroline Fosamil 600 mg/ (Sodium Chloride) 250 mls @ 125 mls/hr IVPB Q12 [facility] PRN Reason: Protocol Last Admin: 03/09/18 09:11 Dose: 125 mls/hr Linezolid (Zyvox 600mg/300ml D5w) 600 mg in 300 mls @ 300 mls/hr IVPB Q12 [facility] PRN Reason: Protocol Last Admin: 03/09/18 09:10 Dose: 300 mls/hr Insulin Detemir (Levemir) 18 units SC Q12H [facility] Last Admin: 03/09/18 09:01 Dose: 18 units Insulin Human Lispro (Humalog) 0 units SC Q4H [facility] PRN Reason: Protocol Last Admin: 03/09/18 12:28 Dose: 2 units Methylprednisolone (Solu-Medrol) 40 mg IVP Q6 [facility] Last Admin: 03/09/18 09:09 Dose: 40 mg Midazolam HCl (Versed Inj) 2 mg IV Q4H PRN PRN Reason: Agitation Last Admin: 03/09/18 02:30 Dose: 2 mg Mupirocin (Bactroban Ointment) 1 applic TOP TID [facility] Last Admin: 03/09/18 09:04 Dose: 1 appl Sildenafil Citrate (Revatio) 20 mg PO TID [facility] Last Admin: 03/09/18 09:08 Dose: 20 mg - Labs Labs: 03/09/18 04:55 03/09/18 04:55 Assessment and Plan (1) Anoxic brain damage Status: Acute (2) Acute respiratory failure Status: Acute (3) Pneumonia Status: Acute (4) Sepsis Status: Acute (5) Pulmonary fibrosis Status: Chronic (6) Pulmonary hypertension Status: Chronic (7) Pneumonia with cavity of lung Status: Acute (8) Seizure Status: Acute
--- NOTE | 2018-03-09 13:09 | CP.CCUPN ---
CCU Subjective - Physician Review Events Since Last Encounter (Free Text): 03/09/18 13:06 vegetative state. CCU Objective - Vital Signs / Intake & Output Vital Signs (Last 4 hours): Vital Signs Temp Pulse Resp BP Pulse Ox 03/09/18 12:29 115 H 137/79 03/09/18 12:00 98.9 F 115 H 21 137/79 94 L 03/09/18 10:00 116 H 26 H 134/77 91 L Intake and Output (Last 8hrs): Intake & Output 03/08/18 03/09/18 03/09/18 22:59 06:59 14:59 Intake Total 1265 895 924 Output Total 100 700 Balance 1165 195 924 Weight 96 lb Intake: IV 4 Intake, Piggyback 700 100 550 Tube Feeding 315 495 270 Free Water Flush 250 300 100 Output: Urine 100 700 Urethral (Angela) 100 700 - Physical Exam Head: Positive for: Atraumatic, Normocephalic Pupils: Positive for: PERRL Conjunctiva: Positive for: Normal Ears: Positive for: Normal Mouth: Positive for: Dry Respiratory/Chest: Negative for: Wheezes, Rales Cardiovascular: Positive for: Regular Rate and Rhythm, Normal S1, S2 Abdomen: Positive for: Normal Bowel Sounds. Negative for: Distention Upper Extremity: Positive for: Normal Inspection Lower Extremity: Positive for: Normal Inspection Neurological: Positive for: Other (spontaneous movements, not purposeful. responds to painful stimuli.) Psychiatric: Negative for: Alert, Oriented x 3 - Medications Active Medications: Active Medications Generic Name Dose Route Start Last Admin Trade Name Freq PRN Reason Stop Dose Admin Acetaminophen 650 mg 02/28/18 16:05 03/08/18 21:18 Tylenol 325mg Tab PO 650 mg Q6H PRN Administration Fever >100.4 F Acetaminophen 650 mg 03/08/18 21:01 Tylenol 325mg Tab PO Q6 PRN Pain, Mild (1-3) Albuterol/Ipratropium 3 ml 03/04/18 14:00 03/09/18 11:41 Duoneb 3 Mg/0.5 Mg (3 Ml) Ud INH 3 ml RQ4 JANIE Administration Aspirin 81 mg 03/01/18 09:00 03/09/18 09:00 Aspirin Chewable PO 81 mg DAILY JANIE Administration Atorvastatin Calcium 10 mg 03/01/18 09:00 03/09/18 09:00 Lipitor PO 10 mg DAILY JANIE Administration Digoxin 0.25 mg 02/28/18 21:35 03/09/18 09:07 Lanoxin PO 0.25 mg DAILY JANIE Administration Diltiazem HCl 60 mg 02/28/18 22:00 03/09/18 12:29 Cardizem PO 60 mg Q6 JANIE Administration Enoxaparin Sodium 40 mg 03/06/18 09:30 03/07/18 09:46 Lovenox SC Not Given DAILY JANIE Protocol Ferrous Sulfate 325 mg 03/01/18 09:00 03/09/18 09:00 Feosol PO 325 mg DAILY JANIE Administration Home Med 150 mg 03/02/18 22:00 03/08/18 20:12 Nintedanib Esylate [Ofev] PO Not Given Q12 JANIE Clindamycin Phosphate 600 mg in 50 mls @ 50 mls/hr 03/01/18 12:45 03/09/18 09 :05 Cleocin IVPB 50 mls/hr Q8 JANIE Administration Protocol Levetiracetam 750 mg/ Sodium 107.5 mls @ 215 mls/hr 03/02/18 09:00 03/09/18 10:57 Chloride IVPB 215 mls/hr Q12 JANIE Administration Ceftaroline Fosamil 600 mg/ 250 mls @ 125 mls/hr 03/02/18 21:00 03/09/18 09: 11 Sodium Chloride IVPB 125 mls/hr Q12 JANIE Administration Protocol Linezolid 600 mg in 300 mls @ 300 mls/hr 03/06/18 21:00 03/09/18 09:10 Zyvox 600mg/300ml D5w IVPB 300 mls/hr Q12 JANIE Administration Protocol Insulin Detemir 18 units 03/07/18 20:00 03/09/18 09:01 Levemir SC 18 units Q12H JANIE Administration Insulin Human Lispro 0 units 03/02/18 16:00 03/09/18 12:28 Humalog SC 2 units Q4H JANIE Administration Protocol Methylprednisolone 40 mg 03/06/18 22:00 03/09/18 09:09 Solu-Medrol IVP 40 mg Q6 JANIE Administration Midazolam HCl 2 mg 03/08/18 16:55 03/09/18 02:30 Versed Inj IV 2 mg Q4H PRN Administration Agitation Mupirocin 1 applic 03/03/18 09:00 03/09/18 09:04 Bactroban Ointment TOP 1 appl TID JANIE Administration Sildenafil Citrate 20 mg 02/28/18 17:00 03/09/18 09:08 Revatio PO 20 mg TID JANIE Administration - Patient Studies Lab Studies: Lab Studies 03/09/18 03/09/18 03/09/18 Range/Units 11:40 09:51 05:09 WBC (4.8-10.8) K/uL RBC (3.80-5.20) Mil/uL Hgb (12.0-16.0) g/dL Hct (34.0-47.0) % MCV (81.0-99.0) fl MCH (27.0-31.0) pg MCHC (33.0-37.0) g/dL RDW (11.5-14.5) % Plt Count (130-400) K/uL pCO2 46 H (35-45) mm/Hg pO2 82 (80-100) mm/Hg HCO3 32.5 H (21-28) mmol/L ABG pH 7.48 H (7.35-7.45) ABG Total CO2 35.7 H (22-28) mmol/L ABG O2 Saturation 98.1 H (95-98) % ABG O2 Content 13.4 L (15-23) ML/dL ABG Base Excess 9.7 H (-2.0-3.0) mmol/L ABG Hemoglobin 10.0 L (11.7-17.4) g/dL ABG Carboxyhemoglobin 2.0 H (0.5-1.5) % POC ABG HHb (Measured) 1.8 (0.0-5.0) % ABG Methemoglobin 1.5 (0.0-3.0) % ABG O2 Capacity 13.7 L (16-24) mL/dL Jorge Test Yes A-a O2 Difference 74.0 mm/Hg Hgb O2 Saturation 94.7 L (95.0-98.0) % Vent Mode A/c Mechanical Rate 14 FiO2 30.0 % Tidal Volume 400 PEEP 5 Sodium (132-148) mmol/l Potassium (3.6-5.0) MMOL/L Chloride (98-107) mmol/L Carbon Dioxide (22-30) mmol/L Anion Gap (10-20) BUN (7-17) mg/dl Creatinine (0.7-1.2) mg/dl Est GFR ( Amer) Est GFR (Non-Af Amer) POC Glucose (mg/dL) 213 H 170 H (65-110) mg/dL Random Glucose (65-105) mg/dL Calcium (8.4-10.2) mg/dL Total Bilirubin (0.2-1.3) mg/dl AST (14-36) U/L ALT (9-52) U/L Alkaline Phosphatase (38-126) U/L Total Protein (6.3-8.2) G/DL Albumin (3.5-5.0) g/dL Globulin (2.2-3.9) gm/dL Albumin/Globulin Ratio (1.0-2.1) 03/09/18 03/09/18 03/09/18 Range/Units 04:55 04:55 03:36 WBC 18.7 H (4.8-10.8) K/uL RBC 4.29 (3.80-5.20) Mil/uL Hgb 9.3 L (12.0-16.0) g/dL Hct 29.8 L (34.0-47.0) % MCV 69.4 L D (81.0-99.0) fl MCH 21.8 L (27.0-31.0) pg MCHC 31.3 L (33.0-37.0) g/dL RDW 19.6 H (11.5-14.5) % Plt Count 324 (130-400) K/uL pCO2 (35-45) mm/Hg pO2 (80-100) mm/Hg HCO3 (21-28) mmol/L ABG pH (7.35-7.45) ABG Total CO2 (22-28) mmol/L ABG O2 Saturation (95-98) % ABG O2 Content (15-23) ML/dL ABG Base Excess (-2.0-3.0) mmol/L ABG Hemoglobin (11.7-17.4) g/dL ABG Carboxyhemoglobin (0.5-1.5) % POC ABG HHb (Measured) (0.0-5.0) % ABG Methemoglobin (0.0-3.0) % ABG O2 Capacity (16-24) mL/dL Jorge Test A-a O2 Difference mm/Hg Hgb O2 Saturation (95.0-98.0) % Vent Mode Mechanical Rate FiO2 % Tidal Volume PEEP Sodium 140 (132-148) mmol/l Potassium 3.4 L (3.6-5.0) MMOL/L Chloride 101 (98-107) mmol/L Carbon Dioxide 32 H (22-30) mmol/L Anion Gap 10 (10-20) BUN 18 H (7-17) mg/dl Creatinine 0.4 L (0.7-1.2) mg/dl Est GFR ( Amer) > 60 Est GFR (Non-Af Amer) > 60 POC Glucose (mg/dL) 181 H (65-110) mg/dL Random Glucose 164 H (65-105) mg/dL Calcium 8.6 (8.4-10.2) mg/dL Total Bilirubin 0.3 (0.2-1.3) mg/dl AST 35 (14-36) U/L ALT 31 (9-52) U/L Alkaline Phosphatase 89 (38-126) U/L Total Protein 5.6 L (6.3-8.2) G/DL Albumin 2.8 L (3.5-5.0) g/dL Globulin 2.8 (2.2-3.9) gm/dL Albumin/Globulin Ratio 1.0 (1.0-2.1) 03/09/18 03/08/18 03/08/18 Range/Units 00:21 19:38 16:19 WBC (4.8-10.8) K/uL RBC (3.80-5.20) Mil/uL Hgb (12.0-16.0) g/dL Hct (34.0-47.0) % MCV (81.0-99.0) fl MCH (27.0-31.0) pg MCHC (33.0-37.0) g/dL RDW (11.5-14.5) % Plt Count (130-400) K/uL pCO2 (35-45) mm/Hg pO2 (80-100) mm/Hg HCO3 (21-28) mmol/L ABG pH (7.35-7.45) ABG Total CO2 (22-28) mmol/L ABG O2 Saturation (95-98) % ABG O2 Content (15-23) ML/dL ABG Base Excess (-2.0-3.0) mmol/L ABG Hemoglobin (11.7-17.4) g/dL ABG Carboxyhemoglobin (0.5-1.5) % POC ABG HHb (Measured) (0.0-5.0) % ABG Methemoglobin (0.0-3.0) % ABG O2 Capacity (16-24) mL/dL Jorge Test A-a O2 Difference mm/Hg Hgb O2 Saturation (95.0-98.0) % Vent Mode Mechanical Rate FiO2 % Tidal Volume PEEP Sodium (132-148) mmol/l Potassium (3.6-5.0) MMOL/L Chloride (98-107) mmol/L Carbon Dioxide (22-30) mmol/L Anion Gap (10-20) BUN (7-17) mg/dl Creatinine (0.7-1.2) mg/dl Est GFR ( Amer) Est GFR (Non-Af Amer) POC Glucose (mg/dL) 199 H 169 H 129 H (65-110) mg/dL Random Glucose (65-105) mg/dL Calcium (8.4-10.2) mg/dL Total Bilirubin (0.2-1.3) mg/dl AST (14-36) U/L ALT (9-52) U/L Alkaline Phosphatase (38-126) U/L Total Protein (6.3-8.2) G/DL Albumin (3.5-5.0) g/dL Globulin (2.2-3.9) gm/dL Albumin/Globulin Ratio (1.0-2.1) 03/08/ Range/Units 12:05 WBC (4.8-10.8) K/uL RBC (3.80-5.20) Mil/uL Hgb (12.0-16.0) g/dL Hct (34.0-47.0) % MCV (81.0-99.0) fl MCH (27.0-31.0) pg MCHC (33.0-37.0) g/dL RDW (11.5-14.5) % Plt Count (130-400) K/uL pCO2 (35-45) mm/Hg pO2 (80-100) mm/Hg HCO3 (21-28) mmol/L ABG pH (7.35-7.45) ABG Total CO2 (22-28) mmol/L ABG O2 Saturation (95-98) % ABG O2 Content (15-23) ML/dL ABG Base Excess (-2.0-3.0) mmol/L ABG Hemoglobin (11.7-17.4) g/dL ABG Carboxyhemoglobin (0.5-1.5) % POC ABG HHb (Measured) (0.0-5.0) % ABG Methemoglobin (0.0-3.0) % ABG O2 Capacity (16-24) mL/dL Jorge Test A-a O2 Difference mm/Hg Hgb O2 Saturation (95.0-98.0) % Vent Mode Mechanical Rate FiO2 % Tidal Volume PEEP Sodium (132-148) mmol/l Potassium (3.6-5.0) MMOL/L Chloride (98-107) mmol/L Carbon Dioxide (22-30) mmol/L Anion Gap (10-20) BUN (7-17) mg/dl Creatinine (0.7-1.2) mg/dl Est GFR ( Amer) Est GFR (Non-Af Amer) POC Glucose (mg/dL) 81 (65-110) mg/dL Random Glucose (65-105) mg/dL Calcium (8.4-10.2) mg/dL Total Bilirubin (0.2-1.3) mg/dl AST (14-36) U/L ALT (9-52) U/L Alkaline Phosphatase (38-126) U/L Total Protein (6.3-8.2) G/DL Albumin (3.5-5.0) g/dL Globulin (2.2-3.9) gm/dL Albumin/Globulin Ratio (1.0-2.1) Laboratory Results - last 24 hr 03/08/18 03/08/18 03/08/18 12:05 16:19 19:38 WBC RBC Hgb Hct MCV MCH MCHC RDW Plt Count pCO2 pO2 HCO3 ABG pH ABG Total CO2 ABG O2 Saturation ABG O2 Content ABG Base Excess ABG Hemoglobin ABG Carboxyhemoglobin POC ABG HHb (Measured) ABG Methemoglobin ABG O2 Capacity Jorge Test A-a O2 Difference Hgb O2 Saturation Vent Mode Mechanical Rate FiO2 Tidal Volume PEEP Sodium Potassium Chloride Carbon Dioxide Anion Gap BUN Creatinine Est GFR ( Amer) Est GFR (Non-Af Amer) POC Glucose (mg/dL) 81 129 H 169 H Random Glucose Calcium Total Bilirubin AST ALT Alkaline Phosphatase Total Protein Albumin Globulin Albumin/Globulin Ratio 03/09/18 03/09/18 03/09/18 00:21 03:36 04:55 WBC 18.7 H RBC 4.29 Hgb 9.3 L Hct 29.8 L MCV 69.4 L D MCH 21.8 L MCHC 31.3 L RDW 19.6 H Plt Count 324 pCO2 pO2 HCO3 ABG pH ABG Total CO2 ABG O2 Saturation ABG O2 Content ABG Base Excess ABG Hemoglobin ABG Carboxyhemoglobin POC ABG HHb (Measured) ABG Methemoglobin ABG O2 Capacity Jorge Test A-a O2 Difference Hgb O2 Saturation Vent Mode Mechanical Rate FiO2 Tidal Volume PEEP Sodium Potassium Chloride Carbon Dioxide Anion Gap BUN Creatinine Est GFR ( Amer) Est GFR (Non-Af Amer) POC Glucose (mg/dL) 199 H 181 H Random Glucose Calcium Total Bilirubin AST ALT Alkaline Phosphatase Total Protein Albumin Globulin Albumin/Globulin Ratio 03/09/18 03/09/18 03/09/18 04:55 05:09 09:51 WBC RBC Hgb Hct MCV MCH MCHC RDW Plt Count pCO2 46 H pO2 82 HCO3 32.5 H ABG pH 7.48 H ABG Total CO2 35.7 H ABG O2 Saturation 98.1 H ABG O2 Content 13.4 L ABG Base Excess 9.7 H ABG Hemoglobin 10.0 L ABG Carboxyhemoglobin 2.0 H POC ABG HHb (Measured) 1.8 ABG Methemoglobin 1.5 ABG O2 Capacity 13.7 L Jorge Test Yes A-a O2 Difference 74.0 Hgb O2 Saturation 94.7 L Vent Mode A/c Mechanical Rate 14 FiO2 30.0 Tidal Volume 400 PEEP 5 Sodium 140 Potassium 3.4 L Chloride 101 Carbon Dioxide 32 H Anion Gap 10 BUN 18 H Creatinine 0.4 L Est GFR ( Amer) > 60 Est GFR (Non-Af Amer) > 60 POC Glucose (mg/dL) 170 H Random Glucose 164 H Calcium 8.6 Total Bilirubin 0.3 AST 35 ALT 31 Alkaline Phosphatase 89 Total Protein 5.6 L Albumin 2.8 L Globulin 2.8 Albumin/Globulin Ratio 1.0 03/09/18 11:40 WBC RBC Hgb Hct MCV MCH MCHC RDW Plt Count pCO2 pO2 HCO3 ABG pH ABG Total CO2 ABG O2 Saturation ABG O2 Content ABG Base Excess ABG Hemoglobin ABG Carboxyhemoglobin POC ABG HHb (Measured) ABG Methemoglobin ABG O2 Capacity Jorge Test A-a O2 Difference Hgb O2 Saturation Vent Mode Mechanical Rate FiO2 Tidal Volume PEEP Sodium Potassium Chloride Carbon Dioxide Anion Gap BUN Creatinine Est GFR ( Amer) Est GFR (Non-Af Amer) POC Glucose (mg/dL) 213 H Random Glucose Calcium Total Bilirubin AST ALT Alkaline Phosphatase Total Protein Albumin Globulin Albumin/Globulin Ratio Fingerstick Blood Sugar Results: 213 Review of Systems - Review of Systems Systems not reviewed;Unavailable: Altered Mental Status Critical Care Progress Note - Ventilator Checklist Head of Bed 30 Degrees: Yes Daily Sedation Vacation: Yes Daily Assessment of Readiness to Wean: Yes Daily Spontaneous Breathing Trial: Yes PUD Prophalyxis: Yes DVT Prophylaxis: Yes - Nutrition Nutrition: Nutrition Category Date Time Status NPO Diet [DIET] Diets 02/28/18 Dinner Active Assessment/Plan (1) Anoxic brain damage Assessment and plan: 62yo F. PMHx idiopathic pulmonary fibrosis, HTN, IDDM, severe CHF. Neuro: anoxic brain injury, decreased activity on EEG, repeat EEG today. versed prn for agitation. Keppra q12h for seizure prophylaxis. Pulm: acute respiratory failure, on vent. acute RLL pneumonia on chronic IPF. Solumedrol 40mg IV q6h, sildanefil, nintedanib for IPF. Duonebs q4h prn. desaturated today, and subcutaneous emphysema, obtaining CXR. Still awaiting decision on trach/peg placement from family. CV: hemodynamically stable. afib, cardizem and digoxin for rate control. Hem: no acute issues. ASA for CAD. Renal: urine outpu wnl, will monitor Endo: IDDM continue levemir 18units q12h, SISS q4h. GI: NPO, [email or web address] ID: severe sepsis from pneumonia, continue Teflaro and Zyvox. DVT proph - lovenox GI proph - protonix angela for strict I/O's during acute illness Code status - full code Spoke with daughter, to decide on terminal extubation vs trach/peg. explained that if she wants to continue water hydrant installer therapy, then for the patient's comfort a trach/peg should be placed. Her water hydrant installer prognosis is poor, and improvement in her mental status is unpredictable but of low probability. Awaiting family' s decision. Critical Care Time spent 35 minutes Multi-disciplinary rounds were performed with house staff, nursing, speech therapy, respiratory therapy, pharmacy and nutrition with integrated input from the primary team/attending and other consulting services. The documented time is cumulative and includes review of patient data/exams/labs/chart review and examination of the patient on rounds and throughout the day; time is exclusive of any procedures or teaching time. Current Visit: Yes Status: Acute
[2018-03-09 13:14] LABS: ABG ALLEN TEST YES; ARTERIAL BLOOD GAS HCO3 33.8 mmol/L (21-28); ARTERIAL BLOOD GAS HEMOGLOBIN 9.5 g/dL (11.7-17.4); ARTERIAL BLOOD GAS O2 CONTENT 12.1 ML/dL (15-23); ARTERIAL BLOOD GAS O2 SAT 93.4 % (95-98); ARTERIAL BLOOD GAS PCO2 41 mm/Hg (35-45); ARTERIAL BLOOD GAS PH 7.54 (7.35-7.45); ARTERIAL BLOOD GAS PO2 64 mm/Hg (80-100); ARTERIAL BLOOD GAS TCO2 36.4 mmol/L (22-28)
[2018-03-09] MEDS ORDERED: Midazolam 2 MG/2 ML VIAL IV ONE (13:31)
--- NOTE | 2018-03-09 13:37 | RAD ---
Date of service: 03/09/2018 PROCEDURE: CHEST RADIOGRAPH, 1 VIEW HISTORY: subcut emphysma, respiratory failure COMPARISON: The endotracheal tube terminates 2.3 cm proximal to the mary. The right PICC line terminates in the SVC. The nasogastric tube terminates in the stomach. FINDINGS: LUNGS: There is patchy airspace disease in the right lung. There is persistent interstitial thickening. PLEURA: No pneumothorax. Suspect small pleural effusions. CARDIOVASCULAR: Normal. OSSEOUS STRUCTURES: No significant abnormalities. VISUALIZED UPPER ABDOMEN: Normal. OTHER FINDINGS: Persistent soft tissue emphysema along the right lateral chest wall. IMPRESSION: 1. Redemonstration of soft tissue emphysema along the right lateral chest wall, no change. 2. Patchy airspace disease in the right lung may represent developing pulmonary edema or multifocal pneumonia. Small pleural effusions. 3. Diffuse interstitial thickening may represent interstitial edema, pneumonitis or chronic interstitial disease.
[2018-03-09] MEDS ORDERED: Dextrose 50% SYRINGE Inj (50 ml) IVP ONE ×2 (15:01→18:00)
[2018-03-09] MEDS ORDERED: Dextrose 50% SYRINGE Inj (50 ml) ONE ×2 (15:17→18:00)
--- NOTE | 2018-03-09 15:23 | CP.PCM.PN ---
Subjective - Date & Time of Evaluation Date of Evaluation: 03/09/18 Time of Evaluation: 11:00 - Subjective Subjective: F/U Respiratory Failure. intubated, eyes open, involuntary U/E and L/E movements Objective - Vital Signs/Intake and Output Vital Signs (last 24 hours): Temp Pulse Resp BP Pulse Ox 98.9 F 110 H 22 118/83 97 03/09/18 12:00 03/09/18 14:31 03/09/18 14:31 03/09/18 14:31 03/09/18 14:31 Intake and Output: 03/09/18 03/09/18 06:59 18:59 Intake Total 1780 1314 Output Total 700 Balance 1080 1314 - Medications Medications: Current Medications Acetaminophen (Tylenol 325mg Tab) 650 mg PO Q6H PRN PRN Reason: Fever >100.4 F Last Admin: 03/08/18 21:18 Dose: 650 mg Acetaminophen (Tylenol 325mg Tab) 650 mg PO Q6 PRN PRN Reason: Pain, Mild (1-3) Albuterol/Ipratropium (Duoneb 3 Mg/0.5 Mg (3 Ml) Ud) 3 ml INH RQ4 [facility] Last Admin: 03/09/18 11:41 Dose: 3 ml Aspirin (Aspirin Chewable) 81 mg PO DAILY [facility] Last Admin: 03/09/18 09:00 Dose: 81 mg Atorvastatin Calcium (Lipitor) 10 mg PO DAILY [facility] Last Admin: 03/09/18 09:00 Dose: 10 mg Digoxin (Lanoxin) 0.25 mg PO DAILY [facility] Last Admin: 03/09/18 09:07 Dose: 0.25 mg Diltiazem HCl (Cardizem) 60 mg PO Q6 [facility] Last Admin: 03/09/18 12:29 Dose: 60 mg Enoxaparin Sodium (Lovenox) 40 mg SC DAILY JANIE PRN Reason: Protocol Last Admin: 03/07/18 09:46 Dose: Not Given Ferrous Sulfate (Feosol) 325 mg PO DAILY [facility] Last Admin: 03/09/18 09:00 Dose: 325 mg Home Med (Nintedanib Esylate [Ofev]) 150 mg PO Q12 [facility] Last Admin: 03/08/18 20:12 Dose: Not Given Clindamycin Phosphate (Cleocin) 600 mg in 50 mls @ 50 mls/hr IVPB Q8 [facility] PRN Reason: Protocol Last Admin: 03/09/18 09:05 Dose: 50 mls/hr Levetiracetam 750 mg/ Sodium (Chloride) 107.5 mls @ 215 mls/hr IVPB Q12 [facility] Last Admin: 03/09/18 10:57 Dose: 215 mls/hr Ceftaroline Fosamil 600 mg/ (Sodium Chloride) 250 mls @ 125 mls/hr IVPB Q12 JANIE PRN Reason: Protocol Last Admin: 03/09/18 09:11 Dose: 125 mls/hr Linezolid (Zyvox 600mg/300ml D5w) 600 mg in 300 mls @ 300 mls/hr IVPB Q12 [facility] PRN Reason: Protocol Last Admin: 03/09/18 09:10 Dose: 300 mls/hr Insulin Detemir (Levemir) 18 units SC Q12H [facility] Last Admin: 03/09/18 09:01 Dose: 18 units Insulin Human Lispro (Humalog) 0 units SC Q4H JANIE PRN Reason: Protocol Last Admin: 03/09/18 12:28 Dose: 2 units Methylprednisolone (Solu-Medrol) 40 mg IVP Q6 [facility] Last Admin: 03/09/18 09:09 Dose: 40 mg Midazolam HCl (Versed Inj) 2 mg IV Q4H PRN PRN Reason: Agitation Last Admin: 03/09/18 02:30 Dose: 2 mg Mupirocin (Bactroban Ointment) 1 applic TOP TID [facility] Last Admin: 03/09/18 13:20 Dose: 1 appl Sildenafil Citrate (Revatio) 20 mg PO TID [facility] Last Admin: 03/09/18 09:08 Dose: 20 mg - Labs Labs: 03/09/18 04:55 03/09/18 04:55 - Constitutional Appears: Chronically Ill - Head Exam Head Exam: NORMAL INSPECTION - Eye Exam Additional comments: Pupils sluggish reaction to light - ENT Exam Additional comments: Intubated - Neck Exam Neck Exam: Normal Inspection - Respiratory Exam Respiratory Exam: Decreased Breath Sounds (at bases), Rhonchi (scattered) Additional comments: Chest subcutaneos emphysema - Cardiovascular Exam Cardiovascular Exam: REGULAR RHYTHM - GI/Abdominal Exam GI & Abdominal Exam: Soft, Normal Bowel Sounds - Exam Additional comments: Martinez cath - Extremities Exam Additional comments: Edema upper extremities - Neurological Exam Neurological Exam: Awake Additional comments: Open eyes, no response to verbal stimuli, response to tactile stimuli with movements U/E, L/E - Skin Skin Exam: Warm Assessment and Plan (1) Acute respiratory failure Status: Acute (2) Subcutaneous emphysema Status: Acute (3) Anoxic brain damage Status: Acute (4) Seizure Status: Acute (5) Pneumonia Status: Acute (6) Sepsis Status: Acute (7) Pulmonary fibrosis Status: Chronic (8) Pulmonary hypertension Status: Chronic (9) Pneumonia with cavity of lung Status: Acute - Assessment and Plan (Free Text) Plan: stat CXR , Chest CT, continue DuoNeb , Teflaro , Zyvox, Clinda , SoluMedrol, Revatio and rest of treatment
--- NOTE | 2018-03-09 16:49 | CP.PCM.PN ---
Subjective - Date & Time of Evaluation Date of Evaluation: 03/09/18 Time of Evaluation: 16:47 - Subjective Subjective: Mrs. Peterson was seen and examined today at bedside. She had returned from CT of the chest and had not yet obtained the EEG. She continues to be restless and was given Ativan due to risk of injury to self. She moves all extremities, but does not follow commands. Objective - Vital Signs/Intake and Output Vital Signs (last 24 hours): Temp Pulse Resp BP Pulse Ox 98.9 F 110 H 22 118/83 97 03/09/18 12:00 03/09/18 14:31 03/09/18 14:31 03/09/18 14:31 03/09/18 14:31 Intake and Output: 03/09/18 03/09/18 06:59 18:59 Intake Total 1780 1314 Output Total 700 Balance 1080 1314 - Medications Medications: Current Medications Acetaminophen (Tylenol 325mg Tab) 650 mg PO Q6H PRN PRN Reason: Fever >100.4 F Last Admin: 03/08/18 21:18 Dose: 650 mg Acetaminophen (Tylenol 325mg Tab) 650 mg PO Q6 PRN PRN Reason: Pain, Mild (1-3) Albuterol/Ipratropium (Duoneb 3 Mg/0.5 Mg (3 Ml) Ud) 3 ml INH RQ4 [facility] Last Admin: 03/09/18 15:55 Dose: 3 ml Aspirin (Aspirin Chewable) 81 mg PO DAILY [facility] Last Admin: 03/09/18 09:00 Dose: 81 mg Atorvastatin Calcium (Lipitor) 10 mg PO DAILY [facility] Last Admin: 03/09/18 09:00 Dose: 10 mg Digoxin (Lanoxin) 0.25 mg PO DAILY [facility] Last Admin: 03/09/18 09:07 Dose: 0.25 mg Diltiazem HCl (Cardizem) 60 mg PO Q6 [facility]ANIE Last Admin: 03/09/18 12:29 Dose: 60 mg Enoxaparin Sodium (Lovenox) 40 mg SC DAILY [facility] PRN Reason: Protocol Last Admin: 03/07/18 09:46 Dose: Not Given Ferrous Sulfate (Feosol) 325 mg PO DAILY [facility] Last Admin: 03/09/18 09:00 Dose: 325 mg Home Med (Nintedanib Esylate [Ofev]) 150 mg PO Q12 [facility] Last Admin: 03/08/18 20:12 Dose: Not Given Clindamycin Phosphate (Cleocin) 600 mg in 50 mls @ 50 mls/hr IVPB Q8 [facility]ANIE PRN Reason: Protocol Last Admin: 03/09/18 09:05 Dose: 50 mls/hr Levetiracetam 750 mg/ Sodium (Chloride) 107.5 mls @ 215 mls/hr IVPB Q12 [facility] Last Admin: 03/09/18 10:57 Dose: 215 mls/hr Ceftaroline Fosamil 600 mg/ (Sodium Chloride) 250 mls @ 125 mls/hr IVPB Q12 [facility] PRN Reason: Protocol Last Admin: 03/09/18 09:11 Dose: 125 mls/hr Linezolid (Zyvox 600mg/300ml D5w) 600 mg in 300 mls @ 300 mls/hr IVPB Q12 [facility]AN[facility] PRN Reason: Protocol Last Admin: 03/09/18 09:10 Dose: 300 mls/hr Insulin Detemir (Levemir) 18 units SC Q12H [facility] Last Admin: 03/09/18 09:01 Dose: 18 units Insulin Human Lispro (Humalog) 0 units SC Q4H JANIE PRN Reason: Protocol Last Admin: 03/09/18 12:28 Dose: 2 units Methylprednisolone (Solu-Medrol) 40 mg IVP Q6 [facility] Last Admin: 03/09/18 09:09 Dose: 40 mg Midazolam HCl (Versed Inj) 2 mg IV Q4H PRN PRN Reason: Agitation Last Admin: 03/09/18 02:30 Dose: 2 mg Mupirocin (Bactroban Ointment) 1 applic TOP TID [facility] Last Admin: 03/09/18 13:20 Dose: 1 appl Sildenafil Citrate (Revatio) 20 mg PO TID [facility] Last Admin: 03/09/18 09:08 Dose: 20 mg - Labs Labs: 03/09/18 04:55 03/09/18 04:55 - Neurological Exam Additional comments: Neurologically unchanged Assessment and Plan (1) Anoxic brain damage Assessment & Plan: MRI of the brain is recommended as is an EEG for further evaluation. Currently , the patient has other medical problems being managed by the primary team and may be also suffering from toxic-metabolic encephalopathy. Status: Acute
--- NOTE | 2018-03-09 17:00 | CT ---
Date of service: 03/09/2018 PROCEDURE: CT Chest without contrast HISTORY: r/o pneumomediastinum COMPARISON: Plain radiographs performed earlier the same day. TECHNIQUE: Contiguous axial images were obtained through the chest without intravenous contrast enhancement. Sagittal and coronal reconstructions were performed. Radiation dose (DLP): 203.69 mGy-cm. This CT exam was performed using one or more of the following dose reduction techniques: Automated exposure control, adjustment of the mA and/or kV according to patient size, and/or use of iterative reconstruction technique. FINDINGS: The endotracheal tube terminates in the mid trachea. The nasogastric tube terminates in the stomach. The right PICC line terminates in the SVC. LUNGS: The lung apices are clear. There are extensive peripheral reticular opacities, architectural distortion and honeycomb being with lower lobe predominance. MEDIASTINUM: There is extensive pneumomediastinum. There is mild cardiomegaly and small pericardial effusion. No bulky mediastinal lymphadenopathy. PLEURA: No pleural fluid. There are bilateral small pneumothoraces. BONES: There is diffuse bone demineralization and age indeterminate but likely chronic compression fracture deformities in the lower thoracic spine. There are multilevel degenerative changes. UPPER ABDOMEN: Grossly unremarkable. OTHER FINDINGS: There is extensive soft tissue emphysema along the right anterior and lateral chest wall extending to the soft tissues of the neck and also soft tissue emphysema along the left lateral chest wall extending to the soft tissues of the neck. IMPRESSION: 1. Extensive pneumomediastinum, small bilateral pneumothoraces and extensive soft tissue emphysema along the right lateral chest wall extending to the soft tissues of the neck. Also seen is soft tissue emphysema along the left lateral chest wall. 2. Interstitial pulmonary fibrosis with lower lobe predominance.
[2018-03-09] MEDS: NINTEDANIB ESYLATE 150 MG PO SCH ×2 (17:24→20:47)
--- NOTE | 2018-03-09 18:16 | CP.PCM.CON ---
History of Present Illness - History of Present Illness History of Present Illness: CT Surgery Dr. Paniagua 62 y/o F w/ PMHx of severe lung disease was BIBA on 03/04 after being found down. Pt's last known normal was at 11pm the night before. Pt severely hypogylcemic in the flied and given 2amp D50 by EMS. Pt intubated in field for airway protection. On EEG, pt found to have seizures for which she was started on anti-epileptic meds. Pt continues to have AMS likely 2/2 hypoglycemic encephalopathy and anoxic brain injury. Pt had PICC placed yesterday (03/08) for poor IV access and need for IV Abx. Overnight, pt had multiple episodes of agitation w/ tube biting and desaturation into 80s. On AM CXR, pt found to have extensive subcutaneous emphysema. CT Chest performed which confirmed extensive subQ air as well as pneumomediastinum. CT Surgery consulted for pneumomediastinum and subQ emphysema. PMHx: cystic fibrosis, idiopathic pulmonary fibrosis, HTN, IDDM, CHF, PAH, seizures, HLD Meds: reviewed in cahrt NKDA PSHx: x3; tonsillectomy SHx: no ETOH, TOBACCO, IVDU FHx: noncontributory Review of Systems - Review of Systems Systems not reviewed;Unavailable: Altered Mental Status, Intubated Past Patient History - Infectious Disease Hx of Infectious Diseases: None - Past Medical History & Family History Past Medical History?: Yes - Past Social History Smoking Status: Never Smoked Alcohol: None Drugs: Denies Home Situation {Lives}: With Family - CARDIAC Hx Cardiac Disorders: Yes (CAD) Hx Hypercholesterolemia: Yes Hx Hypertension: Yes - PULMONARY Hx Respiratory Disorders: Yes Hx Pneumonia: Yes Other/Comment: Pulmonary fibrosis - NEUROLOGICAL Hx Neurological Disorder: Yes Hx Seizures: Yes (per patients daughter, pt says "she's been having seizures") - HEENT Hx HEENT Problems: No - RENAL Hx Chronic Kidney Disease: No - ENDOCRINE/METABOLIC Hx Endocrine Disorders: Yes Hx Diabetes Mellitus Type 2: Yes - HEMATOLOGICAL/ONCOLOGICAL Hx Blood Disorders: Yes Hx Anemia: Yes - INTEGUMENTARY Hx Dermatological Problems: No - MUSCULOSKELETAL/RHEUMATOLOGICAL Hx Musculoskeletal Disorders: Yes Hx Falls: Yes - GASTROINTESTINAL Hx Gastrointestinal Disorders: Yes Hx Gastroesophageal Reflux: Yes - GENITOURINARY/GYNECOLOGICAL Hx Genitourinary Disorders: No - PSYCHIATRIC Hx Psychophysiologic Disorder: Yes Hx Anxiety: Yes Hx Depression: Yes Hx Substance Use: No - SURGICAL HISTORY Hx Surgeries: Yes Hx Section: Yes (x3) Hx Tonsillectomy: Yes - ANESTHESIA Hx Anesthesia: Yes Hx Anesthesia Reactions: No Hx Malignant Hyperthermia: No Meds Allergies/Adverse Reactions: Allergies Allergy/AdvReac Type Severity Reaction Status Date / Time No Known Allergies Allergy Verified 02/28/18 13:36 - Medications Medications: Current Medications Acetaminophen (Tylenol 325mg Tab) 650 mg PO Q6H PRN PRN Reason: Fever >100.4 F Last Admin: 03/08/18 21:18 Dose: 650 mg Acetaminophen (Tylenol 325mg Tab) 650 mg PO Q6 PRN PRN Reason: Pain, Mild (1-3) Albuterol/Ipratropium (Duoneb 3 Mg/0.5 Mg (3 Ml) Ud) 3 ml INH RQ4 [facility] Last Admin: 03/09/18 15:55 Dose: 3 ml Aspirin (Aspirin Chewable) 81 mg PO DAILY [facility] Last Admin: 03/09/18 09:00 Dose: 81 mg Atorvastatin Calcium (Lipitor) 10 mg PO DAILY [facility] Last Admin: 03/09/18 09:00 Dose: 10 mg Digoxin (Lanoxin) 0.25 mg PO DAILY [facility] Last Admin: 03/09/18 09:07 Dose: 0.25 mg Diltiazem HCl (Cardizem) 60 mg PO Q6 [facility] Last Admin: 03/09/18 17:23 Dose: 60 mg Enoxaparin Sodium (Lovenox) 40 mg SC DAILY [facility] PRN Reason: Protocol Last Admin: 03/07/18 09:46 Dose: Not Given Ferrous Sulfate (Feosol) 325 mg PO DAILY [facility] Last Admin: 03/09/18 09:00 Dose: 325 mg Home Med (Nintedanib Esylate [Ofev]) 150 mg PO Q12 [facility] Last Admin: 03/09/18 17:24 Dose: Not Given Clindamycin Phosphate (Cleocin) 600 mg in 50 mls @ 50 mls/hr IVPB Q8 [facility] PRN Reason: Protocol Last Admin: 03/09/18 17:22 Dose: 50 mls/hr Levetiracetam 750 mg/ Sodium (Chloride) 107.5 mls @ 215 mls/hr IVPB Q12 [facility] Last Admin: 03/09/18 10:57 Dose: 215 mls/hr Ceftaroline Fosamil 600 mg/ (Sodium Chloride) 250 mls @ 125 mls/hr IVPB Q12 [facility] PRN Reason: Protocol Last Admin: 03/09/18 09:11 Dose: 125 mls/hr Linezolid (Zyvox 600mg/300ml D5w) 600 mg in 300 mls @ 300 mls/hr IVPB Q12 [facility] PRN Reason: Protocol Last Admin: 03/09/18 09:10 Dose: 300 mls/hr Insulin Detemir (Levemir) 18 units SC Q12H [facility] Last Admin: 03/09/18 09:01 Dose: 18 units Insulin Human Lispro (Humalog) 0 units SC Q4H [facility] PRN Reason: Protocol Last Admin: 03/09/18 12:28 Dose: 2 units Methylprednisolone (Solu-Medrol) 40 mg IVP Q6 [facility] Last Admin: 03/09/18 17:15 Dose: 40 mg Midazolam HCl (Versed Inj) 2 mg IV Q4H [facility]N PRN Reason: Agitation Last Admin: 03/09/18 02:30 Dose: 2 mg Mupirocin (Bactroban Ointment) 1 applic TOP TID [facility] Last Admin: 03/09/18 13:20 Dose: 1 appl Sildenafil Citrate (Revatio) 20 mg PO TID [facility] Last Admin: 03/09/18 17:16 Dose: 20 mg Physical Exam - Constitutional Appears: Cachectic, Chronically Ill - Head Exam Head Exam: NORMAL INSPECTION - Eye Exam Eye Exam: Normal appearance, PERRL - ENT Exam ENT Exam: Mucous Membranes Moist Additional comments: ETT and OGT in place - Respiratory Exam Respiratory Exam: Rhonchi, NORMAL BREATHING PATTERN (mechanical ventilation) Additional comments: extensive subcutaneous emphysema R>L - Cardiovascular Exam Cardiovascular Exam: Tachycardia, REGULAR RHYTHM. absent: Bradycardia - GI/Abdominal Exam GI & Abdominal Exam: Soft. absent: Distended, Tenderness - Extremities Exam Extremities exam: Positive for: normal inspection - Neurological Exam Neurological exam: Altered - Psychiatric Exam Additional comments: sedated - Skin Skin Exam: Dry, Normal Color, Warm Results - Vital Signs Recent Vital Signs: Last Vital Signs Temp 98.2 F 03/09/18 16:00 Pulse 115 H 03/09/18 17:23 Resp 14 03/09/18 16:00 BP 114/71 03/09/18 17:23 Pulse Ox 97 03/09/18 16:00 - Labs Result Diagrams: 03/09/18 04:55 03/09/18 04:55 Labs: Laboratory Results - last 24 hr 03/08/18 03/09/18 03/09/18 19:38 00:21 03:36 WBC RBC Hgb Hct MCV MCH MCHC RDW Plt Count pCO2 pO2 HCO3 ABG pH ABG Total CO2 ABG O2 Saturation ABG O2 Content ABG Base Excess ABG Hemoglobin ABG Carboxyhemoglobin POC ABG HHb (Measured) ABG Methemoglobin ABG O2 Capacity Jorge Test A-a O2 Difference Hgb O2 Saturation Vent Mode Mechanical Rate FiO2 Tidal Volume PEEP Sodium Potassium Chloride Carbon Dioxide Anion Gap BUN Creatinine Est GFR ( Amer) Est GFR (Non-Af Amer) POC Glucose (mg/dL) 169 H 199 H 181 H Random Glucose Calcium Total Bilirubin AST ALT Alkaline Phosphatase Total Protein Albumin Globulin Albumin/Globulin Ratio 03/09/18 03/09/18 03/09/18 04:55 04:55 05:09 WBC 18.7 H RBC 4.29 Hgb 9.3 L Hct 29.8 L MCV 69.4 L D MCH 21.8 L MCHC 31.3 L RDW 19.6 H Plt Count 324 pCO2 46 H pO2 82 HCO3 32.5 H ABG pH 7.48 H ABG Total CO2 35.7 H ABG O2 Saturation 98.1 H ABG O2 Content 13.4 L ABG Base Excess 9.7 H ABG Hemoglobin 10.0 L ABG Carboxyhemoglobin 2.0 H POC ABG HHb (Measured) 1.8 ABG Methemoglobin 1.5 ABG O2 Capacity 13.7 L Jorge Test Yes A-a O2 Difference 74.0 Hgb O2 Saturation 94.7 L Vent Mode A/c Mechanical Rate 14 FiO2 30.0 Tidal Volume 400 PEEP 5 Sodium 140 Potassium 3.4 L Chloride 101 Carbon Dioxide 32 H Anion Gap 10 BUN 18 H Creatinine 0.4 L Est GFR ( Amer) > 60 Est GFR (Non-Af Amer) > 60 POC Glucose (mg/dL) Random Glucose 164 H Calcium 8.6 Total Bilirubin 0.3 AST 35 ALT 31 Alkaline Phosphatase 89 Total Protein 5.6 L Albumin 2.8 L Globulin 2.8 Albumin/Globulin Ratio 1.0 03/09/18 03/09/18 03/09/18 09:51 11:21 11:40 WBC RBC Hgb Hct MCV MCH MCHC RDW Plt Count pCO2 41 pO2 64 L HCO3 33.8 H ABG pH 7.54 H ABG Total CO2 36.4 H ABG O2 Saturation 93.4 L ABG O2 Content 12.1 L ABG Base Excess 11.5 H ABG Hemoglobin 9.5 L ABG Carboxyhemoglobin 2.1 H POC ABG HHb (Measured) 6.4 H ABG Methemoglobin 1.4 ABG O2 Capacity 13.0 L Jorge Test Yes A-a O2 Difference 99.0 Hgb O2 Saturation 90.1 L Vent Mode Prvc ac Mechanical Rate 14 FiO2 30.0 Tidal Volume 400 PEEP 5 Sodium Potassium Chloride Carbon Dioxide Anion Gap BUN Creatinine Est GFR ( Amer) Est GFR (Non-Af Amer) POC Glucose (mg/dL) 170 H 213 H Random Glucose Calcium Total Bilirubin AST ALT Alkaline Phosphatase Total Protein Albumin Globulin Albumin/Globulin Ratio 03/09/18 03/09/18 14:58 17:57 WBC RBC Hgb Hct MCV MCH MCHC RDW Plt Count pCO2 pO2 HCO3 ABG pH ABG Total CO2 ABG O2 Saturation ABG O2 Content ABG Base Excess ABG Hemoglobin ABG Carboxyhemoglobin POC ABG HHb (Measured) ABG Methemoglobin ABG O2 Capacity Jorge Test A-a O2 Difference Hgb O2 Saturation Vent Mode Mechanical Rate FiO2 Tidal Volume PEEP Sodium Potassium Chloride Carbon Dioxide Anion Gap BUN Creatinine Est GFR ( Amer) Est GFR (Non-Af Amer) POC Glucose (mg/dL) 53 L 43 L Random Glucose Calcium Total Bilirubin AST ALT Alkaline Phosphatase Total Protein Albumin Globulin Albumin/Globulin Ratio - Imaging and Cardiology CT scan - chest Status: Image reviewed by me Assessment & Plan - Assessment and Plan (Free Text) Assessment: 62 y/o F w/ extensive subcutaneous emphysema and pneumomediastinum 2/2 popped bleb in the setting of chronic restrictive lung disease. - recommending right-sided chest tube placement - Family refusing at this time - Family would like pt transferred to [place] for further evaluation and treatment - cont ICU management - f/u specialist recs Pt discussed w/ Dr. Siva Soriano DO PGY3
--- NOTE | 2018-03-09 18:36 | PN ---
Copied To: Radha Joe MD Attending MD: Radha Joe MD DATE: 03/09/2018 ENDO FOLLOWUP NOTE LOCATION: In room 433 ICU. SUBJECTIVE: This is a 62-year-old female with recent uncontrolled type 2 insulin-requiring diabetes with supervening acute respiratory failure and remains endotracheally intubated and unresponsive at this time and is being followed closely for metabolic management. Her glycemic levels are fluctuating, but much improved and have ranged from 170 to 181 and 213 mg/dL. LABORATORY DATA: Her latest chemistry showed a BUN of 18, sodium 140, potassium 3.4, chloride 101, CO2 of 32, glucose 164, and creatinine 0.4. ASSESSMENT AND PLAN: So at this time, we will continue the same basal insulin given as Levemir at 18 units subcutaneously every 12 hours at 08:00 a.m. and 08:00 p.m. daily as given. We will continue the every 4 hourly glucose monitoring with Humalog coverage scale as given. She is still on a tapering dose of Solu-Medrol given as 40 mg intravenously every 6 hours as ordered. We will obtain serial chemistries and supplement accordingly as needed. We will follow. Radha Joe MD
[2018-03-09] MEDS ORDERED: Glucagon Recombinant 1 mg Inj IM ONE (20:47)
--- NOTE | 2018-03-09 23:14 | CP.PCM.PN ---
Subjective - Date & Time of Evaluation Date of Evaluation: 03/09/18 Time of Evaluation: 23:14 - Subjective Subjective: Family Request for Patient to be Transferred to [facility] I called [facility] ICU and discussed the case initially with the Resident Dr Sr, who informed me that he will discuss this with his Attending. I then called the Transfer Center at [facility] who connected me with the [employer]er Dr Mccarthy. We discussed the case, and that the family wanted to transfer the patient to [facility] because her PMD Dr [phone]) is affiliated there, and they wanted to have the chest tube and the Tracheostomy done at [facility]. We agreed that the Tracheostomy and the Chest tube could be done at the [facility]. She also mentioned the danger of transporting the patient with multiple bilateral Pneumothoraces without a chest tube that was suggested by the Thoracic Surgeon, and the possibility of worsening the Pneumothorax and the patient going into cardiac arrest en route. Dr Mccarthy stated that she cannot accept the patient without a chest, because the patient is unstable at this time. I will discuss this with the Family. Objective - Vital Signs/Intake and Output Vital Signs (last 24 hours): Temp Pulse Resp BP Pulse Ox 98.2 F 108 H 22 113/71 100 03/09/18 16:00 03/09/18 22:02 03/09/18 18:00 03/09/18 22:02 03/09/18 18:00 Intake and Output: 03/09/18 03/10/18 18:59 06:59 Intake Total 1644 Output Total 1600 Balance 44 - Medications Medications: Current Medications Acetaminophen (Tylenol 325mg Tab) 650 mg PO Q6H PRN PRN Reason: Fever >100.4 F Last Admin: 03/08/18 21:18 Dose: 650 mg Acetaminophen (Tylenol 325mg Tab) 650 mg PO Q6 PRN PRN Reason: Pain, Mild (1-3) Last Admin: 03/09/18 22:01 Dose: 650 mg Albuterol/Ipratropium (Duoneb 3 Mg/0.5 Mg (3 Ml) Ud) 3 ml INH RQ4 [facility] Last Admin: 03/09/18 19:10 Dose: 3 ml Aspirin (Aspirin Chewable) 81 mg PO DAILY [facility] Last Admin: 03/09/18 09:00 Dose: 81 mg Atorvastatin Calcium (Lipitor) 10 mg PO DAILY [facility] Last Admin: 03/09/18 09:00 Dose: 10 mg Digoxin (Lanoxin) 0.25 mg PO DAILY [facility] Last Admin: 03/09/18 09:07 Dose: 0.25 mg Diltiazem HCl (Cardizem) 60 mg PO Q6 [facility] Last Admin: 03/09/18 22:02 Dose: 60 mg Enoxaparin Sodium (Lovenox) 40 mg SC DAILY [facility] PRN Reason: Protocol Last Admin: 03/07/18 09:46 Dose: Not Given Ferrous Sulfate (Feosol) 325 mg PO DAILY [facility] Last Admin: 03/09/18 09:00 Dose: 325 mg Home Med (Nintedanib Esylate [Ofev]) 150 mg PO Q12 [facility] Last Admin: 03/09/18 20:47 Dose: Not Given Clindamycin Phosphate (Cleocin) 600 mg in 50 mls @ 50 mls/hr IVPB Q8 [facility] PRN Reason: Protocol Last Admin: 03/09/18 17:22 Dose: 50 mls/hr Levetiracetam 750 mg/ Sodium (Chloride) 107.5 mls @ 215 mls/hr IVPB Q12 [facility] Last Admin: 03/09/18 20:32 Dose: 215 mls/hr Ceftaroline Fosamil 600 mg/ (Sodium Chloride) 250 mls @ 125 mls/hr IVPB Q12 [facility] PRN Reason: Protocol Last Admin: 03/09/18 09:11 Dose: 125 mls/hr Linezolid (Zyvox 600mg/300ml D5w) 600 mg in 300 mls @ 300 mls/hr IVPB Q12 [facility] PRN Reason: Protocol Last Admin: 03/09/18 21:04 Dose: 300 mls/hr Dextrose (Dextrose 10% In Water) 1,000 mls @ 42 mls/hr IV .[id number] [facility] Stop: 03/10/18 20:49 Last Admin: 03/09/18 20:58 Dose: 42 mls/hr Insulin Detemir (Levemir) 10 units SC Q12H [facility] Insulin Human Lispro (Humalog) 0 units SC Q4H [facility] PRN Reason: Protocol Last Admin: 03/09/18 20:40 Dose: Not Given Methylprednisolone (Solu-Medrol) 40 mg IVP Q6 [facility] Last Admin: 03/09/18 21:01 Dose: 40 mg Midazolam HCl (Versed Inj) 2 mg IV Q4H PRN PRN Reason: Agitation Last Admin: 03/09/18 02:30 Dose: 2 mg Mupirocin (Bactroban Ointment) 1 applic TOP TID [facility] Last Admin: 03/09/18 19:27 Dose: 1 appl Sildenafil Citrate (Revatio) 20 mg PO TID [facility] Last Admin: 03/09/18 17:16 Dose: 20 mg - Labs Labs: 03/09/18 04:55 03/09/18 04:55
[2018-03-10] MEDS: Insulin Lispro (humaLOG) 100 Units/ml Inj SC SCH ×6 (00:30→20:09)
[2018-03-10] MEDS: Clindamycin 600mg/50ml D5W 600 MG/50 ML VIAL IVPB SCH ×3 (02:00→16:33)
[2018-03-10] MEDS: Albuterol-Ipratrop 3 mg / 0.5 (3 ml) UD INH SCH ×6 (04:42→23:41)
[2018-03-10] MEDS: MethylPREDNISolone 40 mg Vial IVP SCH ×4 (04:42→21:40)
[2018-03-10 04:49] LABS: ABG ALLEN TEST YES; ARTERIAL BLOOD GAS HCO3 35.2 mmol/L (21-28); ARTERIAL BLOOD GAS HEMOGLOBIN 9.4 g/dL (11.7-17.4); ARTERIAL BLOOD GAS O2 CAPACITY 13.2 mL/dL (16-24); ARTERIAL BLOOD GAS O2 CONTENT 13.2 ML/dL (15-23); ARTERIAL BLOOD GAS O2 SAT 100.2 % (95-98); ARTERIAL BLOOD GAS PCO2 42 mm/Hg (35-45); ARTERIAL BLOOD GAS PH 7.55 (7.35-7.45); ARTERIAL BLOOD GAS PO2 179 mm/Hg (80-100)
[2018-03-10 05:17] LABS: HEMOGLOBIN 9.3 g/dL (12.0-16.0); MEAN CORPUSCULAR HEMOGLOBIN 21.5 pg (27.0-31.0); MEAN CORPUSCULAR HGB CONC 31.1 g/dL (33.0-37.0); RBC 4.31 Mil/uL (3.80-5.20); RED CELL DISTRIBUTION WIDTH 19.6 % (11.5-14.5)
[2018-03-10 06:51] LABS: ALB/GLOB RATIO 1.1 (1.0-2.1); ALBUMIN 2.9 g/dL (3.5-5.0); ALT/SGPT 37 U/L (9-52); AST/SGOT 41 U/L (14-36); BLOOD UREA NITROGEN 29 mg/dl (7-17); CALCIUM 8.4 mg/dL (8.4-10.2); GFR AFRICAN-AMERICAN > 60; GFR NON-AFRICAN AMERICAN > 60
[2018-03-10] MEDS ORDERED: Insulin Detemir 100 Units/ml Inj SC SCH (08:00)
[2018-03-10] MEDS: Sildenafil 20 MG TAB PO SCH ×3 (08:25→16:34)
[2018-03-10] MEDS: Digoxin 250 mcg (0.25 mg) Tab PO SCH (08:25)
[2018-03-10] MEDS: Linezolid 600 mg in D5W 300 ml 600 MG/300 ML BAG IVPB SCH ×2 (09:51→21:52)
--- NOTE | 2018-03-10 10:31 | RAD ---
Date of service: 03/10/2018 PROCEDURE: CHEST RADIOGRAPH, 1 VIEW HISTORY: pt intubated COMPARISON: 03/09/2018. FINDINGS: Endotracheal tube terminates 4 cm proximal to the mary. The nasogastric tube terminates in the stomach. The right PICC line terminates at the cavoatrial junction. LUNGS: The lungs are hyperinflated. There there is interstitial thickening in the lower lobes. PLEURA: No pneumothorax. Small pleural effusions. CARDIOVASCULAR: Normal. OSSEOUS STRUCTURES: Diffuse bone demineralization. VISUALIZED UPPER ABDOMEN: Normal. OTHER FINDINGS: Redemonstration of extensive subcutaneous emphysema along the right lateral chest well and to the lesser extent along the left lateral chest wall. IMPRESSION: No significant interval change in known extensive soft tissue emphysema, worse along the right lateral chest wall. Redemonstration of interstitial pulmonary fibrosis in the lower lobes and small effusions.
--- NOTE | 2018-03-10 12:16 | CP.PCM.PN ---
Subjective - Date & Time of Evaluation Date of Evaluation: 03/10/18 Time of Evaluation: 12:16 - Subjective Subjective: Cardiothoracic Surgery Pt seen and examined. Poor saturation overnight. Still moving arms and legs around when agitated. No change in subcutaneous air. Objective - Vital Signs/Intake and Output Vital Signs (last 24 hours): Temp Pulse Resp BP Pulse Ox 98.0 F 116 H 17 118/72 100 03/10/18 08:00 03/10/18 09:48 03/10/18 08:00 03/10/18 09:48 03/10/18 08:00 Intake and Output: 03/10/18 03/10/18 06:59 18:59 Intake Total 1562 100 Output Total 300 Balance 1262 100 - Medications Medications: Current Medications Acetaminophen (Tylenol 325mg Tab) 650 mg PO Q6H PRN PRN Reason: Fever >100.4 F Last Admin: 03/08/18 21:18 Dose: 650 mg Acetaminophen (Tylenol 325mg Tab) 650 mg PO Q6 PRN PRN Reason: Pain, Mild (1-3) Last Admin: 03/09/18 22:01 Dose: 650 mg Albuterol/Ipratropium (Duoneb 3 Mg/0.5 Mg (3 Ml) Ud) 3 ml INH RQ4 [facility] Last Admin: 03/10/18 11:05 Dose: 3 ml Aspirin (Aspirin Chewable) 81 mg PO DAILY [facility] Last Admin: 03/10/18 08:26 Dose: 81 mg Atorvastatin Calcium (Lipitor) 10 mg PO DAILY [facility] Last Admin: 03/10/18 08:25 Dose: 10 mg Digoxin (Lanoxin) 0.25 mg PO DAILY [facility] Last Admin: 03/10/18 08:25 Dose: 0.25 mg Diltiazem HCl (Cardizem) 60 mg PO Q6 [facility] Last Admin: 03/10/18 09:48 Dose: 60 mg Enoxaparin Sodium (Lovenox) 40 mg SC DAILY [facility] PRN Reason: Protocol Last Admin: 03/07/18 09:46 Dose: Not Given Ferrous Sulfate (Feosol) 325 mg PO DAILY [facility] Last Admin: 03/10/18 08:28 Dose: 325 mg Home Med (Nintedanib Esylate [Ofev]) 150 mg PO Q12 [facility] Last Admin: 03/09/18 20:47 Dose: Not Given Clindamycin Phosphate (Cleocin) 600 mg in 50 mls @ 50 mls/hr IVPB Q8 [facility] PRN Reason: Protocol Last Admin: 03/10/18 08:28 Dose: 50 mls/hr Levetiracetam 750 mg/ Sodium (Chloride) 107.5 mls @ 215 mls/hr IVPB Q12 [facility] Last Admin: 03/10/18 08:34 Dose: 215 mls/hr Linezolid (Zyvox 600mg/300ml D5w) 600 mg in 300 mls @ 300 mls/hr IVPB Q12 [facility] PRN Reason: Protocol Last Admin: 03/10/18 09:51 Dose: 300 mls/hr Ceftaroline Fosamil 600 mg/ (Sodium Chloride) 250 mls @ 125 mls/hr IVPB Q12 [facility] PRN Reason: Protocol Insulin Detemir (Levemir) 10 units SC Q12H [facility] Last Admin: 03/10/18 09:48 Dose: 10 units Insulin Human Lispro (Humalog) 0 units SC Q4H [facility] PRN Reason: Protocol Last Admin: 03/10/18 08:29 Dose: 2 units Methylprednisolone (Solu-Medrol) 40 mg IVP Q6 [facility] Last Admin: 03/10/18 10:34 Dose: 40 mg Midazolam HCl (Versed Inj) 2 mg IV Q4H PRN PRN Reason: Agitation Last Admin: 03/09/18 02:30 Dose: 2 mg Mupirocin (Bactroban Ointment) 1 applic TOP TID [facility] Last Admin: 03/10/18 08:26 Dose: 1 appl Sildenafil Citrate (Revatio) 20 mg PO TID [facility] Last Admin: 03/10/18 08:25 Dose: 20 mg - Labs Labs: 03/10/18 04:30 03/10/18 04:30 - Constitutional Appears: Non-toxic, Agitated - Head Exam Head Exam: ATRAUMATIC, NORMOCEPHALIC - Eye Exam Eye Exam: PERRL. absent: Scleral icterus - ENT Exam Additional comments: ETT in place on vent - Respiratory Exam Respiratory Exam: NORMAL BREATHING PATTERN. absent: Chest Wall Tenderness Additional comments: coarse breath sounds b/l - Cardiovascular Exam Additional comments: SQ emphysema on R chest, side, and neck - GI/Abdominal Exam GI & Abdominal Exam: Soft. absent: Distended, Tenderness - Neurological Exam Additional comments: intubated, does not follow commands - Skin Skin Exam: Dry, Warm Assessment and Plan - Assessment and Plan (Free Text) Assessment: 62 y/o F w/ extensive subcutaneous emphysema and pneumomediastinum 2/2 popped bleb in the setting of chronic restrictive lung disease. Plan: - Recommending right-sided chest tube placement be done after transfer so that any possible complications could be managed by team that places it. - Family would like pt transferred to [place] for further evaluation and treatment - cont ICU management Discussed w/ Dr. Siva Singleton PGY4
--- NOTE | 2018-03-10 13:49 | CP.CCUPN ---
CCU Subjective - Physician Review Subjective (Free Text): Just sedated with Morphine for 3rd EEG procedure today. Previously, eyes open, but not interactive nor following any verbal commands, arms and legs moving randomly and in non-purposeful fashion, breathing 24 on AC14, TV reduced to 350 ml, 45% oxygen from 60% and PEEP discontinued; SPO2 97%. Other vitals and I/O's reviewed. No fever spikes nor any low grade temps last 24H. ROS: No other pertinent negs or positives on 10+ system review, patient sedated. PMSFH: All other Nursing and physician documentation reviewed to date; no new pertinent info noted relevant to current medical problems. EXAM- HEENT: no icterus, no gaze preference, Pupils 3 mm and sluggish bilaterally. NECK: No JVD, supple, carotids equal upstroke bilat/no bruits CHEST: decreased BS bases, no wheezes audible, bilateral BOOK EDITOR HEART: regular, distant, tachy S1S2, no rubs or murmurs ABD: soft, no distention, no tympany, no palp tenderness, BS not heard. EXT: + edema; no peripheral/ digital cyanosis, no calf tenderness or palpable cords, distal pulses intact and symmetrical. NEURO: moves all 4 limbs spontaneously SKIN: no rashes, warm and dry. LABS: 7.55/ 42/179 WBC= 20.0 HGB= 9.3 PLTs= 344K Hm=800 K= 3.5 DR=497 HCO3= 33 BUN/Cr= 29/0.4 BS= 294 IMPRESSION / MAJOR PROBLEMS NOW: 1. Acute Hypoxemic Resp Failure with Bilateral Pneumonia (Aspiration), with ho IPF, Pulm HTN, and Cystic Fibrosis, now with new Pneumomediastinum / small bilateral PTXs. 2. Obtundation, 2 Seizure Disorder, versus Metabolic Encephalopathy 3. IRDM II, with hypoglycemia on admission. 4. Azotemia / Dehydration PLAN: 1. Aware that family has requested transfer to [facility], with the stipulation overnight by [facility] to have chest tube in place prior to transport for safety purposes. Discussed with Thor Surg, and IR. There is now, no appreciable space, nor a PTX of sufficient size to place a chest tube nor a pigtail catheter safely without injuring the lung. Discussed this aspect of mgmt with day Medical Recruiter at [facility] this AM. He (Dr. Allen Dang) agrees to accept patient as is without further intervention, pending insurance coverage approval to transfer for Cardiothoracic services which are not available at [facility]. 2. Morphine used for sedation and anxiolysis purposes in order not to mask or abolish any seizure activity that may be evident for 3rd EEG study today. Otherwise AEDs as per Neurology. 3. MV settings to reduce positive pressure effects on lung and pleura, hopefully lessening extension of pneumomediastinum. Currently no tension effects seen. 4. Ongoing empiric abx coverage, no new organisms isolated beyond MRSA. Repeat sputums for AFB collected.
[2018-03-10 14:00] LABS: ABG ALLEN TEST YES; ARTERIAL BLOOD GAS HCO3 37.6 mmol/L (21-28); ARTERIAL BLOOD GAS O2 SAT 99.5 % (95-98); ARTERIAL BLOOD GAS PCO2 48 mm/Hg (35-45); ARTERIAL BLOOD GAS PH 7.54 (7.35-7.45); ARTERIAL BLOOD GAS PO2 103 mm/Hg (80-100); ARTERIAL BLOOD GAS TCO2 42.5 mmol/L (22-28)
--- NOTE | 2018-03-10 14:28 | PN ---
Copied To: Jaylen Johnson MD Attending MD: Jaylen Johnson MD DATE: 03/10/2018 SUBJECTIVE: The patient seen and examined. Interim events noted. The patient remains in intensive care unit, on ventilator, not able to provide any informative history or review of systems. Consults noted and appreciated. Case discussed with sewing machine operator paper bags. Case was also discussed with the hospitalist yesterday. The patient's case was also discussed with the patient's nurse at length yesterday. His condition and prognosis were explained in detail. PHYSICAL EXAMINATION: GENERAL: The patient remains orally intubated on mechanical ventilation via endotracheal tube, tolerating current setting without any acute respiratory distress. VITAL SIGNS: Stable. HEART: S1 and S2, tachycardic. No significant murmur, gallop, or rub. LUNGS: Bilateral chronic crepitation and transmitted sounds. ABDOMEN: Soft and nontender. No organomegaly. No fluids. Bowel sounds are plus and normal. EXTREMITIES: The patient has edema. No calf swelling. No tenderness. No acute ischemia. RESTAURANT GENERAL MANAGER: Essentially unchanged. DIAGNOSTIC DATA: Available diagnostic data reviewed. Telemetry monitoring shows tachycardia. No other significant arrhythmias. The patient also has . Attempt was also made to transfer the patient to , which so far is not successful. ASSESSMENT AND PLAN: Overall, the patient's prognosis remains poor. Condition is guarded. Plan as ordered. Jaylen Johnson MD
--- NOTE | 2018-03-10 15:12 | CP.PCM.PN ---
Subjective - Date & Time of Evaluation Date of Evaluation: 03/10/18 Time of Evaluation: 12:10 - Subjective Subjective: F/U Acute respiratory Failure intubated, eyes open, not following commands, spontaneous movements U/E L/E Objective - Vital Signs/Intake and Output Vital Signs (last 24 hours): Temp Pulse Resp BP Pulse Ox 98.5 F 116 H 27 H 106/71 97 03/10/18 12:00 03/10/18 12:00 03/10/18 12:00 03/10/18 12:00 03/10/18 12:00 Intake and Output: 03/10/18 03/10/18 06:59 18:59 Intake Total 1562 830 Output Total 300 Balance 1262 830 - Medications Medications: Current Medications Acetaminophen (Tylenol 325mg Tab) 650 mg PO Q6H PRN PRN Reason: Fever >100.4 F Last Admin: 03/08/18 21:18 Dose: 650 mg Acetaminophen (Tylenol 325mg Tab) 650 mg PO Q6 PRN PRN Reason: Pain, Mild (1-3) Last Admin: 03/09/18 22:01 Dose: 650 mg Albuterol/Ipratropium (Duoneb 3 Mg/0.5 Mg (3 Ml) Ud) 3 ml INH RQ4 [facility] Last Admin: 03/10/18 11:05 Dose: 3 ml Aspirin (Aspirin Chewable) 81 mg PO DAILY [facility] Last Admin: 03/10/18 08:26 Dose: 81 mg Atorvastatin Calcium (Lipitor) 10 mg PO DAILY [facility] Last Admin: 03/10/18 08:25 Dose: 10 mg Digoxin (Lanoxin) 0.25 mg PO DAILY [facility] Last Admin: 03/10/18 08:25 Dose: 0.25 mg Diltiazem HCl (Cardizem) 60 mg PO Q6 [facility] Last Admin: 03/10/18 09:48 Dose: 60 mg Enoxaparin Sodium (Lovenox) 40 mg SC DAILY [facility] PRN Reason: Protocol Last Admin: 03/07/18 09:46 Dose: Not Given Ferrous Sulfate (Feosol) 325 mg PO DAILY [facility] Last Admin: 03/10/18 08:28 Dose: 325 mg Home Med (Nintedanib Esylate [Ofev]) 150 mg PO Q12 [facility] Last Admin: 03/09/18 20:47 Dose: Not Given Clindamycin Phosphate (Cleocin) 600 mg in 50 mls @ 50 mls/hr IVPB Q8 [facility] PRN Reason: Protocol Last Admin: 03/10/18 08:28 Dose: 50 mls/hr Levetiracetam 750 mg/ Sodium (Chloride) 107.5 mls @ 215 mls/hr IVPB Q12 [facility] Last Admin: 03/10/18 08:34 Dose: 215 mls/hr Linezolid (Zyvox 600mg/300ml D5w) 600 mg in 300 mls @ 300 mls/hr IVPB Q12 [facility] PRN Reason: Protocol Last Admin: 03/10/18 09:51 Dose: 300 mls/hr Ceftaroline Fosamil 600 mg/ (Sodium Chloride) 250 mls @ 125 mls/hr IVPB Q12 [facility] PRN Reason: Protocol Last Admin: 03/10/18 13:08 Dose: 125 mls/hr Insulin Detemir (Levemir) 10 units SC Q12H [facility] Last Admin: 03/10/18 09:48 Dose: 10 units Insulin Human Lispro (Humalog) 0 units SC Q4H [facility] PRN Reason: Protocol Last Admin: 03/10/18 13:05 Dose: 3 units Methylprednisolone (Solu-Medrol) 40 mg IVP Q6 [facility] Last Admin: 03/10/18 10:34 Dose: 40 mg Midazolam HCl (Versed Inj) 2 mg IV Q4H PRN PRN Reason: Agitation Last Admin: 03/09/18 02:30 Dose: 2 mg Mupirocin (Bactroban Ointment) 1 applic TOP TID [facility] Last Admin: 03/10/18 13:06 Dose: 1 appl Sildenafil Citrate (Revatio) 20 mg PO TID [facility] Last Admin: 03/10/18 13:07 Dose: 20 mg - Labs Labs: 03/10/18 04:30 03/10/18 04:30 - Constitutional Appears: Chronically Ill - Head Exam Head Exam: NORMAL INSPECTION - Eye Exam Additional comments: Pupils sluggish reaction to light - ENT Exam Additional comments: Intubated - Neck Exam Additional comments: SQ emphysema - Respiratory Exam Respiratory Exam: Decreased Breath Sounds (at bases), Rhonchi (scattered) Additional comments: Chest SQ emphysema - Cardiovascular Exam Cardiovascular Exam: REGULAR RHYTHM - GI/Abdominal Exam GI & Abdominal Exam: Soft, Normal Bowel Sounds - Exam Additional comments: Martinez Cath - Extremities Exam Additional comments: Edema all extremities. - Neurological Exam Neurological Exam: Awake Additional comments: Open eyes, no response to verbal stimuli, response to tactile stimuli with movements U/E and L/E - Psychiatric Exam Additional comments: Unable to assess - Skin Skin Exam: Warm Assessment and Plan (1) Acute respiratory failure Status: Acute (2) Subcutaneous emphysema Status: Acute (3) Anoxic brain damage Status: Acute (4) Seizure Status: Acute (5) Pneumonia Status: Acute (6) Sepsis Status: Acute (7) Pulmonary fibrosis Status: Chronic (8) Pulmonary hypertension Status: Chronic (9) Pneumonia with cavity of lung Status: Acute - Assessment and Plan (Free Text) Plan: awaiting transfer to [facility] Cardiothoracic Surgical service, continue ventilatory support PRVC AC 45%,14m, VT 350, CT Chest extensive Pneumomediastinum, B/L small PTX, extensive soft tissue emphysema R > L chest wall , Neck, continue DuoNeb, Solu Medrol, Teflaro, Clinda and rest of treatment
--- NOTE | 2018-03-10 15:43 | CP.PCM.PN ---
<Cullen Paniagua Rc - Last Filed: 03/10/18 16:09> Subjective - Date & Time of Evaluation Date of Evaluation: 03/10/18 Time of Evaluation: 15:40 - Subjective Subjective: Reason for consultation: Subcutaneous emphysema and mediastinal emphysema. Requested by ICU. 62 yo female with pmh of cystic fibrosis, idiopathic pulmonary fibrosis and other comorbidities in ICU developed a sudden subcutaneous emphysema. cxr- subcutaneous and mediastinal emphysema on + ventilation. ct of chest: subcutaneous and mediastinal emphysema with small apical pneumothorax r>l. I am inclined to recommend a chest tub to right(directed to apex) as a treatment option. This may have to be performed in the OR to direct the tube to the apex under fluoroscopic guidances, and may require lysis of adhesions to advance the tube. Family at the moment inclined to not to have procedures done at [facility]. I have discussed my recommendations with Sona Crenshaw, and Angelita. a/p: 1. Massive subcutaneous and mediasinal emphyesa. 2. Chest tube insertion in OR.(family declined procedure). 3. Awaiting to be transferred to an outside facility. Objective - Vital Signs/Intake and Output Vital Signs (last 24 hours): Temp Pulse Resp BP Pulse Ox 98.5 F 115 H 26 H 121/67 98 03/10/18 12:00 03/10/18 14:00 03/10/18 14:00 03/10/18 14:00 03/10/18 14:00 Intake and Output: 03/10/18 03/10/18 06:59 18:59 Intake Total 1562 1170 Output Total 300 Balance 1262 1170 - Medications Medications: Current Medications Acetaminophen (Tylenol 325mg Tab) 650 mg PO Q6H PRN PRN Reason: Fever >100.4 F Last Admin: 03/08/18 21:18 Dose: 650 mg Acetaminophen (Tylenol 325mg Tab) 650 mg PO Q6 PRN PRN Reason: Pain, Mild (1-3) Last Admin: 03/09/18 22:01 Dose: 650 mg Albuterol/Ipratropium (Duoneb 3 Mg/0.5 Mg (3 Ml) Ud) 3 ml INH RQ4 [facility] Last Admin: 03/10/18 11:05 Dose: 3 ml Aspirin (Aspirin Chewable) 81 mg PO DAILY [facility] Last Admin: 03/10/18 08:26 Dose: 81 mg Atorvastatin Calcium (Lipitor) 10 mg PO DAILY [facility] Last Admin: 03/10/18 08:25 Dose: 10 mg Digoxin (Lanoxin) 0.25 mg PO DAILY [facility] Last Admin: 03/10/18 08:25 Dose: 0.25 mg Diltiazem HCl (Cardizem) 60 mg PO Q6 [facility] Last Admin: 03/10/18 09:48 Dose: 60 mg Enoxaparin Sodium (Lovenox) 40 mg SC DAILY [facility] PRN Reason: Protocol Last Admin: 03/07/18 09:46 Dose: Not Given Ferrous Sulfate (Feosol) 325 mg PO DAILY [facility] Last Admin: 03/10/18 08:28 Dose: 325 mg Home Med (Nintedanib Esylate [Ofev]) 150 mg PO Q12 [facility] Last Admin: 03/09/18 20:47 Dose: Not Given Clindamycin Phosphate (Cleocin) 600 mg in 50 mls @ 50 mls/hr IVPB Q8 [facility] PRN Reason: Protocol Last Admin: 03/10/18 08:28 Dose: 50 mls/hr Levetiracetam 750 mg/ Sodium (Chloride) 107.5 mls @ 215 mls/hr IVPB Q12 [facility] Last Admin: 03/10/18 08:34 Dose: 215 mls/hr Linezolid (Zyvox 600mg/300ml D5w) 600 mg in 300 mls @ 300 mls/hr IVPB Q12 [facility] PRN Reason: Protocol Last Admin: 03/10/18 09:51 Dose: 300 mls/hr Ceftaroline Fosamil 600 mg/ (Sodium Chloride) 250 mls @ 125 mls/hr IVPB Q12 [facility] PRN Reason: Protocol Last Admin: 03/10/18 13:08 Dose: 125 mls/hr Insulin Detemir (Levemir) 10 units SC Q12H [facility] Last Admin: 03/10/18 09:48 Dose: 10 units Insulin Human Lispro (Humalog) 0 units SC Q4H [facility] PRN Reason: Protocol Last Admin: 03/10/18 13:05 Dose: 3 units Methylprednisolone (Solu-Medrol) 40 mg IVP Q6 [facility] Last Admin: 03/10/18 10:34 Dose: 40 mg Midazolam HCl (Versed Inj) 2 mg IV Q4H PRN PRN Reason: Agitation Last Admin: 03/09/18 02:30 Dose: 2 mg Mupirocin (Bactroban Ointment) 1 applic TOP TID [facility] Last Admin: 03/10/18 13:06 Dose: 1 appl Sildenafil Citrate (Revatio) 20 mg PO TID [facility] Last Admin: 03/10/18 13:07 Dose: 20 mg - Labs Labs: 03/10/18 04:30 03/10/18 04:30 <Chavo Ledesma - Last Filed: 03/11/18 00:24> Objective - Vital Signs/Intake and Output Vital Signs (last 24 hours): Temp Pulse Resp BP Pulse Ox 99.2 F 129 H 24 144/81 100 03/10/18 16:00 03/10/18 21:41 03/10/18 18:00 03/10/18 21:41 03/10/18 18:00 Intake and Output: 03/10/18 03/11/18 18:59 06:59 Intake Total 1510 Balance 1510 - Medications Medications: Current Medications Acetaminophen (Tylenol 325mg Tab) 650 mg PO Q6H PRN PRN Reason: Fever >100.4 F Last Admin: 03/08/18 21:18 Dose: 650 mg Acetaminophen (Tylenol 325mg Tab) 650 mg PO Q6 PRN PRN Reason: Pain, Mild (1-3) Last Admin: 03/10/18 20:41 Dose: 650 mg Albuterol/Ipratropium (Duoneb 3 Mg/0.5 Mg (3 Ml) Ud) 3 ml INH RQ4 [facility] Last Admin: 03/10/18 23:41 Dose: 3 ml Aspirin (Aspirin Chewable) 81 mg PO DAILY [facility] Last Admin: 03/10/18 08:26 Dose: 81 mg Atorvastatin Calcium (Lipitor) 10 mg PO DAILY [facility] Last Admin: 03/10/18 08:25 Dose: 10 mg Digoxin (Lanoxin) 0.25 mg PO DAILY [facility] Last Admin: 03/10/18 08:25 Dose: 0.25 mg Diltiazem HCl (Cardizem) 60 mg PO Q6 [facility] Last Admin: 03/10/18 21:41 Dose: 60 mg Enoxaparin Sodium (Lovenox) 40 mg SC DAILY [facility] PRN Reason: Protocol Last Admin: 03/07/18 09:46 Dose: Not Given Ferrous Sulfate (Feosol) 325 mg PO DAILY [facility] Last Admin: 03/10/18 08:28 Dose: 325 mg Home Med (Nintedanib Esylate [Ofev]) 150 mg PO Q12 [facility] Last Admin: 03/10/18 20:14 Dose: Not Given Clindamycin Phosphate (Cleocin) 600 mg in 50 mls @ 50 mls/hr IVPB Q8 [facility] PRN Reason: Protocol Last Admin: 03/10/18 16:33 Dose: 50 mls/hr Levetiracetam 750 mg/ Sodium (Chloride) 107.5 mls @ 215 mls/hr IVPB Q12 [facility] Last Admin: 03/10/18 20:06 Dose: 215 mls/hr Linezolid (Zyvox 600mg/300ml D5w) 600 mg in 300 mls @ 300 mls/hr IVPB Q12 [facility] PRN Reason: Protocol Last Admin: 03/10/18 21:52 Dose: 300 mls/hr Ceftaroline Fosamil 600 mg/ (Sodium Chloride) 250 mls @ 125 mls/hr IVPB Q12 [facility] PRN Reason: Protocol Last Admin: 03/10/18 20:09 Dose: 125 mls/hr Insulin Detemir (Levemir) 14 units SC Q12H [facility] Last Admin: 03/10/18 21:40 Dose: 14 units Insulin Human Lispro (Humalog) 0 units SC Q4H [facility] PRN Reason: Protocol Last Admin: 03/10/18 20:09 Dose: Not Given Methylprednisolone (Solu-Medrol) 40 mg IVP Q6 [facility] Last Admin: 03/10/18 21:40 Dose: 40 mg Midazolam HCl (Versed Inj) 2 mg IV Q4H PRN PRN Reason: Agitation Last Admin: 03/09/18 02:30 Dose: 2 mg Mupirocin (Bactroban Ointment) 1 applic TOP TID [facility] Last Admin: 03/10/18 16:31 Dose: 1 appl Sildenafil Citrate (Revatio) 20 mg PO TID [facility] Last Admin: 03/10/18 16:34 Dose: 20 mg - Labs Labs: 03/10/18 04:30 03/10/18 04:30 Assessment and Plan (1) Acute respiratory failure Status: Acute (2) Subcutaneous emphysema Status: Acute (3) Anoxic brain damage Status: Acute (4) Seizure Status: Acute (5) Pneumonia Status: Acute (6) Sepsis Status: Acute (7) Pulmonary fibrosis Status: Chronic (8) Pulmonary hypertension Status: Chronic (9) Pneumonia with cavity of lung Status: Acute
[2018-03-10] MEDS: NINTEDANIB ESYLATE 150 MG PO SCH ×2 (16:34→20:14)
[2018-03-10] MEDS: Insulin Detemir 100 Units/ml Inj SC SCH (21:40)
--- NOTE | 2018-03-11 00:04 | PN ---
Copied To: Radha Joe MD Attending MD: Radha Joe MD DATE: 03/10/2018 ENDO FOLLOWUP NOTE LOCATION: 433 ICU SUBJECTIVE: This is a 62-year-old female with recent acute respiratory failure, currently remaining endotracheally intubated and unresponsive and is being followed closely now for metabolic management. Her glycemic levels are fluctuating but much improved at this time, and the glucose levels have ranged from 141 to 229 and 260 mg/dL. LABORATORY DATA: Her chemistry showed a BUN of 29, sodium 143, potassium 3.5, chloride 100, CO2 of 33, glucose 294, and creatinine 0.4. ASSESSMENT AND PLAN: She is still currently on Solu-Medrol given as 40 mg IV every 6 hours as ordered. So, at this time, we will modify once again her basal insulin and increase the Levemir to 14 units subcutaneously every 12 hours at 8 a.m. and 8 p.m. daily as given. We will titrate incrementally as indicated to optimize metabolic control. We will continue also the 4 hourly glucose testing with Humalog coverage as given. We will obtain serial chemistries and supplement accordingly as needed. We will follow. Radha Joe MD
[2018-03-11] MEDS: Insulin Lispro (humaLOG) 100 Units/ml Inj SC SCH ×6 (00:45→20:48)
[2018-03-11] MEDS: Clindamycin 600mg/50ml D5W 600 MG/50 ML VIAL IVPB SCH ×3 (01:10→16:03)
[2018-03-11] MEDS: Acetaminophen 650mg/20.3ml solution UD PO PRN ×2 (01:52→09:26)
[2018-03-11] MEDS: MethylPREDNISolone 40 mg Vial IVP SCH ×4 (04:11→21:03)
[2018-03-11] MEDS: Albuterol-Ipratrop 3 mg / 0.5 (3 ml) UD INH SCH ×3 (04:57→11:28)
[2018-03-11] MEDS ORDERED: Insulin Lispro (humaLOG) 100 Units/ml Inj SC STA (05:07)
[2018-03-11 05:13] LABS: ABG ALLEN TEST YES; ARTERIAL BLOOD GAS HCO3 38.7 mmol/L (21-28); ARTERIAL BLOOD GAS HEMOGLOBIN 9.6 g/dL (11.7-17.4); ARTERIAL BLOOD GAS O2 CAPACITY 13.3 mL/dL (16-24); ARTERIAL BLOOD GAS O2 CONTENT 13.2 ML/dL (15-23); ARTERIAL BLOOD GAS O2 SAT 99.4 % (95-98); ARTERIAL BLOOD GAS PCO2 44 mm/Hg (35-45); ARTERIAL BLOOD GAS PH 7.58 (7.35-7.45); ARTERIAL BLOOD GAS PO2 106 mm/Hg (80-100); ARTERIAL BLOOD GAS TCO2 42.7 mmol/L (22-28)
[2018-03-11 05:31] LABS: BASO # 0.1 K/uL (0.0-0.2); BASO % 0.4 % (0.0-2.0); HEMOGLOBIN 8.7 g/dL (12.0-16.0); LYMPH # 0.4 K/uL (1.0-4.3); MEAN CELL VOLUME 69.6 fl (81.0-99.0); MEAN CORPUSCULAR HEMOGLOBIN 21.4 pg (27.0-31.0); MEAN CORPUSCULAR HGB CONC 30.7 g/dL (33.0-37.0); MEAN PLATELET VOLUME 8.9 fl (7.2-11.7); MONO # 0.4 K/uL (0.0-0.8); MONO % 2.7 % (0.0-10.0); NEUT # 13.1 K/uL (1.8-7.0); NEUT % 93.9 % (50.0-75.0); NRBC % 0.1 % (0.0-0.0); PLATELET COUNT 300 K/uL (130-400); RBC 4.07 Mil/uL (3.80-5.20); RED CELL DISTRIBUTION WIDTH 20.1 % (11.5-14.5)
[2018-03-11 07:37] LABS: ALB/GLOB RATIO 1.1 (1.0-2.1); ALBUMIN 2.9 g/dL (3.5-5.0); ALT/SGPT 35 U/L (9-52); AST/SGOT 35 U/L (14-36); BLOOD UREA NITROGEN 24 mg/dl (7-17); CALCIUM 8.4 mg/dL (8.4-10.2); GFR AFRICAN-AMERICAN > 60; GFR NON-AFRICAN AMERICAN > 60
[2018-03-11] MEDS: levETIRAcetam 1,000 MG in Sodium Chloride 0.9% 100 ML IVPB SCH ×2 (08:10→18:07)
[2018-03-11] MEDS: Sildenafil 20 MG TAB PO SCH ×3 (08:12→16:00)
[2018-03-11] MEDS: Digoxin 250 mcg (0.25 mg) Tab PO SCH (08:13)
[2018-03-11] MEDS: NINTEDANIB ESYLATE 150 MG PO SCH ×2 (08:28→20:43)
--- NOTE | 2018-03-11 08:44 | RAD ---
Date of service: 03/11/2018 PROCEDURE: CHEST RADIOGRAPH, 1 VIEW HISTORY: pt intubated COMPARISON: Portable chest 03/10/2018. FINDINGS: Endotracheal tube is stable in position with nasogastric tube again identified terminating in the abdomen. Right PICC now terminates in the right subclavian vein region. LUNGS: Taking technical differences into account, a mild increase in right basilar infiltrates is questioned with limited medial basilar airspace disease noted at the left base. No definite pleural effusion bilaterally. No prominent pneumothorax. PLEURA: As above. CARDIOVASCULAR: Cardiomediastinal silhouette is stable. No definite pulmonary vascular congestion. OSSEOUS STRUCTURES: No significant abnormalities. VISUALIZED UPPER ABDOMEN: Normal. OTHER FINDINGS: A mild decrease in extrathoracic emphysematous changes is noted at the right with limited left extra thoracic emphysema stable. IMPRESSION: A mild increase in mid to inferior right pulmonary infiltrate is questioned with no significant change in limited left basilar airspace disease. Extrathoracic emphysematous changes appears mildly diminished at the right and unchanged at the left. Right PICC now terminates at the right subclavian vein region. Other tubes and catheters unchanged in position.
[2018-03-11] MEDS: Linezolid 600 mg in D5W 300 ml 600 MG/300 ML BAG IVPB SCH ×2 (09:37→20:33)
[2018-03-11 09:50] LABS: LYMPHOCYTE 2 % (20-50); MONOCYTE 2 % (0-10); NEUTROPHIL 96 % (42-75); TOTAL CELLS COUNTED 100
[2018-03-11 09:51] LABS: ANISOCYTOSIS MODERATE; MICROCYTOSIS MODERATE; PLATELET ESTIMATE NORMAL (NORMAL)
[2018-03-11 09:52] LABS: HYPOCHROMIC MODERATE; OVALOCYTES SLIGHT
[2018-03-11] MEDS: Insulin Detemir 100 Units/ml Inj SC SCH ×2 (10:44→20:49)
--- NOTE | 2018-03-11 14:35 | PN ---
Copied To: Jaylen Johnson MD Attending MD: Jaylen Johnson MD DATE: 03/11/2018 SUBJECTIVE: The patient seen and examined. Interim events noted. Consults noted and appreciated. Mold Laminator and pulmonary intervention noted and appreciated. The patient remains in intensive care unit on ventilator, also remains noncommunicative. PHYSICAL EXAMINATION: GENERAL: The patient is in no acute distress. VITAL SIGNS: Stable. HEART: S1 and S2, normal and regular. LUNGS: Good bilateral air exchange. ABDOMEN: Soft, nontender. EXTREMITIES: No edema. No calf swelling. No tenderness. No acute ischemia. The patient has generalized anasarca. TRUSS DESIGNER: Exam is essentially unchanged. DIAGNOSTIC DATA: Available diagnostic data reviewed. Telemetry monitoring shows sinus tachycardia. No significant arrhythmias. ASSESSMENT AND PLAN: Overall, the patient's general medical condition is critical as the [facility] prognosis remains poor. Plan as ordered. Jaylen Johnson MD
--- NOTE | 2018-03-11 16:21 | CP.PCM.PN ---
Subjective - Date & Time of Evaluation Date of Evaluation: 03/11/18 Time of Evaluation: 10:00 - Subjective Subjective: F/U Respiratory failure intubated, eyes open, involuntary movement with head and extremities Objective - Vital Signs/Intake and Output Vital Signs (last 24 hours): Temp Pulse Resp BP Pulse Ox 98.5 F 102 H 18 129/78 99 03/11/18 12:00 03/11/18 15:52 03/11/18 14:00 03/11/18 15:52 03/11/18 14:00 Intake and Output: 03/11/18 03/11/18 06:59 18:59 Intake Total 1248 1115 Output Total 700 Balance 548 1115 - Medications Medications: Current Medications Acetaminophen (Tylenol 325mg Tab) 650 mg PO Q6 PRN PRN Reason: Pain, Mild (1-3) Last Admin: 03/10/18 20:41 Dose: 650 mg Acetaminophen (Tylenol 650mg/20.3ml Solution Ud) 650 mg PO Q6 PRN PRN Reason: Fever > 100.4 Last Admin: 03/11/18 09:26 Dose: 650 mg Aspirin (Aspirin Chewable) 81 mg PO DAILY [facility] Last Admin: 03/11/18 08:14 Dose: 81 mg Atorvastatin Calcium (Lipitor) 10 mg PO DAILY [facility] Last Admin: 03/11/18 08:13 Dose: 10 mg Digoxin (Lanoxin) 0.25 mg PO DAILY [facility] Last Admin: 03/11/18 08:13 Dose: 0.25 mg Diltiazem HCl (Cardizem) 60 mg PO Q6 [facility] Last Admin: 03/11/18 15:52 Dose: 60 mg Enoxaparin Sodium (Lovenox) 40 mg SC DAILY [facility] PRN Reason: Protocol Last Admin: 03/07/18 09:46 Dose: Not Given Ferrous Sulfate (Feosol) 325 mg PO DAILY [facility] Last Admin: 03/11/18 08:15 Dose: 325 mg Home Med (Nintedanib Esylate [Ofev]) 150 mg PO Q12 [facility] Last Admin: 03/11/18 08:28 Dose: Not Given Clindamycin Phosphate (Cleocin) 600 mg in 50 mls @ 50 mls/hr IVPB Q8 [facility] PRN Reason: Protocol Last Admin: 03/11/18 16:03 Dose: 50 mls/hr Linezolid (Zyvox 600mg/300ml D5w) 600 mg in 300 mls @ 300 mls/hr IVPB Q12 [facility] PRN Reason: Protocol Last Admin: 03/11/18 09:37 Dose: 300 mls/hr Ceftaroline Fosamil 600 mg/ (Sodium Chloride) 250 mls @ 125 mls/hr IVPB Q12 [facility] PRN Reason: Protocol Last Admin: 03/11/18 09:24 Dose: 125 mls/hr Levetiracetam 1,000 mg/ Sodium (Chloride) 110 mls @ 215 mls/hr IVPB Q12H [facility] Last Admin: 03/11/18 08:10 Dose: 215 mls/hr Insulin Detemir (Levemir) 14 units SC Q12H [facility] Last Admin: 03/11/18 10:44 Dose: 14 units Insulin Human Lispro (Humalog) 0 units SC Q4H [facility] PRN Reason: Protocol Last Admin: 03/11/18 16:15 Dose: Not Given Methylprednisolone (Solu-Medrol) 40 mg IVP Q6 [facility] Last Admin: 03/11/18 15:52 Dose: 40 mg Midazolam HCl (Versed Inj) 2 mg IV Q4H PRN PRN Reason: Agitation Last Admin: 03/09/18 02:30 Dose: 2 mg Mupirocin (Bactroban Ointment) 1 applic TOP TID [facility] Last Admin: 03/11/18 16:01 Dose: 1 appl Sildenafil Citrate (Revatio) 20 mg PO TID [facility] Last Admin: 03/11/18 16:00 Dose: 20 mg - Labs Labs: 03/11/18 04:30 03/11/18 04:30 - Constitutional Appears: Chronically Ill - Head Exam Head Exam: NORMAL INSPECTION - Eye Exam Additional comments: Pupils sluggish reaction to light - ENT Exam Additional comments: Intubated - Neck Exam Additional comments: subcutaneous emphysema - Respiratory Exam Respiratory Exam: Decreased Breath Sounds (at bases), Rhonchi (scattered) Additional comments: Chest subcutaneous emphysema - Cardiovascular Exam Cardiovascular Exam: REGULAR RHYTHM - GI/Abdominal Exam GI & Abdominal Exam: Soft, Normal Bowel Sounds - Exam Additional comments: Martinez cath - Extremities Exam Additional comments: Edema all extremities - Neurological Exam Neurological Exam: Awake Additional comments: Open eyes, no response to verbal stimuli, response to tactile stimuli with movements U/E, L/E - Psychiatric Exam Additional comments: Unable to assess - Skin Skin Exam: Warm Assessment and Plan (1) Acute respiratory failure Status: Acute (2) Subcutaneous emphysema Status: Acute (3) Anoxic brain damage Status: Acute (4) Seizure Status: Acute (5) Pneumonia Status: Acute (6) Sepsis Status: Acute (7) Pulmonary fibrosis Status: Chronic (8) Pulmonary hypertension Status: Chronic (9) Pneumonia with cavity of lung Status: Acute - Assessment and Plan (Free Text) Plan: CXR subcutaneous emphysema R<L increase R lung infiltrates, no PTX, continue ventilatory support, Teflaro, Clinda, Revatio and rest of treatment, awaiting transfer to [facility]
--- NOTE | 2018-03-11 17:39 | CP.CCUPN ---
CCU Subjective - Physician Review Subjective (Free Text): Third EEG performed today and now Nurse overnight was able to witness seizure activity manifest as jaw tremors and R am twitching. So far today during the daytime, no observable recurrent seizure events, beyond patient being intermittently agitated and lifting her head off the bed and shrugging her shoulders in an attempt at re-positioning herself. No other distress noted. Other vitals and I/O's reviewed. 100.9 Fever spike over last 24H. ROS: No other pertinent negs or positives on 10+ system review, patient sedated. PMSFH: All other Nursing and physician documentation reviewed to date; no new pertinent info noted relevant to current medical problems. EXAM- HEENT: no icterus, no gaze preference, Pupils 3 mm and sluggish bilaterally. NECK: No JVD, supple, carotids equal upstroke bilat/no bruits CHEST: decreased BS bases, no wheezes audible, bilateral DIE MAKER ELECTRONIC HEART: regular, distant, tachy S1S2, no rubs or murmurs ABD: soft, no distention, no tympany, no palp tenderness, BS not heard. EXT: + edema; no peripheral/ digital cyanosis, no calf tenderness or palpable cords, distal pulses intact and symmetrical. NEURO: moves all 4 limbs spontaneously SKIN: no rashes, warm and dry. LABS: 7.58/44/106 WBC= 14.0 HGB= 8.7 PLTs= 300K Nw=160 K= 4.2 CV=687 HCO3= 39 BUN/Cr= 24/0.4 BS= 302 CXR: ETT position OK above mary, overall DIE MAKER ELECTRONIC pattern unchanged (my interp) IMPRESSION / MAJOR PROBLEMS NOW: 1. Acute Hypoxemic Resp Failure with Bilateral Pneumonia (Aspiration), with h/ o advanced lung disease with IPF, Pulm HTN sequelae, and Cystic Fibrosis, now with new Pneumomediastinum / small bilateral PTXs. 2. Obtundation, 2 Seizure Disorder, versus Metabolic Encephalopathy 3. IRDM II, with hypoglycemia on admission. 4. Azotemia / Dehydration PLAN: 1. Aware that family has requested transfer to [facility], with the stipulation overnight by [facility] to have chest tube in place prior to transport for safety purposes. Discussed with Thor Surg, and IR. There is now, no appreciable space, nor a PTX of sufficient size to place a chest tube nor a pigtail catheter safely without injuring the lung. Discussed this aspect of mgmt with day Fire Watcher at [facility] this AM. He (Dr. Allen Dang) agrees to accept patient as is without further intervention, pending insurance coverage approval to transfer for Cardiothoracic services which are not available at [facility]. ADDENDUM: have been informed by Case Mgmt that patients insurance has disapproved coverage for transfer; and have been given re-appeal information to have a [id number] discussion with insurance company medical appointment scheduler regarding this case. Calls made and awaiting callback from Dr. Gunner Perez within 1 business day. 2. Keppra increased to 1000mg Q12H. 3. Ongoing MV settings to reduce positive pressure effects on lung and pleura , hopefully lessening extension of pneumomediastinum. Currently no tension effects seen. 4. Ongoing empiric abx coverage, no new organisms isolated beyond MRSA. Repeat sputum for AFB collected. CCU Objective - Vital Signs / Intake & Output Vital Signs (Last 4 hours): Vital Signs Temp Pulse Resp BP Pulse Ox 03/11/18 16:00 99.6 F 111 H 24 125/69 100 03/11/18 15:52 102 H 129/78 03/11/18 14:00 102 H 18 109/70 99 Intake and Output (Last 8hrs): Intake & Output 03/11/18 03/11/18 03/11/18 06:59 14:59 22:59 Intake Total 710 1115 140 Output Total 700 Balance 10 1115 140 Weight 90 lb Intake: Intake, Piggyback 350 700 50 Tube Feeding 360 315 90 Free Water Flush 100 Output: Urine 700 Urethral (Martinez) 700 - Patient Studies Fingerstick Blood Sugar Results: 99
--- NOTE | 2018-03-11 22:09 | PN ---
Copied To: Radha Joe MD Attending MD: Radha Joe MD DATE: 03/11/2018 ENDO FOLLOWUP NOTE LOCATION: ICU, room 433 SUBJECTIVE: This is a 62-year-old female with recent uncontrolled type 2 insulin-requiring diabetes, now being followed closely for metabolic management. Her glycemic levels are fluctuating as noted thereof and the glucose values have ranged from 204 to 318 mg/dL. It was 296 at bedtime last night. LABORATORY DATA: The latest chemistry showed a BUN of 24, sodium 143, potassium 4.2, chloride 100, CO2 of 39, glucose 302, creatinine . ASSESSMENT AND PLAN: She remains clinically unresponsive and still endotracheally intubated with a recent acute respiratory failure and supervening anoxic encephalopathy as noted. So, at this time, we will modify once again her basal insulin and increase the Levemir to 18 units subcu every 12 hours at 8 a.m. and 8 p.m. daily as given. We will titrate incremental as indicated to optimize metabolic control. We will obtain serial chemistries and supplement accordingly as needed. We will follow. Radha Joe MD
[2018-03-12] MEDS: Insulin Lispro (humaLOG) 100 Units/ml Inj SC SCH ×6 (00:08→20:38)
[2018-03-12] MEDS: Clindamycin 600mg/50ml D5W 600 MG/50 ML VIAL IVPB SCH (01:52)
[2018-03-12 05:37] LABS: HEMOGLOBIN 8.8 g/dL (12.0-16.0); LYMPH # 0.8 K/uL (1.0-4.3); LYMPH % 4.9 % (20.0-40.0); MEAN CELL VOLUME 70.1 fl (81.0-99.0); MEAN PLATELET VOLUME 8.1 fl (7.2-11.7); MONO # 0.6 K/uL (0.0-0.8); MONO % 3.5 % (0.0-10.0); NEUT # 15.4 K/uL (1.8-7.0); NEUT % 91.6 % (50.0-75.0); NRBC % 0.1 % (0.0-0.0); RBC 4.19 Mil/uL (3.80-5.20); RED CELL DISTRIBUTION WIDTH 20.4 % (11.5-14.5); WHITE BLOOD COUNT 16.8 K/uL (4.8-10.8)
[2018-03-12 05:53] LABS: ALB/GLOB RATIO 1.1 (1.0-2.1); ALBUMIN 2.8 g/dL (3.5-5.0); ALT/SGPT 30 U/L (9-52); AST/SGOT 40 U/L (14-36); BLOOD UREA NITROGEN 20 mg/dl (7-17); CALCIUM 8.3 mg/dL (8.4-10.2); GFR AFRICAN-AMERICAN > 60; GFR NON-AFRICAN AMERICAN > 60
[2018-03-12] MEDS: levETIRAcetam 1,000 MG in Sodium Chloride 0.9% 100 ML IVPB SCH ×2 (06:19→18:02)
[2018-03-12 06:21] LABS: ABG ALLEN TEST YES; ARTERIAL BLOOD GAS HCO3 40.1 mmol/L (21-28); ARTERIAL BLOOD GAS HEMOGLOBIN 9.2 g/dL (11.7-17.4); ARTERIAL BLOOD GAS O2 CAPACITY 12.9 mL/dL (16-24); ARTERIAL BLOOD GAS O2 SAT 100.7 % (95-98); ARTERIAL BLOOD GAS PCO2 53 mm/Hg (35-45); ARTERIAL BLOOD GAS PH 7.53 (7.35-7.45); ARTERIAL BLOOD GAS PO2 162 mm/Hg (80-100); ARTERIAL BLOOD GAS TCO2 45.9 mmol/L (22-28)
[2018-03-12] MEDS: Digoxin 250 mcg (0.25 mg) Tab PO SCH (08:12)
[2018-03-12] MEDS: Sildenafil 20 MG TAB PO SCH ×3 (08:12→16:19)
[2018-03-12] MEDS: Insulin Detemir 100 Units/ml Inj SC SCH ×2 (08:13→12:53)
--- NOTE | 2018-03-12 09:23 | RAD ---
Date of service: 03/12/2018 HISTORY: intubated COMPARISON: Portable chest 03/11/2018. FINDINGS: Endotracheal and nasogastric tubes appear unchanged in position as well as right PICC. LUNGS: Mild improvement in bilateral basilar and mid right pulmonary airspace disease. PLEURA: No significant pleural effusion identified, no pneumothorax apparent. CARDIOVASCULAR: Stable cardiomediastinal silhouette. No pulmonary vascular congestion. OSSEOUS STRUCTURES: No significant abnormalities. VISUALIZED UPPER ABDOMEN: Normal. OTHER FINDINGS: Stable right greater than left extrathoracic emphysematous soft tissue changes. Neck and supraclavicular emphysema may have resolved completely. IMPRESSION: Mild improvement in bilateral infiltrates as discussed above. Significantly decreased if not nearly resolved right neck emphysematous soft tissue changes which are otherwise stable at extrathoracic chest wall bilaterally.
[2018-03-12] MEDS: NINTEDANIB ESYLATE 150 MG PO SCH ×2 (09:46→21:35)
--- NOTE | 2018-03-12 10:28 | CP.CCUPN ---
CCU Subjective - Physician Review Subjective (Free Text): No observable seizure activity reported, still intermittently agitated, though not severely requiring anxiolytics, breathing 22 on AC 14, 350 ml TV, 45% oxygen , HR 90-100, SBPs 120s. Other vitals and I/O's reviewed. No further Fever spike over last 24H. ROS: No other pertinent negs or positives on 10+ system review, patient intubated and not interactive. PMSFH: All other Nursing and physician documentation reviewed to date; no new pertinent info noted relevant to current medical problems. EXAM- HEENT: no icterus, no gaze preference, Pupils 3 mm and sluggish bilaterally. NECK: No JVD, supple, carotids equal upstroke bilat/no bruits CHEST: decreased BS bases, no wheezes audible, bilateral WARRANTY ADMINISTRATOR HEART: regular, distant, tachy S1S2, no rubs or murmurs ABD: soft, no distention, no tympany, no palp tenderness, BS not heard. EXT: + edema; no peripheral/ digital cyanosis, no calf tenderness or palpable cords, distal pulses intact and symmetrical. NEURO: moves all 4 limbs spontaneously SKIN: no rashes, warm and dry. LABS: 7.53/53/162 WBC= 16.8 HGB= 8.8 PLTs= 314K Cz=317 K= 3.9 CL=97 HCO3= 43 BUN/Cr= 20/0.4 BS= 118 CXR: ETT position OK above mary, overall WARRANTY ADMINISTRATOR pattern mildly improved, no obvious PTX (my interp) IMPRESSION / MAJOR PROBLEMS NOW: 1. Acute Hypoxemic Resp Failure with Bilateral Pneumonia (Aspiration), with h/ o advanced lung disease with IPF, Pulm HTN sequelae, and Cystic Fibrosis, now with new Pneumomediastinum / small bilateral PTXs. 2. Obtundation, 2 Seizure Disorder, versus Metabolic Encephalopathy 3. IRDM II, with hypoglycemia on admission. 4. Azotemia / Dehydration PLAN: 1. Now day #13 on MV support, family had previousy requested tramsfer to [facility] for chest tube and trach procedure. Family maintains request for transfer to [facility]. No further stipulation from [facility] for chest tube prior to transport for safety purposes. Discussed with Thor Surg, and IR. There is now, no appreciable space, nor a PTX of sufficient size to place a chest tube nor a pigtail catheter safely without injuring the lung. Dr. Allen Dang, on 03/09/18 agreed to accept patient on his ICU service as is without further intervention, pending insurance coverage approval to transfer for Cardiothoracic services which are not available at [facility]. ADDENDUM: have been informed by Case Mgmt that patients insurance has disapproved coverage for transfer; and have been given re-appeal information to have a [id number] discussion with insurance company medical registrar regarding this case. Calls made and awaiting callback from Dr. Gunner Perez within 1 business day. As off 10AM 03/12/18, still awaiting call back from [facility] medical registrar to discuss patients case and decision on coverage. 2. Keppra increased to 1000mg Q12H. Will discuss with Neuro: re- any benefit to change Keppra to Vimpat due to less sedating properties. 3. Ongoing MV settings to reduce positive pressure effects on lung and pleura , hopefully lessening extension of pneumomediastinum. Currently no tension effects seen. 4. Ongoing empiric abx coverage, no new organisms isolated beyond MRSA. Repeat sputum for AFB collected and all 3 are negative. Remains in isolation due to MRSA in sputum.
--- NOTE | 2018-03-12 13:38 | PN ---
Copied To: Jaylen Johnson MD Attending MD: Jaylen Johnson MD DATE: 03/12/2018 SUBJECTIVE: The patient seen and examined. Interim events noted. Consults noted and appreciated. Pulmonary and bar finish operator's intervention noted and appreciated. The patient remains in intensive care unit on a ventilator, also remains noncommunicative, not able to provide informative history or review of system. PHYSICAL EXAMINATION: GENERAL: The patient is orally intubated on mechanical ventilation via endotracheal tube, tolerating current vent setting without any acute respiratory distress. Nursing staff reported periods of agitation with biting of endotracheal tube. VITAL SIGNS: Stable. HEART: S1 and S2. Normal and regular. LUNGS: Good bilateral air exchange. The patient had chronic crepitations from pulmonary fibrosis, also has some transmitted ventilator sounds. ABDOMEN: Soft and nontender. No organomegaly. No fluid. Bowel sounds are plus and normal. EXTREMITIES: No edema. No calf swelling. No tenderness. No acute ischemia. The patient has generalized anasarca. DIRECTOR OF ACCOUNTS PAYABLE: Exam is essentially unchanged, and the patient remains noncommunicative. DIAGNOSTIC DATA: Available diagnostic data reviewed. Telemetry monitoring shows sinus tachycardia, but no significant other arrhythmias. ASSESSMENT AND PLAN: Overall, the patient's general condition although hemodynamically stable, senior project accountant prognosis remains poor due to underlying pulmonary fibrosis. Plan as ordered. Jaylen Johnson MD
--- NOTE | 2018-03-12 14:44 | CP.PCM.PN ---
Subjective - Date & Time of Evaluation Date of Evaluation: 03/12/18 Time of Evaluation: 10:10 - Subjective Subjective: F/U respiratory Failure Objective - Vital Signs/Intake and Output Vital Signs (last 24 hours): Temp Pulse Resp BP Pulse Ox 98.3 F 100 H 19 100/58 L 100 03/12/18 12:00 03/12/18 13:00 03/12/18 13:00 03/12/18 13:00 03/12/18 13:00 Intake and Output: 03/12/18 03/12/18 06:59 18:59 Intake Total 1069 425 Output Total 1000 1 Balance 69 424 - Medications Medications: Current Medications Acetaminophen (Tylenol 325mg Tab) 650 mg PO Q6 PRN PRN Reason: Pain, Mild (1-3) Last Admin: 03/10/18 20:41 Dose: 650 mg Acetaminophen (Tylenol 650mg/20.3ml Solution Ud) 650 mg PO Q6 PRN PRN Reason: Fever > 100.4 Last Admin: 03/11/18 09:26 Dose: 650 mg Aspirin (Aspirin Chewable) 81 mg PO DAILY [facility] Last Admin: 03/12/18 08:11 Dose: 81 mg Atorvastatin Calcium (Lipitor) 10 mg PO DAILY [facility] Last Admin: 03/12/18 08:12 Dose: 10 mg Digoxin (Lanoxin) 0.25 mg PO DAILY [facility] Last Admin: 03/12/18 08:12 Dose: 0.25 mg Diltiazem HCl (Cardizem) 60 mg PO Q6 [facility] Last Admin: 03/12/18 09:35 Dose: 60 mg Enoxaparin Sodium (Lovenox) 40 mg SC DAILY [facility] PRN Reason: Protocol Last Admin: 03/07/18 09:46 Dose: Not Given Ferrous Sulfate (Feosol) 325 mg PO DAILY [facility] Last Admin: 03/12/18 08:12 Dose: 325 mg Home Med (Nintedanib Esylate [Ofev]) 150 mg PO Q12 [facility] Last Admin: 03/12/18 09:46 Dose: Not Given Ceftaroline Fosamil 600 mg/ (Sodium Chloride) 250 mls @ 125 mls/hr IVPB Q12 [facility] PRN Reason: Protocol Last Admin: 03/12/18 08:14 Dose: 125 mls/hr Levetiracetam 1,000 mg/ Sodium (Chloride) 110 mls @ 215 mls/hr IVPB Q12H [facility] Last Admin: 03/12/18 06:19 Dose: 215 mls/hr Insulin Detemir (Levemir) 12 units SC Q12H [facility] Last Admin: 03/12/18 12:53 Dose: Not Given Insulin Human Lispro (Humalog) 0 units SC Q4H [facility] PRN Reason: Protocol Last Admin: 03/12/18 12:18 Dose: Not Given Mupirocin (Bactroban Ointment) 1 applic TOP TID [facility] Last Admin: 03/12/18 12:13 Dose: 1 appl Sildenafil Citrate (Revatio) 20 mg PO TID [facility] Last Admin: 03/12/18 12:13 Dose: 20 mg - Labs Labs: 03/12/18 05:23 03/12/18 05:23 - Constitutional Appears: Chronically Ill - Head Exam Head Exam: NORMAL INSPECTION - Eye Exam Additional comments: Pupils sluggish reaction to light - ENT Exam Additional comments: Intubated - Neck Exam Additional comments: SQ emphysema - Respiratory Exam Respiratory Exam: Decreased Breath Sounds (at bases), Rhonchi (scattered) - Cardiovascular Exam Cardiovascular Exam: REGULAR RHYTHM - GI/Abdominal Exam GI & Abdominal Exam: Soft, Normal Bowel Sounds - Exam Additional comments: Martinez Cath - Extremities Exam Additional comments: Edema all extremities. - Neurological Exam Additional comments: Open eyes, no response to verbal stimuli, response to tactile stimuli with movementsU/E. L/E - Psychiatric Exam Additional comments: Unable to assess. - Skin Skin Exam: Warm Assessment and Plan (1) Acute respiratory failure Status: Acute (2) Subcutaneous emphysema Status: Acute (3) Anoxic brain damage Status: Acute (4) Seizure Status: Acute (5) Pneumonia Status: Acute (6) Sepsis Status: Acute (7) Pulmonary fibrosis Status: Chronic (8) Pulmonary hypertension Status: Chronic (9) Pneumonia with cavity of lung Status: Acute
--- NOTE | 2018-03-12 15:59 | PN ---
Copied To: Radha Joe MD Attending MD: Radha Joe MD DATE: 03/12/2018 ENDO FOLLOWUP NOTE LOCATION: In ICU room 433. SUBJECTIVE: This is a 62-year-old female with recent acute respiratory failure, currently endotracheally intubated and unresponsive with underlying anoxic encephalopathy and is being followed closely also for metabolic management. Her glycemic levels are much improved and they are actually low normal today as noted, ranging from 67 to 94 and 120 mg/dL. LABORATORY DATA: Her latest chemistry showed a BUN of 20, sodium 143, potassium 3.9, chloride 97, CO2 of 43, glucose 118, and creatinine 0.4. ASSESSMENT AND PLAN: So at this time, we will modify once again her basal insulin and lower the Levemir to 12 units subcutaneously every 12 hours at 08:00 a.m. and 08:00 p.m. daily as given. We will titrate incrementally as indicated to optimize metabolic control. We will obtain serial chemistries and supplement accordingly as needed. We will hold off any bolus or stat doses of Humalog to prevent further hypoglycemic episodes as noted. We will obtain serial chemistries and supplement accordingly as needed. We will follow. Radha Joe MD
[2018-03-12] MEDS ORDERED: Dextrose 50% SYRINGE Inj (50 ml) IVP ONE (16:10)
[2018-03-12] MEDS ORDERED: Dextrose 50% SYRINGE Inj (50 ml) ONE (16:15)
[2018-03-13] MEDS: Insulin Detemir 100 Units/ml Inj SC SCH (00:11)
[2018-03-13] MEDS: Insulin Lispro (humaLOG) 100 Units/ml Inj SC SCH ×4 (00:11→08:03)
[2018-03-13 04:38] LABS: ABG ALLEN TEST YES; ARTERIAL BLOOD GAS HCO3 38.8 mmol/L (21-28); ARTERIAL BLOOD GAS O2 CAPACITY 13.9 mL/dL (16-24); ARTERIAL BLOOD GAS O2 CONTENT 13.8 ML/dL (15-23); ARTERIAL BLOOD GAS O2 SAT 99.3 % (95-98); ARTERIAL BLOOD GAS PCO2 54 mm/Hg (35-45); ARTERIAL BLOOD GAS PH 7.51 (7.35-7.45); ARTERIAL BLOOD GAS PO2 121 mm/Hg (80-100); ARTERIAL BLOOD GAS TCO2 44.8 mmol/L (22-28)
[2018-03-13] MEDS: levETIRAcetam 1,000 MG in Sodium Chloride 0.9% 100 ML IVPB SCH (06:23)
--- NOTE | 2018-03-13 07:20 | RAD ---
Date of service: 03/13/2018 HISTORY: intubate COMPARISON: No prior. FINDINGS: LUNGS: Bilateral interstitial infiltrates . PLEURA: No significant pleural effusion identified, no pneumothorax apparent. CARDIOVASCULAR: Normal. OSSEOUS STRUCTURES: No significant abnormalities. VISUALIZED UPPER ABDOMEN: Normal. OTHER FINDINGS: ETT above the mary. Right PICC line in place IMPRESSION: Bilateral interstitial infiltrates .
[2018-03-13 07:21] LABS: HEMOGLOBIN 9.7 g/dL (12.0-16.0); MEAN CELL VOLUME 71.4 fl (81.0-99.0); MEAN CORPUSCULAR HEMOGLOBIN 22.4 pg (27.0-31.0); MEAN CORPUSCULAR HGB CONC 31.4 g/dL (33.0-37.0); RBC 4.33 Mil/uL (3.80-5.20); RED CELL DISTRIBUTION WIDTH 20.7 % (11.5-14.5); WHITE BLOOD COUNT 18.7 K/uL (4.8-10.8)
[2018-03-13 07:38] LABS: ALBUMIN 2.7 g/dL (3.5-5.0); ALT/SGPT 41 U/L (9-52); AST/SGOT 48 U/L (14-36); BLOOD UREA NITROGEN 18 mg/dl (7-17); CALCIUM 8.3 mg/dL (8.4-10.2); GFR AFRICAN-AMERICAN > 60; GFR NON-AFRICAN AMERICAN > 60
[2018-03-13 07:45] VITALS: O2SAT 100
[2018-03-13 09:24] VITALS: TEMP 99.1
[2018-03-13] MEDS: Sildenafil 20 MG TAB PO SCH (09:25)
[2018-03-13 09:26] VITALS: PULSE 120
[2018-03-13] MEDS: Digoxin 250 mcg (0.25 mg) Tab PO SCH (09:26)
[2018-03-13] MEDS: NINTEDANIB ESYLATE 150 MG PO SCH (09:48)
[2018-03-13] MEDS ORDERED: DOPamine 400mg/250ml D5W 400 MG/250 ML BAG IV ONE (10:58)
[2018-03-13] MEDS ORDERED: Albuterol-Ipratrop 3 mg / 0.5 (3 ml) UD INH STA (11:05)
[2018-03-13] MEDS ORDERED: Albuterol-Ipratrop 3 mg / 0.5 (3 ml) UD ONE (11:06)
[2018-03-13 11:32] VITALS: BP 99/57; PULSE 116; RESP 24
--- NOTE | 2018-03-13 14:51 | PN ---
Copied To: Jaylen Johnson MD Attending MD: Jaylen Johnson MD DATE: 03/13/2018 SUBJECTIVE: The patient seen and examined. Interim events noted. Consults noted and appreciated. Apparel Designer and Pulmonology followup and intervention noted and appreciated. The patient remains in intensive care unit on a ventilator, also remains nonresponsive. Not able to provide any informative history or review of systems. No specific issue reported by nursing staff. The patient is for transfer to hospital today. PHYSICAL EXAMINATION: GENERAL: The patient is orally intubated on mechanical ventilation via endotracheal tube, tolerating current vent setting without any acute respiratory distress. VITAL SIGNS: Stable. Temperature afebrile, pulse 88, respirations 18, blood pressure 136/76. HEENT: Pupils reacting to light. HEART: S1 and S2, normal and regular. Occasional tachycardia. LUNGS: Lung exam shows chronic crepitation and transmitted ventilator sounds. ABDOMEN: Soft, nontender. EXTREMITIES: The patient has generalized anasarca and edema. No calf swelling. No tenderness. No acute ischemia. WIND FARM ELECTRICAL SYSTEMS DESIGNER: Exam is essentially unchanged, and the patient remains noncommunicative. DIAGNOSTIC DATA: Available diagnostic data reviewed. Telemetry monitoring shows sinus tachycardia. No other significant arrhythmias. ASSESSMENT AND PLAN: Overall, the patient is critically sick, going to [facility] today. Plan as ordered. Jaylen Johnson MD
--- NOTE | 2018-03-13 16:24 | PN ---
Copied To: Radha Joe MD Attending MD: Radha Joe MD DATE: 03/13/2018 ENDO FOLLOWUP NOTE LOCATION: ICU room 433. SUBJECTIVE: This is a 62-year-old female with recent uncontrolled type 2 insulin-requiring diabetes, now being followed closely for metabolic management. She also developed recent acute respiratory failure and has remained endotracheally intubated and unresponsive with recent anoxic encephalopathy as noted. LABORATORY DATA: Her latest glucose levels have ranged from 83 to 67 and 116 mg/dL. Her latest chemistries showed a BUN 18, sodium 140, potassium 4.4, chloride 96, CO2 of 43, glucose 102, and creatinine 0.4. So at this time, we will continue the same basal insulin given as Levemir at 12 units subcu every 12 hours as ordered. We will obtain serial chemistries and supplement accordingly as needed. We will follow. Radha Joe MD
--- NOTE | 2018-03-13 21:54 | PN ---
Copied To: Tyson Perea MD Attending MD: Tyson Perea MD DATE: 03/13/2018 CRITICAL CARE PROGRESS NOTE LOCATION: Patient in ICU, bed 433 TIME SPENT: 25 minutes. SUBJECTIVE: Patient is seen and evaluated at the bedside. Past medical, surgical, social, and family history reviewed. A 62-year-old female, known smoker with history significant for pulmonary fibrosis idiopathic with extensive honeycombing and bronchiectatic changes involving lateral and basilar areas of both lungs, being considered for lung transplant. Also, with hypertension, diabetes mellitus type 2, and pulmonary hypertension. Admitted with altered mental status, significant hypoglycemia, hypoglycemia related seizure disorder and subsequent cerebral injury. Clinical course complicated with an extensive pneumomediastinum. Overnight, remains intubated on mechanical ventilation on AC/PRVC, rate 12, tidal volume 300, FIO2 40%, saturating 100%, peak airway pressure of 14, exhale tidal volume 340, observed respiratory rate 25. No sedation. PHYSICAL EXAMINATION: VITAL SIGNS: Temperature 99.1, heart rate 112 to 170, blood pressure 95 to 106/65, oxygen saturation 100%. Intake 1563, output 1501, positive balance 62. HEAD, EYES, EARS, NOSE, AND THROAT: Pupils reactive. Conjunctivae pink. Sclerae are white. NECK: Supple. Endotracheal tube in place. No secretion noted. CHEST: Bilateral breath sounds. Bilateral Velcro crackles. HEART: Rhythm regular. S1, S2 rapid. No S3, S4 gallop. No audible murmur. ABDOMEN: Bowel sounds present. Soft. NG tube in place. Liver and spleen not palpable. Bladder not distended. EXTREMITIES: With dependent edema. CURRENT MEDICATIONS: Include Tylenol 650 every 6 hours p.r.n., aspirin 81 mg daily, Lipitor 10 mg daily, ceftaroline 600 mg every 12 hours, Lanoxin 0.25 mg p.o. daily, Cardizem 60 every 6 hours, Lovenox 40 mg subcu daily, iron sulfate 325 mg daily, Levemir 12 units subcu every 12 hours, Humalog based on Accu-Chek, Keppra 1000 mg IV every 12 hours, Bactroban ointment one application topically three times daily, Levophed drip titrating to systolic pressure 100, and sildenafil 20 mg p.o. three times daily. LABORATORY DATA: WBC 18.7, hemoglobin 9.7, hematocrit 30.9, and platelet count of 295. ABG; pH 7.51, pCO2 of 54, pO2 of 121, saturation 99.3 on AC 12/300/40%. SMA-7; sodium 140, potassium 4.4, chloride 96, CO2 of 43, blood urea nitrogen 18, creatinine 0.4, random glucose 160, calcium 8.3, total bilirubin 0.4, AST 48, ALT 41, alkaline phosphatase 109, total protein 5.4, and albumin 2.7. Urinalysis; rbc's 21, leuk esterase negative, microscopic wbc's less than 5. Digoxin level 0.6. Vancomycin trough level 8.1. Serology TB test is negative. Microbiology, sputum culture positive for methicillin-resistant staph aureus. Chest x-ray from this morning, bilateral interstitial infiltrates, no significant pleural effusion, no pneumothorax. Pneumomediastinum unchanged. IMPRESSION AND PLAN: 1. Neurology: Status post seizure secondary to prolonged hypoglycemia, subsequent cerebral anoxic hypoglycemic injury. Repeat EEG pending. Appreciate neurology followup. 2. Pulmonary: Hypoxic respiratory failure with superimposed methicillin-resistant Staphylococcus aures positive pneumonia, currently on ceftaroline, Zyvox, and clindamycin to cover for aspiration pneumonia as well as anaerobes. Patient's ABG appears adequate on the current setting. Clinical course complicated with diffuse pneumomediastinum with no demonstrable pneumothorax and chest tube insertion on hold. Appreciate thoracic surgery followup. Patient is being transferred to [place] for further evaluation. 3. Cardiac: Sinus tachycardia, low to normal blood pressure, currently given Cardizem with further drop in the blood pressure, challenged with IV fluid and on Levophed as needed to maintain systolic pressure 100. 4. Hematology: Leukocytosis on steroids, being tapered. Superimposed infection, currently on antibiotic. Anemia of chronic disease plus microcytic anemia associated with possible occult blood loss. Platelet count is normal. 5. Endocrine: History of diabetes. Blood sugar is ranging from 99 to 116. Continue deep vein thrombosis prophylaxis and gastrointestinal prophylaxis. Tyson Perea MD
== END 2018-03-13 11:45 | disposition short-term general hospital (02) | DRG 870 ==
LOC: H.ER 13:30 → H.ERHOLD 14:33 → H.ICU/CCU 17:45
PROVIDERS: ADMIT Internal Medicine; ATTEND Internal Medicine
PROC: 5A1955Z Respiratory Ventilation, Greater than 96 Consecutive Hours (ICD-10-PCS; principal; 2018-02-28)
PROC: 02HV33Z Insertion of Infusion Device into Superior Vena Cava, Percutaneous Approach (ICD-10-PCS; 2018-03-08)
DX: A41.9 Sepsis, unspecified organism (principal); J96.01 Acute respiratory failure with hypoxia; J69.0 Pneumonitis due to inhalation of food and vomit; G93.41 Metabolic encephalopathy; J15.212 Pneumonia due to Methicillin resistant Staphylococcus aureus; E84.9 Cystic fibrosis, unspecified; G93.1 Anoxic brain damage, not elsewhere classified; T79.7XXA Traumatic subcutaneous emphysema, initial encounter; I50.42 Chronic combined systolic (congestive) and diastolic (congestive) heart failure; R40.3 Persistent vegetative state; J93.9 Pneumothorax, unspecified; J84.112 Idiopathic pulmonary fibrosis; G40.909 Epilepsy, unspecified, not intractable, without status epilepticus; Z79.4 Long term (current) use of insulin; E78.5 Hyperlipidemia, unspecified; R32 Unspecified urinary incontinence; I27.29 Other secondary pulmonary hypertension; I11.0 Hypertensive heart disease with heart failure; E13.649 Other specified diabetes mellitus with hypoglycemia without coma; I25.10 Atherosclerotic heart disease of native coronary artery without angina pectoris; E87.6 Hypokalemia; J47.9 Bronchiectasis, uncomplicated; F17.200 Nicotine dependence, unspecified, uncomplicated; R65.20 Severe sepsis without septic shock; E11.65 Type 2 diabetes mellitus with hyperglycemia; J98.4 Other disorders of lung; D63.8 Anemia in other chronic diseases classified elsewhere; D50.9 Iron deficiency anemia, unspecified